=== PATIENT | female | born 1945 | race Caucasian/White ===

== ENCOUNTER 2022-07-31 09:18 | Outpatient (CLI) | payer MEDICARE, OTHER, SELFPAY ==
--- NOTE | 2022-08-07 17:22 | WPDSLEEPSTUD ---
Sleep Study Date of Study: 07/31/22 Ordering Provider: Nolberto Roe MD Interpreting Physician: Kirsten Rasheed MD Sleep Study Type: CPAP Titration Height: 1.68 m Weight: 64.864 kg Body Mass Index: 23.1 Neck Circumference (inches): 12.5 [place]: 2 Reason for Sleep Study Obstructive sleep apnea * 05/27/2022 home sleep test with [employer] through Dr Roe's office showed AHI 21.4, supine AHI 3-.3, lowest desaturation 82%, presents for CPAP titration Sleep History Mary Valera is a 76 year-old female with history of obstructive sleep apnea on a home test, now presents for CPAP titration.? She is not sure if she awakens from sleep short of breath. She rarely awakens at night with heartburn, belching or cough.??She rarely snores. She occasionally snores loudly enough that others complain. She rarely has trouble sleeping when she has a cold. She never suddenly wakes up gasping for breath during the night. She never has breathing problems at night observed by others. She never sweats excessively at night. She occasionally notices her heart pounding or beating irregularly during the night. She rarely falls asleep during the day. She never falls asleep while driving. She does not have loss of muscle tone with strong emotion. She never feels paralyzed on waking or falling asleep. She rarely experiences vivid dreams upon waking or falling asleep. She never feels afraid of going to sleep. She never has nightmares. She occasionally recalls her dreams. She occasionally has thoughts racing through her mind. She rarely feels sad or depressed. She does not have anxiety or worry about things. She rarely notices parts of her body jerk. She occasionally kicks during the night. She occasionally feels crawling or aching feelings in her legs. She rarely feels leg pain at night. She never grinds her teeth or has morning jaw pain. She occasionally feels bothered by pain during the day and awakened by pain during the night. She frequently wakes up feeling stiff, occasionally sore and achy, rarely with pain in her neck, spine, or joints. ? ? Normal bedtime is around 10:30 p.m., some nights longer than others to fall asleep. She typically gets about 2-4 hours of sleep per night. Her wake up time is 7:00 a.m.. She typically wakes up around many times at night. she does not take naps. She feels better in the afternoon compared to other times of day Habits:??Tobacco: never Caffeine: none Alcohol: none Recreational substances: never PMF Past Medical History Medical History (Updated 08/07/22 @ 17:50 by Kirsten Rasheed MD) Atrial fibrillation Hypertension Obstructive sleep apnea Surgical History Surgical History (Updated 08/07/22 @ 17:50 by Kirsten Rasheed MD) History of intestinal surgery Social History Social History (Updated 08/07/22 @ 17:46 by Kirsten Rasheed MD) Smoking status: Never smoker Alcohol intake: never Substance use: never Medications Medications: Metoprolol tartrate 50 mg b.i.d. Dofetilide 500 mg BID hydralazine 50 mg b.i.d. Xarelto 20 mg daily valsartan 40 mg daily B12 a 1000 mg daily vitamin B1 100 mg daily sertraline 25 mg daily Sleep Procedure This test was performed using the [employer] multiple channel system including EOG, EEG, submental EMG, EKG, nasal and oral airflow using thermistors and nasal pressure sensors, chest and abdominal belts for body position data, and pulse oximetry. Video monitoring was also performed. The study was scored using CMS guidelines. The patient was started on CPAP using a small ResMed AirFit P 30 I mask with humidity. Pressures attempted included CPAP 4 cm, 5 cm, 6 cm and 7 cm. At 7 cm, the patient spent 180.5 minutes in bed, 7 minutes awake, 143.5 minutes in non-REM and 29.5 minutes in REM. Sleep efficiency was 95.8%. The AHI is 0. The lowest saturation is 92%. REM occurred in the right lateral position. There was no supine
[2022-08-07 19:47] VITALS: BMI 23.1
== END 2022-08-01 07:08 | disposition home or self-care (01) ==
LOC: ANHCSM 09:19
PROVIDERS: PCP Internal Medicine; Visit Provider Internal Medicine Cardiovascular Disease
DX: G47.33 Obstructive sleep apnea (adult) (pediatric) (principal)
CPT/HCPCS: 95811

== ENCOUNTER 2023-10-10 09:19 | Outpatient (CLI) | payer MEDICARE, OTHER, SELFPAY ==
--- NOTE | ~2023-10-10 | US_ITS ---
US renal BI DATE: 10/10/2023 09:58 INDICATION: Abnormal laboratory values TECHNIQUE: Real-time and color flow imaging of the kidneys and urinary bladder COMPARISON: 06/12/2017 CT abdomen pelvis FINDINGS: Right kidney measures 10.4 x 6.0 x 5.8 cm. Left kidney measures 10.7 x 5.1 x 4.7 cm. Multiple sonolucent areas are noted in both the central renal hilar areas. There were multiple bilate ral parapelvic renal cysts on 06/12/2017 CT examination, which may account for these sonolucencies. Hyd ronephrosis is difficult to definitively exclude however. If there is concern for hydronephrosis, con swimmer CT examination with IV contrast material. The urinary bladder is unremarkable. Bilateral ureteral jets were demonstrated. IMPRESSION: Bilateral parapelvic renal cysts; it would be difficult to exclude hydronephrosis as a re sult. Consider CT examination with IV contrast material if clinically appropriate and if patient's la b values are not significantly elevated for intravenous contrast administration. Reviewed, dictated and finalized at Location [facility]. Reviewed, dictated and finalized at location J. IMPRESSION: Bilateral parapelvic renal cysts; it would be difficult to exclude hydronephrosis as a result. Consider CT examination with IV contrast material i f clinically appropriate and if patient's lab values are not significantly elev ated for intravenous contrast administration.
== END 2023-10-10 09:20 | disposition home or self-care (01) ==
LOC: ANHIMG 09:25
PROVIDERS: PCP Internal Medicine; Visit Provider Internal Medicine
DX: R89.9 Unspecified abnormal finding in specimens from other organs, systems and tissues (principal); N28.1 Cyst of kidney, acquired
CPT/HCPCS: 76775

== ENCOUNTER 2023-11-23 11:25 | Outpatient (CLI) | payer MEDICARE, OTHER, SELFPAY ==
[2023-11-23 12:06] LABS: Hematocrit 49.2 % (37.0-47.0); Hemoglobin 15.2 g/dL (12.0-15.0); Mean Corpuscular HGB Conc 30.9 g/dl (32-36); Mean Corpuscular Hemoglobin 27.8 pg (26-34); Mean Corpuscular Volume 90.1 fl (80-100); Mean Platelet Volume 9.4 fl (7.4-10.4); Platelet Count Result 185 k/mm3 (150-375); Red Blood Count 5.46 M/mm3 (4.2-5.4); Red Cell Distribution Width 14.7 % (11.5-14.5); White Blood Count 4.7 K/mm3 (4.5-10.0)
[2023-11-23 12:18] LABS: Albumin Level 4.2 g/dL (3.5-5.1); Anion Gap 10 mmol/L (4-12); Blood Urea Nitrogen 33 mg/dL (7-17); Calcium 9.3 mg/dL (8.4-10.2); Carbon Dioxide 33 mmol/L (22-30); Chloride 97 mmol/L (98-107); Creatine Kinase 42 U/L (30-135); Estimated Glomerular Filt Rate 40; Glucose 99 mg/dL (65-110); Phosphorus 4.3 mg/dL (2.5-4.5); Potassium 4.3 mmol/L (3.4-5.0); Sodium 140 mmol/L (137-145)
[2023-11-23 12:23] LABS: Complement C3 118 mg/dL (88-165)
[2023-11-23 12:34] LABS: Parathyroid Intact 26.6 pg/mL (14.5-75.2)
[2023-11-23 12:43] LABS: Add Urine Microscopic? YES; Appearance Urine Clear (Clear); Color Urine Yellow (Yellow); Glucose Urine UA Negative (Negative); Nitrate Urine Negative (Negative); Urobilinogen Urine 0.2 mg/dL (<2.0)
[2023-11-23 12:45] LABS: Bilirubin Urine 1+ (Negative); Blood Urine Negative (Negative); Ketones Urine Trace mg/dL (Negative); Leukocyte Esterase Ur Negative LEU/UL (Negative); Protein Urine 1+ mg/dL (Negative); RBC Urine 0-2 /hpf (0-2); Squamous Epithelial Cell Urine Few /hpf (Few); WBC Urine 0-5 /hpf (0-3); pH Urine 5.5 (5.0-9.0)
[2023-11-23 12:48] LABS: Erythrocyte Sedimentation Rate 2 mm/hr (0-20)
[2023-11-23 13:22] LABS: Creatinine Urine 277.2 mg/dL; Total Protein Urine Random 7 mg/dL; Ur Ttl Prot Creatinine Ratio 0.03 mg/mg (0-0.20)
[2023-11-25 13:39] LABS: Kappa\\Lambda Light Chains 1.41 (0.26-1.65); Lambda Light Chain 23.8 mg/L (5.7-26.3)
[2023-11-25 14:28] LABS: Complement Total CH50 >60 U/mL (31-60)
[2023-11-29 04:24] LABS: Renin 0.09 ng/mL/h (0.25-5.82)
== END 2023-11-23 11:26 | disposition home or self-care (01) ==
PROVIDERS: PCP Internal Medicine; Visit Provider Internal Medicine Nephrology
DX: R94.4 Abnormal results of kidney function studies (principal)
CPT/HCPCS: 36415; 80069; 81001; 82088; 82550; 82570; 83883; 83970; 84156; 84244; 85027; 85652; 86038; 86039; 86160; 86162

== ENCOUNTER 2023-11-27 09:46 | Outpatient (CLI) | payer MEDICARE, OTHER, SELFPAY ==
[2023-11-27 11:17] LABS: Total Volume 24 Hour Urine 850 ml
[2023-11-27 11:42] LABS: Sodium 24 Hour Urine 115 mmol/day (40-220); Sodium Urine Random 136 meq/L
[2023-11-30 18:49] LABS: Creat 24 Hr 1.01 g/24 h (0.50-2.15); Pro/Creat Ratio 134 mg/g creat (<150); Pro/Creat Ratio mg/mg 0.134 (<0.150); Protein,total, 24 Hr Ur 136 mg/24 h (<150)
[2023-12-03 15:24] LABS: Albumin 34 %
== END 2023-11-27 09:47 | disposition home or self-care (01) ==
PROVIDERS: PCP Internal Medicine; Visit Provider Internal Medicine Nephrology
DX: R94.4 Abnormal results of kidney function studies (principal)
CPT/HCPCS: 81050; 82530; 84300; 86335

== ENCOUNTER 2024-05-18 14:18 | Outpatient (CLI) | payer MEDICARE, OTHER, SELFPAY ==
[2024-05-18 14:38] LABS: Hematocrit 45.3 % (37.0-47.0); Hemoglobin 14.4 g/dL (12.0-15.0); Mean Corpuscular HGB Conc 31.8 g/dl (32-36); Mean Corpuscular Hemoglobin 28.9 pg (26-34); Mean Corpuscular Volume 90.8 fl (80-100); Mean Platelet Volume 8.6 fl (7.4-10.4); Platelet Count Result 177 k/mm3 (150-375); Red Blood Count 4.99 M/mm3 (4.2-5.4); Red Cell Distribution Width 15.8 % (11.5-14.5)
[2024-05-18 14:50] LABS: Albumin Level 4.4 g/dL (3.5-5.1); Anion Gap 10 mmol/L (4-12); Blood Urea Nitrogen 28 mg/dL (7-17); Calcium 9.4 mg/dL (8.4-10.2); Carbon Dioxide 28 mmol/L (22-30); Chloride 101 mmol/L (98-107); Estimated Glomerular Filt Rate 44; Glucose 91 mg/dL (65-110); Phosphorus 3.8 mg/dL (2.5-4.5); Potassium 4.2 mmol/L (3.4-5.0); Sodium 139 mmol/L (137-145)
[2024-05-18 15:02] LABS: Parathyroid Intact 38.6 pg/mL (14.5-75.2)
--- OUTSIDE RECORDS SUMMARY | 2024-05-18 16:15 | XMS_ITS | Encounter Summary ---
Author Organization [facility] Address [address] [address] Care Team Providers Care Paint Roller Assembler Name Role Phone Omi Prieto MD Primary Care Provider [phone] Encounter Details Date Type Department Care Team (Late st Contact Info) Description 04/23/2023 Lab Requisition [facility] - DermPath Lab [address] [place] [id number] Ellie Guzman DO [address] [facility] [address] [place] [address] Social History Tobacco Use Types Packs/Day Years Used Date Smoking Tobacco: Never Assessed Sex and Gender Information Value Date Recorded Sex Assigned at Not on file Gender Identity Not on file Sexual Orientation Not on file documented as of this encounter Plan of Treatment Not on file documented as of this encounter Procedures Procedure Name Priority Date/Time Associated Diagnosis Comments DERMATOPATHOLOGY Routine 04/23/2023 9:18 AM CERTIFIED TOWER CLIMBER documented in this encounter Results * DERMATOPATHOLOGY (04/23/2023 9:18 AM CERTIFIED TOWER CLIMBER) Case Report Dermatopathology Report Case: [id number] Authorizing Provider: Ellie Guzman DO Collected: 04/23/2023 09:18 AM Ordering Location: [facility] DermPath Lab Received: 04/24/2023 06:41 AM Pathologist: Nicol Pereira MD Specimens: A) - Skin, left chest B) - Skin, left ant LE 4:28 PM CERTIFIED TOWER CLIMBER DERMATOPATHOLOGY LABORATORY Final Diagnosis Specimen A. SKIN, left chest: LICHEN PLANUS-LIKE KERATOSIS (BENIGN LICHENOID KERATOSIS) (L82.1) (see microscopic description) Specimen B. SKIN, left ant LE: SPONGIOTIC DERMATITIS WITH EOSINOPHILS (L30.8) (see microscopic description and comment) 4 4:[address] [facility] DERMATOPATHOLOGY LABORATORY Clinical History A-B: r/o [facility] 4 4:[address] [facility] DERMATOPATHOLOGY LABORATORY Gross Description Specimen A: Received is one formalin filled container labeled with the patient's name and designated left chest. The specimen consists of a shave biopsy measuring 6x5x1 mm. Jar 0. Specimen B: Received is one formalin filled container labeled with the patient's name and designated left ant LE. The specimen consists of a shave biopsy measuring 6x4x1 mm. Jar 0. 4 4:[address] [facility] DERMATOPATHOLOGY LABORATORY Microscopic Description Specimen A. SKIN, left chest: The epidermis is mildly acanthotic. There is a lichenoid infiltrate with vacuolar changes of basilar keratinocytes and scattered necrotic keratinocytes. Mib-1 stain highlights proliferating keratinocytes confined to the basilar epidermis. Additional deeper sections were obtained and reviewed. Specimen B. SKIN, left ant LE: There is focal parakeratosis and spongiosis. In the dermis there is a mainly superficial perivascular lymphohistiocytic inflammatory infiltrate with eosinophils. COMMENT: The histological differential diagnosis includes a contact dermatitis, an eczematous drug eruption, and less likely the urticarial phase of bullous pemphigoid. 4 4:[address] [facility] DERMATOPATHOLOGY LABORATORY Disclaimer An external and internal positive and negative controls are appropriate for the histochemical, immunohistochemical and immunofluorescence stain(s) in this case (if any), except where stated explicitly. The performance characteristics of the stain(s) cited in this report were developed and its performance characteristic determined by the Dermatopathology Laboratory at [facility], directed by Dr. Cole Rascon. These tests need not be, and therefore are not, approved by the [place] Food and Drug Administration. The tests are used for clinical purposes. Billing Codes Specimen Charges Stain Charges 72181 61782 1 1 75362 1 4 4:[address] [facility] DERMATOPATHOLOGY LABORATORY Embedded Images 4 4:[address] [facility] DERMATOPATHOLOGY LABORATORY Pathology/Cytology TISSUE SPECIMEN FROM SKIN / Unknown 04/23/2023 9:18 AM CERTIFIED TOWER CLIMBER 04/24/2023 6:41 AM CERTIFIED TOWER CLIMBER Miscellaneous samples (specimen) TISSUE SPECIMEN FROM SKIN / Unknown 04/23/2023 9:18 AM CERTIFIED TOWER CLIMBER 04/24/2023 6:41 AM CERTIFIED TOWER CLIMBER Ellie Guzman DO LAB - PATHOLOGY/C YTOLOGY ORDERABLES DERMATOPATHOLOGY LABORATORY [facility] - Department of Dermatology [facility] Medicine [address] [place] [address], [address] [phone] documented in this encounter Visit Diagnoses Not on filedocumented in this encounter Care Teams Paint Roller Assembler Relationship Specialty Start Date End Date Omi Prieto MD PCP - General 12/16/18 documented as of this encounter
--- OUTSIDE RECORDS SUMMARY | 2024-05-18 16:15 | XMS_ITS | Patient Health Summary ---
Author Organization [facility] Address [address] [place] [address] Care Team Providers Care Weigh And Charge Worker Name Role Phone Omi Prieto MD Primary Care Provider [phone] Note from [facility],non-owned Affiliates and Associated Physician Practices is amultiple site organization consisting of ambulatory clinics and hospital sitesin [place], [place], [place] and [place]. This disclosure is being madepursuant to the Care Everywhere program and may not contain all information available regarding this patient. Last updated 17.[facility] Social History Tobacco Use Types Packs/Day Years Used Date Smoking Tobacco: Never Assessed Sex and Gender Information Value Date Recorded Sex Assigned at Not on file Gender Identity Not on file Sexual Orientation Not on file Procedures * DERMATOPATHOLOGY(Performed 04/23/2023) * DERMATOPATHOLOGY(Performed 09/24/2022) * DERMATOPATHOLOGY(Performed 01/09/2022) * DERMATOPATHOLOGY(Performed 05/09/2021) * DERMATOPATHOLOGY(Performed 03/25/2021) * DERMATOPATHOLOGY(Performed 09/19/2020) * DERMATOPATHOLOGY(Performed 08/23/2019) * DERMATOPATHOLOGY(Performed 02/08/2019) * DERMATOPATHOLOGY(Performed 12/16/2018) Results * DERMATOPATHOLOGY (04/23/2023 9:18 AM DOPE SPRAYER) Only the most recent of9 resultswithin the time period is included. Case Report Dermatopathology Report Case: [id number] Authorizing Provider: Ellie Guzman DO Collected: 04/23/2023 09:18 AM Ordering Location: [facility] DermPath Lab Received: 04/24/2023 06:41 AM Pathologist: Nicol Pereira MD Specimens: A) - Skin, left chest B) - Skin, left ant LE 4 4:28 PM [facility] DERMATOPATHOLOGY LABORATORY Final Diagnosis Specimen A. SKIN, left chest: LICHEN PLANUS-LIKE KERATOSIS (BENIGN LICHENOID KERATOSIS) (L82.1) (see microscopic description) Specimen B. SKIN, left ant LE: SPONGIOTIC DERMATITIS WITH EOSINOPHILS (L30.8) (see microscopic description and comment) 4 4:28 PM [facility] DERMATOPATHOLOGY LABORATORY Clinical History A-B: r/o [facility] 4 4:28 PM [facility] DERMATOPATHOLOGY LABORATORY Gross Description Specimen A: Received [...] 6x4x1 mm. Jar 0. 4 4:28 PM [facility] DERMATOPATHOLOGY LABORATORY Microscopic Description Specimen A. SKIN, [...] phase of bullous pemphigoid. 4 4:28 PM [facility] DERMATOPATHOLOGY LABORATORY Disclaimer An external and internal positive and negative controls are appropriate for the histochemical, immunohistochemical and immunofluorescence stain(s) in this case (if any), except where stated explicitly. The performance characteristics of the stain(s) cited in this report were developed and its performance characteristic determined by the Dermatopathology Laboratory at [facility], directed by Dr. Cole Rascon. These tests need not be, and therefore are not, approved by the [place] Food and Drug Administration. The tests are used for clinical purposes. Billing Codes Specimen Charges Stain Charges 95779 06926 1 1 40824 1 4 4:28 PM [facility] DERMATOPATHOLOGY LABORATORY Embedded Images 4 4:28 PM [facility] DERMATOPATHOLOGY LABORATORY Pathology/Cytology TISSUE SPECIMEN FROM SKIN / Unknown 04/23/2023 9:18 AM DOPE SPRAYER 04/24/2023 6:41 AM DOPE SPRAYER Miscellaneous samples (specimen) TISSUE SPECIMEN FROM SKIN / Unknown 04/23/2023 9:18 AM DOPE SPRAYER 04/24/2023 6:41 AM DOPE SPRAYER Ellie Guzman DO LAB - PATHOLOGY/C YTOLOGY ORDERABLES DERMATOPATHOLOGY LABORATORY [facility] - Department of Dermatology [facility] Specialized Medicine [address] [place] [address], [address] [phone] Care Teams Weigh And Charge Worker Relationship Specialty Start Date End Date Omi Prieto MD PCP - General 12/16/18
--- OUTSIDE RECORDS SUMMARY | 2024-05-18 16:15 | XMS_ITS | Continuity of Care Document ---
Author Organization [facility] Address [address] [place] [address] Phone Care Team Providers Care Roller Machine Operator Name Role Phone Mantilla OD, Duane Unavailable Unavailable Advance Directives Directive Yes / No Effective Date File Name No Information Encounters Encounter Description Practice Location Reason(s) For Visit Diagnoses Date Provider Providers Copied on Encounter [facility], [address], [place], [place], [id number], [place] tel:[phone] [facility] [place] No Information 0-200 1 Mantilla OD Duane. [address] , [address], [place], [address], [place]. tel:[phone] Family History Family Member Type Diagnosis Age At Onset No Information Payers Payer name Insurance type Covered republican ID Authoriza tion(s) No Information Social History Type Description Quantity Date Captured Comments Sex Female Smoking Status No Information Chief Complaint And Reason For Visit No Information Reason For Referral Reason For Referral No Information History Of Present Illness Encounter Date Complaint History Of Prese nt Illness No Information Functional Status Date Functional Assessmen t No Information Instructions Date Instruction Additional Infor mation No Information Assessments Type Assessment Date No Information Patient Care Teams Name Effective Dates (start - stop) Status Members No Information
--- OUTSIDE RECORDS SUMMARY | 2024-05-18 16:15 | XMS_ITS | Clinical Summary ---
Author Organization [facility] Address [address] [place] [address] Care Team Providers Care Log Getter Name Role Phone Omi Prieto MD Primary Care Provider [phone] Source Comments [facility],non-owned Affiliates and Associated Physician Practices is amultiple site organization consisting of ambulatory clinics and hospital sitesin [place] and [place]. This disclosure is being madepursuant to the Care Everywhere program and may not contain all information available regarding this patient. Last updated 17.[facility] [place] Social History Tobacco Use Types Packs/Day Years Used Date Smoking Tobacco: Never Assessed Sex and Gender Information Value Date Recorded Sex Assigned at Not on file Gender Identity Not on file Sexual Orientation Not on file Plan of Treatment Health Maintenance Due Date Last Done Comments BONE DENSITY TESTING 1945 MEDICARE AWV 12 MONTHS 1945 HEPATITIS C SCREENING 09/13/1963 DTAP/TDAP/TD VACCINES (1 - Tdap) 1964 PNEUMOCOCCAL VACCINE 50+ (1 of 1 - PCV) 09/18/1995 ZOSTER VACCINE (1 of 2) 09/18/1995 Respiratory Syncytial Virus (RSV) Vaccine Pt: or over 60 yrs (1 - 1-dose 75+ series) 2020 COVID-19 VACCINE ( - 2023-2 5 season) 2023 INFLUENZA VACCINE (#1) 2023 DEPRESSION SCREENING 03/09/2024 HEPATITIS B VACCINE Aged Out No longe r eligible based on patient's age to complete this topic HIB VACCINE Aged Out No longer eligi ble based on patient's age to complete this topic HPV VACCINE Aged Out No longer eligi ble based on patient's age to complete this topic MENINGOCOCCAL (Group B) VACC INE SHARED DECISION-MAKING Aged Out No longer eligibl e based on patient's age to complete this topic MENINGOCOCCAL GROUPS A/C/Y/W VACCINE Aged Out No longer eligible b ased on patient's age to complete this topic Care Teams Log Getter Relationship Specialty Start Date End Date Omi Prieto MD PCP - General 12/16/18
--- OUTSIDE RECORDS SUMMARY | 2024-05-18 16:15 | XMS_ITS | Referral Summary ---
Author Organization [facility] Address [address] [place] [address] Care Team Providers Care Type Mapper Name Role Phone Omi Prieto MD Primary Care Provider [phone] Source Comments [facility],non-owned Affiliates and Associated Physician Practices is amultiple site organization consisting of ambulatory clinics and hospital sitesin [place], [place], [place] and [place]. This disclosure is being madepursuant to the Care Everywhere program and may not contain all information available regarding this patient. Last updated 17.[facility] Social History Tobacco Use Types Packs/Day Years Used Date Smoking Tobacco: Never Assessed Sex and Gender Information Value Date Recorded Sex Assigned at Not on file Gender Identity Not on file Sexual Orientation Not on file Plan of Treatment Not on file Care Teams Type Mapper Relationship Specialty Start Date End Date Omi Prieto MD PCP - General 12/16/18
--- OUTSIDE RECORDS SUMMARY | 2024-05-18 16:16 | XMS_ITS | Encounter Summary ---
Author Organization [facility] Address [address] [place] [address] Care Team Providers Care Bead Maker Name Role Phone Omi Prieto MD Primary Care Provider [phone] Encounter Details Date Type Department Care Team (Late st Contact Info) Description 12/17/2018 Lab Requisition [facility] DermPath Lab [address] [place] [address] Ellie Guzman DO [address] [facility] [address] [place] [address] Social History Tobacco Use Types Packs/Day Years Used Date Smoking Tobacco: Never Assessed Sex and Gender Information Value Date Recorded Sex Assigned at Not on file Gender Identity Not on file Sexual Orientation Not on file documented as of this encounter Plan of Treatment Not on file documented as of this encounter Procedures Procedure Name Priority Date/Time Associated Diagnosis Comments DERMATOPATHOLOGY Routine 12/16/2018 12:0 0 AM CDT documented in this encounter Results * DERMATOPATHOLOGY (12/16/2018 12:00 AM CDT) Case Report Dermatopathology Report Case: [id number] Authorizing Provider: Ellie Guzman DO Collected: 12/16/2018 12:00 AM Ordering Location: [facility] DermPath Lab Received: 12/17/2018 12:40 PM Pathologist: Nicol Pereira MD Specimens: A) - Skin, right forearm B) - Skin, left back C) - Skin, right lateral thigh 9 9:35 AM CDT DERMATOPATHOLOGY LABORATORY Final Diagnosis Specimen A. 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 SKIN, left back: JUNCTIONAL MELANOCYTIC PROLIFERATION; PRESENT AT MARGIN (D48.5) (see microscopic description and comment) Specimen C. 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 C: ISK R/O NMSC. 9 9:35 AM [facility] DERMATOPATHOLOGY LABORATORY Gross Description Specimen A: Received is one formalin filled container labeled with the patient's name and designated right forearm. The specimen consists of a shave biopsy measuring [id number]. Jar 0. Specimen B: Received is one formalin filled container labeled with the patient's name and designated left back. The specimen consists of a shave biopsy measuring [id number]. Jar 0. Specimen C: Received is one formalin filled container labeled with the patient's name and designated right lateral thigh. The specimen consists of a shave biopsy measuring [id number]. Jar 0. 9:35 AM [facility] DERMATOPATHOLOGY LABORATORY Microscopic Description Specimen A. SKIN, right forearm: This is a junctional nevus. There is melanin pigment in the stratum corneum. There is architectural disorder characterized by a lentiginous proliferation of melanocytes between irregular nests of cells along the dermal-epidermal junction, highlighted by MART-1/Melan-A immunohistochemical staining. There is underlying fibroplasia of the papillary dermis. (Junctional Murali's Nevus or Junctional Dysplastic Nevus) Specimen B. SKIN, left back: Sections show a junctional melanocytic proliferation. There is a lentiginous proliferation of melanocytes between irregular nests. Scattered melanocytes show evidence of upward migration within the epidermis. The melanocytes are highlighted by MART-1/Melan-A. This lesion is present at the margin of the specimen. COMMENT: Because this lesion is present at the margin of the specimen, symmetry and circumscription can not be evaluated. Therefore, a complete but conservative re-excision is recommended to evaluate this lesion in its entirety. Specimen C. SKIN, right lateral thigh: The epidermis shows parakeratosis, full thickness disorderly maturation of keratinocytes, mitoses at different levels, and dyskeratotic cells. 9:35 AM CDT DERMATOPATHOLOGY LABORATORY Disclaimer An external and internal positive and negative controls are appropriate for the histochemical, immunohistochemical and immunofluorescence stain(s) in this case (if any), except where stated explicitly. The performance characteristics of the stain(s) cited in this report were developed and its performance characteristic determined by the Dermatopathology Laboratory at [facility], directed by Dr. Cole Rascon. These tests need not be, and therefore are not, approved by the [place] Food and Drug Administration. The tests are used for clinical purposes. Billing Codes Specimen Charges Stain Charges 43566 69178 93350 1 1 1 15739 18666 1 1 9:35 AM CDT DERMATOPATHOLOGY LABORATORY Embedded Images 9:35 AM CDT DERMATOPATHOLOGY LABORATORY Pathology/Cytology TISSUE SPECIMEN FROM SKIN / Unknown 12/16/2018 12/17/2018 12:40 PM CDT Miscellaneous samples (specimen) TISSUE SPECIMEN FROM SKIN / Unknown 12/16/2018 12/17/2018 12:40 PM CDT Miscellaneous samples (specimen) TISSUE SPECIMEN FROM SKIN / Unknown 12/16/2018 12/17/2018 12:40 PM CDT Ellie Guzman DO LAB - PATHOLOGY/C YTOLOGY ORDERABLES DERMATOPATHOLOGY LABORATORY [facility] - Department of Dermatology [facility] 5th Floor Lab B [address] [phone] documented in this encounter Visit Diagnoses Not on filedocumented in this encounter Care Teams Bead Maker Relationship Specialty Start Date End Date Omi Prieto MD PCP - General 12/16/18 documented as of this encounter
--- OUTSIDE RECORDS SUMMARY | 2024-05-18 16:16 | XMS_ITS | Clinical Summary ---
Author Organization [facility] Address [address] [place] [address] Care Team Providers Care Corrugator Operator Helper Name Role Phone Fred Gavin MD Primary Care Provider [phone] Allergies Active Allergy Reactions Criticality Noted Date Comments Penicillins Rash Medium 05/04/2019 Sulfa (Sulfonamide Antibiotics) Nausea & Vomiting Low 05/04/2019 Medications rivaroxaban (XARELTO) 20 mg tabletIndication s:VTE Prophylaxis Take 1 tablet (20 mg total) by mouth daily after lunch Active hydrALAZINE (APRESOLINE) 50 mg tabletIndication s:hypertension Take 1 tablet (50 mg total) by mouth 2 (two) times a day Active magnesium oxide (MAG-OX) 400 mg (241.3 mg elemental magnesium) tabletIndication s:hypomagnesemia Take 1 tablet (400 mg total) by mouth daily Active valsartan (DIOVAN) 40 mg tablet Take 1 tablet (40 mg total) by mouth daily Active cyanocobalamin (Vitamin B-12) 1,000 mcg tabletIndication s:Prevention of Vitamin B12 Deficiency Take 1 tablet (1,000 mcg total) by mouth daily Active thiamine (VITAMIN B1) 100 mg tablet Take 1 tablet (100 mg total) by mouth daily Active cholecalciferol (Vitamin D3) 2000 unit capsule Take 1 capsule (2,000 Units total) by mouth daily Active cloNIDine (CATAPRES) 0.1 mg tablet Take 1 tablet (0.1 mg total) by mouth as directed One tablet by mouth for b/p greater than 170 Active amiodarone (PACERONE) 400 mg tablet Take 1 tablet (400 mg total) by mouth 2 (two) times a day [address] (PROTONIX) 40 mg EC tabletIndication s:Stress Ulcer Prophylaxis Take 1 tablet (40 mg total) by mouth 2 (two) times a day for 60 doses 60 tablet Active Active Problems Problem Noted Date Diagnosed Date Atrial fibrillation and flutter 05/12/2023 A-fib 03/27/2023 Surgical History Surgery Date Site/Laterality Comments LUMBAR PUNCTURE WO INJECTION , DIAGNOSTIC 05/05/2019 N/A HYSTERECTOMY SECTION COLON SURGERY X's 3 for blockages Medical History Medical History Date Comments Sleep apnea Atrial fibrillation (HCC) Family History Medical History Relation Name Comments Colon cancer Father Liver cancer Father COPD Mother Relation Name Status Comments Father Mother Social History Tobacco Use Types Packs/Day Years Used Date Smoking Tobacco: Never Passive Smoke Exposure: Past Smokeless Tobacco: Never Tobacco Cessation:Counseling Given: Not Answered AUDIT-C Answer Date Recorded Q1: How often do you have a drink containing alcohol? Never 05/12/2023 Q2: How many drinks containi ng alcohol do you have on a typical day when you are drinking? Patient does not drink Q3: How often do you have si x or more drinks on one occasion? Never 05/12/2023 Personal Safety Answer Date Recorded Have you ever been in or are you currently in a harmful physical or emotional relationship or is someone making you feel afraid or unsafe? Denies 05/12/2023 Comments Unknown Sex and Gender Information Value Date Recorded Sex Assigned at Not on file Legal Sex Female 7:15 PM RESISTOR WINDER Gender Identity Not on file Sexual Orientation Not on file Obstetrics History Last Filed Vital Signs Vital Sign Reading Time Taken Comments Blood Pressure 138/71 05/13/2023 7:56 AM RESISTOR WINDER Pulse 72 05/13/2023 7:56 AM RESISTOR WINDER Temperature 36.9 C (98.4 F) 05/13/2023 7:56 AM RESISTOR WINDER Respiratory Rate 16 05/13/2023 7:56 AM RESISTOR WINDER Oxygen Saturation 97% 05/13/2023 7:56 AM RESISTOR WINDER Inhaled Oxygen Concentration - - Weight 64.6 kg (142 lb 8 oz) 05/12/2023 10:32 AM RESISTOR WINDER Height 165.1 cm (5' 5 ) 05/12/2023 10:32 AM RESISTOR WINDER Body Mass Index 23.71 05/12/2023 10:32 AM RESISTOR WINDER Plan of Treatment Health Maintenance Due Date Last Done Comments Depression Screening 1945 Fall Risk Assessment 1945 Hepatitis C Screening 1945 DTaP/Tdap/Td Vaccine (1 - Tdap) 1956 Hepatitis B Screening 09/18/1963 Well Visit 65+ 2010 Zoster Vaccine (2 of 3) 07/11/2014 05/16/2014, 05/12 Influenza Vaccine (#1) 2023 , 12/09/2018, 12/07/2017, Additional history exists Osteoporosis Screening-Bone Density Scan 08/21/2024 08/21/2022 Pneumococcal vaccine 65+ Completed 06/20/2020, 12/08 Breast Cancer Screening-Mammogram Discontinued 021 Insurance [facility] [place] [place] [address] MEDICARE [employer] [place] [place]ICARE [employer] [place] [place] Advance Directives For more information, please contact: [phone] * Full Code (Latest Code Status on File) Date Activated Date Inactivated Comments 05/05/2019 1:17 PM 05/05/2019 6:23 PM Care Teams Corrugator Operator Helper Relationship Specialty Start Date End Date Fred Gavin MD PCP - General Internal Medicine 03/25/22
--- OUTSIDE RECORDS SUMMARY | 2024-05-18 16:16 | XMS_ITS | Encounter Summary ---
Author Organization [facility] Address [address] [facility] [place] [address] Care Team Providers Care Asp Web Developer Name Role Phone Omi Prieto MD Primary Care Provider [phone] Encounter Details Date Type Department Care Team (Late st Contact Info) Description 08/24/2019 Lab Requisition [facility] DermPath Lab [address] [facility] [place] [address] Ellie Guzman DO [address] [facility] 3 [place] [address] Social History Tobacco Use Types Packs/Day Years Used Date Smoking Tobacco: Never Assessed Sex and Gender Information Value Date Recorded Sex Assigned at Not on file Gender Identity Not on file Sexual Orientation Not on file documented as of this encounter Plan of Treatment Not on file documented as of this encounter Procedures Procedure Name Priority Date/Time Associated Diagnosis Comments DERMATOPATHOLOGY Routine 08/23/2019 12:0 0 AM CDT documented in this encounter Results * DERMATOPATHOLOGY (08/23/2019 12:00 AM CDT) Case Report Dermatopathology Report Case: [id number] Authorizing Provider: Ellie Guzman DO Collected: 08/23/2019 12:00 AM Ordering Location: [facility] DermPath Lab Received: 08/24/2019 07:35 AM Pathologist: Vane Rascon MD Specimen: Skin, right post neck 0 11:51 AM CDT DERMATOPATHOLOGY LABORATORY Final Diagnosis Specimen A. SKIN, right post neck: SEBORRHEIC KERATOSIS, IRRITATED AND INFLAMED (L82.0) 0 11:51 AM CDT DERMATOPATHOLOGY LABORATORY Clinical History Irrit SK R/O atypia 0 11:51 AM CDT DERMATOPATHOLOGY LABORATORY Gross Description Specimen A: Received is one formalin filled container labeled with the patient's name and designated right post neck. The specimen consists of a shave biopsy measuring 7x7x3 mm. Jar 0. 0 11:51 AM CDT DERMATOPATHOLOGY LABORATORY Microscopic Description Specimen A. SKIN, right post neck: Sections show acanthosis, papillomatosis, hyperkeratosis, and squamous eddies. There is a lymphohistiocytic infiltrate within the papillary dermis. 0 11:51 AM CDT DERMATOPATHOLOGY LABORATORY Disclaimer An external and internal positive and negative controls are appropriate for the histochemical, immunohistochemical and immunofluorescence stain(s) in this case (if any), except where stated explicitly. The performance characteristics of the stain(s) cited in this report were developed and its performance characteristic determined by the Dermatopathology Laboratory at [facility], directed by Dr. Cole Rascon. These tests need not be, and therefore are not, approved by the [place] Food and Drug Administration. The tests are used for clinical purposes. Billing Codes Specimen Charges Stain Charges 39978 1 0 11:51 AM CDT DERMATOPATHOLOGY LABORATORY Embedded Images 0 11:51 AM CDT DERMATOPATHOLOGY LABORATORY Pathology/Cytolog y TISSUE SPECIMEN FROM SKIN / Unknown 08/23/2019 08/24/2019 7:35 AM CDT Ellie Guzman DO LAB - PATHOLOGY/C YTOLOGY ORDERABLES DERMATOPATHOLOGY LABORATORY [facility] - Department of Dermatology [facility]/[address] [phone] documented in this encounter Visit Diagnoses Not on filedocumented in this encounter Care Teams Asp Web Developer Relationship Specialty Start Date End Date Omi Prieto MD PCP - General 12/16/18 documented as of this encounter
--- OUTSIDE RECORDS SUMMARY | 2024-05-18 16:16 | XMS_ITS | Referral Summary ---
Author Organization [facility] Address [address] [place] [address] Care Team Providers Care Purchasing Internship Name Role Phone Fred Gavin MD Primary Care Provider [phone] Allergies Active Allergy Reactions Criticality Noted Date [...] Atrial fibrillation and flutter 05/12/2023 A-fib 03/27/2023 Social History Tobacco Use Types Packs/Day Years [...] on file Legal Sex Female 7:15 PM SHIFT SUPERINTENDENT Gender Identity Not on file Sexual Orientation Not on file Last Filed Vital Signs Vital Sign Reading Time Taken Comments Blood Pressure 138/71 05/13/2023 7:56 AM SHIFT SUPERINTENDENT Pulse 72 05/13/2023 7:56 AM SHIFT SUPERINTENDENT Temperature 36.9 C (98.4 F) 05/13/2023 7:56 AM SHIFT SUPERINTENDENT Respiratory Rate 16 05/13/2023 7:56 AM SHIFT SUPERINTENDENT Oxygen Saturation 97% 05/13/2023 7:56 AM SHIFT SUPERINTENDENT Inhaled Oxygen Concentration - - Weight 64.6 kg (142 lb 8 oz) 05/12/2023 10:32 AM SHIFT SUPERINTENDENT Height 165.1 cm (5' 5 ) 05/12/2023 10:32 AM SHIFT SUPERINTENDENT Body Mass Index 23.71 05/12/2023 10:32 AM SHIFT SUPERINTENDENT Plan of Treatment Not on file Insurance MEDICARE [employer] [place] MEDICARE [employer] [place] MEDICARE [employer] [facility] Advance Directives For more information, please contact: [phone] * Full Code (Latest Code Status on File) Date Activated Date Inactivated Comments 05/05/2019 1:17 PM 05/05/2019 6:23 PM Care Teams Purchasing Internship Relationship Specialty Start Date End Date Fred Gavin MD PCP - General Internal Medicine 03/25/22
--- OUTSIDE RECORDS SUMMARY | 2024-05-18 16:16 | XMS_ITS | Encounter Summary ---
Author Organization [facility] Address [address] [facility] [place] [address] Care Team Providers Care Cap And Stud Machine Operator Name Role Phone Omi Prieto MD Primary Care Provider [phone] Encounter Details Date Type Department Care Team (Late st Contact Info) Description 02/09/2019 Lab Requisition [facility] DermPath Lab [address] [facility], [place] [address] Ellie Guzman DO [address] [facility] 3 [place] [address] Social History Tobacco Use Types Packs/Day Years Used Date Smoking Tobacco: Never Assessed Sex and Gender Information Value Date Recorded Sex Assigned at Not on file Gender Identity Not on file Sexual Orientation Not on file documented as of this encounter Plan of Treatment Not on file documented as of this encounter Procedures Procedure Name Priority Date/Time Associated Diagnosis Comments DERMATOPATHOLOGY Routine 02/08/2019 12:0 0 AM HOUSE ADMIN documented in this encounter Results * DERMATOPATHOLOGY (02/08/2019 12:00 AM HOUSE ADMIN) Case Report Dermatopathology Report Case: [id number] Authorizing Provider: Ellie Guzman DO Collected: 02/08/2019 12:00 AM Ordering Location: [facility] DermPath Lab Received: 02/09/2019 08:22 AM Pathologist: Vane Rascon MD Specimen: Skin, left back 9 3:03 PM HOUSE ADMIN DERMATOPATHOLOGY LABORATORY Final Diagnosis Specimen A. SKIN, left back: DERMAL SCAR RESIDUAL MELANOCYTIC PROLIFERATION NOT IDENTIFIED (L90.5) 9 3:03 PM HOUSE ADMIN DERMATOPATHOLOGY LABORATORY Clinical History R/O junctional melanocytic proliferation, bx proven. Previous Bx: [id number]. 3:03 PM [facility] DERMATOPATHOLOGY LABORATORY Gross Description Specimen A: Received is one formalin filled container labeled with the patient's name and designated left back. The specimen consists of an ellipse measuring [id number] and is oriented with the notch at the 12 o'clock position, not labeled on the requisition. The epidermal surface consists of a centrally located 6x5mm previous biopsy site. The 12 to 6 o'clock margin is inked green. The 6 o'clock to 12 o'clock margin is inked black. The 12 o'clock tip is submitted in cassette 1. The 6 o'clock tip is submitted in cassette 2. The remainder of the ellipse is serially sectioned and submitted in cassettes 3-4. Jar 0. 3:03 PM [facility] DERMATOPATHOLOGY LABORATORY Microscopic Description Specimen A. SKIN, left back: There are fibroblasts and collagen bundles oriented parallel to the skin surface. There are elongated blood vessels, some of which are oriented perpendicular to the skin surface. No residual melanocytic proliferation is identified. 3:03 PM [facility] DERMATOPATHOLOGY LABORATORY Disclaimer An external and internal positive and negative controls are appropriate for the histochemical, immunohistochemical and immunofluorescence stain(s) in this case (if any), except where stated explicitly. The performance characteristics of the stain(s) cited in this report were developed and its performance characteristic determined by the Dermatopathology Laboratory at [facility], directed by Dr. Cole Rascon. These tests need not be, and therefore are not, approved by the [place] Food and Drug Administration. The tests are used for clinical purposes. Billing Codes Specimen Charges Stain Charges 12766 1 9 3:03 PM [facility] DERMATOPATHOLOGY LABORATORY Embedded Images 3:03 PM [facility] DERMATOPATHOLOGY LABORATORY Pathology/Cytolog y TISSUE SPECIMEN FROM SKIN / Unknown 02/08/2019 02/09/2019 8:22 AM [facility] Ellie Guzman DO LAB - PATHOLOGY/C YTOLOGY ORDERABLES DERMATOPATHOLOGY LABORATORY [facility] - Department of Dermatology [facility], 5th Floor Lab B [address] [phone] documented in this encounter Visit Diagnoses Not on filedocumented in this encounter Care Teams Cap And Stud Machine Operator Relationship Specialty Start Date End Date Omi Prieto MD PCP - General 12/16/18 documented as of this encounter
--- OUTSIDE RECORDS SUMMARY | 2024-05-18 16:16 | XMS_ITS | CONTINUITY OF CARE DOCUMENT ---
Author Name srinivas espino Address Unknown Organization [facility] Address [address] [place] [address] Phone [phone] Care Team Providers Care Delivery Rep Name Role Phone Bhupinder YAÑEZ, Nolberto Unavailable CHEN MAHONEY MD Unavailable [phone] CHEN MAHONEY MD Unavailable PROBLEMS Condition Status Date Provider Notes SIMON active Nolberto Roe MD Hypertension active ? Nolberto Roe MD Afib - s/p CV in SR active Nolberto Zuniga Shortness of breath active Nolberto Zuniga Fatigue active Nolberto Roe MD Chest pain - nml cath 07/2018 active Lara Roe MD Hyperkalemia active Nolberto Roe MD Swelling of bilateral legs active Jacob Kyt e Headaches active Jacobroxi Santos Bowel obstruction s/p multiple surgeries active 11/15 Nolberto Roe MD Neck pain active Jacob Santos Spinal stenosis active Nolberto Roe MD Leg pain, bilateral active Nolberto Zuniga Venous insufficiency active Nolberto Roe MD Claudication active Nolberto Roe MD Neuropathy active Nolberto Roe MD Daytime hypersomnia active Nolberto Zuniga Preoperative cardiovascular examination active Nolberto Roe MD Insomnia active Nolberto Roe MD Diaphoresis active Joaquin Wally ENCOUNTERS Date Type Provider Location Encounter Diag nosis - In-person encounter Office Visit Nolberto Roe MD [place] [facility] - In-person encounter Office Visit Nolberto Roe MD [place] [facility] - In-person encounter Office Visit Nolberto Roe MD [facility] - In-person encounter Office Visit Brandon Jackson MD [place] [facility] - In-person encounter Office Visit Brandon Jackson MD [facility] - In-person encounter Office Visit Nolberto Roe MD [place] [facility] - In-person encounter Office Visit Nolberto Roe MD [place] [facility] - In-person encounter Office Visit Nolberto Roe MD [facility] Diaphoresis - In-person encounter Office Visit Bryan Carmona MD [place] [facility] - In-person encounter Office Visit Bryan Carmona MD [place] [facility] - In-person encounter Office Visit Bryan Carmona MD [place] [facility] - In-person encounter Office Visit Nolberto Roe MD [place] [facility] - In-person encounter Office Visit Nolberto Roe MD [place] [facility] - In-person encounter Office Visit Nolberto Roe MD [place] [facility] - In-person encounter Office Visit Nolberto Roe MD [place] [facility] Insomnia - In-person encounter Office Visit Nolberto Reo MD [place] [facility] Daytime hypersomniaPreoperative cardiovascular examination - In-person encounter Office Visit Nolberto Roe MD [place] [facility] Venous insufficiencyClaudicationNeuropathy - In-person encounter Office Visit Nolberto Roe MD [facility] Leg pain, bilateral - In-person encounter Office Visit Nolberto Roe MD [place] [facility] - In-person encounter Office Visit Nolberto Roe MD [place] [facility] Spinal stenosis - In-person encounter Office Visit Nolberto Roe MD [place] [facility] - In-person encounter Office Visit Nolberto Roe MD [place] [facility] - In-person encounter Office Visit Nolberto Roe MD [place] [facility] - In-person encounter Office Visit Nolberto Roe MD [place] [facility] Neck pain - In-person encounter Office Visit Nolberto Roe MD [place] [facility] Bowel obstruction s/p multiple surgeries - In-person encounter Office Visit Nolberto Roe MD [place] [facility] - In-person encounter Office Visit Nolberto Roe MD [place] [facility] Headaches - In-person encounter Office Visit Nolberto Roe MD [place] [facility] Swelling of bilateral legs - In-person encounter Office Visit Nolberto Roe MD [place] [facility] Afib - s/p CV in SR - In-person encounter Office Visit Nolberto Roe MD [place] [facility] Hyperkalemia - In-person encounter Office Visit Nolberto Roe MD [place] [facility] Chest pain - nml cath 07/2018 - In-person encounter Office Visit Nolberto Roe MD [place] [facility] - In-person encounter Office Visit Nolberto Roe MD [place] [facility] - In-person encounter Office Visit Nolberto Roe MD [place] [facility] Shortness of breathFatigueChest pain - nml cath 07/2018 - In-person encounter Office Visit Nolberto Roe MD [place] [facility] HypertensionAfib - s/p CV in SR VITAL SIGNS Date Observation Value Provider blood pressure, diastolic 100 mm[Hg] Emile Roe MD blood pressure, systolic 202 mm[Hg] Santos Roe MD Body Mass Index (Ratio) 23.08 kg/m2 Tami Roe MD blood pressure, diastolic 80 mm[Hg] Abby jamesese Jewell blood pressure, systolic 134 mm[Hg] Snow levy Jewell oxygen saturation, oximetry 97 % Opal Griswold pulse rate 66 /min Opal Jewell respiratory rate E&M 12 /[facility] [[facility]_av[facility] height E&M 66 [in_i] [facility] pressure, cuff size regular An radha Jewell oxygen saturation, oximetry 96 % Jermaine Kathleen RN pulse rate 67 /min Jermaine Kathleen RN blood pressure, diastolic 82 mm[Hg] Tom Kathleen RN blood pressure, systolic 140 mm[Hg] Jermaine Kathleen RN height E&M 66 [in_i] Jermaine Kathleen RN height in centimeters E&M 167.64 cm Tom Kathleen RN oxygen saturation, oximetry 97 % Jermaine Kathleen RN respiratory rate E&M 18 /min Jermaine Akilah katheryns RN pulse rate 62 /min Jermaine Kathleen RN blood pressure, diastolic 86 mm[Hg] Tom Kathleen RN blood pressure, systolic 148 mm[Hg] Jermaine Kathleen RN height E&M 66 [in_i] Jermaine Kathleen RN height in centimeters E&M 167.64 cm Tom fay Kathleen RN Body Mass Index (Ratio) 22.59 kg/m2 Tami Roe MD blood pressure, cuff size regular Ke rri Gruenenfelder blood pressure, diastolic 100 mm[Hg] Ke rri Gruenenfelder blood pressure, systolic 182 mm[Hg] Wendy ri Juliaer oxygen saturation, oximetry 97 % Judy Juliaer pulse rate 69 /min Judy Demie lder weight E&M 140 [lb_av] Judy Sanjaynenfe lder height E&M 66 [in_i] Judy Asanfe lder blood pressure, diastolic 88 mm[Hg] Tom fay Kathleen RN blood pressure, systolic 172 mm[Hg] Jermaine Kathleen RN pulse rate 68 /min Jermaine Kathleen RN respiratory rate E&M 20 /min Jermaine Akilah katheryns RN height E&M 66 [in_i] Jermaine Kathleen RN height in centimeters E&M 167.64 cm Tom fay Kathleen RN Body Mass Index (Ratio) 23.08 kg/m2 Crystal Jackson MD blood pressure, cuff size regular Ke rri Gruenenfelder blood pressure, diastolic 102 mm[Hg] Ke marshai Demijoint [facility] blood pressure, systolic 204 mm[Hg] Wendy ri Maikel oxygen saturation, oximetry 97 % Judy Dumont pulse rate 54 /min Judy Voss [facility] weight E&M 143 [lb_av] Judy Voss [facility] height E&M 66 [in_i] Judy Voss [facility] Body Mass Index (Ratio) 22.76 kg/m2 Crystal Jackson MD blood pressure, cuff size regular Ta bay Orozco blood pressure, diastolic 92 mm[Hg] [facility], systolic 148 mm[Hg] Tab shawn Orozco oxygen saturation, oximetry 97 % [facility] pulse rate 60 /min Samantha Orozco weight E&M 141 [lb_av] Samantha Orozco height E&M 66 [in_i] Samantha Orozco respiratory rate E&M 12 /min Samantha Orozco blood pressure, diastolic 78 mm[Hg] [facility], systolic 108 mm[Hg] Tab sidneya Orozco pulse rate 62 /min Samantha Orozco height E&M 66 [in_i] Samantha Orozco height in centimeters E&M 167.64 [facility] Body Mass Index (Ratio) 23.24 kg/m2 Tami Roe MD blood pressure, diastolic 90 mm[Hg] Ja rret blood pressure, systolic 189 mm[Hg] Jar ret pulse rate 58 /min Rene y blood pressure, cuff size regular Ja rret respiratory rate E&M 14 /min oxygen saturation, oximetry 98 % Rene weight E&M 144 [lb_av] Rene y height E&M 66 [in_i] Rene y Body Mass Index (Ratio) 23.11 kg/m2 Gamaliel as Wally blood pressure, diastolic 100 mm[Hg] Li nkLogic blood pressure, systolic 193 mm[Hg] Demi kLogic blood pressure, diastolic 100 mm[Hg] Ky geremias Jeovanny blood pressure, systolic 193 mm[Hg] Kyl ia Jeovanny oxygen saturation, oximetry 94 % Kylia Jeovanny pulse rate 48 /min Kylia Jeovanny blood pressure, cuff size regular Ky geremias Jeovanny weight E&M 143.2 [lb_av] Kylia Jeovanny respiratory rate E&M 12 /min Lloydlia Ladonna marisol height E&M 66 [in_i] Kylia Jeovanny Body Mass Index (Ratio) 23.56 kg/m2 Dez Carmona MD blood pressure, cuff size regular Ke rri Donovanuenenflornaer blood pressure, diastolic 80 mm[Hg] Ke rri Gruenenfelder blood pressure, systolic 180 mm[Hg] Wendy ri Maikel oxygen saturation, oximetry 97 % Judy Ko respiratory rate E&M 12 /min Judy lazo pulse rate 84 /min Judy Shanika er weight E&M 146 [lb_av] Judy Shanika lder height E&M 66 [in_i] Judy Donovanuenenfe lder blood pressure, diastolic 90 mm[Hg] Li nkLogic blood pressure, systolic 165 mm[Hg] Demi kLogic Body Mass Index (Ratio) 23.08 kg/m2 Soto Adrianzai pulse rate 72 /min Rene y blood pressure, cuff size regular Ja rret blood pressure, diastolic 90 mm[Hg] Ja rret blood pressure, systolic 165 mm[Hg] Jar ret respiratory rate E&M 14 /min Rene oxygen saturation, oximetry 97 % weight E&M 143 [lb_av] Rene y height E&M 66 [in_i] Rene y Body Mass Index (Ratio) 23.24 kg/m2 Soto Ahmedzai blood pressure, diastolic 58 mm[Hg] Li nkLogic blood pressure, systolic 106 mm[Hg] Demi ogic blood pressure, cuff size regular Ja rret blood pressure, diastolic 58 mm[Hg] Ja rret blood pressure, systolic 106 mm[Hg] Jar ret oxygen saturation, oximetry 94 % pulse rate 58 /min Rene respiratory rate E&M 12 /min Rene weight E&M 144 [lb_av] Rene y height E&M 66 [in_i] Rene y Body Mass Index (Ratio) 23.08 kg/m2 Grah am Amparo blood pressure, diastolic 86 mm[Hg] Li nkLogic blood pressure, systolic 140 mm[Hg] Demi kLogic blood pressure, cuff size regular Ja rret blood pressure, diastolic 86 mm[Hg] Ja rret blood pressure, systolic 140 mm[Hg] Jar ret pulse rate 118 /min Rene y oxygen saturation, oximetry 96 % Rene respiratory rate E&M 12 /min weight E&M 143 [lb_av] Rene y height E&M 66 [in_i] Rene y Body Mass Index (Ratio) 23.24 kg/m2 Tami Roe MD blood pressure, diastolic 76 mm[Hg] Liz blood pressure, systolic 155 mm[Hg] Demi blood pressure, cuff size small Ja rret blood pressure, diastolic 76 mm[Hg] Ja rret blood pressure, systolic 155 mm[Hg] Jar ret pulse rate 58 /min Rene oxygen saturation, oximetry 96 % Rene respiratory rate E&M 12 /min Rene weight E&M 144 [lb_av] Rene y height E&M 66 [in_i] Rene y Body Mass Index (Ratio) 22.76 kg/m2 Tami Roe MD blood pressure, diastolic 81 mm[Hg] Liz nkLogmarci blood pressure, systolic 175 mm[Hg] Demi blood pressure, diastolic 81 mm[Hg] Mi sandy [place] blood pressure, systolic 175 mm[Hg] Jose salome [place] oxygen saturation, oximetry 97 % Maritzaileana Suarez pulse rate 50 /min Maritza Patience zuniga weight E&M 141 [lb_av] Maritza Patience zuniga respiratory rate E&M 16 /min Heike abigail Suarez blood pressure, cuff size large Leslie delgado Erick height E&M 66 [in_i] Maritza Patience uzniga Body Mass Index (Ratio) 238.53 kg/m2 Soto Adrianharrison blood pressure, diastolic 88 mm[Hg] nan Wan blood pressure, systolic 179 mm[Hg] She ale Wan blood pressure, cuff size regular nan Wan respiratory rate E&M 20 /min Lisa Wan oxygen saturation, oximetry 97 % Lisa Wan pulse rate 54 /min Lisa Wan weight E&M 1478 [lb_av] Lisa Wan height E&M 66 [in_i] Lisa Wan Body Mass Index (Ratio) 23.89 kg/m2 Tami Roe MD blood pressure, diastolic 93 mm[Hg] Liz nkLogic blood pressure, systolic 176 mm[Hg] Demi kLogic oxygen saturation, oximetry 96 % Bobbi Toney blood pressure, diastolic 93 mm[Hg] St ephanie Toney blood pressure, systolic 176 mm[Hg] Apolinar phanie [place] pulse rate 63 /min Bobbi Lohma n weight E&M 148 [lb_av] Bobbi Lohma n respiratory rate E&M 16 /min Piter ie Toney blood pressure, cuff size small St ephanie Toney height E&M 66 [in_i] Bobbi Lohma n Body Mass Index (Ratio) 24.21 kg/m2 Maggie Titus Body Mass Index (Ratio) 23.89 kg/m2 Tami Roe MD blood pressure, diastolic 85 mm[Hg] St fany James blood pressure, systolic 156 mm[Hg] Kimani arroyo James oxygen saturation, oximetry 95 % Nuha James pulse rate 105 /min Nuha James weight E&M 150 [lb_av] Nuha James height E&M 66 [in_i] Nuha James respiratory rate E&M 16 /min Nuha duncan blood pressure, diastolic 88 mm[Hg] Leslie delgado Suarez blood pressure, systolic 167 mm[Hg] Jose mcmahon Suarez oxygen saturation, oximetry 96 % Maritza Suarez pulse rate 77 /min Maritza zuniga weight E&M 148 [lb_av] Maritza zuniga respiratory rate E&M 16 /min Heike Suarez height E&M 66 [in_i] Maritza zuniga Body Mass Index (Ratio) 23.08 kg/m2 Tami Roe MD blood pressure, cuff size regular Ke rri Maikel blood pressure, diastolic 68 mm[Hg] Fuentes rri Maikel blood pressure, systolic 126 mm[Hg] Wendy ri Maikel oxygen saturation, oximetry 96 % Judy Maikel respiratory rate E&M 14 /min Judy Ladonna lazo pulse rate 74 /min Judy Shanika balderrama weight E&M 143 [lb_av] Judy Shanika balderrama height E&M 66 [in_i] Judy Donovanuenenfabigail balderrama Body Mass Index (Ratio) 22.43 kg/m2 Tami Roe MD blood pressure, cuff size regular Ke rri Gruenenfelder blood pressure, diastolic 72 mm[Hg] Ke rri Gruenenfelder blood pressure, systolic 158 mm[Hg] Wendy ri Gruenenfelder oxygen saturation, oximetry 98 % Judy Gruenenfelder respiratory rate E&M 14 /min Judy G ruenenfelder pulse rate 87 /min Judy Gruenenfe lder weight E&M 139 [lb_av] Judy Gruenenfe lder height E&M 66 [in_i] Judy Gruenenfe lder Body Mass Index (Ratio) 24.05 kg/m2 Maggie Hidalgomerao blood pressure, diastolic 91 mm[Hg] Li nkLogic blood pressure, systolic 159 mm[Hg] Demi kLogic blood pressure, diastolic 91 mm[Hg] Ca therine Buda blood pressure, systolic 159 mm[Hg] Cat herine Buda oxygen saturation, oximetry 93 % Jaimie Andrew respiratory rate E&M 16 /min Catheri ne Buda pulse rate 75 /min Jaimie Andrew weight E&M 149 [lb_av] Jaimie Buda blood pressure, cuff size regular Ca therine Andrew height E&M 66 [in_i] Jaimie Andrew Body Mass Index (Ratio) 23.89 kg/m2 Tami Roe MD blood pressure, diastolic 70 mm[Hg] Emile Roe MD blood pressure, systolic 142 mm[Hg] Santos Roe MD respiratory rate E&M 16 /min Lara Roe MD pulse rate 78 /min Nolberto Roe MD oxygen saturation, oximetry 96 % Nolberto Roe MD weight E&M 148 [lb_av] Nolberto Roe MD height E&M 66 [in_i] Nolberto Roe MD Body Mass Index (Ratio) 23.89 kg/m2 Tami Roe MD blood pressure, cuff size regular Ke rri Gruenenfeldeli blood pressure, diastolic 70 mm[Hg] Ke rri Gruenenfelder blood pressure, systolic 142 mm[Hg] Ker ri Gruenenfelder oxygen saturation, oximetry 96 % Judy Grclementinaer respiratory rate E&M 16 /min Judy lazo pulse rate 78 /min Judy Gruenenfe lder weight E&M 148 [lb_av] Judy Gruenenfe lder height E&M 66 [in_i] Judy Gruenenfe lder Body Mass Index (Ratio) 24.24 kg/m2 Alok fay Santos blood pressure, diastolic 70 mm[Hg] Kashmir Foleyenson blood pressure, systolic 154 mm[Hg] Callie Baez oxygen saturation, oximetry 97 % Shira Baez respiratory rate E&M 16 /min Vicki tolbert Baez pulse rate 98 /min Shira Valentín josé luison weight E&M 150.2 [lb_av] Shira Og on height E&M 66 [in_i] Shira Laura nson Body Mass Index (Ratio) 23.24 kg/m2 Alok n Lloydte blood pressure, diastolic 80 mm[Hg] Reg Hayes blood pressure, systolic 129 mm[Hg] Hina Hayes blood pressure, cuff size regular Reg Hayes oxygen saturation, oximetry 94 % Magalis Hayes pulse rate 79 /min Magalis colorado respiratory rate E&M 16 /min Magalis Hayes weight E&M 144 [lb_av] Magalis color[place] height E&M 66 [in_i] Magalis color[place] Body Mass Index (Ratio) 26.89 kg/m2 Eleno Bush blood pressure, diastolic 78 mm[Hg] Kashmir Baez blood pressure, systolic 136 mm[Hg] Callie Baez oxygen saturation, oximetry 95 % Shira Baez respiratory rate E&M 18 /min Vicki Baez pulse rate 77 /min Sihra Laura anna weight E&M 166.6 [lb_av] Shira Foley enson height E&M 66 [in_i] Shira Laura [facility] Body Mass Index (Ratio) 23.89 kg/m2 Alok fay Iasemaj respiratory rate E&M 16 /min [facility] blood pressure, diastolic 89 mm[Hg] [facility], [facility] 141 mm[Hg] Ton [facility] oxygen saturation, oximetry 96 % [facility] pulse rate 76 /min Tons Barton weight E&M 148 [lb_av] Tons [place] height E&M 66 [in_i] Tonsha Barton Body Mass Index (Ratio) 23.56 kg/m2 Alok fay Iate oxygen saturation, oximetry 96 % Chastity Matt blood pressure, diastolic 90 mm[Hg] Ch astity Matt blood pressure, systolic 152 mm[Hg] Maryann stity Matt pulse rate 69 /min Chastity Matt respiratory rate E&M 16 /min Chastit y Matt weight E&M 146 [lb_av] Chastity Matt height E&M 66 [in_i] Chastity Matt Body Mass Index (Ratio) 23.66 kg/m2 Tami Roe MD blood pressure, diastolic 77 mm[Hg] Kashmir Baez blood pressure, systolic 133 mm[Hg] Callie Baez oxygen saturation, oximetry 96 % Shira Baez respiratory rate E&M 18 /min Vicki Baez pulse rate 70 /min Shira farrar weight E&M 146.6 [lb_av] Shira kwokon height E&M 66 [in_i] Shira Laura josé luisanna Body Mass Index (Ratio) 23.40 kg/m2 Tami Roe MD blood pressure, cuff size regular Cr brennan Reyes blood pressure, diastolic 70 mm[Hg] Cr brennan Reyes blood pressure, systolic 110 mm[Hg] Cry stamiroslava Reyes oxygen saturation, oximetry 96 % Eileen Reyes respiratory rate E&M 17 /min Eileen Reyes pulse rate 73 /min Eileen smith weight E&M 145 [lb_av] Eileen Donald s height E&M 66 [in_i] Eileen Donald s Body Mass Index (Ratio) 23.40 kg/m2 Tami Roe MD blood pressure, diastolic 80 mm[Hg] Ki llariel Rocha blood pressure, systolic 122 mm[Hg] Linda cardenasn Rocha oxygen saturation, oximetry 98 % Bagley Rocha respiratory rate E&M 16 /min Luh Rocha pulse rate 75 /min Luh Rocha weight E&M 145 [lb_av] Bagley height E&M 66 [in_i] Body Mass Index (Ratio) 23.56 kg/m2 Tami Roe MD blood pressure, diastolic 70 mm[Hg] Ki llariel blood pressure, systolic 100 mm[Hg] Kil keagan Rocha oxygen saturation, oximetry 97 % respiratory rate E&M 16 /min Luh pulse rate 72 /min Luh weight E&M 146 [lb_av] blood pressure, resting Yes Kill n height E&M 66 [in_i] [facility] Body [facility] Index (Ratio) 23.72 kg/m2 Tami Roe MD blood pressure, cuff size regular Ke rri Grdorothynenfjoint [facility] blood pressure, diastolic 98 mm[Hg] Ke rri Donovanuenenfbarre city hospitaler blood pressure, systolic 138 mm[Hg] Wendy Ko oxygen saturation, oximetry 97 % Judy Ko respiratory rate E&M 18 /min Judy lazo pulse rate 86 /min Judy Voss er weight E&M 147 [lb_av] Judy Sanjaynemanae er height E&M 66 [in_i] Judy Sanjaynemanae er Body Mass Index (Ratio) 23.56 kg/m2 Tami Roe MD blood pressure, diastolic 98 mm[Hg] Da dinaa Bill blood pressure, systolic 154 mm[Hg] Dac ia Bill oxygen saturation, oximetry 96 % Tonie Bill respiratory rate E&M 16 /min Tonie V oss pulse rate 86 /min Tonie Bill weight E&M 146 [lb_av] Tonie Bill height E&M 66 [in_i] Tonie Bill Body Mass Index (Ratio) 22.76 kg/m2 Tami Roe MD blood pressure, diastolic 80 mm[Hg] Da diana Bill blood pressure, systolic 138 mm[Hg] Dac ia Bill oxygen saturation, oximetry 96 % Tonie Brownton respiratory rate E&M 16 /min Tonie V oss pulse rate 82 /min Tonie Bill weight E&M 141 [lb_av] Tonie Brownton height E&M 66 [in_i] Tonie Brownton ALLERGIES Allergy Name Onset Date Reaction Criticality Status CARDIZEM leg swelling Low Criticality active PENICILLIN Low Criticality active SULFA Low Criticality active RESULTS Date Observation Value Provider Reference Range Interpretation Location triglyceride, target level 150 mg/dL Brandon Jackson MD HDL cholesterol, serum, target level 40 mg/dL Brandon Jackson MD LDL target level 100 mg/dL Brandon Jackson MD cholesterol, target level 200 mg/dL Brandon Jackson MD LDL cholesterol, serum 98 mg/dL Juan Bush LDL cholesterol, serum 95 mg/dL Juan Bush calcium, serum 9.3 mg/dL LinkLogic 8.7-10.3 carbon dioxide, venous blood 25 mmol/L LinkLogic 20-29 chloride, serum 105 mmol/L LinkLogic 96-106 potassium, serum 4.5 mmol/L LinkLogic 3.5-5.2 sodium, serum 143 mmol/L LinkLogic [phone]/01/ 16 urea nitrogen/creatinine ratio, serum 20 LinkLogic 12-28 eGFR if 60 mL/min/{1 .73_m2} LinkLogic >59 eGFR if not 52 mL/min/{1 .73_m2} LinkLogic >59 Low creatinine, serum 1.07 mg/dL LinkLogic 0.57-1.00 High urea nitrogen, blood 21 mg/dL LinkLogic 8-27 blood glucose, random 98 mg/dL LinkLogic 65-99 thyroid stimulating hormone, serum 0.421 u[IU]/mL LinkLogic 0.450-4.500 Low magnesium, serum 2.0 mg/dL LinkLogic 1.6-2.3 alanine aminotransferase (SGPT), serum 12 1/L LinkLogic 0-32 aspartate aminotransferase (SGOT), serum 17 1/L LinkLogic 0-40 alkaline phosphatase, serum 83 1/L LinkLogic 39-117 bilirubin, serum, total 0.3 mg/dL LinkLogic 0.0-1.2 albumin/globulin ratio, serum 1.3 LinkLogic 1.2-2.2 globulin, serum 3.3 LinkLogic 1.5-4.5 albumin, serum 4.4 g/dL LinkLogic 3.5-4.8 protein, total, serum 7.7 g/dL LinkLogic 6.0-8.5 calcium, serum 9.8 mg/dL LinkLogic 8.7-10.3 carbon dioxide, venous blood 25 mmol/L LinkLogic 20-29 chloride, serum 100 mmol/L LinkLogic 96-106 potassium, serum 5.0 mmol/L LinkLogic 3.5-5.2 sodium, serum 143 mmol/L LinkLogic [phone]/09/ 05 urea nitrogen/creatinine ratio, serum 25 LinkLogic 12-28 eGFR if 55 mL/min/{1 .73_m2} LinkLogic >59 Low eGFR if not 47 mL/min/{1 .73_m2} LinkLogic >59 Low creatinine, serum 1.15 mg/dL LinkLogic 0.57-1.00 High urea nitrogen, blood 29 mg/dL LinkLogic 8-27 High blood glucose, random 95 mg/dL LinkLogic 65-99 erythrocyte sedimentation rate 8 mm/h LinkLogic 0-40 triiodothyronine (T3), serum 94 ng/dL LinkLogic 71-180 thyroxine, serum, free 1.32 ng/dL LinkLogic 0.82-1.77 prothrombin time (patient) 13.9 s LinkLogic 9.1-12.0 High international normalized ratio (INR) 1.3 LinkLogic 0.8-1.2 High lipoprotein, beta, serum, point, quantitative, calculated 95 mg/dL LinkLogic 0-99 very low density lipoproteins 19 mg/dL LinkLogic 5-40 HDL cholesterol, serum 38 mg/dL LinkLogic >39 Low triglyceride, serum, random 95 mg/dL LinkLogic 0-149 cholesterol, serum 152 mg/dL LinkLogic [phone]/05/ 24 calcium, serum 9.5 mg/dL LinkLogic 8.7-10.3 carbon dioxide, venous blood 26 mmol/L LinkLogic 20-29 chloride, serum 100 mmol/L LinkLogic 96-106 potassium, serum 5.4 mmol/L LinkLogic 3.5-5.2 High sodium, serum 143 mmol/L LinkLogic [phone]/05/ 24 urea nitrogen/creatinine ratio, serum 21 LinkLogic 12-28 eGFR if 54 mL/min/{1 .73_m2} LinkLogic >59 Low eGFR if not 47 mL/min/{1 .73_m2} LinkLogic >59 Low creatinine, serum 1.17 mg/dL LinkLogic 0.57-1.00 High urea nitrogen, blood 25 mg/dL LinkLogic 8-27 blood glucose, random 95 mg/dL LinkLogic 65-99 basophil count, absolute 0.0 x10E3/uL LinkLogic 0.0-0.2 Eosinophil Absolute Count 0.1 X10E3/UL LinkLogic 0.0-0.4 monocyte count, blood, automated 0.3 X10E3/UL LinkLogic 0.1-0.9 lymphocyte count, blood, automated 1.1 X10E3/UL LinkLogic 0.7-3.1 Absolute Neutrophils 3.2 X10E3/UL LinkLogic 1.4-7.0 basophils as percent of blood leukocytes 0 % LinkLogic Not Estab. eosinophils as percent of blood leukocytes 2 % LinkLogic Not Estab. monocytes as percent of blood leukocytes 6 % LinkLogic Not Estab. lymphocytes as percent of blood leukocytes 24 % LinkLogic Not Estab. neutrophils as percent of blood leukocytes 68 % LinkLogic Not Estab. platelet count 181 X10E3/UL LinkLogic [phone]/05/ 24 red blood cell distribution width 16.3 % LinkLogic 12.3-15.4 High mean corpuscular hemoglobin concentration, RBC 33.1 G/DL LinkLogic 31.5-35.7 mean corpuscular hemoglobin, RBC 28.4 pg LinkLogic 26.6-33.0 mean corpuscular volume, RBC 86 fL LinkLogic 79-97 hematocrit, blood 48.0 % LinkLogic 34.0-46.6 High hemoglobin, blood 15.9 g/dL LinkLogic 11.1-15.9 erythrocyte (RBC) count 5.60 X10E6/UL LinkLogic 3.77-5.28 High leukocyte count, blood 4.8 X10E3/UL LinkLogic 3.4-10.8 HISTORY OF MEDICATION USE Medication Status Instructions Dates Provider Indications Com ments clonidine HCl 0.1 mg tablet active TAKE 1 TABLET BY MOUTH TWICE DAILY 05/09 Opal Jewell hydralazine 25 mg tablet active TAKE 1 TABLET BY MOUTH TWICE DAILY Nolberto Roe MD chlorthalidone 25 mg tablet active Take 1 tablet by mouth once a day Suzanne RIVAS losartan 50 mg tablet active TAKE 1 TAB LET BY MOUTH TWICE DAILY 10/22 Opal Jewell metoprolol succinate 25 mg tablet extended release 24 hr completed TAKE 1 TABLET BY MOUTH DAILY 10/22 - 11/19 Samantha Orozco hydralazine 50 mg tablet completed TAKE 1 TABLET BY MOUTH TWICE DAILY - 09/22 Rene Talley losartan 50 mg tablet completed Take 1 tab let by mouth twice a day - 10/22 Suzan Up clonidine HCl 0.1 mg tablet completed Take 1 tablet by mouth twice a day - 05/09 Opal Jewell metoprolol tartrate 25 mg tablet completed TAKE 1 TABLET BY MOUTH TWICE A DAY - Suzanne RIVAS Vitamin D3 125 mcg (5,000 unit) tablet active take twice a week Xin Doherty NP amiodarone 100 mg tablet active Take 1 tablet by mouth once a day 09/07 dose decreased to 100mg daily. pt has been taking 400mg and she will cut the 400mg them into 4th (per her request) 07/23 Xin Doherty NP diltiazem HCl 90 mg tablet completed Take 1 tablet by mouth twice a day 06/25 - 09/07 Xin Doherty NP amiodarone 200 mg tablet completed TAKE 1 TABLET BY MOUTH DAILY. 06/25: decreased amio to 200mg (from 400mg), continue until current bottle is gone then stop. 05/20 - 07/23 Judy Ko pantoprazole 40 mg tablet,delayed release (DR/EC) completed TAKE 1 TABLET BY MOUTH DAILY 05/19 - 09/07 Xin Doherty NP amiodarone 400 mg tablet completed Take 1 tablet by mouth once a day - 05/20 Jermaine Kathleen RN pantoprazole 40 mg tablet,delayed release (/EC) completed Take 1 tablet by mouth once a day - 05/19 Alecia Harrell valsartan 40 mg tablet completed TAKE 1 TABLET BY MOUTH EVERY DAY 04/14 - 09/15 [facility] clonidine HCl 0.1 mg tablet completed as needed for headaches SBP >170 - 06/25 Xin Doherty NP dofetilide 500 mcg capsule completed TAKE 1 CAPSULE BY MOUTH TWICE DAILY 03/12 - 05/21 Xin Doherty NP thiamine HCl (vitamin B1) 100 mg tablet active TAKE 1 TABLET BY MOUTH ONCE DAILY 10/01 Maritza Suarez sertraline 50 mg tablet completed - [facility] Ambien 5 mg tablet completed Take 1 tablet by mouth once a day at night before sleeping 06/25 - 05/21 Xin Doherty NP metoprolol tartrate 50 mg tablet completed TAKE 1 TABLET BY MOUTH TWICE DAILY 06/10 - 05/21 Xin Doherty NP valsartan 40 mg tablet completed Take 1 1/2 tablet by mouth once a day 06/04 - 04/14 [facility] Vitamin B-1 (mononitrate) 100 mg tablet completed TAKE 1 TABLET BY MOUTH ONCE DAILY 06/03 - 09/07 Xin Doherty NP metoprolol tartrate 50 mg tablet completed Take 1 tablet by mouth twice a day - 06/10 Nicol Obrien diltiazem HCl 240 mg capsule,extended release 24hr completed TAKE 1 CAPSULE BY MOUTH EVERY DAY - 05/15 Nolberto Roe MD gabapentin 100 mg capsule completed Take 2 capsule by mouth every night 04/15 - [facility] cyanocobalamin (vitamin B-12) 2,500 mcg tablet active Take 1 tablet by mouth once a day 04/09 Nolberto Roe MD thiamine HCl (vitamin B1) 100 mg tablet completed Take 1 tablet by mouth once a day 04/09 - 10/01 Edwinajane NewtonBecerra furosemide 20 mg tablet completed Take 1 tablet by mouth once a day for 3 days 04/09 - 05/21 Xin Doherty NP dofetilide 500 mcg capsule completed TAKE 1 CAPSULE BY MOUTH TWICE DAILY. START TAKING THIS ON SUNDAY 11/19. COME IN FOR AN EKG DAILY ON THURSDAY, THURSDAY, THURSDAY. STOP PROPAFENONE 03/26 - 03/12 Randa Chambers RN dofetilide 500 mcg capsule completed Take 1 capsule by mouth twice a day 03/25 - 03/26 Randa Chambers RN dofetilide 500 mcg capsule completed TAKE 1 CAPSULE BY MOUTH TWICE DAILY. START TAKING THIS ON SUNDAY 11/19. COME IN FOR AN EKG DAILY ON THURSDAY, THURSDAY, THURSDAY. STOP PROPAFENONE - 03/25 Andrew Lawson Cardiaayushm CD 120 mg capsule,extended release 24hr completed Take 1 capsule by mouth once a day - 04/24 Nolberto Roe MD diltiazem HCl 120 mg tablet completed Take 1 tablet by mouth once a day 10/08 - 10/09 Manuel Hendrix RN diltiazem HCl 120 mg tablet completed Take 1 tablet by mouth every eight hours - 10/08 Judy Ko hydralazine 50 mg tablet completed Take 1 tablet by mouth twice a day 08/23 - 06/25 Xin Doherty NP Tikosyn 500 mcg capsule completed Take 1 capsule by mouth twice a day START taking this on SUNDAY 11/19. Come in for an EKG daily on Thursday, Thursday, Thursday. stop propafenone 11/21 - 11/21 Nolberto Roe MD hydralazine 25 mg tablet completed Take 1 tablet by mouth twice a day Take 1 tablet by mouth twice daily 11/10 - 08/07 Kelsy Preeti AMITRIPTYLINE HCL 25 MG ORAL TABLET completed take 1 tab at bedtime 11/15 - 09/24 Shira Baez hydralazine 25 mg tablet completed Take TAKE 3 TABLETS BY MOUTH 3 TIMES A DAY 04/06 - 10/06 Bettie Bryson sotalol 80 mg tablet completed Take 0.5 tablet by mouth twice a day 10/13 - 11/14 Nolberto Roe MD Nitro-Dur 0.4 mg/hr patch 24 hour completed apply one patch daily in the morning and remove before bed. 08/11 - 11/14 Nolberto Roe MD RANEXA 500 MG ORAL TABLET EXTENDED RELEASE 12 HOUR completed Take one tablet twice daily. 08/05 - 08/11 Nolberto Roe MD ALDACTONE 25 MG ORAL TABLET completed one half tab daily 05/06 - Nolberto Roe MD magnesium oxide 400 mg (241.3 mg magnesium) tablet active 1 tablet by mouth once a day 05/06 Nolberto Roe MD HYDROCHLOROTHIAZIDE 12.5 MG ORAL CAPSULE completed one capsule daily 03/31 - 05/06 Nolberto Roe MD Nitrostat 0.4 mg tablet, sublingual completed Apply 1 tablet under tongue as needed 03/24 - 11/14 Nolberto Roe MD trospium 60 mg capsule,extended release 24hr completed Take 1 capsule by mouth once a day 03/24 - 11/14 Tonie Khan diltiazem HCl 120 mg capsule,extended release 24hr completed Take 1 capsule by mouth once a day 04/19 - 09/21 Bettie Massey Xarelto 20 mg tablet active TAKE 1 TABL ET BY MOUTH EVERY NIGHT 04/19 Nolberto Roe MD LASIX 20 MG ORAL TABLET completed one tab daily 04/27 - 03/24 Nolberto Roe MD ATENOLOL 100 MG ORAL TABLET completed 1/2 a day 04/27 - 09/14 Manuel Hendrix RN AMLODIPINE BESYLATE 10 MG ORAL TABLET completed take once daily 04/27 - 04/27 Nolberto Roe MD BENAZEPRIL 40MG TABLETS completed TAKE 1 TABLET BY MOUTH EVERY DAY 08/03 - 09/24 Shira Baez TOVIAZ 8 MG ORAL TABLET EXTENDED RELEASE 24 HOUR completed take once daily 04/27 - 09/24 Tonie Khan SOCIAL HISTORY Date Observation Value Provider personal history of marijuana use no Nolberto Roe MD drug use no Nolberto Roe MD alcohol use no Nolberto Roe MD smoking status Never smoker Nolberto gonsalez MD personal history of marijuana use no Soto Benitezmedharrison drug use no Soto Ahmedzai alcohol use no [place]oto Ahmedzai smoking status Never smoker Sotonitin Adrianzaernesto personal history of marijuana use no Nolberto Roe MD drug use no Nolberto Roe MD alcohol use no Nolberto Roe MD smoking status Never smoker Nolberto gonsalez MD personal history of marijuana use no Suzanne Ventimiglia WIRE STRAIGHTENER drug use no Suzanne Ventimig geremias WIRE STRAIGHTENER alcohol use no Suzanne Ventimig geremias WIRE STRAIGHTENER smoking status Never smoker Suzanne Ventim iglia WIRE STRAIGHTENER alcohol use no Brandon Jackson MD smoking status Never smoker Brandon Jackson MD alcohol use no Nolberto Roe MD smoking status Never smoker Nolberto gonsalez MD number of grandchildren Nolberto Mccluredler PURCHASING ASSOCIATE alcohol use no Xin Fendle r PURCHASING ASSOCIATE smoking status Never smoker Xin Mcclured ler PURCHASING ASSOCIATE Exercise counseling Yes iXn Mccluredler PURCHASING ASSOCIATE number of grandchildren Bryan Carmona MD alcohol use no Xin Fendle r PURCHASING ASSOCIATE smoking status Never smoker Xin Fend ler PURCHASING ASSOCIATE Exercise counseling Yes Xin Fendler PURCHASING ASSOCIATE alcohol use no Xin Fendle r PURCHASING ASSOCIATE smoking status Never smoker Xin Fend ler PURCHASING ASSOCIATE Exercise counseling Yes Xin Fendler PURCHASING ASSOCIATE alcohol use no Soto Benitezmedzai smoking status Never smoker Soto Ahmedzai alcohol use no Jeovanny Amparo smoking status Never smoker Jeovanny Baker ri social history reviewed E&M revi ewed - no changes required Nolberto Roe MD social history E&M Smoking Histo ry: Yifan salas has never smoked. Nolberto Roe MD social history E&M S moking History: Yifan salas has never smoked. Nolberto Roe MD social history reviewed E&M revi ewed - no changes required Nolberto Roe MD smoking status Never smoker Maritza Pereyra and social history E&M S moking History: Yifan salas has never smoked. Nolberto Roe MD social history reviewed E&M revi ewed - no changes required Nolberto Roe MD smoking status Never smoker Lisa Soco social history E&M S moking History: Yifan salas has never smoked. Nolberto Roe MD social history reviewed E&M revi ewed - no changes required Nolberto Roe MD smoking status Never smoker Bobbi swenson social history E&M S moking History: P maritza has never smoked. Nolberto Roe MD social history reviewed E&M revi ewed - no changes required Nolberto Roe MD smoking status Never smoker Nuha Ramirez social history E&M S moking History: P maritza has never smoked. Nolberto Roe MD social history reviewed E&M revi ewed - no changes required Nolberto Roe MD smoking status Never smoker Maritza Hafsa and social history E&M S moking History: P maritza has never smoked. Nolberto Roe MD social history reviewed E&M revi ewed - no changes required Nolberto Roe MD smoking status Never smoker Judy Karime velasco social history E&M S moking History: P maritza has never smoked. Nolberto Roe MD social history reviewed E&M revi ewed - no changes required Nolberto Roe MD smoking status Never smoker Judy velasco social history E&M S moking History: Yifan salas has never smoked. Nolberto Roe MD social history reviewed E&M revi ewed - no changes required Nolberto Roe MD smoking status Never smoker Jaimie smith smoking status Never smoker Nolberto gonsalez MD social history reviewed E&M revi ewed - no changes required Nolberto Roe MD smoking status Never smoker Judy Brayfay rod social history E&M S moking History: Yifan salas has never smoked. Nolberto Roe MD social history reviewed E&M revi ewed - no changes required Nolberto Roe MD smoking status Never smoker Shira Singleton social history E&M S moking History: P maritza has never smoked. Nolberto Roe MD social history reviewed E&M revi ewed - no changes required Nolberto Roe MD smoking status Never smoker Magalis Ace valerio smoking status Never smoker Shira Singleton social history E&M S moking History: P maritza has never smoked. Nolberto Roe MD social history reviewed E&M revi ewed - no changes required Nolberto Roe MD smoking status Never smoker Tonsha Barton social history E&M S moking History: P maritza has never smoked. Nolberto Roe MD social history reviewed E&M revi ewed - no changes required Nolberto Roe MD smoking status Never smoker May Powell e social history E&M S moking History: P maritza has never smoked. Nolberto Roe MD social history reviewed E&M revi ewed - no changes required Nolberto Roe MD smoking status Never smoker Shira Singleton social history E&M S moking History: P maritza has never smoked. Nolberto Roe MD social history reviewed E&M revi ewed - no changes required Nolberto Roe MD smoking status Never smoker Eileen Rodriguez ams social history E&M S moking History: P maritza has never smoked. Nolberto Roe MD social history reviewed E&M revi ewed - no changes required Nolberto Roe MD alcohol use no Bagley Rocha smoking status Never smoker Luhariel Landers m social history E&M S moking History: P maritza has never smoked. Nolberto Roe MD social history reviewed E&M revi ewed - no changes required Nolberto Roe MD alcohol use no Luh Rocha smoking status Never smoker Luh Landers m social history E&M S moking History: Yifan salas has never smoked. Nolberto Roe MD social history reviewed E&M revi ewed - no changes required Nolberto Reo MD alcohol use no Judy Voss lder smoking status Never smoker Judy Schaffer rdo social history E&M S moking History: Yifan salas has never smoked. Nolberto Roe MD social history reviewed E&M revi ewed - no changes required Nolberto Roe MD alcohol use no Tonie Bill smoking status Never smoker Tonie Bill number of grandchildren Nolberto Roe MD social history E&M S moking History: Yifan salas has never smoked. Nolberto Roe MD social history reviewed E&M revi ewed - no changes required Nolberto Roe MD alcohol use no Tonie Bill smoking status Never smoker Tonie Bill FAMILY HISTORY Family Member Condition Father Family History of Co christianne Cancer: INSURANCE PROVIDERS Payer name Policy type / Coverage type [place] party ID [place] [employer] Medicare [id number] [facility] Soft Tissue Regeneration [id number] ADVANCE DIRECTIVES Name Date DISCUSSED - NO DECISION MADE TREATMENT PLAN Date Name Performer [id number],C,N o recurrence Nolberto Roe MD [id number],C,T his last Thursday she was getting ready in the morning and experienced palpitations and diaphoresis, she went back to sleep for 2 hours and symptoms resolved. EKG in SR today. QTCH 455 msec Her updated medication list for this problem includes: Metoprolol Tartrate 50 Mg Tablet (Metoprolol tartrate) ..... Take 1 tablet by mouth twice daily Dofetilide 500 Mcg Capsule (Dofetilide) ..... Take 1 capsule by mouth twice daily. start taking this on sunday 11/19. come in for an ekg daily on thursday, thursday, thursday. stop propafenone Nolberto Roe MD [id number],C,N o SoB today. Continues on diuretics Nolberto Roe MD [id number],C,H er RPM showed BP average over last 30 days 149/87 with high variability and pt showed concern for weight loss. We will increase Valsartan to 1 1/2 tablets once daily and obtain bloodwork BP today: 155/76 P rior BP: 175/81 (08/20/2022) Nolberto Roe MD [id number],C,C celestinotlmichael in physical therapy which is helping her. Nolberto Roe MD [id number],C, H er updated medication list for this problem includes: Hydralazine 50 Mg Tablet (Hydralazine) ..... Take 1 tablet by mouth twice a day Metoprolol Tartrate 50 Mg Tablet (Metoprolol tartrate) ..... Take 1 tablet by mouth twice daily Valsartan 40 Mg Tablet (Valsartan) ..... Take 1 tablet by mouth once a day Furosemide 20 Mg Tablet (Furosemide) ..... Take 1 tablet by mouth once a day for 3 days Nolberto Roe MD [id number],C, Sleep titration study came back positive for sleep apnea. Requests have been sent to the local company to provide her with the CPAP. The information on this has been given to the patient. Nolberto Roe MD [id number],C,S tosha the left knee surgey, she has continued to have swelling, pain, and limited mobility and following orthopedics. Had a nerve conduction study done in April for leg and foot pains, which came back normal. Nolberto Roe MD [id number],C,No CP. Shane Roe MD [id number],C,T here has been an occassional episode of fluttering in the chest. QTc 338. In sinus rhythm. Nolberto Roe MD [id number],C,W ill send Ambien for the time being, she will need CPAP Nolberto Roe MD [id number],C, B P today: 179/88 P rior BP: 176/93 (05/15/2022) Labs Reviewed: C reat: 1.07 (03/24/2019) C hol: 152 (07/30/2018) HDL: 38 (07/30/2018) LDL: 98 (08/20/2018) Nolberto Roe MD [id number],C, R ecent admission at [facility] for afib. Continues on metoprolol tartrate and dofetilide. Xarelto for OAC. In sinus bradycardia on EKG today. Nolberto Roe MD [id number],C,S he had normal nerve conduction study at [facility] Nolberto Roe MD [id number],C, U pcoming left knee arthroscopy. She may hold xarelto 3-5 days before surgery. Nolberto Roe MD [id number],C,S he has moderate SIMON and requires in lab study in order to recieve CPAP, will send orders. Nolberto Roe MD [id number],C, U pcoming left knee arthroscopy. BP elevated today. Will give her an RPM and decide if she needs adjustments to her BP medication before her upcoming procedure. She may hold xarelto 4-5 days before surgery. Nolberto Roe MD [id number],C, S he would certainly benefit from a sleep study. 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 Advised support stockings as needed for leg swelling. Leg swelling resolved off cardizem. Nolberto Roe MD [id number],C, B P elevated today at 176/93. Continues on hydralazine and metoprolol tartrate. Will give her an RPM and decide if she needs adjustments to her BP medication before her upcoming procedure. Advised reduced sodium intake and routine monitoring of the blood pressure. We aim for less than 130/80. Nolberto Roe MD [id number],C, C hest pain free. 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 Advised support stockings as needed for leg swelling. Leg swelling improved off cardizem. Nolberto Roe MD [id number],W, R ecent admission at [facility] for afib with RVR and hypertensive emergency. Continues on metoprolol tartrate and dofetilide. Xarelto for OAC. In sinus bradycardia on EKG today, QTc 451ms. She would benefit from a sleep srudy to evaluate for SIMON which could be contributing to her afib and BP. Nolberto Roe MD [id number],B, N o swelling today. Advised support stockings as needed for swelling Ynes Titus [id number],C, C omplaining of burning and claudication in her legs. Will start her on gabapention 200 mg nightly Ynes Titus [id number],C, V enous insufficiency of the right GSV. Advised support stockings as needed for leg swelling. Ynes Titus [id number],C,B P elevated today at 156/85. Advised reduced sodium intake and routine monitoring of the blood pressure. We aim for less than 130/80. Nolberto Roe MD [id number],C, I n Afib today. Cotinues on caridzem and dofetilide. Xarelto for OAC. W il have her repeat EKG on Thursday to see if she remains in Afib. Nloberto Roe MD [id number],W, C omplains of intermittent burning sensation in her BLEs. Recommend taking B12 and thiamine supplements. Differential diagnosis include venous insufficiency vs. PVD vs. neuropathy. Nolberto Roe MD [id number],C, B lood pressure is elevated today. Continue present medications. Nolberto Roe MD [id number],W, C omplains of intermittent burning sensation in her BLEs. Recommend taking B12 and thiamine supplements. Nolberto Roe MD [id number],C, C omplains of bilateral LE swelling which has been worse of late. Support hose in place. Has known venous insufficiency of the R GSV on previous ultrasound from March 2019. We will repeat her venous dopplers. I also recommend she take lasix 20mg for 2-3 days. Nolberto Roe MD [id number],S, I n SR today. Cotinues on caridzem and dofetilide. Xarelto for OAC. Nolberto Roe MD [id number],S, M uch improved on Amitriptyline. Follows neurology. Nolberto Roe MD [id number],S, S he had second lumbar surgery and is receiving injections. Currently in physical therapy which is helping her. Nolberto Roe MD [id number],S, C hest pain free. Nolberto Roe MD [id number],S, B lood pressure control is satisfactory. Nolberto Roe MD [id number],S, I n SR today. Cotinues on caridzem and dofetilide, QTc 439ms. Xarelto for OAC. Nolberto Roe MD [id number],C,Improved. Santos Roe MD [id number],C,S he had second lumbar surgery and is receiving injections. Currently in physical therapy which is helping her. Nolberto Roe MD [id number],C,B P is elevated today, she also has elevated pressures at home around 150-160 systolic. Will increase her Hydralazine 25 mg to one and half tablets BID. BP today: 158/72 Prior BP: 159/91 (05/15/2021) Labs Reviewed: C reat: 1.07 (03/24/2019) C hol: 152 (07/30/2018) HDL: 38 (07/30/2018) LDL: 98 (08/20/2018) Nolberto Roe MD [id number],C, continues with her anticoagulation with Xarelto, sinus rhythm on EKG today. Nolberto Roe MD [id number],C,I mproved, no swelling. She has reflux in her right GSV from doppler in 2019. Nolberto Roe MD [id number],C, continues with her anticoagulation with Xarelto and Cardizem. QTc on EKG today was 442 msec. in sinus rhythm Ynes Titus [id number],S, N o SoB today. Continues on diuretics Nolberto Roe MD [id number],S, M uch improved on Amitriptyline. Follows neurology. Nolberto Roe MD [id number],C, N o recurrence Nolberto Roe MD [id number],C, B P high today, states slightly stressed while parking. Nolberto Roe MD [id number],C, continues with her anticoagulation with Xarelto and Cardizem. Nolberto Roe MD [id number],C, O ne episode of heart pounding, resolved after 5 minutes. No other episodes before or since. Continues on nitro patch Nolberto Roe MD [id number],C,S he occasionally has episodes of fatigue, low energy which resolve after one day and occur once or twice a month. Nolberto Roe MD [id number],C,BP control is satisfactory. Nolberto Roe MD [id number],C,R ecurrence of atrial fibrillation confirmed on EKG today. HR 81. QTC 386. Discussed options which included rate vs. rhythm control. She opted for rhythm control. We will discontinue the Sotalol and admit her next week for tikosyn loading. She will continue with her anticoagulation with Xarelto and Cardizem as before. She recently had blood tests and we will request her results. Nolberto Roe MD Cardiology:controlle do n RPM Her updated medication list for this problem includes: Losartan 50 Mg Tablet (Losartan) ..... Take 1 tablet by mouth twice daily Clonidine Hcl 0.1 Mg Tablet (Clonidine hcl) ..... Take 1 tablet by mouth twice a day Hydralazine 25 Mg Tablet (Hydralazine) ..... Take 1 tablet by mouth twice daily Chlorthalidone 25 Mg Tablet (Chlorthalidone) ..... Take 1 tablet by mouth once a day BP today: 202/100 P rior BP: 134/80 (01/20/2024) Prior 10 Yr Risk Heart Disease: 13 % (11/20/2023) Labs Reviewed: C reat: 1.07 (03/24/2019) C hol: 152 (07/30/2018) HDL: 38 (07/30/2018) LDL: 98 (08/20/2018) T (07/30/2018) Nolberto Roe MD Cardiology:Denies at present Echio in September 2023:normal left ventricular size and systolic function.Mild concentric left ventricular hypertrophy. Normal left ventricular d iastolic function. E/E': 13.3. Left ventricular ejection fraction is measured at 59 %. Nolberto Roe MD Cardiology Nolberto Zuniga Cardiology:discontin ued CPAP after 7 months; states is sleeping better lately Nolberto Roe MD Cardiology:Denies ch est pain at present ECHO: 2020 impaired LV relaxation, EF 60%, trace MR, mild AR, severe TR. C AROTIDS: 2020 mild plaque, <50% cath: 2018 normal coronaries, normal renals, EF 60% Nolberto Roe MD Cardiology:remains i n NSR on exam today c ontinue low dose amiodarone H er updated medication list for this problem includes: Amiodarone 100 Mg Tablet (Amiodarone) ..... Take 1 tablet by mouth once a day 09/07 dose decreased to 100mg daily. pt has been taking 400mg and she will cut the 400mg them into 4th (per her request) Stratford Bentley [facility] Cardiology:BP 134/80 today and better controlled C ontinues to have fluctuations will have her take hydralazine prm for SBP>140 or DBP >90 S he will continue home RPM and return in 2 mos or sooner if needed. H er updated medication list for this problem includes: Clonidine Hcl 0.1 Mg Tablet (Clonidine hcl) ..... Take 1 tablet by mouth twice a day Hydralazine 25 Mg Tablet (Hydralazine) ..... Take 1 tablet by mouth twice daily Chlorthalidone 25 Mg Tablet (Chlorthalidone) ..... Take 1 tablet by mouth once a day Losartan 50 Mg Tablet (Losartan) ..... Take 1 tablet by mouth twice daily Suzannekimberly Hagan [facility] Cardiology: non-compliant with CPAP Nolberto Roe MD Cardiology:denies of claudicatio n Nolberto Roe MD Cardiology:continue AC with xare lto Nolberto Roe MD Cardiology:Bp has be en markedly elevated R esume hydralyzine 25mg tid r eturn to the office on 01/05 for BP check Her updated medication list for this problem includes: Hydralazine 25 Mg Tablet (Hydralazine) ..... Take 1 tablet by mouth twice daily Chlorthalidone 25 Mg Tablet (Chlorthalidone) ..... Take 1 tablet by mouth once a day Clonidine Hcl 0.1 Mg Tablet (Clonidine hcl) ..... 1 tablet by mouth twice a day Losartan 50 Mg Tablet (Losartan) ..... Take 1 tablet by mouth twice daily BP today: 182/100 P rior BP: 172/88 (12/30/2023) Prior 10 Yr Risk Heart Disease: 13 % (11/20/2023) Labs Reviewed: C reat: 1.07 (03/24/2019) C hol: 152 (07/30/2018) HDL: 38 (07/30/2018) LDL: 98 (08/20/2018) T (07/30/2018) Nolberto Roe MD Cardiology:non-compliant with CP AP Suzannekimberly Hagan [facility] Cardiology:currently sinus margi HR in 50s W ill stop BB as HR low and on clonidine and amiodarone T he following medications were removed from the medication list: Metoprolol Tartrate 25 Mg Tablet (Metoprolol tartrate) ..... Take 1 tablet by mouth twice a day Her updated medication list for this problem includes: Amiodarone 100 Mg Tablet (Amiodarone) ..... Take 1 tablet by mouth once a day 09/07 dose decreased to 100mg daily. pt has been taking 400mg and she will cut the 400mg them into 4th (per her request) Suzannekimberly Hagan [facility] Cardiology:Uncontrol led. Will add chlorthalidone 25 mg daily W ill get BMP in one week W ill return for recheck on BP in one week w ill get renal duplex to r/o stenosis T he following medications were removed from the medication list: Metoprolol Tartrate 25 Mg Tablet (Metoprolol tartrate) ..... Take 1 tablet by mouth twice a day Her updated medication list for this problem includes: Chlorthalidone 25 Mg Tablet (Chlorthalidone) ..... Take 1 tablet by mouth once a day Clonidine Hcl 0.1 Mg Tablet (Clonidine hcl) ..... 1 tablet by mouth twice a day Losartan 50 Mg Tablet (Losartan) ..... Take 1 tablet by mouth twice daily Suzanne RIVAS Cardiology Brandon Jackson MD Cardiology: B P today: 148/92 P rior BP: 108/78 (09/30/2023) 10 Yr Risk Heart Disease: 13 % Labs Reviewed: C reat: 1.07 (03/24/2019) C hol: 152 (07/30/2018) HDL: 38 (07/30/2018) LDL: 98 (08/20/2018) T (07/30/2018) The following medications were removed from the medication list: Metoprolol Succinate 25 Mg Tablet Extended Release 24 Hr (Metoprolol succinate) ..... Take 1 tablet by mouth daily Her updated medication list for this problem includes: Losartan 50 Mg Tablet (Losartan) ..... Take 1 tablet by mouth twice daily Metoprolol Tartrate 25 Mg Tablet (Metoprolol tartrate) ..... Take 1 tablet by mouth twice a day Clonidine Hcl 0.1 Mg Tablet (Clonidine hcl) ..... 1/2 tab twice a day Brandon Jackson MD Cardiology:denies of aimee Jackson MD Cardiology:IN SR tod ay Anusha C with xarelto, has been seen in the [facility] ER for bruising. i nstructed to continue her current dose of xarelto Brandon Jackson MD Cardiology:Recent ad mission to hospital with chest tightness and hypertensive, troponin were negative. d iaphoresis with intermittent chest pain, SOB/JAIME. ECHO: 2020 impaired LV relaxation, EF 60%, trace MR, mild AR, severe TR. C AROTIDS: 2020 mild plaque, <50% cath: 2018 normal coronaries, normal renals, EF 60% Nolberto Roe MD Cardiology: Natalia ryan in NSR. COntinues on her amiodarone 100 mg daily Nolberto Roe MD Cardiology:BP remain s labile. She has been advised to monitor BP at daily basis and added hydralazine 25 mg BID to present routine. B P today: 189/90 P rior BP: 193/100 (09/08/2023) The following medications were removed from the medication list: Valsartan 40 Mg Tablet (Valsartan) ..... Take 1 tablet by mouth every day Her updated medication list for this problem includes: Metoprolol Tartrate 25 Mg Tablet (Metoprolol tartrate) ..... Take 1 tablet by mouth once a day Losartan 50 Mg Tablet (Losartan) ..... Take 1 tablet by mouth twice a day Clonidine Hcl 0.1 Mg Tablet (Clonidine hcl) ..... 1/2 tab twice a day Nolberto Roe MD Cardiology: d iaphoresis with intermittent chest pain, SOB/JAIME. ECHO: 2020 impaired LV relaxation, EF 60%, trace MR, mild AR, severe TR. C AROTIDS: 2020 mild plaque, <50% cath: 2018 normal coronaries, normal renals, EF 60% Nolberto Roe MD Cardiology: N o recurrence Nolberto Roe MD Cardiology: S B 46 on EKG today. 07/30/23 telesentry Sinus rhythm. Sinus bradycardia. Frequent PACs and o ccasional PVCs. Maximum HR 88bpm. Minimum HR 38bpm. Nolberto Roe MD Cardiology: B P today: 189/90 P rior BP: 193/100 (09/08/2023) The following medications were removed from the medication list: Valsartan 40 Mg Tablet (Valsartan) ..... Take 1 tablet by mouth every day Her updated medication list for this problem includes: Metoprolol Tartrate 25 Mg Tablet (Metoprolol tartrate) ..... Take 1 tablet by mouth once a day Losartan 50 Mg Tablet (Losartan) ..... Take 1 tablet by mouth twice a day Clonidine Hcl 0.1 Mg Tablet (Clonidine hcl) ..... 1/2 tab twice a day Nolberto Roe MD Cardiology:See above . DECREASE AMIODARONE TO 100MG DAILY. currently has 400mg tablets. pt would like to cut into 4ths vs new rx. DECREASE METOPROLOL TO 25MG TWICE A DAY DECREASE VITAMIN D3 TO TWICE A WEEK. CHECK LABS, CHECK ECHO Xin Doherty NP Cardiology: B P today: 193/100 P rior BP: 180/80 (06/26/2023) Labs Reviewed: C reat: 1.07 (03/24/2019) C hol: 152 (07/30/2018) HDL: 38 (07/30/2018) LDL: 98 (08/20/2018) T (07/30/2018) The following medications were removed from the medication list: Diltiazem Hcl 90 Mg Tablet (Diltiazem hcl) ..... Take 1 tablet by mouth twice a day Her updated medication list for this problem includes: Metoprolol Tartrate 25 Mg Tablet (Metoprolol tartrate) ..... Take 1 tablet by mouth twice a day Clonidine Hcl 0.1 Mg Tablet (Clonidine hcl) ..... 1/2 tab twice a day Valsartan 40 Mg Tablet (Valsartan) ..... Take 1 tablet by mouth every day Xin Doherty NP Cardiology:SB 46 on EKG today. 07/30/23 telesentry Sinus rhythm. Sinus bradycardia. Frequent PACs and o ccasional PVCs. Maximum HR 88bpm. Minimum HR 38bpm. D ECREASE AMIODARONE TO 100MG DAILY. currently has 400mg tablets. pt would like to cut into 4ths vs new rx. DECREASE METOPROLOL TO 25MG TWICE A DAY DECREASE VITAMIN D3 TO TWICE A WEEK. CHECK LABS, CHECK ECHO Xin Doherty NP Cardiology:increased SOB/JAIME today. ECHO: 2020 impaired LV relaxation, EF 60%, trace MR, mild AR, severe TR. WILL CHECK TSH, T3, T4, vitamin D. will decrease amio to 100mg daily. will decrease metoprolol to 25mg bid, wll decrease Vitamin D3 to twice a week. WILL CHECK ECHO Xin Doherty NP Cardiology:diaphores is with intermittent chest pain, SOB/JAIME. ECHO: 2020 impaired LV relaxation, EF 60%, trace MR, mild AR, severe TR. C AROTIDS: 2020 mild plaque, <50% cath: 2018 normal coronaries, normal renals, EF 60% WILL CHECK TSH, T3, T4, vitamin D. will decrease amio to 100mg daily. will decrease metoprolol to 25mg bid, wll decrease Vitamin D3 to twice a week. WILL CHECK SATNAM Doherty NP Cardiology: Pt state s that since the middle of July she has been having severe 'hot flashes and sweats'. she was seen by PCP, Dr. Mahoney and had labs drawn, and was told that she was dehydrated with eGFR 35. she states that she has been drinking a lot of fluid, but continues to have these 'severe sweats' causing her be unable to wear cpap at night because of her sweats, so she is not getting any sleep. She is waking up 5-6 times per night to urinate because of her increased fluid intake (and supsect d/t her sleep apnea and unable to wear cpap). she does report intermittent lightheadedness. She reports that today she has was so short of breath while walking up the stairs, she didn't think she was going to make it. She reports intermitttent chest tightness, but denies any palpitations, orthopnea, PND or syncope. WILL CHECK TSH, T3, T4, vitamin D. will decrease amio to 100mg daily. will decrease metoprolol to 25mg bid, wll decrease Vitamin D3 to twice a week. WILL CHECK SATNAM Doherty NP Electrophysiology Bryan morales MD Electrophysiology Bryan morales MD Electrophysiology Bryan morales MD Electrophysiology: H er updated medication list for this problem includes: Diltiazem Hcl 90 Mg Tablet (Diltiazem hcl) ..... Take 1 tablet by mouth twice a day Valsartan 40 Mg Tablet (Valsartan) ..... Take 1 tablet by mouth every day Bryan Carmona MD Electrophysiology Bryan morales MD Electrophysiology:no recurrence Xin Doherty NP Electrophysiology: e xtensive discussion about the compliance with the medications was done by Dr. Carmona in person R PM: average BP 154/84. diltiazem 90mg BID for afib and bp. recommended not taking clonidine PRN for SBP >170 as it could cause rebound hypertension. BP today: 180/80 P rior BP: 165/90 (05/22/2023) Labs Reviewed: C reat: 1.07 (03/24/2019) C hol: 152 (07/30/2018) HDL: 38 (07/30/2018) LDL: 98 (08/20/2018) T (07/30/2018) The following medications were removed from the medication list: Hydralazine 50 Mg Tablet (Hydralazine) ..... Take 1 tablet by mouth twice a day Her updated medication list for this problem includes: Diltiazem Hcl 90 Mg Tablet (Diltiazem hcl) ..... Take 1 tablet by mouth twice a day Clonidine Hcl 0.1 Mg Tablet (Clonidine hcl) ..... As needed for headaches sbp >170 Valsartan 40 Mg Tablet (Valsartan) ..... Take 1 tablet by mouth every day Xin Doherty NP Electrophysiology:Bria hayes does report 1 episode of AFIB, documented by smart watch, but states that it lasted about 20 min or so, with associated palpitations, but resolved, with no recurrence. DECREASE AMIO TO 200MG DAILY UNTIL CURRENT BOTTLE GONE THEN STOP S TART DILTIAZEM 90MG BID will check 1 week telesentry--> Dr. Roe to read Xin Doherty NP Electrophysiology:s/ p AFIB ablation 05/11 continue for amio for now. follow up in 4 weeks. will consider going back on dofetilide. Xin Doherty NP Electrophysiology:no recurrence Xin Doherty NP Electrophysiology:no recurrence Xin Doherty NP Telehealth - NO meds on the day of the aablation. pt aware. ELLYN Carmona MD Telehealth - NO meds on the day of the aablation. pt aware. ELLYN Carmona MD Telehealth - NO meds on the day of the aablation. pt aware. SK: I reviewed pertinent info including recent cardiac CT repost and images A Rrhythmia blation is planned for 05/12/2023 Her updated medication list for this problem includes: Dofetilide 500 Mcg Capsule (Dofetilide) ..... Take 1 capsule by mouth twice daily Metoprolol Tartrate 50 Mg Tablet (Metoprolol tartrate) ..... Take 1 tablet by mouth twice daily Bryan Carmona MD Telehealth - NO meds on the day of the aablation. pt aware. SK: O rders: P mary 5-10 ([id number]) Bryan Carmona MD Electrophysiology:Sh abigail has hx of of AFIB with CV in the past, she has been on Tikosyn. She had episode of AFIB while waiting for office visit 03/26, she is symptomatic with chest pain, sob, palpitations, she did recieve IV diltiazem at [facility] later that day as her rate was 119 bpm and converted to SR. She is SR today. I recommend pt undergo EP study with possible ablation to find and treat arrythmias. Discussed risks and benefits, she is agreeable. Soto Fortune Electrophysiology:Occurs with AF IB episodes Soto Fortune Electrophysiology: Sleep titration study came back positive for sleep apnea. Requests have been sent to the local company to provide her with the CPAP. The information on this has been given to the patient. Soto Fortune Electrophysiology Soto Fortune Cardiology:Follows n eurology H er updated medication list for this problem includes: Metoprolol Tartrate 50 Mg Tablet (Metoprolol tartrate) ..... Take 1 tablet by mouth twice daily Nolberto Roe MD Cardiology:Noted an episode earlier today while watching television. E KG shows Afib with RVR Nolberto Roe MD Cardiology:She has f requent headaches and notices during these headaches her BP becomes elevated. BP today: 140/86 P rior BP: 155/76 (12/31/2022) Labs Reviewed: C reat: 1.07 (03/24/2019) C hol: 152 (07/30/2018) HDL: 38 (07/30/2018) LDL: 98 (08/20/2018) T (07/30/2018) Nolberto Roe MD Cardiology:EKG shows Afib with RVR. QT 338 S he will be admitted to ER for cardizem infusion. Hopefully she should convert to SR. She has had recurrent episodes of Afib with RVR and sx. She is likely to benefit from EP evaluation. W ill follow up with Dr. Carmona and discuss possible ablation. Nolberto Roe MD Cardiology:No recurr ence Nolberto Roe MD Cardiology:This last Thursday she was getting ready in the morning and experienced palpitations and diaphoresis, she went back to sleep for 2 hours and symptoms resolved. EKG in SR today. QTCH 455 msec H er updated medication list for this problem includes: Metoprolol Tartrate 50 Mg Tablet (Metoprolol tartrate) ..... Take 1 tablet by mouth twice daily Dofetilide 500 Mcg Capsule (Dofetilide) ..... Take 1 capsule by mouth twice daily. start taking this on sunday 11/19. come in for an ekg daily on thursday, thursday, thursday. stop propafenone Nolberto Roe MD Cardiology:No SoB to day. Continues on diuretics Nolberto Roe MD Cardiology:Her RPM s howed BP average over last 30 days 149/87 with high variability and pt showed concern for weight loss. We will increase Valsartan to 1 1/2 tablets once daily and obtain bloodwork B P today: 155/76 P rior BP: 175/81 (08/20/2022) Nolberto Roe MD Cardiology:Currently in physical therapy which is helping her. Nolberto Roe MD Cardiology: H er updated medication list for this problem includes: Hydralazine 50 Mg Tablet (Hydralazine) ..... Take 1 tablet by mouth twice a day Metoprolol Tartrate 50 Mg Tablet (Metoprolol tartrate) ..... Take 1 tablet by mouth twice daily Valsartan 40 Mg Tablet (Valsartan) ..... Take 1 tablet by mouth once a day Furosemide 20 Mg Tablet (Furosemide) ..... Take 1 tablet by mouth once a day for 3 days Nolberto Roe MD Cardiology: Sleep ti tration study came back positive for sleep apnea. Requests have been sent to the local company to provide her with the CPAP. The information on this has been given to the patient. Nolberto Roe MD Cardiology:Since the left knee surgey, she has continued to have swelling, pain, and limited mobility and following orthopedics. Had a nerve conduction study done in April for leg and foot pains, which came back normal. Nolberto Roe MD Cardiology:No CP. Nolberto Roe MD Cardiology:There has been an occassional episode of fluttering in the chest. QTc 338. In sinus rhythm. Nolberto Roe MD Cardiology:Will send Ambien for the time being, she will need CPAP Nolberto Roe MD Cardiology: B P today: 179/88 P rior BP: 176/93 (05/15/2022) Labs Reviewed: C reat: 1.07 (03/24/2019) C hol: 152 (07/30/2018) HDL: 38 (07/30/2018) LDL: 98 (08/20/2018) Nolberto Roe MD Cardiology: R ecent admission at [facility] for afib. Continues on metoprolol tartrate and dofetilide. Xarelto for OAC. In sinus bradycardia on EKG today. Nolberto Roe MD Cardiology:She had n ormal nerve conduction study at [facility] Nolberto Roe MD Cardiology: U pcoming left knee arthroscopy. She may hold xarelto 3-5 days before surgery. Nolberto Roe MD Cardiology:She has m oderate SIMON and requires in lab study in order to recieve CPAP, will send orders. Nolberto Roe MD Cardiology: U pcoming left knee arthroscopy. BP elevated today. Will give her an RPM and decide if she needs adjustments to her BP medication before her upcoming procedure. She may hold xarelto 4-5 days before surgery. Nolberto Roe MD Cardiology: S he would certainly benefit from a sleep study. Nolberto Roe MD Cardiology: V enous insufficiency of the right GSV. Advised support stockings as needed for leg swelling. Leg swelling resolved off cardizem. Nolberto Roe MD Cardiology: B P elevated today at 176/93. Continues on hydralazine and metoprolol tartrate. Will give her an RPM and decide if she needs adjustments to her BP medication before her upcoming procedure. Advised reduced sodium intake and routine monitoring of the blood pressure. We aim for less than 130/80. Nolberto Roe MD Cardiology: C hest pain free. Nolberto Roe MD Cardiology: V enous insufficiency of the right GSV. Advised support stockings as needed for leg swelling. Leg swelling improved off cardizem. Nolberto Roe MD Cardiology: R ecent admission at [facility] for afib with RVR and hypertensive emergency. Continues on metoprolol tartrate and dofetilide. Xarelto for OAC. In sinus bradycardia on EKG today, QTc 451ms. She would benefit from a sleep srudy to evaluate for SIMON which could be contributing to her afib and BP. Nolberto Roe MD Cardiology: N o swelling today. Advised support stockings as needed for swelling Ynes Titus Cardiology: C omplaining of burning and claudication in her legs. Will start her on gabapention 200 mg nightly Ynes Titus Cardiology: V enous insufficiency of the right GSV. Advised support stockings as needed for leg swelling. Ynes Titus Cardiology:BP elevat ed today at 156/85. Advised reduced sodium intake and routine monitoring of the blood pressure. We aim for less than 130/80. Nolberto Roe MD Cardiology: I n Afib today. Cotinues on caridzem and dofetilide. Xarelto for OAC. W il have her repeat EKG on Thursday to see if she remains in Afib. Nolberto Roe MD Cardiology: C omplains of intermittent burning sensation in her BLEs. Recommend taking B12 and thiamine supplements. Differential diagnosis include venous insufficiency vs. PVD vs. neuropathy. Nolberto Roe MD Cardiology: B lood pressure is elevated today. Continue present medications. Nolberto Roe MD Cardiology: C omplains of intermittent burning sensation in her BLEs. Recommend taking B12 and thiamine supplements. Nolberto Roe MD Cardiology: C omplains of bilateral LE swelling which has been worse of late. Support hose in place. Has known venous insufficiency of the R GSV on previous ultrasound from March 2019. We will repeat her venous dopplers. I also recommend she take lasix 20mg for 2-3 days. Nolberto Roe MD Cardiology: I n SR today. Cotinues on caridzem and dofetilide. Xarelto for OAC. Nolberto Roe MD Cardiology: M uch improved on Amitriptyline. Follows neurology. Nolberto Roe MD Cardiology: S he had second lumbar surgery and is receiving injections. Currently in physical therapy which is helping her. Nolberto Roe MD Cardiology: C hest pain free. Nolberto Roe MD Cardiology: B lood pressure control is satisfactory. Nolberto Roe MD Cardiology: I n SR today. Cotinues on caridzem and dofetilide, QTc 439ms. Xarelto for OAC. Nolberto Roe MD Cardiology:Improved. Nolberto veronica MD Cardiology:She had s econd lumbar surgery and is receiving injections. Currently in physical therapy which is helping her. Nolberto Roe MD Cardiology:BP is jennie vated today, she also has elevated pressures at home around 150-160 systolic. Will increase her Hydralazine 25 mg to one and half tablets BID. BP today: 158/72 P rior BP: 159/91 (05/15/2021) Labs Reviewed: C reat: 1.07 (03/24/2019) C hol: 152 (07/30/2018) HDL: 38 (07/30/2018) LDL: 98 (08/20/2018) Nolberto Roe MD Cardiology: continues with her anticoagulation with Xarelto, sinus rhythm on EKG today. Nolberto Roe MD Cardiology:Improved, no swelling. She has reflux in her right GSV from doppler in 2019. Nolberto Roe MD Cardiology: continues with her anticoagulation with Xarelto and Cardizem. QTc on EKG today was 442 msec. in sinus rhythm Ynes Titus Cardiology: N o SoB today. Continues on diuretics Nolberto Roe MD Cardiology: M uch improved on Amitriptyline. Follows neurology. Nolberto Roe MD Cardiology: N o recurrence Nolberto Roe MD Cardiology: B P high today, states slightly stressed while parking. Nolberto Roe MD Cardiology: continues with her anticoagulation with Xarelto and Cardizem. Nolberto Roe MD Cardiology: O ne episode of heart pounding, resolved after 5 minutes. No other episodes before or since. Continues on nitro patch Nolberto Roe MD Cardiology:She occas ionally has episodes of fatigue, low energy which resolve after one day and occur once or twice a month. Nolberto Roe MD Cardiology:BP control is satisfa ctory. Nolberto Roe MD Cardiology:Recurrenc e of atrial fibrillation confirmed on EKG today. HR 81. QTC 386. Discussed options which included rate vs. rhythm control. She opted for rhythm control. We will discontinue the Sotalol and admit her next week for tikosyn loading. She will continue with her anticoagulation with Xarelto and Cardizem as before. She recently had blood tests and we will request her results. Nolberto Roe MD Cardiology:Resolved. semaj Cardiology:Unclear e tiology. Will check carotid doppler. Cardiology:BP elevat ed at 154/70. Advised reduced sodium intake and routine monitoring of the blood pressure. We aim for blood pressure less than 130/80. She continues on Hydralazine and Diltiazem. Cardiology:Episode o f chest pain for which she went to the ER. No recurrence. She continues on Nitro patch. Advised to take sublingual nitro as needed. Cardiology:Remains i n sinus rhythm, QTC 436 on Sotalol and Xarelto which she continues. Cardiology follow up :Persists. Unclear etiology. Her 2019 angiogram showed normal epicardial coronary arteries. She may benefit from repeat thryoid functions. Cardiology follow up :Resolved o ff Aldactone. Cardiology follow up :Blood pressure control is satisfactory. Cardiology follow up :Much improved on Amitriptyline. Follows neurology. Cardiology follow up :Remains in sinus rhythm, QTC 421 on Sotalol and Xarelto which she continues. Nolberto Roe MD Cardiology:Recommend ed pt wear compression stockings. Nolberto Roe MD Cardiology:Blood pressure contro l is satisfactory. Nolberto Roe MD Cardiology:In sinus rhythm. Resumed anticoagulation. Nolberto Roe MD Cardiology:Symptoms improved after the spinal tap. She's awaiting results from [facility] and neurology. Nolberto Roe MD Cardiology:Recent ve nous doppler with no evidence of DVT but insufficiency of the right lower extremity. Cardiology:Resolved off Aldacton e. Cardiology:Persisten t headaches. Will arrange head CT with contrast. Jacob semaj Cardiology:Persisten tly elevated blood pressure. Will reduce Cardizem CD back down to 120mg daily as it was ineffective at controlling her blood pressure at the higher dose. She continues on Benazapril as before. Will add Hydralazine 25mg BID. Her renal arteries were normal on angiogram last year. Advised to continue monitoring blood pressure. Jacob [facility] Cardiology:Remains i n sinus rhythm on EKG today. Continues on Cardizem and Sotalol, QTC 426. She continues on halfway anticoagulation with Xarelto. Jacob Cardiology:Off Aldactone. BMP to day with normal K+. [facility] Cardiology:Swelling of bilateral legs improved with compression stockings. Will arrange venous doppler with reflux. [facility] Cardiology:Controlle d on nitro patch which she continues. [facility] Cardiology:Persisten tly elevated blood pressure. Will increase Diltiazem to 240mg daily. She continues on Benazepril 40mg daily. [facility] Cardiology:Remains i n sinus rhythm on EKG today. Continues on Sotalol, QTC 426. She continues on halfway anticoagulation with Xarelto. Jacob Cardiology:Controlle d on nitro patch which she continues. Nolberto Roe MD Cardiology:Improved. Nolberto veronica MD Cardiology:Resolved off Aldacton e. Nolberto Roe MD Cardiology:Blood pressure contro l is satisfactory. Nolberto Roe MD Cardiology:Remains i n sinus rhythm on EKG today. Continues on Sotalol, QTC 418. She continues on halfway anticoagulation with Xarelto. Nolberto Roe MD Cardiology :Well con trolled on nitro patch which she continues. Nolberto Roe MD Cardiology :Blood pr essure control is satisfactory. Nolberto Roe MD Cardiology :Possibly related to Aldactone. Will repeat CMP and Magnesium with thyroid panel and sed rate today. Will discontinue Aldactone. Nolberto Roe MD Cardiology :s/p Card ioversion with successful conversion to sinus rhythm. EKG today shows sinus rhythm, QTC 406. She continues on Sotalol. On Xarelto for halfway anticoagulation. Nolberto Roe MD Cardiology:Mildly el evated right heart pressures on cath. She continues on diuretics. Nolberto Roe MD Cardiology:Remains f atigued possibly related to afib. She will consider ZOILA/CV. Nolberto Roe MD Cardiology:Blood pressure contro l is satisfactory. Nolberto Roe MD Cardiology:Chest michael n persists likely coronary vasospasm vs small vessel disease. Her very recent cath showed normal epicardial coronary arteries and she has been reassured. Ranexa has been ineffective and she complains of nausea and constipation. Will discontinue Ranexa. Will start nitro patch 0.4mg/hr daily to see if this improves her symptoms. She continues on sublingual nitro as needed. Nolberto Roe MD Cardiology:Persisten t. Rate controlled. Continues Atenolol and Cardizem. On Xarelto for halfway anticoagulation. ZOILA with cardioversion was discussed with the patient and her . They will consider the option. Nolebrto Roe MD Cardiology:Persisten t chest pain with relief from nitro in a patient with risk factors for CAD but negative stress test. A cardiac cath was discussed with this patient and she is agreeable. T he risks and benefits of the procedure, including but not limited the risk of heart attack, , stroke, bleeding, kidney failure, and loss of limb as well as the alternative of continued medical therapy, stress testing or bypass surgery were discussed with the patient and any present family members and the patient wishes to proceed with cardiac cath and stenting. The patient and family had opportunity to discuss this with us. Written material including informed consent was given out. Nolberto Roe MD Cardiology:Aflutter on EKG today. Rate controlled. Continues on Atenolol and Cardizem. On Xarelto for halfway anticoagulation. Nolberto Roe MD Cardiology:Persists. PFTs showed minimal interstitial restriction and mild diffusion defects. Will arrange R heart cath. Nolberto Roe MD Cardiology:Blood pre ssure 100/70 and patient complains of fatigue. Will reduce Aldactone to 12.5mg daily. Nolberto Roe MD Cardiology Nolberto Zuniga Cardiology Follow up :Improved. PFTs showed mild restriction defect. Nolberto Roe MD Cardiology Follow up :Blood pressure consistently elevated and patient symptomatic with headaches. Will stop HCTZ and start Aldactone 25mg daily. Nolberto Roe MD Cardiology Follow up :Resolved. Recent stress test showed no evidence of ischemia. Her calcium score was 0. The patient was reassured. Nolberto Roe MD Cardiology Follow up :Chronic. Rate controlled. Continues on Cardizem. On Xarelto for halfway anticoagulation Nolberto Roe MD Cardiology follow up :The etiology is unclear. She may likely have underlying CAD or iatrogenic. The dose of Atenolol has been reduced to 50mg daily. Nolberto Roe MD Cardiology follow up :Blood pressure today was 154/98. She continues on Benazepril and Cardizem. She will continue to monitor her blood pressure. Nolberto Roe MD Cardiology follow up :Persistent. Rate controlled. Continues on Cardizem. On Eliquis for halfway anticoagulation. She was advised to discontinue ASA. Nolberto Roe MD Cardiology follow up :Will check PFTs and 6 minute walk. Nolberto Roe MD Cardiology follow up :New onset of effort related chest pain with associated shortness of breath. Likely stable angina. A stress test will be arranged. Nitro has been sent to the pharmacy. Nolberto Roe MD Cardiology New Patie nt:Blood pressure control is satisfactory. Amlodipine discontinued. Cardizem CD 120mg daily started. Nolberto Roe MD Cardiology New Patie nt:Atrial fibrillation on EKG today. Will start Cardizem CD 120mg, stop Amlodipine, and start Xarelto for anticoagulation. The risks and benefits of anticoagulation were discussed with the patient and her . Rhythm vs rate control was also discussed and when seen again, will be discussed again. Nolberto Roe MD Date Name Renal Artery Duplex BASIC METABOLIC PANE L W/EGFR Complete Echo Vitamin D, 25-Hydrox y TSH, free T4, total T3 COMPREHENSIVE METABO LIC PANEL, W/EGFR Monitor - Telemetry (Mobile Cardiac) Holter Monitor 48 hr PARTIAL THROMBOPLAST IN TIME, ACTIVATED PROTHROMBIN TIME WIT H INR CBC (INCLUDES DIFF/P LT) BASIC METABOLIC PANE L W/EGFR CT Cardiac with cont rast (Pre-Ablation) ABLATION w/ Anesthes ia EP Study LIPID PANEL COMPREHENSIVE METABO LIC PANEL, W/EGFR MAGNESIUM TSH, free T4, total T3 CALCIUM Sleep Study Titratio n Sleep Study Titratio n Sleep Study Home Venous Doppler Bilat eral LE - Reflux Carotid Duplex Bilat eral Complete Echo CT Head with contras t BASIC METABOLIC PANE L W/EGFR Venous Doppler Bilat eral LE - Reflux SED RATE BY MODIFIED WESTERGREN T3, TOTAL T-4, FREE TSH, 3RD GENERATION W/REFLEX TO FT4 MAGNESIUM COMPREHENSIVE METABO LIC PANEL, W/EGFR PROTHROMBIN TIME WIT H INR LIPID PANEL CBC (INCLUDES DIFF/P LT) BASIC METABOLIC PANE L W/EGFR Cardiac Cath - L/R - GC CT, Coronary Calcium Score Stress Regadenoson 6 minute walk test DLCO - 14449 FRC - 51443 FVC - 22164 Complete Echo Mobile Cardiac Tele PROBNP, N TERMINAL HISTORY OF PROCEDURES Procedure Date Procedure Name Provider Procedure Notes S tatus Complex e/m visit ad d on Nolberto Roe MD completed Complex e/m visit ad d on Nolberto Roe MD completed Complex e/m visit ad d on Brandon Jackson MD completed Complex e/m visit ad d on Nolberto Roe MD completed EKG Nolberto Roe MD complet ed Schedule Followup Bryan Carmona MD [address] CARMONA completed EKG Bryan Carmona MD comp leted Schedule Followup Bryan Carmona MD [address] CARMONA completed EKG Bryan Carmona MD comp leted EKG Bryan Carmona MD comp leted EKG Nolberto Roe MD complet ed EKG Nolberto Roe MD complet ed EKG Nolberto Roe MD complet ed EKG Nolberto Roe MD complet ed EKG Nolberto Roe MD complet ed EKG Nolberto Roe MD complet ed EKG Nolberto Roe MD complet ed EKG Nolberto Roe MD complet ed EKG Nolberto Roe MD complet ed EKG Nolberto Roe MD complet ed EKG Johnny Drummond MD completed EKG Nolberto Roe MD complet ed EKG Nolberto Roe MD complet ed EKG Nolberto Roe MD complet ed EKG Nolberto Roe MD complet ed EKG Nolberto Roe MD complet ed EKG Nolberto Roe MD complet ed EKG Nolberto Roe MD complet ed EKG Nolberto Roe MD complet ed EKG Nolberto Roe MD complet ed EKG Nolberto Roe MD complet ed EKG Nolberto Roe MD complet ed EKG Nolberto Roe MD complet ed CT- Coronary CA score Nolberto Roe MD completed Regadenoson, 4 units Nolberto Roe MD completed Cardiolite, 2 units Nolberto Roe MD completed SPECT Images Arnulfo Cooper MD completed Stress EKG José Callaway MD complete d FVC / MVV - 44910 Nolberto Roe MD completed BLOOD COUNT HEMOGLOBIN Nolberto Roe MD completed FRC - 65402 Nolberto Roe MD comple jovany SpO2 w/o 6min walk/titration Nolberto Roe MD completed DLCO - 86344 Nolberto Roe MD compl eted EKG Nolberto Roe MD complet ed EKG Nolberto Roe MD complet ed Mobile Cardiac Telemetry - Tech Nolberto Roe MD completed Mobile Cardiac Telemetry - Prof Nolberto Roe MD completed
--- OUTSIDE RECORDS SUMMARY | 2024-05-18 16:16 | XMS_ITS | Encounter Summary ---
Author Organization [facility] Address [address] [place] [address] Care Team Providers Care Dairy Frozen Manager Name Role Phone Omi Prieto MD Primary Care Provider [phone] Encounter Details Date Type Department Care Team (Late st Contact Info) Description 09/24/2022 Lab Requisition [facility] - DermPath Lab [address] [place] [id number] Ellie Guzman DO [address] [facility] [address] [place] [address] Social History Tobacco Use Types Packs/Day Years Used Date Smoking Tobacco: Never Assessed Sex and Gender Information Value Date Recorded Sex Assigned at Not on file Gender Identity Not on file Sexual Orientation Not on file documented as of this encounter Plan of Treatment Not on file documented as of this encounter Procedures Procedure Name Priority Date/Time Associated Diagnosis Comments DERMATOPATHOLOGY Routine 09/24/2022 1:19 PM CDT documented in this encounter Results * DERMATOPATHOLOGY (09/24/2022 1:19 PM CDT) Case Report Dermatopathology Report Case: [id number] Authorizing Provider: Ellie Guzman DO Collected: 09/24/2022 01:19 PM Ordering Location: [facility] DermPath Lab Received: 09/26/2022 07:30 AM Pathologist: Nicol Pereira MD Specimens: A) - Skin, left base of neck B) - Skin, mid back 4:21 PM CDT DERMATOPATHOLOGY LABORATORY Final Diagnosis Specimen A. SKIN, left base of neck: LICHEN PLANUS-LIKE KERATOSIS (BENIGN LICHENOID KERATOSIS) (L82.1) POST-INFLAMMATORY PIGMENT ALTERATION (L81.9) Specimen B. 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 The specimen consists of a shave biopsy measuring 8x5x1 mm. Jar 0. Specimen B: Received is one formalin filled container labeled with the patient's name and designated mid back. The specimen consists of a shave biopsy measuring 6x5x1 mm. Jar 0. 3 4:21 PM [facility] DERMATOPATHOLOGY LABORATORY Microscopic Description Specimen A. SKIN, left base of neck: The epidermis is mildly acanthotic. There is a lichenoid infiltrate with vacuolar changes of basilar keratinocytes and scattered necrotic keratinocytes. Sections show abundant melanin within melanophages around the superficial vascular plexus. Specimen B. SKIN, mid back: This is a compound nevus. There is a lentiginous proliferation of melanocytes along the dermal-epidermal junction, highlighted by MART-1/Melan-A immunohistochemical staining. There is underlying fibroplasia of the papillary dermis. The intradermal component is bland in appearance and matures with depth. Original and deeper sections were reviewed. (Compound Murali's Nevus) 3 4:21 PM T DERMATOPATHOLOGY LABORATORY Disclaimer An external and internal positive and negative controls are appropriate for the histochemical, immunohistochemical and immunofluorescence stain(s) in this case (if any), except where stated explicitly. The performance characteristics of the stain(s) cited in this report were developed and its performance characteristic determined by the Dermatopathology Laboratory at [facility], directed by Dr. Cole Rascon. These tests need not be, and therefore are not, approved by the [place] Food and Drug Administration. The tests are used for clinical purposes. Billing Codes Specimen Charges Stain Charges 52370 28118 1 1 74765 1 3 4:21 PM CDT DERMATOPATHOLOGY LABORATORY Embedded Images 3 4:21 PM T DERMATOPATHOLOGY LABORATORY Pathology/Cytology TISSUE SPECIMEN FROM SKIN / Unknown 09/24/2022 1:19 PM CDT 09/26/2022 7:30 AM CDT Miscellaneous samples (specimen) TISSUE SPECIMEN FROM SKIN / Unknown 09/24/2022 1:19 PM CDT 09/26/2022 7:30 AM CDT Ellie Guzman DO LAB - PATHOLOGY/C YTOLOGY ORDERABLES DERMATOPATHOLOGY LABORATORY [facility] - Department of Dermatology [facility] Special[facility] Medicine [address] [place] [address], [address] [phone] documented in this encounter Visit Diagnoses Not on filedocumented in this encounter Care Teams Dairy Frozen Manager Relationship Specialty Start Date End Date Omi Prieto MD PCP - General 12/16/18 documented as of this encounter
== END 2024-05-18 14:19 | disposition home or self-care (01) ==
LOC: ANHLAB 14:22
PROVIDERS: PCP Internal Medicine; Visit Provider Internal Medicine Nephrology
DX: R94.4 Abnormal results of kidney function studies (principal); I10 Essential (primary) hypertension
CPT/HCPCS: 36415; 80069; 83835; 83970; 85027; 86334

== ENCOUNTER 2024-06-15 10:50 | Outpatient (CLI) | payer MEDICARE, OTHER, SELFPAY ==
[2024-06-15 11:27] LABS: Hemoglobin 13.7 g/dL (12.0-15.0); Mean Corpuscular HGB Conc 31.1 g/dl (32-36); Mean Corpuscular Hemoglobin 28.4 pg (26-34); Mean Corpuscular Volume 91.3 fl (80-100); Mean Platelet Volume 9.3 fl (7.4-10.4); Platelet Count Result 190 k/mm3 (150-375); Red Blood Count 4.82 M/mm3 (4.2-5.4); Red Cell Distribution Width 15.2 % (11.5-14.5); White Blood Count 3.7 K/mm3 (4.5-10.0)
[2024-06-15 11:39] LABS: Albumin Level 4.3 g/dL (3.5-5.1); Anion Gap 8 mmol/L (4-12); Blood Urea Nitrogen 33 mg/dL (7-17); Calcium 8.9 mg/dL (8.4-10.2); Carbon Dioxide 29 mmol/L (22-30); Chloride 102 mmol/L (98-107); Estimated Glomerular Filt Rate 36; Glucose 104 mg/dL (65-110); Phosphorus 2.9 mg/dL (2.5-4.5); Potassium 3.9 mmol/L (3.4-5.0); Sodium 139 mmol/L (137-145)
--- OUTSIDE RECORDS SUMMARY | 2024-06-15 12:26 | XMS_ITS | Data Portability ---
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 Role Phone CHEN GAVIN Primary Care Provider [phone] Assessment Encounter Date Assessment Date Assessment LastModified by Organization Details LastModified Time 08/20/2023 08/20/2023 CBC CMP lipid T3-T4 TSH QuantiFERON gold follow-up 1 month and I need records from her previous clinic [email or web address] Not available 08/22/2023 16:26:50 2023 2023 her complaints o f night sweats are completely gone and there is no other new interval developments or complaints we will just continue to monitor diagnosis in the assessment and plan have been discussed recent blood work reviewed she will follow up with me in 4 months any problems in the interim she will call. [email or web address] Not available 09/27/2023 20:27:55 01/21/2024 01/21/2024 continue current therapy recent blood work has been ordered healthy lifestyle care instructions flu shot follow up 3 months [email or web address] Not available 03/04/2024 14:31:52 04/22/2024 04/22/2024 her blood pressu re is controlled symptomatically or atrial fibrillation is doing fine appears to be in a sinus mechanism today we will continue current therapy gout doing fine dyslipidemia continue with medications and low-fat diet follow up in 4 months [email or web address] Not available 04/23/2024 13:53:00 Plan of Treatment Reminders Order Date Submit Date Provider Last Modified By Organization Details Last Modified Time Details Appointments ANY 15 2024 09:15A M Chen Gavin MD Not available Not available Not available Lab lipid panel, serum 2023 024 [facility], [address], [address], [place], [address], 08/21/2023 10:37:21 CBC w/ auto diff 2023 024 J[facility]Y [facility], [address], [address], [place], [address], 08/21/2023 10:37:22 CMP, serum or plasma 2023 024 [facility], [address], [address], [place], [address], 08/21/2023 10:37:21 TSH + free T4, serum 2023 024 JERRY [facility], [address] [place], [place] [address], [address], [place], [address], 08/21/2023 10:37:20 T3, free, serum or plasma 2023 024 [facility], [facility] [facility] [address], [address], [place], [address], 08/21/2023 10:37:23 Mycobacte rium tuberculo sis stimulate d gamma interfero n, qual, blood 2023 024 [facility], [address] [place], [place] [address], [address], [place], [address], 08/22/2023 20:35:53 Referral None recorded. Procedures None recorded. Surgeries None recorded. Imaging None recorded. Medication Orders None recorded. Patient TargetsNo targets recorded. Patient Instructions Encounter Date Encounter Id Patient Instructions Last Modified By Organization Details Last Modified Time 01/21/2024 [id number] A healthy lifestyle: care instructions [email or web address] Not available 03/04/2024 14:32:09 Reason for Referral None Reported. Results Created Date Observation Date Name Description Value Unit Range Abnormal Flag Note LastModifiedBy Organization Detail LastModifiedTime 08/20/19 24 08/21/2023 TSH+F REE T4 TSH 0.692 uIU/m L 0.450- 4.500 Not Available [facility] ([facility]) [address], [address], 08/21/2023 10:37:20 08/20/19 24 08/21/2023 TSH+F REE T4 T4,free(dire ct) 1.70 NG/dL 0.82-1 .77 Not Available [facility] ([facility]) [address] [place], [address], 08/21/2023 10:37:20 08/20/19 24 08/21/2023 LIPID PANEL cholesterol, total 164 mg/dL 100-19 9 Not Available [facility] ([facility]) [address] [place], [address], 08/21/2023 10:37:21 08/20/19 24 08/21/2023 LIPID PANEL triglyceride s 113 mg/dL 0-149 Not Available [facility] ([facility]) [address] [place], [address], 08/21/2023 10:37:21 08/20/19 24 08/21/2023 LIPID PANEL HDL cholesterol 42 mg/dL >39 Not Available [facility] ([facility]) [address] [place], [address], 08/21/2023 10:37:21 08/20/19 24 08/21/2023 LIPID PANEL VLDL cholesterol phil 21 mg/dL 5-40 Not Available [facility] ([facility]) [address] [place], [address], 08/21/2023 10:37:21 08/20/19 24 08/21/2023 LIPID PANEL LDL chol calc ([facility]) 101 mg/dL 0-99 above high normal Not Available [facility] ([facility]) [address] [place], [address], 08/21/2023 10:37:21 08/20/19 24 08/21/2023 COMP. METAB OLIC PANEL (14) glucose 87 mg/dL 70-99 Not Available [facility] ([facility]) [address] [place], [address], 08/21/2023 10:37:21 08/20/19 24 08/21/2023 COMP. METAB OLIC PANEL (14) BUN 24 mg/dL 8-27 Not Available [facility] ([facility]) [address], [place], [address], 08/21/2023 10:37:21 08/20/19 24 08/21/2023 COMP. METAB OLIC PANEL (14) creatinine 1.52 mg/dL 0.57-1 .00 above high normal Not Available [facility] ([facility]) [address] [place], [address], 08/21/2023 10:37:21 08/20/19 24 08/21/2023 COMP. METAB OLIC PANEL (14) eGFR 35 mL/mi n/1.7 3 >59 below low normal Not Available [facility] ([facility]) [address] [place], [address], 08/21/2023 10:37:21 08/20/19 24 08/21/2023 COMP. METAB OLIC PANEL (14) BUN/creatini ne ratio 16 12-28 Not Available [facility] ([facility]) [address] [place], [address], 08/21/2023 10:37:21 08/20/19 24 08/21/2023 COMP. METAB OLIC PANEL (14) sodium 143 mmol/ L 134-14 4 Not Available [facility] ([facility]) [address] [place], [address], 08/21/2023 10:37:21 08/20/19 24 08/21/2023 COMP. METAB OLIC PANEL (14) potassium 4.9 mmol/ L 3.5-5. 2 Not Available [facility] ([facility]) [address] [place], [address], 08/21/2023 10:37:21 08/20/19 24 08/21/2023 COMP. METAB OLIC PANEL (14) chloride 104 mmol/ L 96-106 Not Available [facility] ([facility]) [address] [place], [address], 08/21/2023 10:37:21 08/20/19 24 08/21/2023 COMP. METAB OLIC PANEL (14) carbon dioxide, total 25 mmol/ L 20-29 Not Available [facility] ([facility]) [address] [place], [address], 08/21/2023 10:37:21 08/20/19 24 08/21/2023 COMP. METAB OLIC PANEL (14) calcium 9.1 mg/dL 8.7-10 .3 Not Available [facility] ([facility]) [address] [place], [address], 08/21/2023 10:37:21 08/20/19 24 08/21/2023 COMP. METAB OLIC PANEL (14) protein, total 6.8 g/dL 6.0-8. 5 Not Available [facility] ([facility]) [address] [place], [address], 08/21/2023 10:37:21 08/20/19 24 08/21/2023 COMP. METAB OLIC PANEL (14) albumin 4.0 g/dL 3.8-4. 8 Not Available [facility] ([facility]) [address] [place], [address], 08/21/2023 10:37:21 08/20/19 24 08/21/2023 COMP. METAB OLIC PANEL (14) globulin, total 2.8 g/dL 1.5-4. 5 Not Available [facility] ([facility]) [address], [place], [address], 08/21/2023 10:37:21 08/20/19 24 08/21/2023 COMP. METAB OLIC PANEL (14) A/G ratio 1.4 Not Available [facility] ([facility]) [address], [place], [address], 08/21/2023 10:37:21 08/20/19 24 08/21/2023 COMP. METAB OLIC PANEL (14) bilirubin, total 0.5 mg/dL 0.0-1. 2 Not Available [facility] ([facility]) [address] [place], [address], 08/21/2023 10:37:21 08/20/19 24 08/21/2023 COMP. METAB OLIC PANEL (14) alkaline phosphatase 97 IU/L 44-121 Not Available [facility] ([facility]) [address], [place], [address], 08/21/2023 10:37:21 08/20/19 24 08/21/2023 COMP. METAB OLIC PANEL (14) AST (SGOT) 22 IU/L 0-40 Not Available [facility] ([facility]) [address] [place], [address], 08/21/2023 10:37:21 08/20/19 24 08/21/2023 COMP. METAB OLIC PANEL (14) ALT (SGPT) 26 IU/L 0-32 Not Available [facility] ([facility]) [address] [place], [address], 08/21/2023 10:37:21 08/20/19 24 08/21/2023 CBC WITH DIFFE RENTI AL/PL ATELE T WBC 4.3 x10e3 /uL 3.4-10 .8 Not Available [facility] ([facility]) [address], [place], [address], 08/21/2023 10:37:22 08/20/19 24 08/21/2023 CBC WITH DIFFE RENTI AL/PL ATELE T RBC 5.19 x10e6 /uL 3.77-5 .28 Not Available [facility] ([facility]) [address], [place], [address], 08/21/2023 10:37:22 08/20/19 24 08/21/2023 CBC WITH DIFFE RENTI AL/PL ATELE T hemoglobin 14.7 g/dL 11.1-1 5.9 Not Available [facility] ([facility]) [address], [place], [address], 08/21/2023 10:37:22 08/20/19 24 08/21/2023 CBC WITH DIFFE RENTI AL/PL ATELE T hematocrit 45.4 % 34.0-4 6.6 Not Available [facility] ([facility]) [address], [place], [address], 08/21/2023 10:37:22 08/20/19 24 08/21/2023 CBC WITH DIFFE RENTI AL/PL ATELE T MCV 88 fL 79-97 Not Available [facility] ([facility]) [address] [place], [address], 08/21/2023 10:37:22 08/20/19 24 08/21/2023 CBC WITH DIFFE RENTI AL/PL ATELE T MCH 28.3 pg 26.6-3 3.0 Not Available [facility] ([facility]) [address] [place], [address], 08/21/2023 10:37:22 08/20/19 24 08/21/2023 CBC WITH DIFFE RENTI AL/PL ATELE T MCHC 32.4 g/dL 31.5-3 5.7 Not Available [facility] ([facility]) [address], [place], [address], 08/21/2023 10:37:22 08/20/19 24 08/21/2023 CBC WITH DIFFE RENTI AL/PL ATELE T RDW 14.6 % 11.7-1 5.4 Not Available [facility] ([facility]) [address], [place], [address], 08/21/2023 10:37:22 08/20/19 24 08/21/2023 CBC WITH DIFFE RENTI AL/PL ATELE T platelets 189 x10e3 /uL 150-45 0 Not Available [facility] ([facility]) [address], [place], [address], 08/21/2023 10:37:22 08/20/19 24 08/21/2023 CBC WITH DIFFE RENTI AL/PL ATELE T neutrophils 66 % notest ab. Not Available [facility] ([facility]) [address], [place], [address], 08/21/2023 10:37:22 08/20/19 24 08/21/2023 CBC WITH DIFFE RENTI AL/PL ATELE T lymphs 20 % notest ab. Not Available [facility] ([facility]) [address], [place], [address], 08/21/2023 10:37:22 08/20/19 24 08/21/2023 CBC WITH DIFFE RENTI AL/PL ATELE T monocytes 9 % notest ab. Not Available [facility] ([facility]) [address], [place], [address], 08/21/2023 10:37:22 08/20/19 24 08/21/2023 CBC WITH DIFFE RENTI AL/PL ATELE T eos 3 % notest ab. Not Available [facility] ([facility]) [address], [place], [address], 08/21/2023 10:37:22 08/20/19 24 08/21/2023 CBC WITH DIFFE RENTI AL/PL ATELE T basos 1 % notest ab. Not Available [facility] ([facility]) [address], [place], [address], 08/21/2023 10:37:22 08/20/19 24 08/21/2023 CBC WITH DIFFE RENTI AL/PL ATELE T neutrophils (absolute) 2.9 x10e3 /uL 1.4-7. 0 Not Available [facility] ([facility]) [address], [place], [address], 08/21/2023 10:37:22 08/20/19 24 08/21/2023 CBC WITH DIFFE RENTI AL/PL ATELE T lymphs (absolute) 0.8 x10e3 /uL 0.7-3. 1 Not Available [facility] ([facility]) [address] [place], [address], 08/21/2023 10:37:22 08/20/19 24 08/21/2023 CBC WITH DIFFE RENTI AL/PL ATELE T monocytes(ab solute) 0.4 x10e3 /uL 0.1-0. 9 Not Available [facility] ([facility]) [address] [place], [address], 08/21/2023 10:37:22 08/20/19 24 08/21/2023 CBC WITH DIFFE RENTI AL/PL ATELE T eos (absolute) 0.1 x10e3 /uL 0.0-0. 4 Not Available [facility] ([facility]) [address] [place], [address], 08/21/2023 10:37:22 08/20/19 24 08/21/2023 CBC WITH DIFFE RENTI AL/PL ATELE T baso (absolute) 0.0 x10e3 /uL 0.0-0. 2 Not Available [facility] ([facility]) [address], [place], [address], 08/21/2023 10:37:22 08/20/19 24 08/21/2023 CBC WITH DIFFE RENTI AL/PL ATELE T immature granulocytes 1 % notest ab. Not Available [facility] ([facility]) [address], [place], [address], 08/21/2023 10:37:22 08/20/19 24 08/21/2023 CBC WITH DIFFE RENTI AL/PL ATELE T immature grans (abs) 0.0 x10e3 /uL 0.0-0. 1 Not Available [facility] ([facility]) [address], [place], [address], 08/21/2023 10:37:22 08/20/19 24 08/21/2023 TRIIO DOTHY KEO E (T3), FREE triiodothyro nine (T3), free 2.2 pg/mL 2.0-4. 4 Not Available [facility] ([facility]) [address], [place], [address], 08/21/2023 10:37:23 08/20/19 24 08/21/2023 QUANT IFERO N-TB GOLD PLUS quantiferon incubation INCUBA TION PERFOR MED. Not Available [facility] ([facility]) [address] [place], [address], 08/22/2023 20:35:53 08/20/19 24 08/21/2023 QUANT IFERO N-TB GOLD PLUS quantiferon criteria COMMEN T Quant iFERO N-TB Gold Plus is a quali tativ e indir ect test for M tuber culos is infec tion (incl uding disea se) and is inten ded for use in conju nctio n with risk asses sment , radio graph y, and other medic al and diagn ostic evalu ation s. The Quant iFERO N-TB Gold Plus resul t is deter mined by subtr actin g the Nil value from eithe r TB antig en (Ag) value . The Mitog en tube serve s as a contr ol for the test. Not Available [facility] ([facility]) [address], [place], [address], 08/22/2023 20:35:53 08/20/19 24 08/22/2023 QUANT IFERO N-TB GOLD PLUS quantiferon- TB gold plus NEGATI VE negati ve No respo nse to M tuber rosalieos is antig ens detec jovany. Infec tion with M tuber rosalieos is is unlik martell, but high risk indiv idual s shoul d be consi dered for addit ional testi ng (ATS/ IDSA/ CDC Clini phil Pract ice Guide lines , 2017) . The refer ence range is an Antig en minus Nil resul t of <0.35 IU/mL . Chemi lumin escen ce immun oassa y metho dolog y Not Available [facility] ([facility]) [address], [place], [address], 08/22/2023 20:35:53 08/20/19 24 08/22/2023 QUANT IFERO N-TB GOLD PLUS quantiferon TB1 Ag value 0.05 IU/mL Not Available [facility] ([facility]) [address] [place], [address], 08/22/2023 20:35:53 08/20/19 24 08/22/2023 QUANT IFERO N-TB GOLD PLUS quantiferon TB2 Ag value 0.06 IU/mL Not Available [facility] ([facility]) [address] [place], [address], 08/22/2023 20:35:53 08/20/19 24 08/22/2023 QUANT IFERO N-TB GOLD PLUS quantiferon nil value 0.05 IU/mL Not Available [facility] ([facility]) [address] [place], [address], 08/22/2023 20:35:53 08/20/19 24 08/22/2023 QUANT IFERO N-TB GOLD PLUS quantiferon mitogen value 1.46 IU/mL Not Available [facility] ([facility]) [address] [place], [address], 08/22/2023 20:35:53 08/28/19 24 08/29/2023 UA WITH CULTU RE REFLE X specific gravity 1.026 1.005- 1.030 Not Available [facility] ([facility]) [address], [place], [address], 08/29/2023 12:36:45 08/28/19 24 08/29/2023 UA WITH CULTU RE REFLE X pH 5.5 5.0-7. 5 Not Available [facility] ([facility]) [address], [place], [address], 08/29/2023 12:36:45 08/28/19 24 08/29/2023 UA WITH CULTU RE REFLE X urine-color YELLOW yellow Not Available [facility] ([facility]) [address] [place], [address], 08/29/2023 12:36:45 08/28/19 24 08/29/2023 UA WITH CULTU RE REFLE X appearance CLEAR clear Not Available [facility] ([facility]) [address] [place], [address], 08/29/2023 12:36:45 08/28/19 24 08/29/2023 UA WITH CULTU RE REFLE X WBC esterase NEGATI VE negati ve Not Available [facility] ([facility]) [address] [place], [address], 08/29/2023 12:36:45 08/28/19 24 08/29/2023 UA WITH CULTU RE REFLE X protein TRACE negati ve/tra ce Not Available [facility] ([facility]) [address] [place], [address], 08/29/2023 12:36:45 08/28/19 24 08/29/2023 UA WITH CULTU RE REFLE X glucose NEGATI VE negati ve Not Available [facility] ([facility]) [address] [place], [address], 08/29/2023 12:36:45 08/28/19 24 08/29/2023 UA WITH CULTU RE REFLE X ketones TRACE negati ve abnormal Not Available [facility] ([facility]) [address] [place], [address], 08/29/2023 12:36:45 08/28/19 24 08/29/2023 UA WITH CULTU RE REFLE X occult blood NEGATI VE negati ve Not Available [facility] ([facility]) [address] [place], [address], 08/29/2023 12:36:45 08/28/19 24 08/29/2023 UA WITH CULTU RE REFLE X bilirubin NEGATI VE negati ve Not Available [facility] ([facility]) [address] [place], [address], 08/29/2023 12:36:45 08/28/19 24 08/29/2023 UA WITH CULTU RE REFLE X urobilinogen ,semi-qn 0.2 mg/dL 0.2-1. 0 Not Available [facility] ([facility]) [address] [place], [address], 08/29/2023 12:36:45 08/28/19 24 08/29/2023 UA WITH CULTU RE REFLE X nitrite, urine NEGATI VE negati ve Not Available [facility] ([facility]) [address] [place], [address], 08/29/2023 12:36:45 08/28/19 24 08/29/2023 UA WITH CULTU RE REFLE X microscopic examination COMMEN T Micro scopi c not indic ated and not perfo rmed. Not Available [facility] ([facility]) [address] [place], [address], 08/29/2023 12:36:45 08/28/19 24 08/29/2023 UA WITH CULTU RE REFLE X urinalysis reflex COMMEN T This speci men will not refle x to a Urine Cultu re. Not Available [facility] ([facility]) [address] [place], [address], 08/29/2023 12:36:45 04/13/19 25 04/14/2024 RENAL PANEL (10) glucose 55 mg/dL 70-99 below low normal Not Available [facility] ([facility]) [address] [place], [address], 04/14/2024 13:07:11 04/13/19 25 04/14/2024 RENAL PANEL (10) BUN 30 mg/dL 8-27 above high normal Not Available [facility] ([facility]) [address] [place], [address], 04/14/2024 13:07:11 04/13/19 25 04/14/2024 RENAL PANEL (10) creatinine 1.18 mg/dL 0.57-1 .00 above high normal Not Available [facility] ([facility]) [address] [place], [address], 04/14/2024 13:07:11 04/13/19 25 04/14/2024 RENAL PANEL (10) eGFR 47 mL/mi n/1.7 3 >59 below low normal Not Available [facility] ([facility]) [address] [place], [address], 04/14/2024 13:07:11 04/13/19 25 04/14/2024 RENAL PANEL (10) BUN/creatini ne ratio 25 12-28 Not Available [facility] ([facility]) [address] [place] [place], [address], 04/14/2024 13:07:11 04/13/19 25 04/14/2024 RENAL PANEL (10) sodium 138 mmol/ L 134-14 4 Not Available [facility] ([facility]) [address] [place], [address], 04/14/2024 13:07:11 04/13/19 25 04/14/2024 RENAL PANEL (10) potassium 4.9 mmol/ L 3.5-5. 2 Not Available [facility] ([facility]) [address] [place], [address], 04/14/2024 13:07:11 04/13/19 25 04/14/2024 RENAL PANEL (10) chloride 99 mmol/ L 96-106 Not Available [facility] ([facility]) [address] [place], [address], 04/14/2024 13:07:11 04/13/19 25 04/14/2024 RENAL PANEL (10) carbon dioxide, total 30 mmol/ L 20-29 above high normal Not Available [facility] ([facility]) [address] [place], [address], 04/14/2024 13:07:11 04/13/19 25 04/14/2024 RENAL PANEL (10) calcium 9.6 mg/dL 8.7-10 .3 Not Available [facility] ([facility]) [address] [place], [address], 04/14/2024 13:07:11 04/13/19 25 04/14/2024 RENAL PANEL (10) phosphorus 3.7 mg/dL 3.0-4. 3 Not Available [facility] ([facility]) [address] [place], [address], 04/14/2024 13:07:11 04/13/19 25 04/14/2024 RENAL PANEL (10) albumin 4.1 g/dL 3.8-4. 8 Not Available [facility] ([facility]) [address], [place], [address], 04/14/2024 13:07:11 04/13/19 25 04/14/2024 PROT+ CREAT U (RAND OM) creatinine, urine 91.8 mg/dL notest ab. Not Available [facility] ([facility]) [address], [place], [address], 04/14/2024 13:07:12 04/13/19 25 04/14/2024 PROT+ CREAT U (RAND OM) protein,tota l,urine 12.8 mg/dL notest ab. Not Available [facility] ([facility]) [address], [place], [address], 04/14/2024 13:07:12 04/13/19 25 04/14/2024 PROT+ CREAT U (RAND OM) protein/crea t ratio 139 mg/g_ creat 0-200 Not Available [facility] ([facility]) [address], [place], [address], 04/14/2024 13:07:12 04/13/19 25 04/13/2024 CBC WITH DIFFE RENTI AL/PL ATELE T WBC 4.9 x10e3 /uL 3.4-10 .8 Not Available [facility] ([facility]) [address], [place], [address], 04/14/2024 13:07:12 04/13/19 25 04/13/2024 CBC WITH DIFFE RENTI AL/PL ATELE T RBC 5.14 x10e6 /uL 3.77-5 .28 Not Available [facility] ([facility]) [address], [place], [address], 04/14/2024 13:07:12 04/13/19 25 04/13/2024 CBC WITH DIFFE RENTI AL/PL ATELE T hemoglobin 14.3 g/dL 11.1-1 5.9 Not Available [facility] ([facility]) [address] [place], [address], 04/14/2024 13:07:12 04/13/19 25 04/13/2024 CBC WITH DIFFE RENTI AL/PL ATELE T hematocrit 46.2 % 34.0-4 6.6 Not Available [facility] ([facility]) [address], [place], [address], 04/14/2024 13:07:12 04/13/19 25 04/13/2024 CBC WITH DIFFE RENTI AL/PL ATELE T MCV 90 fL 79-97 Not Available [facility] ([facility]) [address], [place], [address], 04/14/2024 13:07:12 04/13/19 25 04/13/2024 CBC WITH DIFFE RENTI AL/PL ATELE T MCH 27.8 pg 26.6-3 3.0 Not Available [facility] ([facility]) [address] [place], [address], 04/14/2024 13:07:12 04/13/19 25 04/13/2024 CBC WITH DIFFE RENTI AL/PL ATELE T MCHC 31.0 g/dL 31.5-3 5.7 below low normal Not Available [facility] ([facility]) [address] [place], [address], 04/14/2024 13:07:12 04/13/19 25 04/13/2024 CBC WITH DIFFE RENTI AL/PL ATELE T RDW 14.1 % 11.7-1 5.4 Not Available [facility] ([facility]) [address] [place], [address], 04/14/2024 13:07:12 04/13/19 25 04/13/2024 CBC WITH DIFFE RENTI AL/PL ATELE T platelets 230 x10e3 /uL 150-45 0 Not Available [facility] ([facility]) [address], [place], [address], 04/14/2024 13:07:12 04/13/19 25 04/13/2024 CBC WITH DIFFE RENTI AL/PL ATELE T neutrophils 74 % notest ab. Not Available [facility] ([facility]) [address], [place], [address], 04/14/2024 13:07:12 04/13/19 25 04/13/2024 CBC WITH DIFFE RENTI AL/PL ATELE T lymphs 15 % notest ab. Not Available [facility] ([facility]) [address], [place], [address], 04/14/2024 13:07:12 04/13/19 25 04/13/2024 CBC WITH DIFFE RENTI AL/PL ATELE T monocytes 9 % notest ab. Not Available [facility] ([facility]) [address], [place], [address], 04/14/2024 13:07:12 04/13/19 25 04/13/2024 CBC WITH DIFFE RENTI AL/PL ATELE T eos 1 % notest ab. Not Available [facility] ([facility]) [address], [place], [address], 04/14/2024 13:07:12 04/13/19 25 04/13/2024 CBC WITH DIFFE RENTI AL/PL ATELE T basos 1 % notest ab. Not Available [facility] ([facility]) [address], [place], [address], 04/14/2024 13:07:12 04/13/19 25 04/13/2024 CBC WITH DIFFE RENTI AL/PL ATELE T neutrophils (absolute) 3.6 x10e3 /uL 1.4-7. 0 Not Available [facility] ([facility]) [address], [place], [address], 04/14/2024 13:07:12 04/13/19 25 04/13/2024 CBC WITH DIFFE RENTI AL/PL ATELE T lymphs (absolute) 0.7 x10e3 /uL 0.7-3. 1 Not Available [facility] ([facility]) [address], [place], [address], 04/14/2024 13:07:12 04/13/19 25 04/13/2024 CBC WITH DIFFE RENTI AL/PL ATELE T monocytes(ab solute) 0.4 x10e3 /uL 0.1-0. 9 Not Available [facility] ([facility]) [address], [place], [address], 04/14/2024 13:07:12 04/13/19 25 04/13/2024 CBC WITH DIFFE RENTI AL/PL ATELE T eos (absolute) 0.1 x10e3 /uL 0.0-0. 4 Not Available [facility] ([facility]) [address], [place], [address], 04/14/2024 13:07:12 04/13/19 25 04/13/2024 CBC WITH DIFFE RENTI AL/PL ATELE T baso (absolute) 0.0 x10e3 /uL 0.0-0. 2 Not Available [facility] ([facility]) [address], [place], [address], 04/14/2024 13:07:12 04/13/19 25 04/13/2024 CBC WITH DIFFE RENTI AL/PL ATELE T immature granulocytes 0 % notest ab. Not Available [facility] ([facility]) [address], [place], [address], 04/14/2024 13:07:12 04/13/19 25 04/13/2024 CBC WITH DIFFE RENTI AL/PL ATELE T immature grans (abs) 0.0 x10e3 /uL 0.0-0. 1 Not Available [facility] ([facility]) [address], [place], [address], 04/14/2024 13:07:12 04/13/19 25 04/14/2024 PTH, INTAC T PTH, intact 24 pg/mL 15-65 Not Available [facility] ([facility]) [address], [place], [address], 04/14/2024 13:07:13 06/05/19 25 06/04/2024 Drugs ident ified in Urine by Scree n fantao junior Nomin al amphetamines [presence] in urine Negati ve normal Not Available Not Available 00:18:13 06/05/19 25 06/04/2024 Drugs ident ified in Urine by Scree fay jewello junior Nomin al barbiturates [presence] in urine Negati ve normal Not Available Not Available 00:18:13 06/05/19 25 06/04/2024 Drugs ident ified in Urine by Scree fay metho junior Nomin al benzodiazepi ariana [presence] in urine Negati ve normal Not Available Not Available 00:18:13 06/05/19 25 06/04/2024 Drugs ident ified in Urine by Scree n metho junior Nomin al cocaine [presence] in urine Negati ve normal Not Available Not Available 00:18:13 06/05/19 25 06/04/2024 Drugs ident ified in Urine by Scree n metho junior Nomin al fentanyl Negati ve normal Not Available Not Available 00:18:13 06/05/19 25 06/04/2024 Drugs ident ified in Urine by Scree n metho junior Nomin al methadone [presence] in urine Negati ve normal Not Available Not Available 00:18:13 06/05/19 25 06/04/2024 Drugs ident ified in Urine by Scree n metho junior Nomin al opiates [presence] in urine Negati ve normal Not Available Not Available 00:18:13 06/05/19 25 06/04/2024 Drugs ident ified in Urine by Adarsh armas oxycodone [presence] in urine Negati ve normal Not Available Not Available 00:18:13 06/05/19 25 06/04/2024 Drugs ident ified in Urine by Adarsh armas phencyclidin e [presence] in urine Negati ve normal Not Available Not Available 00:18:13 06/05/19 25 06/04/2024 Drugs ident ified in Urine by Adarsh armas cannabinoids [presence] in urine Negati ve normal Not Available Not Available 00:18:13 06/05/19 25 06/04/2024 Urina lysis compl ete W Refle x Cultu re panel - Urine color of urine by auto Straw- colore d urine normal Not Available Not Available 00:18:13 06/05/19 25 06/04/2024 Urina lysis compl ete W Refle x Cultu re panel - Urine appearance of urine Urine specim en normal Not Available Not Available 00:18:13 06/05/19 25 06/04/2024 Urina lysis compl ete W Refle x Cultu re panel - Urine specific gravity of urine by test strip 1.009 1 low: 1.001h igh: 1.03 normal Not Available Not Available 06/05/2024 00:18:13 06/05/19 25 06/04/2024 Urina lysis compl ete W Refle x Cultu re panel - Urine pH of urine by test strip 8 pH_un its low: 5pH unitsh igh: 9pH units normal Not Available Not Available 06/05/2024 00:18:13 06/05/19 25 06/04/2024 Urina lysis compl ete W Refle x Cultu re panel - Urine leukocytes [#/volume] in urine by test strip Leukoc yte estera se measur ement text: negati ve normal Not Available Not Available 06/05/2024 00:18:13 06/05/19 25 06/04/2024 Urina lysis compl ete W Refle x Cultu re panel - Urine nitrite [presence] in urine by test strip Labora tory test findin g text: negati ve normal Not Available Not Available 06/05/2024 00:18:13 06/05/19 25 06/04/2024 Urina lysis compl ete W Refle x Cultu re panel - Urine protein [mass/volume ] in urine by test strip Urine findin g text: negati ve normal Not Available Not Available 06/05/2024 00:18:13 06/05/19 25 06/04/2024 Urina lysis compl ete W Refle x Cultu re panel - Urine glucose [moles/volum e] in urine by test strip Labora tory test findin g text: normal normal Not Available Not Available 06/05/2024 00:18:13 06/05/19 25 06/04/2024 Urina lysis compl ete W Refle x Cultu re panel - Urine ketones [moles/volum e] in urine by test strip Labora tory test findin g text: negati ve normal Not Available Not Available 06/05/2024 00:18:13 06/05/19 25 06/04/2024 Urina lysis compl ete W Refle x Cultu re panel - Urine urobilinogen [mass/volume ] in urine by test strip Urobil inogen measur ement, urine text: normal normal Not Available Not Available 06/05/2024 00:18:13 06/05/19 25 06/04/2024 Urina lysis compl ete W Refle x Cultu re panel - Urine bilirubin.to rosalva [mass/volume ] in urine by test strip Urine dipsti ck for biliru bin text: negati ve normal Not Available Not Available 06/05/2024 00:18:13 06/05/19 25 06/04/2024 Urina lysis compl ete W Refle x Cultu re panel - Urine erythrocytes [#/volume] in urine by test strip Urine dipsti ck for blood text: negati ve normal Not Available Not Available 06/05/2024 00:18:13 06/05/19 25 06/04/2024 Urina lysis compl ete W Refle x Cultu re panel - Urine leukocytes [#/area] in urine sediment by automated count Leukoc ytes in urine low: 0/[hpf ]high: 8/[hpf ] normal Not Available Not Available 06/05/2024 00:18:13 06/05/19 25 06/04/2024 Urina lysis compl ete W Refle x Cultu re panel - Urine erythrocytes [#/area] in urine sediment by automated count Blood in urine low: 0/[hpf ]high: 4/[hpf ] normal Not Available Not Available 06/05/2024 00:18:13 06/05/19 25 06/04/2024 Urina lysis compl ete W Refle x Cultu re panel - Urine bacteria [presence] in urine by automated Urine findin g normal Not Available Not Available 00:18:13 06/05/19 25 06/04/2024 Urina lysis compl ete W Refle x Cultu re panel - Urine epithelial cells.squamo us [#/area] in urine sediment by automated count Urine findin g normal Not Available Not Available 00:18:13 06/05/19 25 06/04/2024 Lacta te [Mole s/vol ume] in Serum or Plasm a lactate [moles/volum e] in serum or plasma 1.6 mmol/ L low: 0.7mmo l/Lhig h: 1.9mmo l/L normal Not Available Not Available 06/05/2024 00:18:13 06/05/19 25 06/04/2024 Magne sium [Mass /volu me] in Serum or Plasm a magnesium [mass/volume ] in serum or plasma 2.2 mg/dL low: 1.6mg/ dLhigh : 2.3mg/ dL normal Not Available Not Available 06/05/2024 00:18:13 06/05/19 25 06/04/2024 Tobias ol [Mass /volu me] in Serum or Plasm a ethanol [mass/volume ] in serum or plasma <10 low: 0mg/dL high: 10mg/d L normal Not Available Not Available 06/05/2024 00:18:13 06/05/19 25 06/04/2024 Compr ehens deana metab olic 2000 panel - Serum or Plasm a sodium [moles/volum e] in blood 140 mmol/ L low: 137mmo l/Lhig h: 145mmo l/L normal Not Available Not Available 06/05/2024 00:18:13 06/05/19 25 06/04/2024 Compr [employer] deana metab olic 1999 panel - Serum or Plasm a potassium [moles/volum e] in serum or plasma 4.3 mmol/ L low: 3.5mmo l/Lhig h: 5.1mmo l/L normal Not Available Not Available 06/05/2024 00:18:13 06/05/19 25 06/04/2024 Compr ehens deana metab olic 1999 panel - Serum or Plasm a chloride [moles/volum e] in serum or plasma 107 mmol/ L low: 98mmol /Lhigh : 107mmo l/L normal Not Available Not Available 06/05/2024 00:18:13 06/05/19 25 06/04/2024 Compr ens deana metab olic 1999 panel - Serum or Plasm a carbon dioxide, total [moles/volum e] in serum or plasma 24 mmol/ L low: 22mmol /Lhigh : 30mmol /L normal Not Available Not Available 06/05/2024 00:18:13 06/05/19 25 06/04/2024 Compr [employer] olic 1999 panel - Serum or Plasm a anion gap in serum or plasma by calculation 13.3 mmol/ L low: 14mmol /Lhigh : 22mmol /L low Not Available Not Available 06/05/2024 00:18:13 06/05/19 25 06/04/2024 Compr ens deana [employer] ic 1999 panel - Serum or Plasm a glucose [mass/volume ] in serum or plasma 104 mg/dL low: 70mg/d Lhigh: 99mg/d L high Not Available Not Available 06/05/2024 00:18:13 06/05/19 25 06/04/2024 Compr [employer] ic 1999 panel - Serum or Plasm a urea nitrogen [mass or moles/volume ] in serum or plasma 33 mg/dL low: 8mg/dL high: 19mg/d L high Not Available Not Available 06/05/2024 00:18:13 06/05/19 25 06/04/2024 Compr [employer] deana [employer] [facility] 1999 panel - Serum or Plasm a creatinine [mass/volume ] in serum or plasma 1.28 mg/dL low: 0.66mg /dLhig h: 1.25mg /dL high Not Available Not Available 06/05/2024 00:18:13 06/05/19 25 06/04/2024 [facility] [employer] [facility] 1999 panel - Serum or Plasm a glomerular filtration rate [volume rate/area] in serum, plasma or blood by based on 1.73 sq M 40 1 normal Not Available Not Available 00:18:13 06/05/19 25 06/04/2024 [facility] [email or web address] 1999 panel - Serum or Plasm a alkaline phosphatase [enzymatic activity/vol ume] in serum or plasma 96 U/L low: 38U/Lh igh: 126U/L normal Not Available Not Available 06/05/2024 00:18:13 06/05/19 25 06/04/2024 [facility] [employer] deana [employer] [facility] 1999 panel - Serum or Plasm a alanine aminotransfe rase [enzymatic activity/vol ume] in serum or plasma 42 U/L low: 0U/Lhi gh: 35U/L high Not Available Not Available 06/05/2024 00:18:13 06/05/19 25 06/04/2024 [facility] [email or web address] 2000 panel - Serum or Plasm a aspartate aminotransfe rase [enzymatic activity/vol ume] in serum or plasma 48 U/L low: 15U/Lh igh: 37U/L high Not Available Not Available 06/05/2024 00:18:13 06/05/19 25 06/04/2024 [facility] [email or web address] 1999 panel - Serum or Plasm a bilirubin.to rosalva [mass/volume ] in serum or plasma 0.7 mg/dL low: 0.2mg/ dLhigh : 1.3mg/ dL normal Not Available Not Available 06/05/2024 00:18:13 06/05/19 25 06/04/2024 [facility] [employer] de[employer] [facility] [email or web address] panel - Serum or Plasm a calcium [mass/volume ] in serum or plasma 9.9 mg/dL low: 8.4mg/ dLhigh : 10.2mg /dL normal Not Available Not Available 06/05/2024 00:18:13 06/05/19 25 06/04/2024 Compr [employer] olic 1999 panel - Serum or Plasm a protein [mass/volume ] in serum or plasma 7.7 g/dL low: 6.3g/d Lhigh: 8.2g/d L normal Not Available Not Available 06/05/2024 00:18:13 06/05/19 25 06/04/2024 Compr [employer] olic 1999 panel - Serum or Plasm a albumin [mass/volume ] in serum or plasma 4.7 g/dL low: 3g/dLh igh: 4.4g/d L high Not Available Not Available 06/05/2024 00:18:13 06/05/19 25 06/04/2024 Compr [employer] olic 1999 panel - Serum or Plasm a globulin [mass/volume ] in serum 3 g/dL low: 2.6g/d Lhigh: 4.2g/d L normal Not Available Not Available 06/05/2024 00:18:13 06/05/19 25 06/04/2024 [facility] [employer] olic 1999 panel - Serum or Plasm a albumin/glob ulin [mass ratio] in serum or plasma 1.6 ratio low: 1ratio high: 2ratio normal Not Available Not Available 06/05/2024 00:18:13 06/05/19 25 06/04/2024 CBC W Auto Diffe renti al panel - Blood leukocytes [#/volume] in blood by automated count 5.4 x10'3 /uL low: 4.2x10 '3/uLh igh: 10.8x1 0'3/uL normal Not Available Not Available 06/05/2024 00:18:12 06/05/19 25 06/04/2024 CBC W Auto Diffe renti al panel - Blood erythrocytes [#/volume] in blood by automated count 4.93 x10'6 /uL low: 3.8x10 '6/uLh igh: 5.2x10 '6/uL normal Not Available Not Available 06/05/2024 00:18:12 06/05/19 25 06/04/2024 CBC W Auto Diffe renti al panel - Blood hemoglobin [mass/volume ] in blood 14.3 g/dL low: 12g/dL high: 15.6g/ dL normal Not Available Not Available 06/05/2024 00:18:12 06/05/1906/04/2024 CBC W Auto Diffe renti al panel - Blood hematocrit [volume fraction] of blood by automated count 44.2 % low: 35.7%h igh: 45.7% normal Not Available Not Available 06/05/2024 00:18:12 06/05/19 25 06/04/2024 CBC W Auto Diffe renti al panel - Blood MCV [entitic mean volume] in red blood cells by automated count 89.7 fL low: 82fLhi gh: 99fL normal Not Available Not Available 06/05/2024 00:18:12 06/05/1906/04/2024 CBC W Auto Diffe renti al panel - Blood MCH [entitic mass] by automated count 29 pg low: 27pghi gh: 33pg normal Not Available Not Available 06/05/2024 00:18:12 06/05/1906/04/2024 CBC W Auto Diffe renti al panel - Blood MCHC [entitic mass/volume] in red blood cells by automated count 32.4 g/dL low: 31g/dL high: 36g/dL normal Not Available Not Available 06/05/2024 00:18:12 06/05/1906/04/2024 CBC W Auto Diffe renti al panel - Blood erythrocyte [distwidth] in red blood cells 15.6 % low: 11.8%h igh: 15.5% high Not Available Not Available 06/05/2024 00:18:12 06/05/19 25 06/04/2024 CBC W Auto Diffe renti al panel - Blood platelets [#/volume] in blood by automated count 224 x10'3 /uL low: 150x10 '3/uLh igh: 400x10 '3/uL normal Not Available Not Available 06/05/2024 00:18:12 06/05/19 25 06/04/2024 CBC W Auto Diffe renti al panel - Blood platelet [entitic mean volume] in blood by automated count 9.2 fL low: 9fLhig h: 12.4fL normal Not Available Not Available 06/05/2024 00:18:12 06/05/19 25 06/04/2024 CBC W Auto Diffe renti al panel - Blood neutrophils/ leukocytes in blood 55.4 % low: 39%hig h: 72% normal Not Available Not Available 06/05/2024 00:18:12 06/05/19 25 06/04/2024 CBC W Auto Diffe renti al panel - Blood lymphocytes/ leukocytes in blood 29.8 % low: 16%hig h: 47% normal Not Available Not Available 06/05/2024 00:18:12 06/05/19 25 06/04/2024 CBC W Auto Diffe renti al panel - Blood monocytes/le ukocytes in blood 11.2 % low: 5%high : 12% normal Not Available Not Available 06/05/2024 00:18:12 06/05/1906/04/2024 CBC W Auto Diffe renti al panel - Blood eosinophils [#/volume] in blood 2.8 % low: 1%high : 7% normal Not Available Not Available 06/05/2024 00:18:12 06/05/19 25 06/04/2024 CBC W Auto Diffe renti al panel - Blood basophils/le ukocytes in blood 0.6 % low: 0%high : 2% normal Not Available Not Available 06/05/2024 00:18:12 06/05/1906/04/2024 CBC W Auto Diffe renti al panel - Blood immature granulocytes /leukocytes in blood 0.2 % low: 0%high : 0.5% normal Not Available Not Available 06/05/2024 00:18:12 06/05/19 25 06/04/2024 CBC W Auto Diffe renti al panel - Blood neutrophils [#/volume] in blood 3.01 x10'3 /uL low: 1.5x10 '3/uLh igh: 8x10'3 /uL normal Not Available Not Available 06/05/2024 00:18:12 06/05/19 25 06/04/2024 CBC W Auto Diffe renti al panel - Blood lymphocytes [#/volume] in blood 1.62 x10'3 /uL low: 1.07x1 0'3/uL high: 3.43x1 0'3/uL normal Not Available Not Available 06/05/2024 00:18:12 06/05/19 25 06/04/2024 CBC W Auto Diffe renti al panel - Blood monocytes [#/volume] in blood 0.61 x10'3 /uL low: 0.29x1 0'3/uL high: 0.99x1 0'3/uL normal Not Available Not Available 06/05/2024 00:18:12 06/05/19 25 06/04/2024 CBC W Auto Diffe renti al panel - Blood eosinophils [#/volume] in blood 0.15 x10'3 /uL low: 0.02x1 0'3/uL high: 0.53x1 0'3/uL normal Not Available Not Available 06/05/2024 00:18:12 06/05/19 25 06/04/2024 CBC W Auto Diffe renti al panel - Blood basophils [#/volume] in blood 0.03 x10'3 /uL low: 0.01x1 0'3/uL high: 0.08x1 0'3/uL normal Not Available Not Available 06/05/2024 00:18:12 06/05/1906/04/2024 CBC W Auto Diffe renti al panel - Blood immature granulocytes [#/volume] in blood 0.01 x10'3 /uL low: 0x10'3 /uLhig h: 0.05x1 0'3/uL normal Not Available Not Available 06/05/2024 00:18:12 06/05/19 25 06/04/2024 CBC W Auto Diffe renti al panel - Blood nucleated erythrocytes /leukocytes [ratio] in blood 0 % high: 0% normal Not Available Not Available 06/05/2024 00:18:12 06/05/1906/04/2024 CBC W Auto Diffe renti al panel - Blood nucleated erythrocytes [#/volume] in blood by automated count 0 x10'3 /uL normal Not Available Not Available 06/06/19 00:18:12 09/14/19 24 09/09/2023 US, echo ardio gram No observ ation record ed. [facility] [address], [place], [address], 09/23/2023 12:42:33 08/03/20 24 10/10/2023 US, kidne y No observ ation record ed. [facility] [address], [place], [address], 10/12/2023 12:48:46 12/22/19 24 12/22/2023 XR, forea rm No observ ation record ed. [address] [place], [address], 12/23/2023 11:35:48 12/22/19 24 12/22/2023 XR, humer us No observ ation record ed. [address] [place], [address], 12/23/2023 11:36:02 01/21/20 24 01/19/2024 US, kidne y No observ ation record ed. [facility] [address], [place], [address], 01/25/2024 11:01:38 06/05/19 25 06/04/2024 XR, chest No observ ation record ed. [facility] [address] [place], [address], 06/06/2024 10:55:44 06/05/19 25 06/04/2024 CT, head, w/o contr ast No observ ation record ed. [facility] [address] [place], [address], 06/06/2024 10:55:22 Result Notes None recorded. Problems Name Problem SNOMED Code Status Onset Date Resolution Date Notes Provider Name and Address Organization Details Recorded Time Night sweats 14208852 Active 2023 CHATO Betts [facility] 4 11:55:44 Weight loss 26682888 Active 2023 CHATO Betts, [place] [facility] 4 11:55:45 Spinal stenosis of lumbar region 61242357 Active 2023 Chen Gavin MD Attn: Tatyana eller,[address], [place], [address], [place] [facility] 4 16:27:33 Atrial fibrillation 36974671 Active 2023 Chen Gavin MD Attn: Tatyana eller,[address], [place], [address], [place] [facility] 4 16:27:36 Gout 60246996 Active 2023 Chen Gavin MD Attn: Tatyana eller,[address], [place], [address], [place] [facility] 4 16:27:37 Essential hypertension 56487074 Active 2023 Chen Gavin MD Attn: Tatyana eller,[address], [place], [address], [place] [facility] 4 16:27:39 Hyperlipidemia 91629289 Active 2023 Chen Gavin MD Attn: Tatyana eller,[address], [place], [address], [place] [facility] 4 16:27:41 Problem Notes None recorded. Procedures Surgical History None recorded. Imaging Results Imaging Date Name Status LastModified by Organization Details LastModified Time 09/09/2023 US, echocardiogram completed [facility] [address], [place], [address], 09/23/2023 12:42:33 10/10/2023 US, kidney completed [facility] [address], [place], [address], 10/12/2023 12:48:46 12/22/2023 XR, forearm completed [email or web address] [place], [address], 12/23/2023 11:35:48 12/22/2023 XR, humerus completed [email or web address] [place], [address], 12/23/2023 11:36:02 01/19/2024 US, kidney completed [facility] [address], [place], [address], 01/25/2024 11:01:38 06/04/2024 XR, chest completed [facility] [address] [place], [address], 06/06/2024 10:55:44 06/04/2024 CT, head, w/o contrast completed [facility] [address] [place], [address], 06/06/2024 10:55:22 Procedure Notes None recorded. Medical Equipment None Reported. Allergies Allergen ID Allergen Name Allergen Category Reaction Reaction Severity Criticality Documentation Date Start Date Code Code System Note Provider Name and Address Organization Details Recorded Time 089239 Product containin g penicilli n (product) medicatio n rash moderate high 07/22/2023 35043 8001 SNOMED Not Available Not Available Not Available 519213 Substance with sulfonami de structure and antibacte rial mechanism of action (substanc e) medicatio n nausea moderate high 07/22/2023 20328 8003 SNOMED Not Available Not Available Not Available Medications Name Sig Start Date Stop Date Status Note LastModified by Organization Details LastModified Time losartan 50 mg tablet TAKE 1 TABLET BY MOUTH TWICE DAILY active Not Available Not Available No t Available atorvastati n 40 mg tablet Take 1 tablet every day by oral route. 09/16 completed Not Available Not Available Not Available clonidine HCl 0.1 mg tablet TAKE 1 TABLET BY MOUTH TWICE DAILY active Not Available Not Available No t Available doxycycline hyclate 100 mg capsule TAKE 1 CAPSULE BY MOUTH TWICE DAILY FOR 7 DAYS 08/19 completed Not Available Not Available Not Available hydrocodone 5 mg-acetamin ophen 325 mg tablet TAKE 1 TABLET BY MOUTH EVERY 6 HOURS 08/19 completed Not Available Not Available Not Available thiamine HCl (vitamin B1) 100 mg tablet TAKE 1 TABLET BY MOUTH ONCE DAILY active Not Available Not Available No t Available hydralazine 25 mg tablet TAKE 1 TABLET BY MOUTH TWICE DAILY active Not Available Not Available No t Available chlorthalid one 25 mg tablet TAKE 1 TABLET BY MOUTH DAILY active Not Available Not Available No t Available ciprofloxac in 500 mg tablet TAKE 1 TABLET BY MOUTH EVERY 12 HOURS FOR 7 DAYS 08/19 completed Not Available Not Available Not Available amiodarone 400 mg tablet TAKE 1 TABLET BY MOUTH DAILY active Not Available Not Available No t Available pantoprazol e 40 mg tablet,mikie yed release TAKE 1 TABLET BY MOUTH DAILY 08/19 completed Not Available Not Available Not Available lisinopril 10 mg tablet Take 1 tablet every day by oral route. 08/22 completed Not Available Not Available Not Available metoprolol tartrate 50 mg tablet TAKE 1 TABLET BY MOUTH TWICE DAILY 09/16 completed Not Available Not Available Not Available montelukast 10 mg tablet TAKE 1 TABLET BY MOUTH EVERY DAY 08/19 completed Not Available Not Available Not Available hydralazine 50 mg tablet TAKE 1 TABLET BY MOUTH TWICE DAILY 08/19 completed Not Available Not Available Not Available mupirocin 2 % topical ointment APPLY TO WOUND TWICE DAILY 08/19 completed Not Available Not Available Not Available zolpidem 5 mg tablet TAKE 1 TABLET BY MOUTH EVERY DAY AT BEDTIME 08/19 completed Not Available Not Available Not Available metoprolol succinate ER 25 mg tablet,exte nded release 24 hr TAKE 1 TABLET BY MOUTH DAILY 04/22 completed Not Available Not Available Not Available methylpredn isolone 4 mg tablets in a dose pack FOLLOW PACKAGE DIRECTION S 08/19 completed Not Available Not Available Not Available sertraline 50 mg tablet TAKE 1 TABLET BY MOUTH EVERY DAY 08/19 completed Not Available Not Available Not Available dofetilide 500 mcg capsule TAKE 1 CAPSULE BY MOUTH TWICE DAILY 08/19 completed Not Available Not Available Not Available diltiazem 90 mg tablet TAKE 1 TABLET BY MOUTH TWICE DAILY 09/16 completed Not Available Not Available Not Available valsartan 40 mg tablet TAKE 1 TABLET BY MOUTH EVERY DAY 09/16 completed Not Available Not Available Not Available metoprolol tartrate 25 mg tablet TAKE 1 TABLET BY MOUTH TWICE DAILY 09/16 completed Not Available Not Available Not Available Vitamin B-1 (mononitrat e) 100 mg tablet TAKE 1 TABLET BY MOUTH ONCE DAILY 04/22 completed Not Available Not Available Not Available Xarelto 20 mg tablet TAKE 1 TABLET BY MOUTH EVERY NIGHT active Not Available Not Available No t Available Vitals Date Recorded Body height Body mass index (BMI) Body weight Heart rate Oxygen saturation Oxygen saturation in Arterial blood by Pulse oximetry Systolic blood pressure Diastolic blood pressure Provider Name and Address Organization Details Last Updated DateTime 4 167.64 cm 23.1 kg/m2 52420.7 1 g 49 /min 97 % 97 % 146 mm[Hg] 82 mm[Hg] Selina Carson MA [facility] 4 10:59:20 Date Recorded Body height Body mass index (BMI) Body weight Heart rate Oxygen saturation Oxygen saturation in Arterial blood by Pulse oximetry Systolic blood pressure Diastolic blood pressure Provider Name and Address Organization Details Last Updated DateTime 4 167.64 cm 23.2 kg/m2 86658.3 g 51 /min 96 % 96 % 128 mm[Hg] 58 mm[Hg] Matheus Mckeon MA [facility] 4 12:15:09 Date Recorded Body height Body mass index (BMI) Body weight Heart rate Oxygen saturation Oxygen saturation in Arterial blood by Pulse oximetry Systolic blood pressure Diastolic blood pressure Provider Name and Address Organization Details Last Updated DateTime 4 167.64 cm 22.9 kg/m2 64585.4 8 g 72 /min 94 % 94 % 110 mm[Hg] 60 mm[Hg] Holly Lyn MA [facility] 4 11:58:43 Date Recorded Body height Body mass index (BMI) Body weight Heart rate Oxygen saturation Oxygen saturation in Arterial blood by Pulse oximetry Systolic blood pressure Diastolic blood pressure Provider Name and Address Organization Details Last Updated DateTime 5 167.64 cm 23.1 kg/m2 48426.4 3 g 74 /min 96 % 96 % 128 mm[Hg] 78 mm[Hg] Farrah Medrano MA [facility] 5 14:42:56 Social History Question Answer Notes LastModified by Organizat ion Details LastModified Time Tobacco Smoking Status Never Smoker Selina Carson MA null, [facility] 08/20/2023 10:57:21 Do You Have An Advance Directive? No Patient States Her Eyad Information not available 2023 What Is Your Level Of Alcohol Consumption? None Information not available 08/20/2023 Are You Blind Or Do You Have Difficulty Seeing? No Information not available 08/20/2023 What Is Your Level Of Caffeine Consumption? None Information not available 2023 In The 14 Days Before Symptom Onset, Have You Had Close Contact With A Laboratory-confir med COVID-19 While That Case Was Ill? No Information not available 04/22/2024 In The 14 Days Before Symptom Onset, Have You Had Close Contact With A Person Who Is Under Investigation For COVID-19 While That Person Was Ill? No Information not available 04/22/2024 Have You Been To An Area Known To Be High Risk For COVID-19? No Information not available 04/22/2024 Are You Deaf Or Do You Have Serious Difficulty Hearing? No Information not available 08/20/2023 What Type Of Diet Are You Following? REGULAR Information not available 2023 What Was The Date Of Your Most Recent Tobacco Screening? 04/22/2024 Information not available 04/22/2024 What Is Your Relationship Status? Information not available 08/20/2023 Do You Use Your Seat Belt Or Car Seat Routinely? Yes Information not available 2023 Do You Have Smoke And Carbon Monoxide Detectors In Your Home? Yes Information not available 2023 Do You Feel Stressed (tense, Restless, Nervous, Or Anxious, Or Unable To Sleep At Night)? [id number] Information not available 2023 Do You Use Any Illicit Or Recreational Drugs? No Information not available 2023 Has Tobacco Cessation Counseling Been Provided? No Information not available 2023 Do You Or Have You Ever Used Any Other Forms Of Tobacco Or Nicotine? No Information not available 2023 Sex: Female Functional Status Question Answer Note LastModified by Organization D etails LastModified Time Are you able to care for yourself? Yes Information n ot available 08/20/2023 Mental Status None recorded. Family History Nothing Reported. Medical History No medical history recorded. Gynecological HistoryNo gynecological history recorded. Obstetrics History GPAL:G 0 P 0 0 0 0 Immunizations Vaccine Type Date Status Note Provider Nam e and Address Organization Details Recorded Time Influenza, high-dose, quadrivalent, PF 2 completed [place] [facility] 09/16/2023 17:12:35 Influenza, high-dose, quadrivalent, PF 1 [place] [facility] 09/16/2023 17:12:35 Influenza, high-dose, quadrivalent, PF 0 [place] [facility] 09/16/2023 17:12:35 Influenza, high-dose, quadrivalent, PF 1 [place] [facility] 09/16/2023 17:12:35 Influenza, adjuvanted, quadrivalent, PF 3 [place] [facility] 09/16/2023 17:12:35 COVID-19, mRNA, LNP-S, PF, 30 mcg/0.3 mL dose 1 [place] [facility] 09/16/2023 17:12:35 COVID-19 vaccine, vector-nr, rS-Ad26, PF, 0.5 mL 1 [place] [facility] 09/16/2023 17:12:35 COVID-19, mRNA, LNP-S, PF, 50 mcg/0.5 mL 3 [place] [facility] 09/16/2023 17:12:35 pneumococcal polysaccharide PPV23 1 [place] [facility] 09/16/2023 17:12:35 tetanus toxoid, unspecified formulation 3 [place] [facility] 09/16/2023 17:12:35 influenza, unspecified formulation 2 completed CHATO [place] - [facility] 09/16/2023 17:12:35 zoster live 5 completed [place] [facility] 09/16/2023 17:12:35 zoster live 5 completed [place] [facility] 09/16/2023 17:12:35 Influenza, high-dose, trivalent, PF 3 completed [place] [facility] 09/16/2023 17:12:35 Influenza, high-dose, trivalent, PF 7 completed [place] [facility] 09/16/2023 17:12:35 Influenza, split virus, trivalent, preservative 4 completed [place] [facility] 09/16/2023 17:12:35 Influenza, split virus, quadrivalent, PF 5 completed [place] [facility] 09/16/2023 17:12:35 Influenza, high-dose, trivalent, PF 4 completed Chen Gavin MD Attn: Accounting,[address] [place], [address], [facility] - [facility] 03/04/2024 14:29:33 Pneumococcal conjugate PCV20, polysaccharide [id number] conjugate, adjuvant, PF 5 completed CHATO Juarez, [place] - [facility] 04/01/2024 11:03:49 Past Encounters Encounter ID Performer Location Encounter Start Date Encounter Closed Date Diagnosis/Indication Diagnosis SNOMED-CT Code Diagnosis ICD10 Code Diagnosis Note [id number] Chen Gavin MD [facility] [address] [place] [address] 08/20/2023 10:48:43 08/20/2023 11:50:10 Night sweats 10111448 R61 Weight loss 85994368 R63 .4 Screening for cardiovascular system disease 328890119 Z13.6 Hyperlipidemia 52098701 E78.5 Essential hypertension 75342214 I10 Atrial fibrillation 4943 6004 I48.91 Gout 40290234 M10.9 Spinal linda nosis of lumbar region 86565147 M48.061 Anxiety 33857310 F41.9 [id number] Chen Gavin MD [facility] [place] [address] [place] [address] 2023 11:49:54 2023 12:59:01 Essential hypertension 09851920 I10 Gout 02457413 M10.9 Hyperlipidemia 06751392 E78.5 Night sweats 79795522 R6 1 [id number] Chen Gavin MD [facility] [place] [address] [place] [address] 01/21/2024 11:44:06 01/21/2024 12:46:14 Body mass index 20-24 - normal 633052126 Z68.22 Administra tion of influenza vaccine 28296959 Z23 Essential hypertension 84984389 I10 Hyperlipidemia 88022392 E78.5 Atrial fibrillation 4943 6004 I48.91 [id number] CHATO Juarez (Adult Med) [address] [place] [address] 04/01/2024 10:40:06 04/01/2024 11:13:10 Administration of pneumococcal vaccine 71369304 Z23 [id number] MD Jd Patten (Adult Med) [address] [place] [address] 04/22/2024 14:00:37 04/22/2024 15:04:28 Body mass index 20-24 - normal 364513219 Z68.22 Essential hypertension 44435865 I10 Atrial fibrillation 4943 6004 I48.91 Gout 72719049 M10.9 Hyperlipidemia 72746497 E78.5 Health Concerns Section Related Observation LastModified by Organization Detai ls LastModified Time None Recorded Concern Status LastModified by Organization Details LastModified Time None Recorded Advance Directives Directive N: Patient states her cailin Castano Payers Encounter Date Sequence Insurance Name Policy Number Policy Velazquez Covered Member ID Velazquez Member ID Guarantor Name 08/20/2023 1 [place] Mary Valera [id number] Mary Valera 08/20/2023 2 [employer] [place] (MEDICARE SUPPLEMENT) Mary Valera [id number] Mary Valera 2023 2 [employer] [place] (MEDICARE SUPPLEMENT) Mary Valera [id number] Mary Valera 2023 [place] - RHC - FQHC Mary Valera [id number] Mary Valera 01/21/2024 1 [place] Mary Valera [id number] Mary Valera 01/21/2024 2 [employer] [place] (MEDICARE SUPPLEMENT) Mary Valera [id number] Mary Valera 04/01/2024 1 [place] Mary Valera [id number] Mary Valera 04/01/2024 2 [employer] [place] (MEDICARE SUPPLEMENT) Mary Valera [id number] Mary Valera 04/22/2024 1 [place] Mary Valera [id number] Mary Valera 04/22/2024 2 [employer] [place] (MEDICARE SUPPLEMENT) Mary Valera [id number] Mary Valera Notes Date Note Type Note Provider Name and Address Organization Details Recorded Time 08/20/2023 text/html Follow-up of med ical problems hypertension no headache or dizziness rhinitis has been stable A-fib ablated doing better anxiety a little bit up gout no flareups lumbar spinal stenosis stable she has had some night sweats and she is lost about 10 pounds but she does not feel bad otherwise at all but she will have sweats during the course of the day sometimes 2. Chen Gavin MD Attn: Accounting[address] [place], [address], [facility] 08/22/2023 16:27:55 2023 text/html follow up of med ical problems night sweats have completely gone away gout no flare-ups hyperlipidemia trying to follow a low-fat diet hypertension no headache no dizziness lumbar spinal stenosis no back pain at this time atrial fibrillation no palpitations or stroke-like symptoms no shortness of breath dizziness or fatigue Chen Gavin MD Attn: Accounting, [address] [facility], [place], [address], [facility] 09/27/2023 20:28:18 01/21/2024 text/html hypertension no headache or dizziness blood pressure controlled. Atrial fibrillation no palpitations syncope or stroke-like symptoms. Dyslipidemia does try to follow a low-fat diet. Her night sweats have gone away Chen Gavin MD Attn: Accounting, [address] [facility], [place], [address], [facility] - [facility] 03/04/2024 14:32:12 04/22/2024 text/html gout no flare-up s AFib no palpitations dyslipidemia taking her medication and there has not been any problems there hypertension has been controlled she has had a little bit of scratchy throat for the last 24 hours but he is getting a little bit better Chen Gavin MD Attn: Accounting, [address] [facility], [place], [address], [facility] - [facility] 04/23/2024 13:53:31 OBGyn Episode No OBEpisode recorded.
--- OUTSIDE RECORDS SUMMARY | 2024-06-15 12:27 | XMS_ITS | Encounter Summary ---
Author Organization [facility] Address [address] [facility] [place] [address] Care Team Providers Care Rangelands Conservation Laborer Name Role Phone Omi Prieto MD Primary Care Provider [phone] Encounter Details Date Type Department Care Team (Late st Contact Info) Description 09/24/2022 Lab Requisition [facility] - DermPath Lab [address] [facility], [place] [address] Ellie Guzman DO [address] [facility] 3 DE[place] [address] Social History Tobacco Use Types Packs/Day Years [...] PM CDT) Case Report Dermatopathology Report Case: [id number] Authorizing Provider: Ellie Guzman DO Collected: 09/24/2022 01:19 PM Ordering Location: [facility] DermPath Lab Received: 09/26/2022 07:30 AM Pathologist: Nicol Pereira MD Specimens: A) - Skin, left base of neck B) - Skin, mid back 4:21 PM CDT DERMATOPATHOLOGY LABORATORY Final Diagnosis Specimen A. SKIN, left base of neck: LICHEN PLANUS-LIKE KERATOSIS (BENIGN LICHENOID KERATOSIS) (L82.1) POST-INFLAMMATORY PIGMENT ALTERATION (L81.9) Specimen B. SKIN, mid back: LENTIGINOUS MELANOCYTIC NEVUS, COMPOUND TYPE (D22.5) 3 4:21 PM [facility] DERMATOPATHOLOGY LABORATORY Clinical History A) : R/O [...] 6x5x1 mm. Jar 0. 3 4:21 PM [facility] DERMATOPATHOLOGY LABORATORY Microscopic Description Specimen A. SKIN, [...] determined by the Dermatopathology Laboratory at [facility], directed by Dr. Cole Rascon. These tests need not be, and therefore are not, approved by the [place] Food and Drug Administration. The tests are used for clinical purposes. Billing Codes Specimen Charges Stain Charges 92850 46708 1 1 28993 1 3 4:21 PM CDT DERMATOPATHOLOGY LABORATORY Embedded Images 3 4:21 PM T DERMATOPATHOLOGY LABORATORY Pathology/Cytology TISSUE SPECIMEN FROM SKIN / Unknown 09/24/2022 1:19 PM CDT 09/26/2022 7:30 AM CDT Miscellaneous samples (specimen) TISSUE SPECIMEN FROM SKIN / Unknown 09/24/2022 1:19 PM CDT 09/26/2022 7:30 AM CDT Ellie Guzman DO LAB - PATHOLOGY/C YTOLOGY ORDERABLES DERMATOPATHOLOGY LABORATORY [facility] - Department of Dermatology [facility] Specialized Medicine [address] [place] [address], [address] [phone] documented in this encounter Visit Diagnoses Not on filedocumented in this encounter Care Teams Rangelands Conservation Laborer Relationship Specialty Start Date End Date Omi Prieto MD PCP - General 12/16/18 documented as of this encounter
--- OUTSIDE RECORDS SUMMARY | 2024-06-15 12:27 | XMS_ITS | Continuity of Care Document ---
Author Organization [facility] Address [address] [facility] [address] [place] [address] Phone Care Team Providers Care Tool Adjuster Name Role Phone Mantilla OD, Duane Unavailable Unavailable Advance Directives Directive Yes / No Effective Date File Name No Information Encounters Encounter Description Practice Location Reason(s) For Visit Diagnoses Date Provider Providers Copied on Encounter [facility], [address], [place], [place], [id number], [place] tel:[phone] SEC [facility] No Information 0-200 1 Mantilla OD Du[place]. [address] [facility] , [address], [place], [address], [place]. tel:[phone] Family History Family Member Type Diagnosis Age At Onset No Information Payers Payer name Insurance type Covered libertarian ID Authoriza tion(s) No Information Social History [...]
--- OUTSIDE RECORDS SUMMARY | 2024-06-15 12:27 | XMS_ITS | Encounter Summary ---
Author Organization [facility] Address [address] [facility] [place] [address] Care Team Providers Care Amplifier Mechanic Name Role Phone Omi Prieto MD Primary Care Provider [phone] Encounter Details Date Type Department Care Team (Late st Contact Info) Description 02/09/2019 Lab Requisition [facility] DermPath Lab [address] [facility], [place] [address] Ellie Guzman DO [address] [facility] 3 [place] [address] Social History Tobacco Use Types Packs/Day Years [...] Comments DERMATOPATHOLOGY Routine 02/08/2019 12:0 0 AM ELECTRON BEAM WELDER documented in this encounter Results * DERMATOPATHOLOGY (02/08/2019 12:00 AM ELECTRON BEAM WELDER) Case Report Dermatopathology Report Case: [id number] Authorizing Provider: Ellie Guzman DO Collected: 02/08/2019 12:00 AM Ordering Location: [facility] DermPath Lab Received: 02/09/2019 08:22 AM Pathologist: Vane Rascon MD Specimen: Skin, left back 9 3:03 PM [facility] DERMATOPATHOLOGY LABORATORY Final Diagnosis Specimen A. SKIN, left back: DERMAL SCAR RESIDUAL MELANOCYTIC PROLIFERATION NOT IDENTIFIED (L90.5) 9 3:03 PM [facility] DERMATOPATHOLOGY LABORATORY Clinical History R/O junctional melanocytic proliferation, bx proven. Previous Bx: [id number]. 3:03 PM [facility] DERMATOPATHOLOGY LABORATORY Gross Description Specimen A: Received is one formalin filled container labeled with the patient's name and designated left back. The specimen consists of an ellipse measuring 03g16a5ag and is oriented with the notch at [...] in cassettes 3-4. Jar 0. 3:03 PM [facility] DERMATOPATHOLOGY LABORATORY Microscopic Description Specimen A. SKIN, left back: There are fibroblasts and collagen bundles oriented parallel to the skin surface. There are elongated blood vessels, some of which are oriented perpendicular to the skin surface. No residual melanocytic proliferation is identified. 3:03 PM [facility] DERMATOPATHOLOGY LABORATORY Disclaimer An external [...] purposes. Billing Codes Specimen Charges Stain Charges 46610 1 9 3:03 PM [facility] DERMATOPATHOLOGY LABORATORY Embedded Images 3:03 PM [facility] DERMATOPATHOLOGY LABORATORY Pathology/Cytolog y TISSUE SPECIMEN FROM SKIN / Unknown 02/08/2019 02/09/2019 8:22 AM [facility] Ellie Guzman DO LAB - PATHOLOGY/C YTOLOGY ORDERABLES DERMATOPATHOLOGY LABORATORY [facility] - Department of Dermatology [facility] [facility], 5th Floor Lab B [address] [phone] documented in this encounter Visit Diagnoses Not on filedocumented in this encounter Care Teams Amplifier Mechanic Relationship Specialty Start Date End Date Omi Prieto MD PCP - General 12/16/18 documented as of this encounter
--- OUTSIDE RECORDS SUMMARY | 2024-06-15 12:27 | XMS_ITS | Encounter Summary ---
Author Organization [facility] Address [address] [facility] [place] [address] Care Team Providers Care Church Supervisor Name Role Phone Omi Prieto MD Primary Care Provider [phone] Encounter Details Date Type Department Care Team (Late st Contact Info) Description 12/17/2018 Lab Requisition [facility] DermPath Lab [address] [facility], [place] [address] Ellie Guzman DO [address] [facility] [address] [place] [address] Social History Tobacco Use Types Packs/Day Years [...] AM CDT) Case Report Dermatopathology Report Case: [id number] Authorizing Provider: Ellie Guzman DO Collected: 12/16/2018 12:00 AM Ordering Location: [facility] DermPath Lab Received: 12/17/2018 12:40 PM Pathologist: [...] 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 C: ISK R/O NMSC. 9 9:35 AM [facility] DERMATOPATHOLOGY LABORATORY Gross Description Specimen A: Received is one formalin filled container labeled with the patient's name and designated right forearm. The specimen consists of a shave biopsy measuring 1a9p6ey. Jar 0. Specimen B: Received is one formalin filled container labeled with the patient's name and designated left back. The specimen consists of a shave biopsy measuring 9g3a6nz. Jar 0. Specimen C: Received is one formalin filled container labeled with the patient's name and designated right lateral thigh. The specimen consists of a shave biopsy measuring 37s48n7xh. Jar 0. 9:35 AM [facility] DERMATOPATHOLOGY LABORATORY Microscopic Description Specimen [...] characteristic determined by the Dermatopathology Laboratory at [facility], directed by Dr. Cole Rascon. These tests need not be, and therefore are not, approved by the [place] Food and Drug Administration. The tests are used for clinical purposes. Billing Codes Specimen Charges Stain Charges 78241 39981 97580 1 1 1 57266 11746 1 1 9:35 AM CDT DERMATOPATHOLOGY LABORATORY [...] LAB - PATHOLOGY/C YTOLOGY ORDERABLES DERMATOPATHOLOGY LABORATORY [facility] - Department of Dermatology [facility] [facility] 5th Floor Lab B [address] [phone] documented in this encounter Visit Diagnoses Not on filedocumented in this encounter Care Teams Church Supervisor Relationship Specialty Start Date End Date Omi Prieto MD PCP - General 12/16/18 documented as of this encounter
--- OUTSIDE RECORDS SUMMARY | 2024-06-15 12:27 | XMS_ITS | Referral Summary ---
Author Organization [facility] Address [address] [place] [address] Care Team Providers Care Chestnut Tanner Name Role Phone Fred Gavin MD Primary Care Provider [phone] Allergies Active Allergy Reactions Criticality Noted Date [...] on file Legal Sex Female 7:15 PM VAULT INSTALLER Gender Identity Not on file Sexual Orientation Not on file Last Filed Vital Signs Vital Sign Reading Time Taken Comments Blood Pressure 138/71 05/13/2023 7:56 AM VAULT INSTALLER Pulse 72 05/13/2023 7:56 AM VAULT INSTALLER Temperature 36.9 C (98.4 F) 05/13/2023 7:56 AM VAULT INSTALLER Respiratory Rate 16 05/13/2023 7:56 AM VAULT INSTALLER Oxygen Saturation 97% 05/13/2023 7:56 AM VAULT INSTALLER Inhaled Oxygen Concentration - - Weight 64.6 kg (142 lb 8 oz) 05/12/2023 10:32 AM VAULT INSTALLER Height 165.1 cm (5' 5 ) 05/12/2023 10:32 AM VAULT INSTALLER Body Mass Index 23.71 05/12/2023 10:32 AM VAULT INSTALLER Plan of Treatment Not on file Insurance MEDICARE [employer] [place] MEDICARE [employer] [place] [id number] [employer] [facility] Advance Directives For more information, please contact: [phone] * Full Code (Latest Code Status on File) Date Activated Date Inactivated Comments 05/05/2019 1:17 PM 05/05/2019 6:23 PM Care Teams Chestnut Tanner Relationship Specialty Start Date End Date Fred Gavin MD PCP - General Internal Medicine 03/25/22
--- OUTSIDE RECORDS SUMMARY | 2024-06-15 12:27 | XMS_ITS | Data Portability ---
Author Organization [place] [facility], Main Office Address [address] [place] [address] Care Team Providers Care Failure Analysis Engineer Name Role Phone CHEN GAVIN Primary Care Provider CHEN GAVIN Referring Provider Assessment Encounter Date Assessment Date Assessment LastModified by Organization Details LastModified Time 07/25/2022 07/25/2022 Potassium being 15 mg q.h.s. bone density mammogram follow-up in 6 weeks [email or web address] Not available 10/25/2022 21:23:24 08/18/2022 08/18/2022 Patient returns status post knee arthroscopy left. She has had a longer recovery. With final East seemingly turning the corner his swelling is going away pain is resolving incision looks clean I think she can be dismissed to normal activity. She has any changes or problems she will call see her back on an as-needed basis. [email or web address] Not available 08/18/2022 11:07:37 09/08/2022 09/08/2022 Continue current therapy and follow up in 3-4 months [email or web address] Not available 09/20/2022 18:19:04 09/22/2022 09/22/2022 Patient returns status post knee arthroscopy. She has had a long run with seems to be getting better. Still has little bit of swelling not too much in terms of pain she is getting around and is reasonably functional. I think she can be released at this time. We gets worse or changes she will return. I will see her back on an as-needed basis. [email or web address] Not available 09/22/2022 10:32:43 03/16/2023 03/16/2023 Singulair for rhinitis clonidine 0.1 mg daily for systolic blood pressure greater than 170 MRI MRA blood pressure check 1 week [email or web address] Not available 03/16/2023 23:26:01 Plan of Treatment Reminders Order Date Submit Date Provider Last Modified By Organization Details Last Modified Time Details Appointments None recorded. Lab None recorded. Referral None recorded. Procedures None recorded. Surgeries None recorded. Imaging MRI, brain, w/o contrast - no auth required 2023 024 [facility] ([facility]), [address] [place], [address], 4 16:19:57 MR, angiogram, brain, w/o contrast - no auth required [address] ([facility] Scheduling), [address] [place], [address], 4 08:04:42 MAMMO, screening, digital, bilateral [address] [facility] ([facility] Scheduling), [address] [place], [address], 3 10:25:31 bone density [address] [facility] ([facility] Scheduling), [address] [place], [address], 3 10:25:32 Medication Orders Singulair 10 mg tablet 2023 024 [email or web address] [id number], [address] [place], [place], [id number], 4 11:15:49 clonidine HCl 0.1 mg tablet 2023 024 [email or web address] [facility] #[id number], [address] [place], [place], [id number], 4 11:15:49 Patient TargetsNo targets recorded. Patient Instructions Encounter Date Encounter Id Patient Instructions Last Modified By Organization Details Last Modified Time 07/25/2022 [id number] dementia rating scale-2* [email or web address] Not available 07/26/2022 14:30:55 alcohol misuse* [email or web address] Not available 07/26/2022 14:30:55 depression screening* [email or web address] Not available 07/26/2022 14:30:55 multi-dimensiona l health assessment questionnaire* [email or web address] Not available 07/26/2022 14:30:55 Personalized a lt Plan and Screening Recommendations Advance Directives - Do you have one? Yes Advance Directives - Do we have your advance directive on file in your health record? No, please bring in a copy at your earliest convenience Primary Prevention/Interven tion (prevents or decreases the chance of common diseases from occurring) Smoking Risk: Non Smoker Alcohol Misuse Screening: Negative Weight: Appropriate Physical activity: Appropriate physical activity Nutrition: Good Average Refer to attached handout Heart-Healthy Diet: After Your Visit Fall Risk (screened today): Low Refer to attached handout Preventing Falls: After your Visit Vaccines Pneumococcal: Ordered Recommended today Recommended today, but you have declined No further needed Influenza: Your next one in the fall of this year Chronic Disease Risks Stroke: Low Risk I have no recommendations Heart Attack: Low risk I have no recommendations Clogging of the Arteries: Low risk I have no recommendations Diabetes: Low Risk I have no recommendations Secondary Prevention/Interven tion (detects treatable diseases before they may cause symptoms, disability, or ) Breast Cancer Screening with mammogram: Your next mammogram: Ordered Recommended today Cervical/Uterine/Ov hernando Cancer Screening: No screening necessary Osteoporosis Screening: Your next DEXA in: Ordered Recomme nded today Date Screening Last Performed: Unknown date Colon Cancer Screening: Colonoscopy In: Ordered Recomme nded Recommended today, but you have declined Date Screening Last Performed: 10/06/07 Eye Disease Screening: Dementia Risk: Low I have no recommendations Depression Screening: Negative Positive Recommend additional evaluation and/or treatment as noted above Not available 07/25/2022 12:15:54 Reason for Referral None Reported. Results Created Date Observation Date Name Description Value Unit Range Abnormal Flag Note LastModifiedBy Organization Detail LastModifiedTime 08/08/19 23 07/31/2022 sleep study , diagn ostic (PROC ) No observ ation record ed. [facility] [address], [place], [address], 09/10/2022 14:31:26 08/12/19 23 07/31/2022 sleep study , diagn ostic (PROC ) No observ ation record ed. [facility] [address], [place], [address], 09/10/2022 14:31:07 08/22/19 23 08/21/2022 DEXA, axial skele ton [facility] [address], [place] [address] Tennille t Name: MARY PALMA Access ion #: [id number] Sex: F : 1945 3 Locati on: RAD Attend ing Physic herson: PAVAN GAVIN Orderi Physic herson: PAVAN GAVIN Exam Date: 023 10:39 AM Exam Name: XR DEXA-H IPS PELVIS SPINE Admitt ing Diagno sis(es ): RADIOL OGY REPORT - FINAL EXAM: XR DEXA-H IPS PELVIS SPINE HISTOR Y: MENOPA USAL COMPAR BRADEN: None. TECHNI QUE: TECHNI QUE: Dual energy x-ray of absorp tion examin ation of the bilate ral hips and lumbar spine in AP projec tion was perfor med. FINDIN GS: Lumbar Spine (L1-L4 ): The mean bone minera l densit y is 1.276 g/cm2 hydrox yapati te, correl ating with a T-scor e of 0.7. Bilate ral hips: The mean bone minera l densit y is 0.914 g/cm2 calciu m hydrox yapati te, correl ating with a T-scor e of -0.7. Page 1 of 2 [facility] Patididi t Name: MARY PALMA Access ion #: [id number] Sex: F : 1945 3 Exam Date: 6/15/2 023 10:39 AM Exam Name: XR DEXA-H IPS PELVIS SPINE Admitt ing Diagno sis(es ): IMPRES PIO: 1. The patien t's lumbar spine T-scor e is consis tent with a normal bone densit y. 2. The patien t's bilate ral hip T-scor e is consis tent with a normal bone densit y. Accord ing to the World Health [employer]i zation , T-scor e values greate r than -1.0 are normal , values betwee n -1.0 and -2.5 are catego rized as osteop enia, T-scor e of -2.5 or more are catego rized as osteop orosis . Create d and electr onical ly signed by: Tahir sweet MD Signed Date: 4:52 PM (CT) Dictat ed by: Tahir sweet MD DD: 4:52 PM (CT) DT: 4:52 PM (CT) Page 2 of 2 [email or web address] [facility] (Imaging) [address] [place], [address], 09/08/2022 11:33:27 08/23/19 23 08/21/2022 scree george breas t yumiko, bilat [facility] [address] [place] [address] [phone] Patididi t Name: MARY PALMA Access ion #: [id number] Sex: F : 1945 3 Locati on: RAD Attend ing Physic herson: PAVAN GAVIN Orderi ng Physic herson: PAVAN GAVIN Exam Date: 10:48 AM Exam Name: MG SCRN BREAST YUMIKO BILAT Admitt ing Diagno sis(es ): MAMMOG BRE REPORT - FINAL EXAM: MG SCRN BREAST YUMIKO BILAT HISTOR Y: SCREEN ING MAMMOG MARILEE COMPAR BRADEN: 2020, 2016 TECHNI QUE: Bilate ral CC and MLO views of the breast s were perfor med. Digita l Mammog bre images were obtain ed. CAD (compu ter assist ed detect ion) was utiliz ed. 3D Digita l breast tomosy nthesi s was perfor med and used in the interp retati on of images . FINDIN GS: The breast s are hetero geneou sly dense, which may obscur e small masses . No masses , asymme tries, suspic ious calcif icatio ns, or rosi ectura l Page 1 of 2 [facility] Tennille carr Name: MARY PALMA Access ion #: [id number] Sex: F : 1945 3 Exam Date: 10:48 AM Exam Name: SCRN BREAST YUMIKO BILAT Admitt ing Diagno sis(es ): distor tion are seen. IMPRES PIO: BIRADS 1: Assess ment comple te. Negati ve. Recomm end annual screen ing mammog bre. Accord ing to the [employer], yearly mammog sivan are recomm ended starti ng at age 40 and contin uing as long as the woman is in good health . Clinic al Breast Exam should be part of the period ic health exam-a bout every 3 years for women in their 20s and 30s and every year for women 40 and over. Breast self-e xam is an option for women in their 20s. Any breast change noted on the breast self-e xam she would be report ed prompt ly to the [facility] care prov[facility] er. A negati ve mammog bre report should not discou rage follow -up or biopsy of a clinic ally signif icant findin g and/or abnorm ality. Dense breast tissue may obscur e small neopla sms. This tennille carr has been entere d into a mammog bre remind er system with a target date for her next mammog marilee. Create d and electr onical ly signed by: Tahir sweet MD Signed Date: 10:54 AM (CT) Dictat ed by: Tahir sweet MD DD: 6/16/2 023 10:54 AM (CT) DT: 023 10:54 AM (CT) Page 2 of 2 [email or web address] [facility] (Imaging) [address], [place], [address], 09/08/2022 11:33:28 03/19/19 24 03/19/2023 MRI, brain , w/o contr ast [facility] [address] [facility] [address], [place] [address] Patien t Name: MARY PALMA Access ion #: [id number] Sex: F : 1945 5 Dictat ed By: Quentin Titus Attend ing Physic herson: PAVAN GAVIN Orderi ng Physic herson: PAVAN GAVIN Exam Date: 2023 14:03 PM Exam Name: MRI BRAIN WO Admitt ing Diagno sis(es ): Clinic al Indica tion: Headac he Compar braden: None TECHNI QUE: Multip lanar pre- contra st-enh anced MRI of the brain is perfor med Contra st: None. FINDIN GS: BRAIN PARENC HYMA: The brain parenc hyma has small vessel chroni c ischem ic change s noted. . There is no mass effect or midlin e shift. There is no extra- axial fluid collec tion or intrap arench ymal hemorr mercedes. The corpus callos um appear s normal . There is no diffus ion weight ed imagin g or ADC map abnorm ality to sugges t acute/ subacu te ischem ia. There is no magnet ic suscep tibili ty to sugges t recent or remote intrac ranial hemorr mercedes. CEREBE LLOPON RUTHY REGION S AND SKULL BASE: The cerebe llopon ruthy angles appear unrema rkable . The skull base, cranio cervic al juncti on, and brains tem are normal . The optic chiasm is normal . The sellar and pineal region s are unrema rkable . VENTRI CLES: The ventri cles are normal in size and config uratio n. The basila r cister ns are normal . VESSEL S: The venous sinuse s are grossl y unrema rkable . The expect ed intrac ranial flow voids are presen t. ORBITS , VISUAL IZED PARANA CHAPIS SINUSE S AND MASTOI DS: The visual ized orbits and parana chapis sinuse s are unrema rkable . The mastoi d air cells are clear. IMPRES PIO: No acute findin gs. Small vessel chroni c ischem ic change s Page 1 [facility] [address] [place] [id number] Patien t Name: LILA PALMANE Access ion #: [id number] Sex: F : 1945 5 Dictat ed By: Quentin Titus Attend ing Physic herson: MARU REEDER Physic herson: PAVAN GAVIN Exam Date: 2023 14:03 PM Exam Name: MRI BRAIN WO Admitt ing Diagno sis(es ): Electr onical ly Signed by: Quentin Titus at 2023 15:18: 41 PM Page 2 [facility] (Imaging) [address] [place], [address], 03/19/2023 16:38:22 03/19/19 24 03/19/2023 MR, angio gram, head, w/o contr ast [facility] [address] [place] [address] [phone] Patien t Name: LILA PALMANE Access ion #: [id number] Sex: F : 1945 5 Dictat ed By: Shai Mckeon Attend ing Physic herson: PAVAN GAVIN Physic herson: PAVAN GAVIN Exam Date: 2023 14:03 PM Exam Name: MRA HEAD WO Admitt ing Diagno sis(es ): PROCED URE: MRA HEAD WO INDICA TION: Headac he Exam Date: 024 2:03 PM DIGITAL CIRCUIT DESIGNER COMPAR BRADEN: MRI brain dated 024 TECHNI QUE: MRA head withou t intrav enous contra st. 3D image postpr ocessi ng was perfor med on [facility] and images were used for interp retati on and report ingLuan DREW GS: MRA head: There is preser krystal enhanc ement within the bilate ral distal marketing operations intern al caroti d arteri es. There is preser krystal enhanc ement within the anteri or and middle cerebr al arteri es. There is preser krystal enhanc ement within the verteb ral arteri es, basila r artery , cerebe llar arteri es and railroad construction director ior cerebr al arteri es. There is no eviden ce of hemody namica lly signif icant intrac ranial stenos is, proxim al occlus ion or aneury sm. No abnorm al venous signal is seen. IMPRES PIO: No eviden ce of hemody namica lly signif icant intrac ranial stenos is, proxim al occlus ion or aneury sm. Electr onical ly Signed by: Shai Mckeon at 2023 15:44: 15 PM Page 1 [facility] (Imaging) [address] [place], [address], 03/23/2023 09:37:17 04/30/19 24 04/29/2023 CT, angio gram, heart , w/ contr ast No observ ation record ed. [email or web address] [facility] [address], [place], [address], 05/06/2023 16:40:17 05/04/19 24 04/29/2023 CT, angio gram, heart , w/ contr ast No observ ation record ed. [email or web address] [facility] [address], [place], [address], 05/06/2023 16:41:23 Result Notes None recorded. Problems Name Problem SNOMED Code Status Onset Date Resolution Date Notes Provider Name and Address Organization Details Recorded Time Pain of left knee joint 0574121385780 07 Active 2022 Not Available [facility] 4 13:55:34 Tear of medial meniscus of knee 382475974 Active 2022 Not Available [facility] 4 13:55:34 Tear of medial meniscus of knee 868867866 Active 2022 Not Available [facility] 4 13:55:34 Anxiety 27087590 Active 2022 Not Available [facility] 4 13:55:34 Obstructiv e sleep apnea syndrome 92472262 Active 2022 Not Available [facility] 4 13:55:34 Acute sinusitis 93860400 Active 2022 Not Available [facility] 4 13:55:34 Rhinitis 55074814 Active 2023 Not Available [facility] 4 13:55:34 Headache 28284362 Active 2023 Not Available [facility] 4 13:55:34 Bilateral osteoarthr itis of knees 2615981877642 07 Active 2022 Not Available [facility] 4 13:55:33 Derangemen t of left knee 3737240538209 9108 Active 2022 Not Available [facility] 4 13:55:34 Pain in right sacroiliac joint 9198754553626 9107 Active 2021 Not Available [facility] 4 13:55:34 Spinal stenosis of lumbar region 29637704 Active 2021 Not Available [facility] 4 13:55:34 Low back pain 677959145 Active 2021 Not Available [facility] 4 13:55:34 Small bowel obstructio n 792299229 Active Not Available [facility] 4 13:55:34 Effusion of joint of left knee 5335430852461 05 Active 2022 Not Available [facility] 4 13:55:34 Acquired trigger finger of right middle finger 0383645793218 05 Active 2021 Not Available [facility] 4 13:55:34 Ingrowing toenail 138465042 Active 2019 Not Available [facility] 4 13:55:34 Unexplaine d weight loss 795776817 Active Not Available [facility] 4 13:55:34 Chronic atrial fibrillati on 616874602 Active 2018 Not Available [facility] 4 13:55:34 Paresthesi a of lower extremity 779957272 Active 2022 Not Available [facility] 4 13:55:34 Atrial fibrillati on 57854599 Active Not Available [facility] 4 13:55:34 Upper respirator y infection 11006871 Active Not Available [facility] 4 13:55:34 Essential hypertensi on 00642188 Active Not Available [facility] 4 13:55:34 Diarrhea 32566020 Active Not Available [facility] 4 13:55:34 Hemorrhoid s 83950524 Active 2022 Not Available [facility] 4 13:55:34 Spinal stenosis in cervical region 81915284 Active 2021 Not Available [facility] 4 13:55:34 Leukopenia 94378297 Active 2021 Not Available [facility] 4 13:55:34 Skin lesion 49564514 Active Not Available [facility] 4 13:55:34 Problem Notes None recorded. Procedures Surgical History Date Name Laterality Status Provider Name and Address Organization Details Recorded Time 023 Medicare Wellness CPT Code, subsequent completed Zina Foster RN [facility] 07/25/2022 12:09:58 023 Knee arthroscopy/surgery completed IVANNA Langston [facility] 07/25/2022 11:50:28 021 EGD completed Not Available [facility] 05/07/2022 03:20:17 019 Cardiac Cath completed Not Available [facility] 05/07/2022 03:20:17 017 Gastrointestinal Surgery completed Not Available [facility] 05/07/2022 03:20:17 014 Most Recent Bone Density completed Not Available [facility] 05/07/2022 03:20:14 010 Date of Last Colonoscopy completed Not Available [facility] 05/07/2022 03:20:14 completed Not Available [facility] 05/07/2022 03:20:17 Hysterectomy completed Not Available [facility] 05/07/2022 03:20:17 Excisions - Specify completed Not Available [facility] 05/07/2022 03:20:17 Imaging Results Imaging Date Name Status LastModified by Organiz ation Details LastModified Time 07/31/2022 sleep study, diagnostic (PROC) completed [facility] [address], [place], [address], 09/10/2022 14:31:26 07/31/2022 sleep study, diagnostic (PROC) completed [facility] [address], [place], [address], 09/10/2022 14:31:07 08/21/2022 DEXA, axial skeleton completed [email or web address] (Imaging) [address] [place], [address], 09/08/2022 11:33:27 08/21/2022 screening breast yumiko, bilat completed [email or web address] [place] [address] (Imaging) [address] [place], [address], 09/08/2022 11:33:28 03/19/2023 MRI, brain, w/o contrast completed [facility] (Imaging) [address] [place], [address], 03/19/2023 16:38:22 03/19/2023 MR, angiogram, head, w/o contrast completed [facility] (Imaging) [address] [place], [address], 03/23/2023 09:37:17 04/29/2023 CT, angiogram, heart, w/ contrast completed [address] [facility] [address], [place], [address], 05/06/2023 16:40:17 04/29/2023 CT, angiogram, heart, w/ contrast completed [email or web address] [facility] [address], [place], [address], 05/06/2023 16:41:23 Procedure Notes None recorded. Medical Equipment None Reported. Allergies Allergen ID Allergen Name Allergen Category Reaction Reaction Severity Criticality Documentation Date Start Date Code Code System Note Provider Name and Address Organization Details Recorded Time 6407 Substance with sulfonami de structure and antibacte rial mechanism of action (substanc e) medicatio n Not available Not available Not available 05/07/2022 55338 8003 SNOMED Not Available [facility] 3 03:39:16 6408 Product containin g penicilli n (product) medicatio n Not available Not available Not available 05/07/2022 45222 8001 SNOMED Not Available [facility] 3 03:39:17 6409 penicilli n G Not available Not available Not available Not available 05/07/2022 7980 RxNorm Not Available [facility] 3 03:39:17 Medications Name Sig Start Date Stop Date Status Note LastModified by Organization Details LastModified Time clonidine HCl 0.1 mg tablet TAKE 1 TABLET BY MOUTH EVERY DAY active Not Available Not Available No t Available prednison e 10 mg tablet 07/25 completed Not Available Not Available Not Available Protonix 40 mg tablet,de layed release Take 1 tablet every day by oral route. 07/24 completed Not Available Not Available Not Available clindamyc in HCl 300 mg capsule 10/20 completed Not Available Not Available Not Available Pneumovax -23 25 mcg/0.5 mL injection solution active Not Available Not Available Not Available ibuprofen 800 mg tablet TAKE 1 TABLET BY MOUTH EVERY 8 HOURS WITH FOOD NEEDED 09/08 completed Not Available Not Available Not Available ofloxacin 0.3 % eye drops INSTILL 1 DROP IN AFFECTED EYE THREE TIMES DAILY DIRECTED . BEGIN 2 DAYS BEFORE SURGERY 10/28 completed Not Available Not Available Not Available atenolol 100 mg tablet TAKE ONE TABLET BY MOUTH ONCE DAILY active Not Available Not Available No t Available hydrocodo ne 5 mg-acetam inophen 325 mg tablet TAKE 1 TABLET BY MOUTH EVERY 6 HOURS 07/25 completed Not Available Not Available Not Available sotalol 80 mg tablet TAKE 1/2 TABLET BY MOUTH TWICE DAILY 12/05 completed stopped in hosp Not Available Not Available Not Available diltiazem CD 240 mg capsule,e xtended release 24 hr TAKE 1 CAPSULE BY MOUTH EVERY DAY 05/01 completed pt reports cardiolo gist stopped due to leg swelling Not Available Not Available Not Available sucralfat e 1 gram tablet Take 1 tablet 4 times a day by oral route. active Not Available Not Available No t Available prednison e 20 mg tablet 02/18 completed Not Available Not Available Not Available Anucort-H C 25 mg supposito ry UNWRAP AND INSERT 1 SUPPOSIT ORY RECTALLY TWICE DAILY FOR 14 DAYS 07/25 completed Not Available Not Available Not Available Zithromax Z-Dipak 250 mg tablet TAKE 2 TABLETS (500 MG) BY ORAL ROUTE ONCE DAILY FOR 1 DAY THEN 1 TABLET (250 MG) BY ORAL ROUTE ONCE DAILY FOR 4 DAYS 05/23 completed Not Available Not Available Not Available thiamine HCl (vitamin B1) 100 mg tablet TAKE 1 TABLET BY MOUTH ONCE DAILY active Not Available Not Available No t Available hydralazi ne 25 mg tablet TAKE 1 TABLET BY MOUTH TWICE DAILY 03/16 completed Not Available Not Available Not Available ciproflox acin 250 mg tablet Take 1 tablet every 12 hours by oral route for 7 days. 04/14 completed Not Available Not Available Not Available valacyclo vir 500 mg tablet Take 1 tablet twice a day by oral route for 30 days. active Not Available Not Available No t Available ciproflox acin 500 mg tablet TAKE 1 TABLET BY MOUTH EVERY 12 HOURS FOR 7 DAYS 07/25 completed Not Available Not Available Not Available spironola ctone 25 mg tablet 1/2 tab daily 02/18 completed Not Available Not Available Not Available ketorolac 0.5 % eye drops INSTILL 1 DROP IN OPERATIV E EYE THREE TIMES DAILY BEGINNIN G 2 DAYS BEFORE SURGERY 10/28 completed Not Available Not Available Not Available prednison e 10 mg tablets in a dose pack Take 1 tab by mouth, 3 times a day for 3 daysTake 1 tab by mouth 2 times a day for 2 daysTake 1 tab by mouth once a day for 1 day 07/25 completed Not Available Not Available Not Available alprazola m 0.25 mg tablet 12/25 completed Not Available Not Available Not Available amitripty line 25 mg tablet TK 1 T PO QHS active Not Available Not Available No t Available magnesium oxide 400 mg (241.3 mg magnesium ) tablet TAKE 1 TABLET BY MOUTH DAILY active Not Available Not Available No t Available nitroglyc germaine 0.4 mg/hr transderm al 24 hour patch APPLY 1 PATCH TO SKIN ONCE DAILY IN THE MORNING. REMOVE BEFORE BEDTIME 05/23 completed Not Available Not Available Not Available Kenalog 10 mg/mL suspensio n for injection In office injectio n administ ered by the provider 03/16 completed [facility]: [id number] 06-26 Not Available Not Available Not Available amlodipin e 10 mg tablet TAKE ONE TABLET BY MOUTH ONCE DAILY active Not Available Not Available No t Available metoprolo l tartrate 50 mg tablet TAKE 1 TABLET BY MOUTH TWICE DAILY active Not Available Not Available No t Available hydrochlo rothiazid e 12.5 mg capsule 08/20 completed Not Available Not Available Not Available nitroglyc germaine 0.4 mg sublingua l tablet 12/13 completed Not Available Not Available Not Available diclofena c sodium 75 mg tablet,de layed release Take 1 tablet twice a day by oral route. active Not Available Not Available No t Available diltiazem CD 120 mg capsule,e xtended release 24 hr TAKE 1 CAPSULE BY MOUTH EVERY DAY 03/25 completed Not Available Not Available Not Available benazepri l 20 mg tablet TAKE ONE TABLET BY MOUTH ONCE DAILY 08/20 completed stopped by cardio Not Available Not Available Not Available monteluka st 10 mg tablet TAKE 1 TABLET BY MOUTH EVERY DAY active Not Available Not Available No t Available hydralazi ne 50 mg tablet TAKE 1 TABLET BY MOUTH TWICE DAILY active Not Available Not Available No t Available mupirocin 2 % topical ointment 02/18 completed Not Available Not Available Not Available diclofena c sodium 50 mg tablet,de layed release Take 1 tablet twice a day by oral route for 30 days. active prn Not Available Not Available No t Available zolpidem 5 mg tablet TAKE 1 TABLET BY MOUTH EVERY DAY AT BEDTIME 03/16 completed pt not taking Not Available Not Available Not Available furosemid e 20 mg tablet TAKE 1 TABLET BY MOUTH EVERY DAY FOR 3 DAYS 03/25 completed Not Available Not Available Not Available gabapenti n 100 mg capsule TAKE 2 CAPSULES BY MOUTH EVERY NIGHT 09/08 completed Not Available Not Available Not Available lorazepam 1 mg tablet active Not Available Not Available Not Available oxycodone -acetamin ophen 7.5 mg-325 mg tablet active Not Available Not Available Not Available benazepri l 40 mg tablet TAKE 1 TABLET BY MOUTH EVERY DAY 12/05 completed stopped in hosp Not Available Not Available Not Available methylpre dnisolone 4 mg tablets in a dose pack TAKE DIRECTED 03/16 completed Not Available Not Available Not Available fluticaso ne propionat e 50 mcg/actua tion nasal spray,tressa pension Inhale 2 sprays every day by intranas al route. 03/11 completed Not Available Not Available Not Available sertralin e 50 mg tablet TAKE 1 TABLET BY MOUTH EVERY DAY 03/16 completed pt not taking Not Available Not Available Not Available dofetilid e 500 mcg capsule TAKE 1 CAPSULE BY MOUTH TWICE DAILY active Not Available Not Available No t Available doxycycli ne hyclate 100 mg tablet Take 1 tablet twice a day by oral route for 7 days. active Not Available Not Available No t Available gentamici n 0.1 % topical ointment 08/16 completed Not Available Not Available Not Available tobramyci n 0.3 %-dexamet hasone 0.1 % eye drops,tressa pension active Not Available Not Available Not Available hydroxyzi ne pamoate 25 mg capsule TAKE 1 CAPSULE BY MOUTH EVERY DAY AT BEDTIME 12/05 completed Not Available Not Available Not Available valsartan 40 mg tablet TAKE 1 TABLET BY MOUTH EVERY DAY active Not Available Not Available No t Available cyclobenz aprine 5 mg tablet active Not Available Not Available No t Available cholestyr amine (with sugar) 4 gram powder for susp in a packet MIX AND TAKE ONE PACKET BY MOUTH ONCE DAILY FOR 30 DAYS active Not Available Not Available No t Available nitrofura ntoin monohydra te/macroc rystals 100 mg capsule TAKE 1 CAPSULE BY MOUTH TWICE DAILY 04/29 completed Not Available Not Available Not Available trospium 20 mg tablet TK 3 TS PO QD active Not Available Not Available No t Available ranolazin e ER 500 mg tablet,ex tended release,1 2 hr 08/20 completed stopped by cardio Not Available Not Available Not Available lidocaine (PF) 10 mg/mL (1 %) injection solution In office injectio n administ ered by the provider 04/29 completed [facility]: 0409-427 08-23 Not Available Not Available Not Available Zostavax (PF) 19,400 unit/0.65 mL subcutane ous suspensio n active Not Available Not Available Not Available ProAir HFA 90 mcg/actua tion aerosol inhaler Inhale 2 puffs every 4 hours by inhalati on route as needed. active Not Available Not Available No t Available trospium ER 60 mg capsule,e xtended release 24 hr TAKE 1 CAPSULE BY MOUTH DAILY 03/25 completed Not Available Not Available Not Available Toviaz 4 mg tablet,ex tended release active Not Available Not Available Not Available Toviaz 8 mg tablet,ex tended release 08/20 completed Not Available Not Available Not Available Toviaz 2012 active Not Available Not Available Not Avai lable B12 2022 active Not Available Not Available Not Avai lable Vitamin B-1 (mononitr ate) 100 mg tablet TAKE 1 TABLET BY MOUTH ONCE DAILY active Not Available Not Available No t Available ropivacai ne (PF) 5 mg/mL (0.5 %) injection solution Take 20 mg by injectio n route. 03/16 completed [facility] 30432-85 4- Not Available Not Available Not Available Xarelto 20 mg tablet TAKE 1 TABLET BY MOUTH EVERY NIGHT active Not Available Not Available No t Available Myrbetriq 50 mg tablet,ex tended release Take 1 tablet every day by oral route. 12/05 completed stopped in hosp Not Available Not Available Not Available Osphena 60 mg tablet 12/25 completed Not Available Not Available Not Available Fluzone High-Dose 4574-4167 (PF) 180 mcg/0.5 mL intramusc ular syringe active Not Available Not Available Not Available Fluvirin 45 mcg (15 mcg x 3)/0.5 mL intramusc ular suspensio n active Not Available Not Available Not Available Fluzone High-Dose 9162-2411 (PF) 180 mcg/0.5 mL intramusc ular syringe 08/24 completed Not Available Not Available Not Available Fluzone High-Dose (PF) 180 mcg/0.5 mL intramusc ular syringe TO BE ADMINIST ERED BY PHARMACI FOR IMMUNIZA TION 02/18 completed Not Available Not Available Not Available Fluzone High-Dose Quad (PF) 240 mcg/0.7 mL IM syringe ADM 0.7ML IM UTD 02/06 completed Not Available Not Available Not Available Vitals Date Recorded Body height Body mass index (BMI) Body weight Body temperature Heart rate Systolic blood pressure Diastolic blood pressure Provider Name and Address Organization Details Last Updated DateTime 3 167.64 cm 23.2 kg/m2 09948.3 g 98.2 [degF] 63 /min 118 mm[Hg] 70 mm[Hg] IVANNA Langston PA [employer] [facility] [employer] [facility] 3 11:51:47 Date Recorded Pain severity - 0-10 verbal numeric rating [Score] - Reported Provider Name and Address Organization Details Last Updated DateTime 07/25/2022 0 Zina Foster RN [facility] [employer] 07/25/2022 12:10:09 Date Recorded Body height Body mass index (BMI) Body weight Provider Name and Address Organization Details Last Updated DateTime 08/18/2022 167.64 cm 22.8 kg/m2 66424.52 g IVANNA Burnham PA [employer] [facility] [employer] [facility] 08/18/2022 10:27:03 Date Recorded Body height Body mass index (BMI) Body weight Body temperature Heart rate Oxygen saturation Oxygen saturation in Arterial blood by Pulse oximetry Systolic blood pressure Diastolic blood pressure Provider Name and Address Organization Details Last Updated DateTime 3 167.64 cm 22.8 kg/m2 08933.5 2 g 97.8 [degF] 55 /min 95 % 95 % 132 mm[Hg] 82 mm[Hg] Kat Mcgrath RN [facility] [employer] 3 10:25:08 Date Recorded Body height Body mass index (BMI) Body weight Provider Name and Address Organization Details Last Updated DateTime 09/22/2022 167.64 cm 22.6 kg/m2 75558.93 g Mel Trejo [facility] [employer] [facility] [employer] 09/22/2022 09:51:30 Date Recorded Body height Body mass index (BMI) Body weight Body temperature Heart rate Systolic blood pressure Diastolic blood pressure Provider Name and Address Organization Details Last Updated DateTime 167.64 cm 23.4 kg/m2 89376.8 9 g 98.5 [degF] 64 /min 122 mm[Hg] 60 mm[Hg] Asia Whiting [facility] [employer] [facility] [employer] 10:30:52 Social History Question Answer Notes LastModified by Organization Details LastModified Time Tobacco Smoking Status Never Smoker Not Available [employer] 05/07/2022 02:59:12 Do You Have An Advance Directive? Yes Pt States She Will Try To Bring Copy Next Time She Comes In MIGRATION.0301 [id number] Information not available 05/07/2022 What Is Your Level Of Alcohol Consumption? None MIGRATION.0301 974036 Information not available 05/07/2022 Do You Wear A Helmet When Biking? No Does Not Bike MIGRATION.0301 467673 Information not available 05/07/2022 Are You Blind Or Do You Have Difficulty Seeing? No MIGRATION.0301 776472 Information not available 05/07/2022 What Is Your Level Of Caffeine Consumption? Moderate MIGRATION.0301 044711 Information not available 05/07/2022 How Much Tobacco Do You Chew? None MIGRATION.0301 859718 Information not available 05/07/2022 In The 14 Days Before Symptom Onset, Have You Had Close Contact With A Laboratory-confi rmed COVID-19 While That Case Was Ill? No MIGRATION.0301 795542 Information not available 05/07/2022 In The 14 Days Before Symptom Onset, Have You Had Close Contact With A Person Who Is Under Investigation For COVID-19 While That Person Was Ill? No MIGRATION.0301 745740 Information not available 05/07/2022 Are You Deaf Or Do You Have Serious Difficulty Hearing? No MIGRATION.0301 472497 Information not available 05/07/2022 What Type Of Diet Are You Following? REGULAR MIGRATION.0301 633698 Information not available 05/07/2022 Which Illicit Or Recreational Drugs Have You Used? None MIGRATION.0301 411810 Information not available 05/07/2022 Do You Or Have You Ever Used E-cigarettes Or Vape? Never Used Electronic Cigarettes MIGRATION.030 127856 Information not available 05/07/2022 What Is The Highest Grade Or Level Of School You Have Completed Or The Highest Degree You Have Received? 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 No MIGRATION.030 080599 Information not available 05/07/2022 What Is The Fluoride Status Of Your Home? Unknown MIGRATION.030 822191 Information not available 05/07/2022 Are There Any Guns Present In Your Home? No MIGRATION.0301 846950 Information not available 05/07/2022 Do You Use Insect Repellent Routinely? No MIGRATION.030 468787 Information not available 05/07/2022 Where Do You Live? [facility] Information not available 07/25/2022 Presence Of Domestic Violence No Information not available 07/25/2022 Guns Present In The Home? No Information not available 07/25/2022 Are You Able To Care For Yourself? Yes Information not available 07/25/2022 Are You Blind Or Do Yo Have Difficulty Seeing? No Information not available 07/25/2022 Are You Deaf Or Do You Have Serious Difficulty Hearing? No Information not available 07/25/2022 General Stress Level? Moderate Information not available 07/25/2022 Live Alone Of With Others? 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 Yes MIGRATION.0301 [id number] Information not available 05/07/2022 What Was The Date Of Your Most Recent Tobacco Screening? 03/16/2023 [email or web address] Information not available 03/16/2023 Do You Have Any Pets? No MIGRATION.0301 169207 Information not available 05/07/2022 Do You Use Your Seat Belt Or Car Seat Routinely? Yes MIGRATION.0301 732704 Information not available 05/07/2022 Do You Have Smoke And Carbon Monoxide Detectors In Your Home? Yes MIGRATION.0301 727046 Information not available 05/07/2022 Are You Passively Exposed To Smoke? No MIGRATION.0301 769252 Information not available 05/07/2022 Do You Or Have You Ever Used Smokeless Tobacco? Never Used Smokeless Tobacco MIGRATION.0301 330923 Information not available 05/07/2022 Are There Any Smokers In Your House? No MIGRATION.0301 502901 Information not available 05/07/2022 How Much Tobacco Do You Smoke? No MIGRATION.0301 081823 Information not available 05/07/2022 What Types Of Sporting Activities Do You Participate In? None MIGRATION.0301 050033 Information not available 05/07/2022 Do You Feel Stressed (tense, Restless, Nervous, Or Anxious, Or Unable To Sleep At Night)? [id number] Information not available 07/25/2022 Do You Use Any Illicit Or Recreational Drugs? No MIGRATION.0301 222280 Information not available 05/07/2022 Do You Use Sunscreen Routinely? No MIGRATION.0301 647465 Information not available 05/07/2022 Has Tobacco Cessation Counseling Been Provided? No Not Needed-ne kermit Smoked MIGRATION.0301 201552 Information not available 05/07/2022 How Many Years Have You Smoked Tobacco? 0 MIGRATION.0301 758042 Information not available 05/07/2022 Have You Recently Traveled Abroad? No MIGRATION.0301 877065 Information not available 05/07/2022 Do You Have Any Dietary Restrictions? No MIGRATION.0301 269215 Information not available 05/07/2022 Do You Or Have You Ever Used Any Other Forms Of Tobacco Or Nicotine? No MIGRATION.0301 281427 Information not available 05/07/2022 Sex: Female Functional Status Question Answer Note LastModified by Organizat ion Details LastModified Time Do you have difficulty walking or climbing stairs? No MIGRATION.0482764 026 Information not available 05/07/2022 Do you have transportation difficulties? No Information not available 07/25/2022 Are you able to walk? YESWOREST MIGRATION.2139576 026 Information not available 05/07/2022 Do you have difficulty doing errands alone? No MIGRATION.1623491 026 Information not available 05/07/2022 Are you able to care for yourself? Yes MIGRATION.5305171 026 Information not available 05/07/2022 Do you have difficulty dressing or bathing? No MIGRATION.3415246 026 Information not available 05/07/2022 What is your exercise level? Occasional Information not available 07/25/2022 Mental Status Question Answer Note LastModified by Organizat ion Details LastModified Time Do you have difficulty concentrating, remembering or making decisions? No MIGRATION.[id number] 6 Information not available 05/07/2022 Family History Relationship Description Onset Age of this Age Resolved Age Notes LastModified by Organization Details LastModified Time Mother Chronic obstructive pulmonary disease MIGRATION.958 [id number] Not available 05/07/2022 03:20:18 Father Malignant neoplasm of liver MIGRATION.674 [id number] Not available 05/07/2022 03:20:18 Father Malignant tumor of colon MIGRATION.669 [id number] Not available 05/07/2022 03:20:18 Unspecified Relation Family history of Hypertension MIGRATION.085 [id number] Not available 05/07/2022 03:20:18 Unspecified Relation Family history of Cardiovascul ar disease MIGRATION.535 [id number] Not available 05/07/2022 03:20:18 Medical History Condition Response BLINDNESS N NERVE DISEASE N RHEUMATIC FEVER N BLADDER PROBLEMS N KIDNEY STONES N OTHER # 1 N POLIO N LUNG DISEASE/DISORDER N RADIATION / CHEMOTHERAPY N COPD N Other # 2 N BLOOD DISEASES N SURGERY N EAR OR HEARING PROBLEMS N MUMPS N DEPRESSION (INCLUDING POST ) N BOWEL PROBLEMS N STROKE/TIA N ULCERS N BENIGN PROSTATIC HYPERPLASIA N MEASLES N MYOCARDIAL INFARCTION N OBESITY N GERD/NAUSEA N ANEURYSM N URINARY/BLADDER/KIDNEY PROBLEMS Y INPATIENT PSYCH CARE N CORONARY ARTERY DISEASE (CAD) Y ADDICTION CONCERNS N ENDOMETRIOSIS N Impotence N USE OF BLOOD THINNERS Y SKIN PROBLEMS N GASTROINTESTINAL DISORDER N PERIPHERAL VASCULAR DISEASE N MUSCLE,JOINT OR BONE PROBLEMS N GASTROINTESTINAL BLEEDING N BLOOD CLOTS N ASTHMA N CATARACTS N ERECTILE DYSFUNCTION N VARICOSITIES N GI PROBLEMS N Low Testosterone N INFERTILITY N AIDS/HIV N LIVER DISEASE N MALE HYPOGONADISM N HYPERTENSION Y Deficiency N ANXIETY DISORDER N BLOOD TRANSFUSION N ANEMIA/BLOOD DISORDER N CHRONIC EAR INFECTIONS N BRONCHITIS N TUBERCULOSIS N GLAUCOMA N FOOT PROBLEM N DIVERTICULITIS N SLEEP APNEA N CHICKENPOX N INFECTIOUS DISEASE N HEART ARRHYTHMIA N PROSTATE N INSOMNIA N HIGH CHOLESTEROL / HYPERLIPIDEMIA N HYPERTHYROIDISM N EYE PROBLEMS N NEUROLOGICAL PROBLEMS N EDEMA N CHRONIC PAIN SYNDROME N HYPOTHYROIDISM N CAROTID BLOCKAGE N CONSTIPATION N BACK / NECK PROBLEMS N HAVE YOU BEEN HOSPITALIZED OR SEEN IN [facility] IN THE PAST YEAR ? N ATHEROSCLEROSIS N BREAST PROBLEMS N DIALYSIS N ECZEMA N OSTEOPOROSIS Y ARTHRITIS N APPENDICITIS N DIABETES, TYPE N BAD TEETH N ENT N HEARTBURN / REFLUX N AUTISM SPECTRUM DISORDER (ASD) N HEPATITIS / LIVER DISEASE N PULMONARY DISEASE N GOUT N SLEEP DISORDER N ALZHEIMER'S DISEASE N Brain Problems N HERPES N DEMENTIA N HEADACHES/MIGRAINES N SEIZURES/EPILEPSY N VASCULAR DISEASE N PACEMAKER N Blood Disorder N DIZZINESS N HEART DISEASE/HEART PROBLEMS N KIDNEY DISEASE N MULTIPLE SCLEROSIS N CARDIAC ARRHYTHMIA N CANCER: SPECIFY N ANESTHESIA COMPLICATIONS N ATRIAL FIBRILLATION Y Gall Stones N PULMONARY EMBOLISM N AUTOIMMUNE DISEASE N Gynecological History Statement/Question Response Date of Last Mammogram 02/27/2017 Date of Last Colonoscopy 03/09/2009 Most Recent Bone Density 05/06/2013 Obstetrics History GPAL:G 0 P 0 0 0 0 Immunizations Vaccine Type Date Status Note Provider Nam e and Address Organization Details Recorded Time influenza, unspecified formulation 2 completed Not Available [facility] 04/20/2023 13:55:34 COVID-19, mRNA, LNP-S, PF, 30 mcg/0.3 mL dose 1 completed Not Available [facility] 04/20/2023 13:55:34 Influenza, high-dose, quadrivalent, PF 1 completed Not Available [facility] 04/20/2023 13:55:34 Influenza, high-dose, quadrivalent, PF 0 completed Not Available [facility] 04/20/2023 13:55:34 Influenza, high-dose, trivalent, PF 9 completed Not Available [facility] 04/20/2023 13:55:35 Influenza, high-dose, trivalent, PF 8 completed Not Available [facility] 04/20/2023 13:55:35 Influenza, high-dose, trivalent, PF 7 completed Not Available [facility] 04/20/2023 13:55:35 Influenza, high-dose, trivalent, PF 6 completed Not Available [facility] 04/20/2023 13:55:35 Pneumococcal conjugate PCV 13 6 completed Not Available [facility] 04/20/2023 13:55:35 Influenza, high-dose, trivalent, PF 3 completed Not Available [facility] 04/20/2023 13:55:35 COVID-19 vaccine, vector-nr, rS-Ad26, PF, 0.5 mL 1 completed Not Available [facility] 04/20/2023 13:55:34 zoster live 5 completed Not Available [facility] 04/20/2023 13:55:35 Influenza, split virus, trivalent, preservative 4 completed Not Available [facility] 04/20/2023 13:55:35 tetanus toxoid, unspecified formulation 3 completed Not Available [facility] 04/20/2023 13:55:34 pneumococcal polysaccharide PPV23 1 completed Not Available [facility] 04/20/2023 13:55:34 Influenza, split virus, quadrivalent, PF 5 completed Not Available [facility] 04/20/2023 13:55:35 Past Encounters Encounter ID Performer Location Encounter Start Date Encounter Closed Date Diagnosis/Indication Diagnosis SNOMED-CT Code Diagnosis ICD10 Code Diagnosis Note [id number] [facility] [address] [address] 05/23/2020 00:00:00 06/02/2020 14:46:22 [id number] [facility] [address] [place] [address] , [address] [address] 06/20/2020 00:00:00 06/20/2020 21:54:07 [id number] [facility] Chris frances [address] [facility] , [facility] [place] [address] 07/24/2020 00:00:00 07/24/2020 23:02:48 [id number] [facility] Vanessa Sharif [address] [facility] [address] [place] [address] 10/11/2020 00:00:00 10/16/2020 09:52:53 [id number] [facility] [address] [facility] [address] [place] [address] 10/29/2020 00:00:00 10/29/2020 22:08:43 [id number] [facility] [address] [facility] 15 [place] [address] 12/05/2020 00:00:00 12/23/2020 22:40:10 [id number] [facility] [place] [address] [place] [address] 12/18/2020 00:00:00 12/18/2020 15:46:48 [id number] [facility] [address] [facility] 15 [place] [address] 04/29/2021 00:00:00 05/05/2021 15:47:20 [id number] [facility] [address] [address] 10/15/2021 00:00:00 10/15/2021 10:26:04 [id number] [facility] [address] [place], [place] [address]., [address] [address] 10/28/2021 00:00:00 10/28/2021 11:43:49 [id number] [facility] [address] [address] 11/12/2021 00:00:00 11/12/2021 09:58:33 [id number] [facility] [address] [address] 12/10/2021 00:00:00 12/10/2021 10:59:37 [id number] [facility] Chris frances [address] [place] [address] 03/25/2022 00:00:00 03/25/2022 22:28:51 [id number] [facility] [place] [address] [place] [address] 04/24/2022 00:00:00 04/24/2022 12:17:08 [id number] [facility] [place] [address] [place] [place], [place] [address] 05/01/2022 00:00:00 05/01/2022 13:02:19 [id number] Eduard Mckeon MD [facility] [place] [address] [place] [address] 07/03/2022 11:46:50 07/03/2022 13:13:43 Tear of medial meniscus of knee 513318219 S83.242D [id number] Eduard Mckeon MD [facility] [place] [address] [place] [place], [place] [address] 07/07/2022 10:32:18 07/07/2022 11:05:17 Tear of medial meniscus of knee [id number] S83.242D [id number] Eduard Mckeon MD [facility] [place] [address] [place] [address] 07/14/2022 09:51:25 07/14/2022 10:48:07 Tear of medial meniscus of knee 270790992 S83.242D Postoperative visit 1836 04806 Z09 [id number] Eduard Mckeon MD [facility] [place] [address] [place] [address] 07/21/2022 09:48:16 07/21/2022 10:42:20 Tear of medial meniscus of knee 342891885 S83.242D Postoperative visit 1836 33203 Z09 [id number] Chen Gavin MD [facility] [address] [facility] [place] [address] [place] [address] 07/25/2022 11:44:15 07/25/2022 12:53:57 Chronic atrial fibrillation 271470741 I48.20 Essential hypertension 99976301 I10 Anxiety 74770948 F41.9 Adult heal th examination 657919897 Z00.00 Screening for disorder 366520920 Z13.9 Screening mammography 24 121567 Z12.31 Postmenopausal state 764 43351 Z78.0 [id number] Eduard Mckeon MD [facility] [place] [address] [place] [address] 08/18/2022 10:19:42 08/18/2022 11:15:39 Tear of medial meniscus of knee 839081598 S83.242D Postoperative visit 1836 06752 Z09 [id number] Chen Gavin MD [facility] [place] [address] [facility] [address] [place] [address] 09/08/2022 10:15:49 09/08/2022 11:45:55 Chronic atrial fibrillation 786214301 I48.20 Anxiety 18290111 F41.9 Essential hypertension 75010054 I10 [id number] Eduard Mckeon MD [facility] [place] [address] [place] [address] 09/22/2022 09:47:33 09/22/2022 10:49:28 Tear of medial meniscus of knee [id number] S83.242D [id number] Chen Gavin MD [facility] [place] [address] [facility] [place] [address] [place] [address] 03/16/2023 10:14:15 03/16/2023 11:07:04 Rhinitis 23536947 J00 Essential hypertension 66329042 I10 Headache 82774624 R51.9 Health Concerns Section Related Observation LastModified by Organization Detai ls LastModified Time None Recorded Concern Status LastModified by Organization Details LastModified Time None Recorded Advance Directives Directive Y: pt states she will try to bring copy next time she comes in Payers Encounter Date Sequence Insurance Name Policy Number Policy Velazquez Covered Member ID Velazquez Member ID Guarantor Name 07/25/2022 1 [place] Mary Valera [id number] Mary Valera 07/25/2022 2 [employer] (MEDICARE SUPPLEMENT) PLAN F Mary Valera [id number] Mary Valera 08/18/2022 1 [place] Valera [id number] Mary Valera 08/18/2022 2 [employer] [place] (MEDICARE SUPPLEMENT) PLAN F Mary Valera [id number] Mary Valera 09/08/2022 1 [place] Valera [id number] Mary Valera 09/08/2022 2 [employer] [place] (MEDICARE SUPPLEMENT) PLAN F Mary Valera [id number] Mary Valera 09/22/2022 1 [place] Mary Valera [id number] Mary Valera 09/22/2022 2 [employer] [place] (MEDICARE SUPPLEMENT) PLAN F Mary Valera [id number] Mary Valera 03/16/2023 1 [place] Mary Valera [id number] Mary Valera 03/16/2023 2 [employer] [place] (MEDICARE SUPPLEMENT) PLAN F Mary Valera [id number] Mary Valera Notes Date Note Type Note Provider Name and Address Organization Details Recorded Time 3 text/html Some anxiety at nightAFib no palpitations or dizzinessHypertension no headache no chest painMedicare wellness completed Chen Gavin MD [address], [employer], [place], [address], [employer] 10/25/2022 21:23:54 3 text/html Patient returns knee pain thank you left. The pain is better swelling is going down she has finally had in the right direction. Eduard Mckeon MD [address], [address], [place], [address], [employer] 08/18/2022 11:08:19 3 text/html she is feeling a little bit better awaiting her CPAP machine bone mineral density was normal mammogram was negative she is not taking the sertraline anymore and is doing fine Chen Gavin MD [address], [address], [place], [address], [employer] [facility] 09/20/2022 18:19:25 3 text/html Patient returns status post knee arthroscopy left. The knee continues to improve she still has some swelling he gets around fairly well and is reasonably comfortable. Eduard Mckeon MD [address], [facility] [address], [place], [address], [employer] [facility] 09/22/2022 10:33:00 4 text/html Rhinitis has been bothering her she had a spike in blood pressure went to the emergency room requiring Norvasc clonidine and IV hydralazine no chest pain but her face was flushed mom she did though have a little bit of headache that has persisted in the occiput area that radiates behind her eyes without any blurred vision no unilateral numbness tingling or weakness Chen Gavin MD [address], [address], [place], [address], [employer] [facility] [employer] [facility] 03/16/2023 23:26:24 OBGyn Episode No OBEpisode recorded.
--- OUTSIDE RECORDS SUMMARY | 2024-06-15 12:27 | XMS_ITS | Encounter Summary ---
Author Organization [facility] Address [address] [place] [address] Care Team Providers Care Measuring Clerk Name Role Phone Omi Prieto MD Primary Care Provider [phone] Encounter Details Date Type Department Care Team (Late st Contact Info) Description 08/24/2019 Lab Requisition [facility] [address] [facility], [place] [address] Ellie Guzman DO [address] [facility] [address] [place] [address] Social History Tobacco Use Types Packs/Day Years [...] AM CDT) Case Report Dermatopathology Report Case: [id number] Authorizing Provider: Ellie Guzman DO Collected: 08/23/2019 12:00 AM Ordering Location: [facility] Received: 08/24/2019 07:35 AM Pathologist: [...] characteristic determined by the Dermatopathology Laboratory at [facility], directed by Dr. Cole Rascon. These tests need not be, and therefore are not, approved by the [place] Food and Drug Administration. The tests are used for clinical purposes. Billing Codes Specimen Charges Stain Charges 35510 1 0 11:51 AM CDT DERMATOPATHOLOGY LABORATORY Embedded Images 0 11:51 AM CDT DERMATOPATHOLOGY LABORATORY Pathology/Cytolog y TISSUE SPECIMEN FROM SKIN / Unknown 08/23/2019 08/24/2019 7:35 AM CDT Ellie Guzman DO LAB - PATHOLOGY/C YTOLOGY ORDERABLES DERMATOPATHOLOGY LABORATORY [facility] - Department of Dermatology Laborer/Grade Check Center/[address] [phone] documented in this encounter Visit Diagnoses Not on filedocumented in this encounter Care Teams Measuring Clerk Relationship Specialty Start Date End Date Omi Prieto MD PCP - General 12/16/18 documented as of this encounter
--- OUTSIDE RECORDS SUMMARY | 2024-06-15 12:27 | XMS_ITS | Clinical Summary ---
Author Organization [facility] Address [address] [place] [address] Care Team Providers Care Information Systems Manager Name Role Phone Omi Prieto MD Primary Care Provider [phone] Source Comments [facility],non-owned Affiliates and Associated Physician Practices is amultiple site organization consisting of ambulatory clinics and hospital sitesin [place], [place], [place] and [place]. This disclosure is being madepursuant to the Care Everywhere program and may not contain all information available regarding this patient. Last updated 17.[facility] [employer] Social History Tobacco Use Types Packs/Day Years [...] VACCINE ( - 2023-2 5 season) 2023 DEPRESSION SCREENING 03/09/2024 INFLUENZA VACCINE (Season Ended) 2024 HEPATITIS B VACCINE Aged Out No longe [...] age to complete this topic Care Teams Information Systems Manager Relationship Specialty Start Date End Date Omi Prieto MD PCP - General 12/16/18
--- OUTSIDE RECORDS SUMMARY | 2024-06-15 12:27 | XMS_ITS | CONTINUITY OF CARE DOCUMENT ---
Author Name srinivas espino Address Unknown Organization [facility] Address [address] 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 Nolberto Roe MD Afib - s/p CV in SR active Nolberto Zuniga Shortness of breath active Nolberto Zuniga Fatigue active Nolberto Roe MD Chest pain - nml cath 07/2018 active Lara Roe MD Hyperkalemia active Nolberto Roe MD Swelling of bilateral legs active Jacob Kyt e Headaches active Jacob Kyte Bowel obstruction s/p multiple surgeries active 11/15 Nolberto Roe MD Neck pain active Jacob Santos Spinal stenosis active Nolberto Roe MD Leg pain, bilateral active Nolberto Zuniga Venous insufficiency active Nolberto Roe MD Claudication active Nolberto Roe MD Neuropathy active Nolberto Roe MD Daytime hypersomnia active Nolberto Zuniga Preoperative cardiovascular examination active Nolberto Roe MD Insomnia active Nolberto Roe MD Diaphoresis active Joaquin Lo ENCOUNTERS Date Type Provider Location Encounter Diag nosis - In-person encounter Office Visit Nolberto Roe MD [facility] - [facility]-person encounter Office Visit Nolberto Roe [facility] - In-person encounter Office Visit Nolberto Roe MD [facility] In-person encounter Office Visit Nolberto Roe MD [facility] [place] [facility] - In-person encounter Office Visit Brandon Jackson MD [facility] - In-person encounter Office Visit Brandon Jackson MD [facility] [place] [facility] - In-person encounter Office Visit Nolberto Roe MD [facility] - In-person encounter Office Visit Nolberto Roe MD [facility] - In-person encounter Office Visit Nolberto Roe MD [facility] Office Diaphoresis - In-person encounter Office Visit Bryan Carmona MD [facility] - In-person encounter Office Visit Bryan Carmona MD [facility] - In-person encounter Office Visit Bryan Carmona MD [facility] - In-person encounter Office Visit Nolberto Roe MD [facility] - In-person encounter Office Visit Nolberto Roe MD [facility] - In-person encounter Office Visit Nolberto Roe MD [facility] - In-person encounter Office Visit Nolberto Roe MD [facility] Insomnia - In-person encounter Office Visit Nolberto Roe MD [facility] Daytime hypersomniaPreoperative cardiovascular examination - In-person encounter Office Visit Nolberto Roe MD [facility] Venous insufficiencyClaudicationNeuropathy - In-person encounter Office Visit Nolberto Roe MD [facility] Leg pain, bilateral - In-person encounter Office Visit Nolberto Roe MD [facility] - In-person encounter Office Visit Nolberto Roe MD [facility] Spinal stenosis - In-person encounter Office Visit Nolberto Roe MD [facility] - In-person encounter Office Visit Nolberto Roe MD [facility] - In-person encounter Office Visit Nolberto Roe MD [facility] - In-person encounter Office Visit Nolberto Roe MD [facility] Neck pain - In-person encounter Office Visit Nolberto Roe MD [facility] Bowel obstruction s/p multiple surgeries - In-person encounter Office Visit Nolberto Roe MD [facility] - In-person encounter Office Visit Nolberto Roe MD [facility] Headaches - In-person encounter Office Visit Nolberto Roe MD [facility] Swelling of bilateral legs - In-person encounter Office Visit Nolberto Roe MD [facility] Afib - s/p CV in SR - In-person encounter Office Visit Nolberto Roe MD [facility] Hyperkalemia - In-person encounter Office Visit Nolberto Roe MD [facility] Chest pain - nml cath 07/2018 - In-person encounter Office Visit Nolberto Roe MD [facility] - In-person encounter Office Visit Nolberto Roe MD [facility] - In-person encounter Office Visit Nolberto Roe MD [facility] Shortness of breathFatigueChest pain - nml cath 07/2018 - In-person encounter Office Visit Nolberto Roe MD [facility] HypertensionAfib - s/p CV in SR VITAL SIGNS Date Observation Value Provider height E&M 66 [in_i] Michi Carrion blood pressure, diastolic 100 mm[Hg] Emile Roe MD blood pressure, systolic 202 mm[Hg] Santos Roe MD Body Mass Index (Ratio) 23.08 kg/m2 Tami Roe MD blood pressure, diastolic 80 mm[Hg] Abby ernestocam Jewell blood pressure, systolic 134 mm[Hg] Snow Jewell oxygen saturation, oximetry 97 % Opal Jewell pulse rate 66 /min Opalese Jewell respiratory rate E&M 12 /min Opalese Jewell weight E&M 143 [lb_av] Opal Jewell height E&M 66 [in_i] Opal Jewell blood pressure, cuff size regular An jamesese Jewell oxygen saturation, oximetry 96 % Jermaine Kathleen RN pulse rate 67 /min Jermaine Kathleen RN blood pressure, diastolic 82 mm[Hg] Tom Kathleen RN blood pressure, systolic 140 mm[Hg] Jermaine Kathleen RN height E&M 66 [in_i] Jermaine Kathleen RN height in centimeters E&M 167.64 cm Tom Kathleen RN oxygen saturation, oximetry 97 % Jermaine Kathleen RN respiratory rate E&M 18 /min Jermaine campas RN pulse rate 62 /min Jermaine Kathleen RN blood pressure, diastolic 86 mm[Hg] Tom Kathleen RN blood pressure, systolic 148 mm[Hg] Jermaine Kathleen RN height E&M 66 [in_i] Jermaine Kathleen RN height in centimeters E&M 167.64 cm Tom fay Hirschs RN Body Mass Index (Ratio) 22.59 kg/m2 Tami Roe MD blood pressure, cuff size regular Ke marshai Maikel blood pressure, diastolic 100 mm[Hg] Ke marshai Sanjaynemariana blood pressure, systolic 182 mm[Hg] Wendy Ko oxygen saturation, oximetry 97 % Judy Ko pulse rate 69 /min Judy Voss lder weight E&M 140 [lb_av] Judy Shanika lder height E&M 66 [in_i] Judy Demie lder blood pressure, diastolic 88 mm[Hg] Tom fay Kathleen RN blood pressure, systolic 172 mm[Hg] Jermaine Kathleen RN pulse rate 68 /min Jermaine Kathleen RN respiratory rate E&M 20 /min Jermaine campas RN height E&M 66 [in_i] Jermaine Kathleen REYES height in centimeters E&M 167.64 cm Tom fay Kathleen RN Body Mass Index (Ratio) 23.08 kg/m2 Crystal Jackson MD blood pressure, cuff size regular Ke rri Donovanuenenfeld blood pressure, diastolic 102 mm[Hg] Ke rri Gruenenfeld blood pressure, systolic 204 mm[Hg] Wendy ri Maikel oxygen saturation, oximetry 97 % Judy Asamanafahad pulse rate 54 /min Judy Asanfe [facility] weight E&M 143 [lb_av] Judy Sanjaynenfe [facility] height E&M 66 [in_i] Judy Asanfe [facility] Body Mass Index (Ratio) 22.76 kg/m2 Crystal Jackson MD blood pressure, cuff size regular Roberto hermosillo Orozco blood pressure, diastolic 92 mm[Hg] Ta bitha Orozco blood pressure, systolic 148 mm[Hg] Tab itha Orozco oxygen saturation, oximetry 97 % Samantha Orozco pulse rate 60 /min Samantha Orozco weight E&M 141 [lb_av] Samantha Orozco height E&M 66 [in_i] Samantha Orozco respiratory rate E&M 12 /min Samantha Orozco blood pressure, diastolic 78 mm[Hg] Ta bitha Orozco blood pressure, systolic 108 mm[Hg] Tab itha Orozco pulse rate 62 /min Samantha Orozco height E&M 66 [in_i] Samantha Orozco height in centimeters E&M 167.64 cm [facility] Body Mass Index (Ratio) 23.24 kg/m2 Tami Roe MD blood pressure, diastolic 90 mm[Hg] Tom parks [facility], systolic 189 mm[Hg] Anh ret pulse rate 58 /min Rene blood pressure, cuff size regular Ja rret respiratory rate E&M 14 /min Rene oxygen saturation, oximetry 98 % Rene weight E&M 144 [lb_av] Rene height E&M 66 [in_i] Rene Body Mass Index (Ratio) 23.11 kg/m2 Gamaliel as [place] blood pressure, diastolic 100 mm[Hg] Li nkLogic blood pressure, systolic 193 mm[Hg] Demi kLogic blood pressure, diastolic 100 mm[Hg] Ky geremias Jeovanny blood pressure, systolic 193 mm[Hg] Kyl ia Jeovanny oxygen saturation, oximetry 94 % Kylia Jeovanny pulse rate 48 /min Kylia Jeovanny blood pressure, cuff size regular Ky geremias Jeovanny weight E&M 143.2 [lb_av] Kylia Jeovanny respiratory rate E&M 12 /min Suzan Dougherty ham height E&M 66 [in_i] Kylia Jeovanny Body Mass Index (Ratio) 23.56 kg/m2 Dez Carmona MD blood pressure, cuff size regular Ke rri Gruenenfelder blood pressure, diastolic 80 mm[Hg] Ke rri Gruenenfelder blood pressure, systolic 180 mm[Hg] Ker ri Donovanuenenffahad oxygen saturation, oximetry 97 % Judy Maikel respiratory rate E&M 12 /min Judy G geoffenemariana pulse rate 84 /min Judy Grdarryle weight E&M 146 [lb_av] Judy Voss height E&M 66 [in_i] Judy Gracenenfe blood pressure, diastolic 90 mm[Hg] Liz nkLogic blood pressure, systolic 165 mm[Hg] Demi [...] Body Mass Index (Ratio) 23.24 kg/m2 Soto Adrianza blood pressure, diastolic 58 mm[Hg] Liz nkLogic blood pressure, systolic 106 mm[Hg] Demi ic blood pressure, cuff size regular Ja rret blood pressure, diastolic 58 mm[Hg] Ja rret blood pressure, systolic 106 mm[Hg] Jar ret oxygen saturation, oximetry 94 % Rene pulse rate 58 /min Rene respiratory rate E&M 12 /min Rene weight E&M 144 [lb_av] Rene y height E&M 66 [in_i] Rene y Body Mass Index (Ratio) 23.08 kg/m2 Grah am Amparo blood pressure, diastolic 86 mm[Hg] Li Logic blood pressure, systolic 140 mm[Hg] Demi blood pressure, cuff size regular Ja rret blood pressure, diastolic 86 mm[Hg] Ja rret blood pressure, systolic 140 mm[Hg] Jar ret pulse rate 118 /min Rene oxygen saturation, oximetry 96 % Rene respiratory rate E&M 12 /min Rene weight E&M 143 [lb_av] Rene height E&M 66 [in_i] [facility] Body Mass Index (Ratio) 23.24 kg/m2 Tami Roe MD blood pressure, diastolic 76 mm[Hg] Li blood pressure, systolic 155 mm[Hg] Demi blood pressure, cuff size small [facility] blood pressure, diastolic 76 mm[Hg] [facility] blood pressure, systolic 155 mm[Hg] [facility] pulse rate 58 /min [facility] oxygen saturation, oximetry 96 % [facility] respiratory rate E&M 12 /min Rene weight E&M 144 [lb_av] Rene height E&M 66 [in_i] [facility] Body Mass Index (Ratio) 22.76 kg/m2 Tami Roe MD blood pressure, diastolic 81 mm[Hg] Li nkLogic blood pressure, systolic 175 mm[Hg] Demi ic blood pressure, diastolic 81 mm[Hg] Leslie delgado [place] blood pressure, systolic 175 mm[Hg] Jose mcmahon [place] oxygen saturation, oximetry 97 % Maritza [place] pulse rate 50 /min Maritza zuniga weight E&M 141 [lb_av] Maritza Morin respiratory rate E&M 16 /min Heike braga [place] blood pressure, cuff size large Leslie delgado [place] height E&M 66 [in_i] Maritza zuniga Body Mass Index (Ratio) 238.53 kg/m2 Soto Tong blood pressure, diastolic 88 mm[Hg] Brai Wan blood pressure, systolic 179 mm[Hg] She ale Wan blood pressure, cuff size regular nan Wan respiratory rate E&M 20 /min Lisa Wan oxygen saturation, oximetry 97 % Lisa Wan pulse rate 54 /min Lisa Wan weight E&M 1478 [lb_av] Lisa Wan height E&M 66 [in_i] Lisa Wan Body Mass Index (Ratio) 23.89 kg/m2 Tami Roe MD blood pressure, diastolic 93 mm[Hg] Liz nkLogmarci blood pressure, systolic 176 mm[Hg] Demi kLogic oxygen saturation, oximetry 96 % Bobbi Ziegler blood pressure, diastolic 93 mm[Hg] St ephanie Toney blood pressure, systolic 176 mm[Hg] Apolinar phanie Waelder pulse rate 63 /min Bobbi Lohma n weight E&M 148 [lb_av] Bobbi Lohma n respiratory rate E&M 16 /min Piter sid Mooreman blood pressure, cuff size small St ephanie Toney height E&M 66 [in_i] Bobbi Saenz fay Body Mass Index (Ratio) 24.21 kg/m2 Maggie Borao Body Mass Index (Ratio) 23.89 kg/m2 Tami Roe MD blood pressure, diastolic 85 mm[Hg] St fany James blood pressure, systolic 156 mm[Hg] Sta dina James oxygen saturation, oximetry 95 % Nuhadina Ramirez pulse rate 105 /min Nuhadina Ramirez weight E&M 150 [lb_av] Nuha Ramirez height E&M 66 [in_i] Nuha Ramirez respiratory rate E&M 16 /min Nuha duncan blood pressure, diastolic 88 mm[Hg] Leslie edwardslamonte Suarez blood pressure, systolic 167 mm[Hg] Jose mariolamonte Suarez oxygen saturation, oximetry 96 % Maritza Suarez pulse rate 77 /min Maritza zuniga weight E&M 148 [lb_av] Maritza zuniga respiratory rate E&M 16 /min Heike Suarez height E&M 66 [in_i] Maritza zuniga Body Mass Index (Ratio) 23.08 kg/m2 Tami Roe MD blood pressure, cuff size regular Ke rri Donovanuenemariana blood pressure, diastolic 68 mm[Hg] Ke rri Donovanuenemariana blood pressure, systolic 126 mm[Hg] Ker ri Sanjaynemariana oxygen saturation, oximetry 96 % Judy Maikel respiratory rate E&M 14 /min Judy Ladonna lzao pulse rate 74 /min Judy Sanjaynematilda balderrama weight E&M 143 [lb_av] Judy Sanjaynenfe lder height E&M 66 [in_i] Judy Grdorothynenfe lder Body Mass Index (Ratio) 22.43 kg/m2 Tami Roe MD blood pressure, cuff size regular Ke rri Gruenenfelder blood pressure, diastolic 72 mm[Hg] Ke rri Gruenenfelder blood pressure, systolic 158 mm[Hg] Wendy ri Asanfelder oxygen saturation, oximetry 98 % Judy Grveronikanfelder respiratory rate E&M 14 /min Judy Dougherty ruenenfelder pulse rate 87 /min Judy Grdorothynenfe lder weight E&M 139 [lb_av] Judy Grdorothynenfe lder height E&M 66 [in_i] Judy Grdorothynenfe lder Body Mass Index (Ratio) 24.05 kg/m2 Maggie Hidalgomerao blood pressure, diastolic 91 mm[Hg] Li nkLogic blood pressure, systolic 159 mm[Hg] Demi kLogic blood pressure, diastolic 91 mm[Hg] Ca therine Andrew blood pressure, systolic 159 mm[Hg] Cat herine Andrew oxygen saturation, oximetry 93 % Jaimie Rupert respiratory rate E&M 16 /min Catheri ne Andrew pulse rate 75 /min Jaimie Rupert weight E&M 149 [lb_av] Jaimie Rupert blood pressure, cuff size regular Ca therine Andrew height E&M 66 [in_i] Jaimie Rupert Body Mass Index (Ratio) 23.89 kg/m2 Tami Roe MD blood pressure, diastolic 70 mm[Hg] Emile Roe MD blood pressure, systolic 142 mm[Hg] Santos Roe MD respiratory rate E&M 16 /min Lara Roe MD pulse rate 78 /min Nolberot Roe MD oxygen saturation, oximetry 96 % Nolberto Roe MD weight E&M 148 [lb_av] Nolberto Roe MD height E&M 66 [in_i] Nolberto Roe MD Body Mass Index (Ratio) 23.89 kg/m2 Tami Roe MD blood pressure, cuff size regular Ke rri Donovanuenemariana blood pressure, diastolic 70 mm[Hg] Ke rri Gruenenfeldeli blood pressure, systolic 142 mm[Hg] Wendy ri Maikel oxygen saturation, oximetry 96 % Judy Maikel respiratory rate E&M 16 /min Judy Ladonna lazo pulse rate 78 /min Judy Grdarryle lder weight E&M 148 [lb_av] Judy Gruenenfe lder height E&M 66 [in_i] Judy Gruenenfe lder Body Mass Index (Ratio) 24.24 kg/m2 Alok Santos blood pressure, diastolic 70 mm[Hg] Kashmir Baez blood pressure, systolic 154 mm[Hg] Callie Baez oxygen saturation, oximetry 97 % Shira Baez respiratory rate E&M 16 /min Vicki Baez pulse rate 98 /min Shira ordonezon weight E&M 150.2 [lb_av] Shira kwokon height E&M 66 [in_i] Shira farrar Body Mass Index (Ratio) 23.24 kg/m2 Alok fay Lloydsemaj blood pressure, diastolic 80 mm[Hg] Cy chaim Hayes blood pressure, systolic 129 mm[Hg] Hina carlitos Hayes blood pressure, cuff size regular Cy cahim Hayes oxygen saturation, oximetry 94 % Magalis Hayes pulse rate 79 /min Magaliscarlitos Castellanos l respiratory rate E&M 16 /min Magalis Hayes weight E&M 144 [lb_av] Magalis Carlosbel l height E&M 66 [in_i] Magalis Gonzalezbel l Body Mass Index (Ratio) 26.89 kg/m2 Eleno Bush blood pressure, diastolic 78 mm[Hg] Kashmir Baez blood pressure, systolic 136 mm[Hg] Callie Baez oxygen saturation, oximetry 95 % Shira Baez respiratory rate E&M 18 /min Vicki Baez pulse rate 77 /min Shira Laura nsanna weight E&M 166.6 [lb_av] Shira kwokon height E&M 66 [in_i] Shira Laura nson Body Mass Index (Ratio) 23.89 kg/m2 Alok fay Kyte respiratory rate E&M 16 /min Tonsha Barton blood pressure, diastolic 89 mm[Hg] To nsha Barton blood pressure, systolic 141 mm[Hg] Ton sha Barton oxygen saturation, oximetry 96 % Tonsha Barton pulse rate 76 /min Tonsha Barton weight E&M 148 [lb_av] Tonsha Barton height E&M 66 [in_i] Tonsha Barton Body Mass Index (Ratio) 23.56 kg/m2 Alok fay Kyte oxygen saturation, oximetry 96 % Chastity Matt [...] MD blood pressure, diastolic 77 mm[Hg] Kashmir Lifay Baez blood pressure, systolic 133 mm[Hg] Callie Baez oxygen saturation, oximetry 96 % ShiraIvette Foleyenson respiratory rate E&M 18 /min Vicki didi Baez pulse rate 70 /min Shira Laura josé luisanna weight E&M 146.6 [lb_av] Shira shaw height E&M 66 [in_i] Shira Laura josé luisanna Body Mass Index (Ratio) 23.40 kg/m2 Tami Roe MD blood pressure, cuff size regular Cr brennan Reyes blood pressure, diastolic 70 mm[Hg] Cr brennan Reyes blood pressure, systolic 110 mm[Hg] Agnes Reyes oxygen saturation, oximetry 96 % Eileen Reyes respiratory rate E&M 17 /min Eileen Reyes pulse rate 73 /min Eileen smith weight E&M 145 [lb_av] Eileen smith height E&M 66 [in_i] Eileen smith Body Mass Index (Ratio) 23.40 kg/m2 Tami Roe MD blood pressure, diastolic 80 mm[Hg] Dell Rocha blood pressure, systolic 122 mm[Hg] Linda boogie Rocha oxygen saturation, oximetry 98 % [facility] E&M 16 /min [facility] pulse rate 75 /min [facility] E&M 145 [lb_av] [facility] height E&M 66 [in_i] [facility] Body [facility] Index (Ratio) 23.56 kg/m2 Tami Roe MD blood pressure, diastolic 70 mm[Hg] [facility] blood pressure, systolic 100 mm[Hg] Linda boogie [place] oxygen saturation, oximetry 97 % [facility] respiratory rate E&M 16 /min [facility] pulse rate 72 /min [facility] weight E&M 146 [lb_av] [facility] blood pressure, resting Yes [facility] height E&M 66 [in_i] [facility] Body Mass Index (Ratio) 23.72 kg/m2 Tami Roe MD blood pressure, cuff size regular Ke rri [facility] blood pressure, diastolic 98 mm[Hg] Ke rri [facility]fnort[facility] hospital[facility] blood pressure, systolic 138 mm[Hg] Wendy Ko oxygen saturation, oximetry 97 % Judy Ko respiratory rate E&M 18 /min Judy lazo pulse rate 86 /min Judy Donovanuenemanae er weight E&M 147 [lb_av] Judy Gruenenfe er height E&M 66 [in_i] Judy Gruenenfe er Body Mass Index (Ratio) 23.56 kg/m2 Tami Roe MD blood pressure, diastolic 98 mm[Hg] Jacinto Khan blood pressure, systolic 154 mm[Hg] Dac ia [...] Tonie Bill weight E&M 141 [lb_av] Tonie Bill height E&M 66 [in_i] Tonie Bill ALLERGIES Allergy Name Onset Date Reaction Criticality [...] MD LDL cholesterol, serum 98 mg/dL Juan Rachelle LDL cholesterol, serum 95 mg/dL Juan Rachelle calcium, serum 9.3 mg/dL LinkLogic 8.7-10.3 carbon dioxide, venous blood 25 mmol/L Link[facility]ic 20-29 chloride, serum 105 mmol/L Link[facility] 96-106 potassium, serum 4.5 mmol/L Link[facility]ic 3.5-5.2 sodium, serum 143 mmol/L [facility] [phone]/01/ 16 urea nitrogen/creatinine ratio, serum 20 LinkLogic [...] LinkLogic 3.5-5.2 sodium, serum 143 mmol/L Link[facility] [phone]/09/ 05 urea nitrogen/creatinine ratio, serum 25 LinkLogic [...] LinkLogic 0-149 cholesterol, serum 152 mg/dL Link[facility] [phone]/05/ 24 calcium, serum 9.5 mg/dL LinkLogic 8.7-10.3 carbon dioxide, venous blood 26 mmol/L LinkLogic 20-29 chloride, serum 100 mmol/L LinkLogic 96-106 potassium, serum 5.4 mmol/L LinkLogic 3.5-5.2 High sodium, serum 143 mmol/L LinkLogic [phone]/05/ 24 urea nitrogen/creatinine ratio, serum 21 LinkLogic [...] Not Estab. platelet count 181 X10E3/UL LinkLogic [phone]/05/ 24 red blood cell distribution width 16.3 [...] Status Instructions Dates Provider Indications Com ments irbesartan 150 mg tablet active Nolberto Roe MD clonidine HCl 0.1 mg tablet active TAKE 1 TABLET BY MOUTH TWICE DAILY 05/09 Nolberto Roe MD hydralazine 25 mg tablet active TAKE 1 TABLET BY MOUTH TWICE DAILY Nolberto Roe MD chlorthalidone 25 mg tablet active Take 1 tablet by mouth once a day Suzanne RIVAS losartan 50 mg tablet completed TAKE 1 TAB LET BY MOUTH TWICE DAILY 10/22 - 06/01 Nolberto Roe MD metoprolol succinate 25 mg tablet extended release 24 hr completed TAKE 1 TABLET BY MOUTH DAILY 10/22 - 11/19 Samantha Orozco hydralazine 50 mg tablet completed TAKE 1 TABLET BY MOUTH TWICE DAILY - 09/22 [facility]ene [facility] 50 mg tablet completed Take 1 [...] Kathleen RN pantoprazole 40 mg tablet,delayed release (DR/EC) completed Take 1 tablet by mouth once a day - 05/19 Alecia Harrell valsartan 40 mg tablet completed TAKE 1 TABLET BY MOUTH EVERY DAY 04/14 - 09/15 [facility] clonidine HCl 0.1 mg tablet completed as needed for headaches SBP >170 - 06/25 Xin Doherty NP dofetilide 500 mcg capsule completed TAKE 1 CAPSULE BY MOUTH TWICE DAILY 03/12 - 05/21 Xin Doherty NP thiamine HCl (vitamin B1) 100 mg tablet active TAKE 1 TABLET BY MOUTH ONCE DAILY 10/01 Maritza Suarez sertraline 50 mg tablet completed - [facility] Ambien 5 mg tablet completed Take 1 tablet by mouth once a day at night before sleeping 06/25 - 05/21 Xin Doherty NP metoprolol tartrate 50 mg tablet completed TAKE 1 TABLET BY MOUTH TWICE DAILY 06/10 - 05/21 Xin Doherty NP valsartan 40 mg tablet completed Take 1 1/2 tablet by mouth once a day 06/04 - 04/14 [facility] Vitamin B-1 (mononitrate) 100 mg tablet completed [...] capsule by mouth every night 04/15 - Rene cyanocobalamin (vitamin B-12) 2,500 mcg tablet active Take 1 tablet by mouth once a day 04/09 Nolberto Roe MD thiamine HCl (vitamin B1) 100 mg tablet completed Take 1 tablet by mouth once a day 04/09 - 10/01 Edwina Houd furosemide 20 mg tablet completed Take 1 [...] THURSDAY, THURSDAY. STOP PROPAFENONE - 03/25 Andrew Condon CD 120 mg capsule,extended release 24hr completed [...] tab at bedtime 11/15 - 09/24 Shira Foleyenson hydralazine 25 mg tablet completed Take TAKE 3 TABLETS BY MOUTH 3 TIMES A DAY 04/06 - 10/06 Bettie Ballardender sotalol 80 mg tablet completed Take 0.5 [...] MD personal history of marijuana use no Nolberto Roe MD drug use no Nolberto Roe MD alcohol use no Nolberto Roe MD smoking status Never smoker Nolberto gonsalez MD personal history of marijuana use no [place] drug use no [place] alcohol use no [place] smoking status Never smoker [place] personal history of marijuana use no Nolberto Roe MD drug use no Nolberto Roe MD alcohol use no Nolberto Roe MD smoking status Never smoker Nolberto gonsalez MD personal history of marijuana use no Suzanne Ventimiglia COMPOUNDER drug use no Suzanne Ventimig geremias COMPOUNDER alcohol use no Suzanne Ventimig geremias COMPOUNDER smoking status Never smoker Suzanne Ventim iglia COMPOUNDER alcohol use no Brandon Jackson MD smoking status Never smoker Brandon Jackson MD alcohol use no Nolberto Roe MD smoking status Never smoker Nolberto gonsalez MD number of grandchildren Nolberto Roe MD Xin Fendler INSURANCE ASSOCIATE alcohol use no Xin Fendle r INSURANCE ASSOCIATE smoking status Never smoker Xin Fend ler INSURANCE ASSOCIATE Exercise counseling Yes Xin Fendler INSURANCE ASSOCIATE number of grandchildren Bryan Carmona MD alcohol use no Xin Fendle r INSURANCE ASSOCIATE smoking status Never smoker Xin Fend ler INSURANCE ASSOCIATE Exercise counseling Yes Xin Fendler INSURANCE ASSOCIATE alcohol use no Xin Fendle r INSURANCE ASSOCIATE smoking status Never smoker Xin Fend ler INSURANCE ASSOCIATE Exercise counseling Yes Xin Fendler INSURANCE ASSOCIATE alcohol use no Soto Ahmedzai smoking status Never smoker Soto Ahmedzai alcohol use no Jeovanny Amparo smoking status Never smoker Jeovanny Baker ri social history reviewed E&M revi ewed - no changes required Nolberto Roe MD social history E&M Smoking Histo ry: P mairtza has never smoked. Nolberto Roe MD social history E&M S moking History: P [...] Roe MD smoking status Never smoker Lisa Wan social history E&M S moking History: P [...] Roe MD smoking status Never smoker Jaimie Lashay smith smoking status Never smoker Nolberto gonsalez MD social history reviewed E&M revi ewed - no changes required Nolberto Reo MD smoking status Never smoker Judy [place] social history E&M S moking History: P atient has never smoked. Nolberto Roe MD social history reviewed E&M revi ewed - no changes required Nolberto Roe MD smoking status Never smoker Shira Jiang [facility] social history E&M S moking History: P atient has never smoked. Nolberto Roe MD social history reviewed E&M revi ewed - no changes required Nolberto Roe MD smoking status Never smoker Magalis luo smoking status Never smoker Shira [facility] social history E&M S moking History: P atrobert has never smoked. Nolberto Roe MD social history reviewed E&M revi ewed - no changes required Nolberto Roe MD smoking status Never smoker [facility] social history E&M S moking History: P atrobert has never smoked. Nolberto Roe MD social history reviewed E&M revi ewed - no changes required Nolberto Roe MD smoking status Never smoker Maryannelmer braga social history E&M S moking History: P atrobert has never smoked. Nolberto Roe MD social history reviewed E&M revi ewed - no changes required Nolberto Roe MD smoking status Never smoker Shira Jiang [facility] social history E&M S moking History: P atrobert has never smoked. Nolberto Roe MD social history reviewed E&M revi ewed - no changes required Nolberto Roe MD smoking status Never smoker [facility] social history E&M S moking History: P maritza has never smoked. Nolberto Roe MD social history reviewed E&M revi ewed - no changes required Nolberto Roe MD alcohol use no [place] smoking status Never smoker Luh Ingra m social history E&M S moking History: P maritza has never smoked. Nolberto Roe MD social history reviewed E&M revi ewed - no changes required Nolberto Roe MD alcohol use no [place] smoking status Never smoker Luh Ingra m social history E&M S moking History: P maritza has never smoked. Nolberto Roe MD social history reviewed E&M revi ewed - no changes required Nolberto Roe MD alcohol use no Judy Braymatilda lder smoking status Never smoker Judy Brayfay rod social history E&M S moking History: P maritza has never smoked. Nolberto Roe MD social history reviewed E&M revi ewed - no changes required Nolberto Roe MD alcohol use no Tonie Bill smoking status Never smoker Tonie Bill number of grandchildren Nolberto Roe MD social history E&M S moking History: P maritza has never smoked. Nolberto Roe MD social history reviewed E&M revi ewed - no changes required Nolberto Roe MD alcohol use no Tonie Bill smoking status Never smoker Tonie Bill FAMILY HISTORY Family Member Condition Father Family History of Co christianne Cancer: INSURANCE PROVIDERS Payer name Policy type / Coverage type [place] [employer] democr[employer] ID [place] MED[place] Medicare [id number] [facility] Repairogen [id number] ADVANCE DIRECTIVES Name Date DISCUSSED - NO DECISION MADE TREATMENT PLAN Date Name Performer [id number],C,N o recurrence Nolberto Roe MD [id number],C,T his last Thursday she was getting ready [...] thursday, thursday. stop propafenone Nolberto Roe MD [id number],C,N o SoB today. Continues on diuretics Nolberto Roe MD [id number],C,H er RPM showed BP average over last 30 days 149/87 with high variability and pt showed concern for weight loss. We will increase Valsartan to 1 1/2 tablets once daily and obtain bloodwork BP today: 155/76 P rior BP: 175/81 (08/20/2022) Nolberto Roe MD [id number],C,C urrently in physical therapy which is helping her. Nolberto Roe MD [id number],C, H er updated medication list for this [...] day for 3 days Nolberto Roe MD [id number],C, Sleep titration study came back positive for sleep apnea. Requests have been sent to the local company to provide her with the CPAP. The information on this has been given to the patient. Nolberto Roe MD [id number],C,S tosha the left knee surgey, she has continued to have swelling, pain, and limited mobility and following orthopedics. Had a nerve conduction study done in April for leg and foot pains, which came back normal. Nolberto Roe MD [id number],C,No CP. Shane Roe MD [id number],C,T here has been an occassional episode of fluttering in the chest. QTc 338. In sinus rhythm. Nolberto Roe MD [id number],C,W ill send Ambien for the time being, she will need CPAP Nolberto Roe MD [id number],C, B P today: 179/88 P rior BP: 176/93 (05/15/2022) Labs Reviewed: C reat: 1.07 (03/24/2019) C hol: 152 (07/30/2018) HDL: 38 (07/30/2018) LDL: 98 (08/20/2018) Nolberto Roe MD [id number],C, R ecent admission at [facility] for afib. Continues on metoprolol tartrate and dofetilide. Xarelto for OAC. In sinus bradycardia on EKG today. Nolberto Roe MD [id number],C,S he had normal nerve conduction study at [facility] Nolberto Roe MD [id number],C, U pcoming left knee arthroscopy. She may hold xarelto 3-5 days before surgery. Nolberto Roe MD [id number],C,S he has moderate SIMON and requires in lab study in order to recieve CPAP, will send orders. Nolberto Roe MD [id number],C, U pcoming left knee arthroscopy. BP elevated today. Will give her an RPM and decide if she needs adjustments to her BP medication before her upcoming procedure. She may hold xarelto 4-5 days before surgery. Nolberto Roe MD [id number],C, S he would certainly benefit from a sleep study. 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 Advised support stockings as needed for leg swelling. Leg swelling resolved off cardizem. Nolberto Roe MD [id number],C, B P elevated today at 176/93. Continues on hydralazine and metoprolol tartrate. Will give her an RPM and decide if she needs adjustments to her BP medication before her upcoming procedure. Advised reduced sodium intake and routine monitoring of the blood pressure. We aim for less than 130/80. Nolberto Roe MD [id number],C, C hest pain free. Nolberto Roe MD [id number],C, V enous insufficiency of the right GSV. Advised support stockings as needed for leg swelling. Leg swelling improved off cardizem. Nolberto Roe MD [id number],W, R ecent admission at [facility] for afib with RVR and hypertensive emergency. Continues on metoprolol tartrate and dofetilide. Xarelto for OAC. In sinus bradycardia on EKG today, QTc 451ms. She would benefit from a sleep srudy to evaluate for SIMON which could be contributing to her afib and BP. Nolberto Roe MD [id number],B, N o swelling today. Advised support stockings as needed for swelling Ynes Titus [id number],C, C omplaining of burning and claudication in her legs. Will start her on gabapention 200 mg nightly Ynes Titus [id number],C, V enous insufficiency of the right GSV. Advised support stockings as needed for leg swelling. Ynes Titus [id number],C,B P elevated today at 156/85. Advised reduced sodium intake and routine monitoring of the blood pressure. We aim for less than 130/80. Nolberto Roe MD [id number],C, I n Afib today. Cotinues on caridzem and dofetilide. Xarelto for OAC. W il have her repeat EKG on Thursday to see if she remains in Afib. Nolberto Roe MD [id number],W, C omplains of intermittent burning sensation in her BLEs. Recommend taking B12 and thiamine supplements. Differential diagnosis include venous insufficiency vs. PVD vs. neuropathy. Nolberto Roe MD [id number],C, B lood pressure is elevated today. Continue present medications. Nolberto Roe MD [id number],W, C omplains of intermittent burning sensation in her BLEs. Recommend taking B12 and thiamine supplements. Nolberto Roe MD [id number],C, C omplains of bilateral LE swelling which has been worse of late. Support hose in place. Has known venous insufficiency of the R GSV on previous ultrasound from March 2019. We will repeat her venous dopplers. I also recommend she take lasix 20mg for 2-3 days. Nolberto Roe MD [id number],S, I n SR today. Cotinues on caridzem and dofetilide. Xarelto for OAC. Nolberto Roe MD [id number],S, M uch improved on Amitriptyline. Follows neurology. Nolberto Roe MD [id number],S, S he had second lumbar surgery and is receiving injections. Currently in physical therapy which is helping her. Nolberto Roe MD [id number],S, C hest pain free. Nolberto Roe MD [id number],S, B lood pressure control is satisfactory. Nolberto Roe MD [id number],S, I n SR today. Cotinues on caridzem and dofetilide, QTc 439ms. Xarelto for OAC. Nolberto Roe MD [id number],C,Improved. Santos Roe MD [id number],C,S he had second lumbar surgery and is receiving injections. Currently in physical therapy which is helping her. Nolberto Roe MD [id number],C,B P is elevated today, she also has elevated pressures at home around 150-160 systolic. Will increase her Hydralazine 25 mg to one and half tablets BID. BP today: 158/72 Prior BP: 159/91 (05/15/2021) Labs Reviewed: C reat: 1.07 (03/24/2019) C hol: 152 (07/30/2018) HDL: 38 (07/30/2018) LDL: 98 (08/20/2018) Nolberto Roe MD [id number],C, continues with her anticoagulation with Xarelto, sinus rhythm on EKG today. Nolberto Roe MD [id number],C,I mproved, no swelling. She has reflux in her right GSV from doppler in 2019. Nolberto Roe MD [id number],C, continues with her anticoagulation with Xarelto and Cardizem. QTc on EKG today was 442 msec. in sinus rhythm Ynes Titus [id number],S, N o SoB today. Continues on diuretics Nolberto Roe MD [id number],S, M uch improved on Amitriptyline. Follows neurology. Nolberto Roe MD [id number],C, N o recurrence Nolberto Roe MD [id number],C, B P high today, states slightly stressed while parking. Nolberto Roe MD [id number],C, continues with her anticoagulation with Xarelto and Cardizem. Nolberto Roe MD [id number],C, O ne episode of heart pounding, resolved after 5 minutes. No other episodes before or since. Continues on nitro patch Nolberto Roe MD [id number],C,S he occasionally has episodes of fatigue, low energy which resolve after one day and occur once or twice a month. Nolberto Roe MD [id number],C,BP control is satisfactory. Nolberto Roe MD [id number],C,R ecurrence of atrial fibrillation confirmed on EKG [...] will request her results. Nolberto Roe MD Cardiology Nolberto Zuniga Cardiology: Nadia mccauley at present Echio in September 2023:normal left ventricular size and systolic function.Mild concentric left ventricular hypertrophy. Normal left ventricular d iastolic function. E/E': 13.3. Left ventricular ejection fraction is measured at 59 %. Nolberto Roe MD Cardiology: Nadia mccauley chest pain at present ECHO: 2020 impaired LV relaxation, EF 60%, trace MR, mild AR, severe TR. C AROTIDS: 2020 mild plaque, <50% cath: 2019 normal coronaries, normal renals, EF 60% Nolberto Roe MD Cardiology: r emains in NSR on exam today c ontinue low dose amiodarone H er updated medication list for this problem includes: Amiodarone 100 Mg Tablet (Amiodarone) ..... Take 1 tablet by mouth once a day 09/07 dose decreased to 100mg daily. pt has been taking 400mg and she will cut the 400mg them into 4th (per her request) Nolberto Roe MD Cardiology:SHANTELL enrique ge 168/90; is plannedto undergo renal artery duplex; Renal doctor had her stop losartan and hydralazine prior to test. will take irbesartan for two weeks and will resume losartan and hydralazine after testing. Prior BP: 202/100 (03/23/2024) Prior 10 Yr Risk Heart Disease: 13 % (11/20/2023) Labs Reviewed: C reat: 1.07 (03/24/2019) C hol: 152 (07/30/2018) HDL: 38 (07/30/2018) LDL: 98 (08/20/2018) T (07/30/2018) The following medications were removed from the medication list: Losartan 50 Mg Tablet (Losartan) ..... Take 1 tablet by mouth twice daily Her updated medication list for this problem includes: Clonidine Hcl 0.1 Mg Tablet (Clonidine hcl) ..... Take 1 tablet by mouth twice daily Irbesartan 150 Mg Tablet (Irbesartan) Hydralazine 25 Mg Tablet (Hydralazine) ..... Take 1 tablet by mouth twice daily Chlorthalidone 25 Mg Tablet (Chlorthalidone) ..... Take 1 tablet by mouth once a day This visit has been a part of the consistent, comprehensive, and ongoing management of the chronic medical condition(s) listed above for the patient. Nolberto Roe MD Cardiology:jose Maza Her updated medication list for this problem [...] 400mg them into 4th (per her request) Suzanne Antoniomiglxin COMPOUNDER Cardiology:BP 134/80 today and better controlled C [...] 1 tablet by mouth twice daily Suzanne Hagan [facility] Cardiology: non-compliant with CPAP Nolberto Roe MD [...] Nolberto Roe MD Cardiology:non-compliant with CP AP Suzanne Hagan [facility] Cardiology:currently sinus margi HR in 50s W [...] 1 tablet by mouth once a day 7/2 dose decreased to 100mg daily. pt has been taking 400mg and she will cut the 400mg them into 4th (per her request) Suzanne Hagan [facility] Cardiology:Uncontrol led. Will add chlorthalidone 25 mg [...] of aimee Jackson MD Cardiology:IN SR tod cooper Randle with xarelto, has been seen in the [facility] ER for bruising. i nstructed to continue her current dose of xarelto Brandon Jackson MD Cardiology:Recent ad mission to hospital with chest tightness and hypertensive, troponin were negative. d iaphoresis with intermittent chest pain, SOB/JAIME. ECHO: 2020 impaired LV relaxation, EF 60%, trace MR, mild AR, severe TR. C AROTIDS: 2020 mild plaque, <50% cath: 2019 normal coronaries, normal renals, EF 60% Nolberto Roe MD Cardiology: R shelby in NSR. COntinues on her amiodarone 100 [...] C AROTIDS: 2020 mild plaque, <50% cath: 2019 normal coronaries, normal renals, EF 60% Nolberto [...] twice a week. WILL CHECK ECHO Xin oDherty NP Cardiology:diaphores is with intermittent chest pain, SOB/JAIME. ECHO: 2020 impaired LV relaxation, EF 60%, trace MR, mild AR, severe TR. C AROTIDS: 2020 mild plaque, <50% cath: 2019 normal coronaries, normal renals, EF 60% WILL CHECK TSH, T3, T4, vitamin D. will decrease amio to 100mg daily. will decrease metoprolol to 25mg bid, wll decrease Vitamin D3 to twice a week. WILL CHECK SATNAM Doherty NP Cardiology: Pt state s that since the middle of July she has been having severe 'hot flashes and sweats'. she was seen by PCP, Dr. Gavin and had labs drawn, and was told [...] week. WILL CHECK ECHO Xin Doherty NP Electrophysiology Bryan morales MD Electrophysiology [...] mouth every day Xin Doherty NP Electrophysiology:Bria abigail does report 1 episode of AFIB, documented by smart watch, but states that it lasted about 20 min or so, with associated palpitations, but resolved, with no recurrence. DECREASE AMIO TO 200MG DAILY UNTIL CURRENT BOTTLE GONE THEN STOP S TART DILTIAZEM 90MG BID will check 1 week telesentry--> Dr. Roe to read Xin Gordonwallace INSURANCE ASSOCIATE Electrophysiology:s/ p AFIB ablation 05/11 continue for amio for now. follow up in 4 weeks. will consider going back on dofetilide. Xin Gordonwallace INSURANCE ASSOCIATE Electrophysiology:no recurrence Xin Doherty INSURANCE ASSOCIATE Electrophysiology:no recurrence Xin Gordonwallace LOPEZ Telehealth - NO meds on the day of the aablation. pt aware. SK Bryan Carmona MD Telehealth - NO meds [...] aware. SK: O rders: P mary 5-10 (CPT-[id number]) Bryan Carmona MD Electrophysiology:Bria braga has hx of of AFIB with CV in the past, she has been on Tikosyn. She had episode of AFIB while waiting for office visit 03/26, she is symptomatic with chest pain, sob, palpitations, she did recieve IV diltiazem at E later that day as her rate was [...] Roe MD Cardiology: R ecent admission at [facility] for afib. Continues on metoprolol tartrate and dofetilide. Xarelto for OAC. In sinus bradycardia on EKG today. Nolberto Roe MD Cardiology:She had n ormal nerve conduction study at [facility] Nolberto Roe MD Cardiology: U pcoming [...] Roe MD Cardiology: R ecent admission at [facility] for afib with RVR and hypertensive emergency. Continues on metoprolol tartrate and dofetilide. Xarelto for OAC. In sinus bradycardia on EKG today, QTc 451ms. She would benefit from a sleep srudy to evaluate for SIMON which could be contributing to her afib and BP. Nolberto Roe MD Cardiology: N o swelling today. Advised support stockings as needed for swelling Ynes Tacho Cardiology: C omplaining of burning and claudication [...] or since. Continues on nitro patch Nolberto Reo MD Cardiology:She occas ionally has episodes of [...] request her results. Nolberto Roe MD Cardiology:Resolved. Jacob Santos Cardiology:Unclear e tiology. Will check carotid doppler. Jacob semaj Cardiology:BP elevat ed at 154/70. Advised reduced sodium intake and routine monitoring of the blood pressure. We aim for blood pressure less than 130/80. She continues on Hydralazine and Diltiazem. Jacob semaj Cardiology:Episode o f chest pain for which she went to the ER. No recurrence. She continues on Nitro patch. Advised to take sublingual nitro as needed. Jacob semaj Cardiology:Remains i n sinus rhythm, QTC 436 on Sotalol and Xarelto which she continues. Jacob semaj Cardiology follow up :Persists. Unclear etiology. Her 2019 angiogram showed normal epicardial coronary arteries. She may benefit from repeat thryoid functions. Jacob semaj Cardiology follow up :Resolved o ff Aldactone. Jacob semaj Cardiology follow up :Blood pressure control is satisfactory. Jacob semaj Cardiology follow up :Much improved on Amitriptyline. Follows neurology. Jacob Ky Cardiology follow up :Remains in sinus rhythm, [...] headaches. Will arrange head CT with contrast. Cardiology:Persisten tly elevated blood pressure. Will reduce Cardizem CD back down to 120mg daily as it was ineffective at controlling her blood pressure at the higher dose. She continues on Benazapril as before. Will add Hydralazine 25mg BID. Her renal arteries were normal on angiogram last year. Advised to continue monitoring blood pressure. Cardiology:Remains i n sinus rhythm on EKG today. Continues on Cardizem and Sotalol, QTC 426. She continues on roasterman anticoagulation with Xarelto. Cardiology:Off Aldactone. BMP to day with normal K+. Cardiology:Swelling of bilateral legs improved with compression stockings. Will arrange venous doppler with reflux. Jacob Cardiology:Controlle d on nitro patch which she continues. Jacob Cardiology:Persisten tly elevated blood pressure. Will increase Diltiazem to 240mg daily. She continues on Benazepril 40mg daily. Cardiology:Remains i n sinus rhythm on EKG today. Continues on Sotalol, QTC 426. She continues on penitentiary anticoagulation with Xarelto. Cardiology:Controlle d on nitro patch which she continues. Nolberto Roe MD Cardiology:Improved. Nolberto veronica MD Cardiology:Resolved off Aldacton e. Nolberto Roe MD Cardiology:Blood pressure contro l is satisfactory. Nolberto Roe MD Cardiology:Remains i n sinus rhythm on EKG today. Continues on Sotalol, QTC 418. She continues on penitentiary anticoagulation with Xarelto. Nolberto Roe MD Cardiology [...] She continues on Sotalol. On Xarelto for roasterman anticoagulation. Nolberto Roe MD Cardiology:Mildly el evated [...] Continues Atenolol and Cardizem. On Xarelto for penitentiary anticoagulation. ZOILA with cardioversion was discussed with the patient and her . They will consider the option. Nolberto Roe MD Cardiology:Persisten t chest pain with [...] on Atenolol and Cardizem. On Xarelto for roasterman anticoagulation. Nolberto Roe MD Cardiology:Persists. PFTs showed [...] controlled. Continues on Cardizem. On Xarelto for penitentiary anticoagulation Nolberto Roe MD Cardiology follow up [...] controlled. Continues on Cardizem. On Eliquis for penitentiary anticoagulation. She was advised to discontinue ASA. [...] Regadenoson 6 minute walk test DLCO - 56492 FRC - 04185 FVC - 72118 Complete Echo Mobile Cardiac Tele PROBNP, N [...] ed EKG Johnny Drummond MD completed EKG Nolebrto Roe MD complet ed EKG Nolberto Roe [...] MD complete d FVC / MVV - 12500 Nolberto Roe MD completed BLOOD COUNT HEMOGLOBIN Nolberto Roe MD completed FRC - 98048 Nolberto Roe MD comple jovany SpO2 w/o 6min walk/titration Nolberto Roe MD completed DLCO - 14597 Nolberto Roe MD compl eted EKG Nolberto Roe MD complet ed EKG Nolberto Roe MD complet ed Mobile Cardiac Telemetry - Tech Nolberto Roe MD completed Mobile Cardiac Telemetry - Prof Nolberto Roe MD completed
--- OUTSIDE RECORDS SUMMARY | 2024-06-15 12:27 | XMS_ITS | Encounter Summary ---
Author Organization [facility] Address [address] [place] [address] Care Team Providers Care Measurement Analyst Name Role Phone Omi Prieto MD Primary Care Provider [phone] Encounter Details Date Type Department Care Team (Late st Contact Info) Description 04/23/2023 Lab Requisition [facility] - DermPath Lab [address] [place] [place], [place] [id number] Ellie Guzman DO [address] [facility] [address] [place] [address] Social History Tobacco Use Types Packs/Day Years [...] Diagnosis Comments DERMATOPATHOLOGY Routine 04/23/2023 9:18 AM RETAIL SALES ASSISTANT documented in this encounter Results * DERMATOPATHOLOGY (04/23/2023 9:18 AM RETAIL SALES ASSISTANT) Case Report Dermatopathology Report Case: [id number] Authorizing Provider: Ellie Guzman DO Collected: 04/23/2023 09:18 AM Ordering Location: [facility] DermPath Lab Received: 04/24/2023 06:41 AM Pathologist: Nicol Pereira MD Specimens: A) - Skin, left chest B) - Skin, left ant LE 4:28 PM RETAIL SALES ASSISTANT DERMATOPATHOLOGY LABORATORY Final Diagnosis Specimen A. SKIN, left chest: LICHEN PLANUS-LIKE KERATOSIS (BENIGN LICHENOID KERATOSIS) (L82.1) (see microscopic description) Specimen B. SKIN, left ant LE: SPONGIOTIC DERMATITIS WITH EOSINOPHILS (L30.8) (see microscopic description and comment) 4 4:28 PM [facility] DERMATOPATHOLOGY LABORATORY Clinical History A-B: r/o [facility] 4 4:28 PM [facility] DERMATOPATHOLOGY LABORATORY Gross Description Specimen [...] 6x4x1 mm. Jar 0. 4 4:28 PM [facility] DERMATOPATHOLOGY LABORATORY Microscopic Description Specimen [...] phase of bullous pemphigoid. 4 4:28 PM [facility] DERMATOPATHOLOGY LABORATORY Disclaimer An external and internal positive and negative controls are appropriate for the histochemical, immunohistochemical and immunofluorescence stain(s) in this case (if any), except where stated explicitly. The performance characteristics of the stain(s) cited in this report were developed and its performance characteristic determined by the Dermatopathology Laboratory at [facility], directed by Dr. Cole Rascon. These tests need not be, and therefore are not, approved by the [place] Food and Drug Administration. The tests are used for clinical purposes. Billing Codes Specimen Charges Stain Charges 36326 37894 1 1 03957 1 4 4:28 PM [facility] DERMATOPATHOLOGY LABORATORY Embedded Images 4 4:28 PM [facility] DERMATOPATHOLOGY LABORATORY Pathology/Cytology TISSUE SPECIMEN FROM SKIN / Unknown 04/23/2023 9:18 AM RETAIL SALES ASSISTANT 04/24/2023 6:41 AM RETAIL SALES ASSISTANT Miscellaneous samples (specimen) TISSUE SPECIMEN FROM SKIN / Unknown 04/23/2023 9:18 AM RETAIL SALES ASSISTANT 04/24/2023 6:41 AM RETAIL SALES ASSISTANT Ellie Guzman DO LAB - PATHOLOGY/C YTOLOGY ORDERABLES DERMATOPATHOLOGY LABORATORY [facility] - Department of Dermatology [facility] [address] [place] [address], [address] [phone] documented in this encounter Visit Diagnoses Not on filedocumented in this encounter Care Teams Measurement Analyst Relationship Specialty Start Date End Date Omi Prieto MD PCP - General 12/16/18 documented as of this encounter
--- OUTSIDE RECORDS SUMMARY | 2024-06-15 12:27 | XMS_ITS | Clinical Summary ---
Author Organization [facility] Address [address] [place] [address] Care Team Providers Care Brand Advocate Name Role Phone Fred Gavin MD Primary Care Provider [phone] Allergies Active Allergy Reactions Criticality Noted Date [...] on file Legal Sex Female 7:15 PM SEO ASSOCIATE Gender Identity Not on file Sexual Orientation Not on file Obstetrics History Last Filed Vital Signs Vital Sign Reading Time Taken Comments Blood Pressure 138/71 05/13/2023 7:56 AM SEO ASSOCIATE Pulse 72 05/13/2023 7:56 AM SEO ASSOCIATE Temperature 36.9 C (98.4 F) 05/13/2023 7:56 AM SEO ASSOCIATE Respiratory Rate 16 05/13/2023 7:56 AM SEO ASSOCIATE Oxygen Saturation 97% 05/13/2023 7:56 AM SEO ASSOCIATE Inhaled Oxygen Concentration - - Weight 64.6 kg (142 lb 8 oz) 05/12/2023 10:32 AM SEO ASSOCIATE Height 165.1 cm (5' 5 ) 05/12/2023 10:32 AM SEO ASSOCIATE Body Mass Index 23.71 05/12/2023 10:32 AM SEO ASSOCIATE Plan of Treatment Health Maintenance Due Date Last Done Comments Depression Screening 1945 Hepatitis C Screening 1945 DTaP/Tdap/Td Vaccine (1 - Tdap) 1956 Hepatitis B Screening 09/18/1963 Well Visit 65+ 2010 Zoster Vaccine (2 of 3) 07/11/2014 05/16/2014, 05/12 Fall Risk Assessment 05/12/2024 05/13/2023 Osteoporosis Screening-Bone Density Scan 08/21/2024 08/21/2022 Influenza Vaccine (Season Ended) 2024 12/09/2021, 12/09/2018, 12/07/2017, Additional history exists Pneumococcal vaccine 65+ Completed 06/20/2020, 12/08 Breast Cancer Screening-Mammogram Discontinued 021 Insurance MEDICARE [facility] [place] MEDIC[place] Advance Directives For more information, please contact: [phone] * Full Code (Latest Code Status on File) Date Activated Date Inactivated Comments 05/05/2019 1:17 PM 05/05/2019 6:23 PM Care Teams Brand Advocate Relationship Specialty Start Date End Date Fred Gavin MD PCP - General Internal Medicine 03/25/22
[2024-06-15 13:48] LABS: Parathyroid Intact 44.1 pg/mL (14.5-75.2)
[2024-06-15 14:23] LABS: Creatinine Urine 22.8 mg/dL; Total Protein Urine Random 14 mg/dL; Ur Ttl Prot Creatinine Ratio 0.61 mg/mg (0-0.20)
== END 2024-06-15 10:51 | disposition home or self-care (01) ==
LOC: ANHLAB 10:53
PROVIDERS: PCP Internal Medicine; Visit Provider Internal Medicine Nephrology
DX: R94.4 Abnormal results of kidney function studies (principal); I10 Essential (primary) hypertension
CPT/HCPCS: 36415; 80069; 82570; 83970; 84156; 85027

== ENCOUNTER 2024-06-16 11:46 | Outpatient (CLI) | payer MEDICARE, OTHER, SELFPAY ==
--- OUTSIDE RECORDS SUMMARY | 2024-06-16 12:29 | XMS_ITS | Data Portability ---
Author Organization [facility] Address [address] [place] [place] [address] Care Team Providers Care Gum Puller Name Role Phone CHEN GAVIN Primary Care Provider [phone] Assessment Encounter Date Assessment Date Assessment LastModified by Organization Details LastModified Time 08/20/2023 08/20/2023 CBC CMP lipid T3-T4 TSH QuantiFERON gold follow-up 1 month and I need records from her previous clinic [email or web address] Not available 08/22/2023 16:26:50 2023 2023 her complaints o f night sweats are completely gone and there is no other new interval developments or complaints we will just continue to monitor diagnosis in the assessment and plan have been discussed recent blood work reviewed she will follow up with me in 4 months any problems in the interim she will call. Not available 09/27/2023 20:27:55 01/21/2024 01/21/2024 continue current therapy recent blood work has been ordered healthy lifestyle care instructions flu shot follow up 3 months [email or web address] Not available 03/04/2024 14:31:52 04/22/2024 04/22/2024 her blood pressu re is controlled symptomatically or atrial fibrillation is doing fine appears to be in a sinus mechanism today we will continue current therapy gout doing fine dyslipidemia continue with medications and low-fat diet follow up in 4 months [email or web address] Not available 04/23/2024 13:53:00 Plan of Treatment Reminders Order Date Submit Date Provider Last Modified By Organization Details Last Modified Time Details Appointments ANY 15 2024 09:15A M Chen Gavin MD Not available Not available Not available Lab lipid panel, serum 2023 024 [facility], [address], [address], [place], [address], 08/21/2023 10:37:21 CBC w/ auto diff 2023 024 [facility], [address], [address], [place], [address], 08/21/2023 10:37:22 CMP, serum or plasma 2023 024 [facility], [address], [address], [place], [address], 08/21/2023 10:37:21 TSH + free T4, serum 2023 024 [facility], [address] [place], [place] [address], [address], [place], [address], 08/21/2023 10:37:20 T3, free, serum or plasma 2023 024 [facility], [facility], [address], [place], [address], 08/21/2023 10:37:23 Mycobacte rium tuberculo sis stimulate d gamma interfero n, qual, blood 2023 024 [facility], [address] [place], [place] [address], [address], [place], [address], 08/22/2023 20:35:53 Referral None recorded. Procedures None recorded. Surgeries None recorded. Imaging None recorded. Medication Orders None recorded. Patient TargetsNo targets recorded. Patient Instructions Encounter Date Encounter Id Patient Instructions Last Modified By Organization Details Last Modified Time 01/21/2024 [id number] A healthy lifestyle: care instructions [email or web address] Not available 03/04/2024 14:32:09 Reason for Referral None Reported. Results Created Date Observation Date Name Description Value Unit Range Abnormal Flag Note LastModifiedBy Organization Detail LastModifiedTime 08/20/19 24 08/21/2023 TSH+F REE T4 TSH 0.692 uIU/m L 0.450- 4.500 Not Available [facility] ([facility]) [address] [facility] [place], [address], 08/21/2023 10:37:20 08/20/19 24 08/21/2023 TSH+F REE T4 T4,free(dire ct) 1.70 NG/dL 0.82-1 .77 Not Available [facility] ([facility]) [address] [facility] [place], [address], 08/21/2023 10:37:20 08/20/19 24 08/21/2023 LIPID PANEL cholesterol, total 164 mg/dL 100-19 9 Not Available [facility] ([facility]) [address] [facility] [place], [address], 08/21/2023 10:37:21 08/20/19 24 08/21/2023 LIPID PANEL triglyceride s 113 mg/dL 0-149 Not Available [facility] ([facility]) [address] [facility] [place], [address], 08/21/2023 10:37:21 08/20/19 24 08/21/2023 LIPID PANEL HDL cholesterol 42 mg/dL >39 Not Available [facility] ([facility]) [address] [place], [address], 08/21/2023 10:37:21 08/20/19 24 08/21/2023 LIPID PANEL VLDL cholesterol phil 21 mg/dL 5-40 Not Available [facility] ([facility]) [address] [place], [address], 08/21/2023 10:37:21 08/20/19 24 08/21/2023 LIPID PANEL LDL chol calc ([facility]) 101 mg/dL 0-99 above high normal Not Available [facility] ([facility]) [address] [place], [address], 08/21/2023 10:37:21 08/20/19 24 08/21/2023 COMP. METAB OLIC PANEL (14) glucose 87 mg/dL 70-99 Not Available [facility] ([facility]) [address] [place], [address], 08/21/2023 10:37:21 08/20/19 24 08/21/2023 COMP. METAB OLIC PANEL (14) BUN 24 mg/dL 8-27 Not Available [facility] ([facility]) [address] [facility], [place], [address], 08/21/2023 10:37:21 08/20/19 24 08/21/2023 COMP. METAB OLIC PANEL (14) creatinine 1.52 mg/dL 0.57-1 .00 above high normal Not Available [facility] ([facility]) [address] [place], [address], 08/21/2023 10:37:21 08/20/19 24 08/21/2023 COMP. METAB OLIC PANEL (14) eGFR 35 mL/mi n/1.7 3 >59 below low normal Not Available [facility] ([facility]) [address] [place], [address], 08/21/2023 10:37:21 08/20/19 24 08/21/2023 COMP. METAB OLIC PANEL (14) BUN/creatini ne ratio 16 12-28 Not Available [facility] ([facility]) [address] [place], [address], 08/21/2023 10:37:21 08/20/19 24 08/21/2023 COMP. METAB OLIC PANEL (14) sodium 143 mmol/ L 134-14 4 Not Available [facility] ([facility]) [address] [place], [address], 08/21/2023 10:37:21 08/20/19 24 08/21/2023 COMP. METAB OLIC PANEL (14) potassium 4.9 mmol/ L 3.5-5. 2 Not Available [facility] ([facility]) [address] [facility] [place], [address], 08/21/2023 10:37:21 08/20/19 24 08/21/2023 COMP. METAB OLIC PANEL (14) chloride 104 mmol/ L 96-106 Not Available [facility] ([facility]) [address] [facility] [place], [address], 08/21/2023 10:37:21 08/20/19 24 08/21/2023 COMP. METAB OLIC PANEL (14) carbon dioxide, total 25 mmol/ L 20-29 Not Available [facility] ([facility]) [address] [facility] [place], [address], 08/21/2023 10:37:21 08/20/19 24 08/21/2023 COMP. METAB OLIC PANEL (14) calcium 9.1 mg/dL 8.7-10 .3 Not Available [facility] ([facility]) [address] [facility] [place], [address], 08/21/2023 10:37:21 08/20/19 24 08/21/2023 COMP. METAB OLIC PANEL (14) protein, total 6.8 g/dL 6.0-8. 5 Not Available [facility] ([facility]) [address] [facility] [place], [address], 08/21/2023 10:37:21 08/20/19 24 08/21/2023 COMP. METAB OLIC PANEL (14) albumin 4.0 g/dL 3.8-4. 8 Not Available [facility] ([facility]) [address] [facility] [place], [address], 08/21/2023 10:37:21 08/20/19 24 08/21/2023 COMP. METAB OLIC PANEL (14) globulin, total 2.8 g/dL 1.5-4. 5 Not Available [facility] ([facility]) [address] [facility], [place], [address], 08/21/2023 10:37:21 08/20/19 24 08/21/2023 COMP. METAB OLIC PANEL (14) A/G ratio 1.4 Not Available [facility] ([facility]) [address] [facility], [place], [address], 08/21/2023 10:37:21 08/20/19 24 08/21/2023 COMP. METAB OLIC PANEL (14) bilirubin, total 0.5 mg/dL 0.0-1. 2 Not Available [facility] ([facility]) [address] [facility] [place], [address], 08/21/2023 10:37:21 08/20/19 24 08/21/2023 COMP. METAB OLIC PANEL (14) alkaline phosphatase 97 IU/L 44-121 Not Available [facility] ([facility]) [address] [facility], [place], [address], 08/21/2023 10:37:21 08/20/19 24 08/21/2023 COMP. METAB OLIC PANEL (14) AST (SGOT) 22 IU/L 0-40 Not Available [facility] ([facility]) [address] [place], [address], 08/21/2023 10:37:21 08/20/19 24 08/21/2023 COMP. METAB OLIC PANEL (14) ALT (SGPT) 26 IU/L 0-32 Not Available [facility] ([facility]) [address] [place], [address], 08/21/2023 10:37:21 08/20/19 24 08/21/2023 CBC WITH DIFFE RENTI AL/PL ATELE T WBC 4.3 x10e3 /uL 3.4-10 .8 Not Available [facility] ([facility]) [address] [facility], [place], [address], 08/21/2023 10:37:22 08/20/19 24 08/21/2023 CBC WITH DIFFE RENTI AL/PL ATELE T RBC 5.19 x10e6 /uL 3.77-5 .28 Not Available [facility] ([facility]) [address] [facility], [place], [address], 08/21/2023 10:37:22 08/20/19 24 08/21/2023 CBC WITH DIFFE RENTI AL/PL ATELE T hemoglobin 14.7 g/dL 11.1-1 5.9 Not Available [facility] ([facility]) [address] [facility], [place], [address], 08/21/2023 10:37:22 08/20/19 24 08/21/2023 CBC WITH DIFFE RENTI AL/PL ATELE T hematocrit 45.4 % 34.0-4 6.6 Not Available [facility] ([facility]) [address] [facility], [place], [address], 08/21/2023 10:37:22 08/20/19 24 08/21/2023 CBC WITH DIFFE RENTI AL/PL ATELE T MCV 88 fL 79-97 Not Available [facility] ([facility]) [address] [place], [address], 08/21/2023 10:37:22 08/20/19 24 08/21/2023 CBC WITH DIFFE RENTI AL/PL ATELE T MCH 28.3 pg 26.6-3 3.0 Not Available [facility] ([facility]) [address] [place], [address], 08/21/2023 10:37:22 08/20/19 24 08/21/2023 CBC WITH DIFFE RENTI AL/PL ATELE T MCHC 32.4 g/dL 31.5-3 5.7 Not Available [facility] ([facility]) [address] [facility], [place], [address], 08/21/2023 10:37:22 08/20/19 24 08/21/2023 CBC WITH DIFFE RENTI AL/PL ATELE T RDW 14.6 % 11.7-1 5.4 Not Available [facility] ([facility]) [address] [facility], [place], [address], 08/21/2023 10:37:22 08/20/19 24 08/21/2023 CBC WITH DIFFE RENTI AL/PL ATELE T platelets 189 x10e3 /uL 150-45 0 Not Available [facility] ([facility]) [address] [facility], [place], [address], 08/21/2023 10:37:22 08/20/19 24 08/21/2023 CBC WITH DIFFE RENTI AL/PL ATELE T neutrophils 66 % notest ab. Not Available [facility] ([facility]) [address] [facility], [place], [address], 08/21/2023 10:37:22 08/20/19 24 08/21/2023 CBC WITH DIFFE RENTI AL/PL ATELE T lymphs 20 % notest ab. Not Available [facility] ([facility]) [address] [facility], [place], [address], 08/21/2023 10:37:22 08/20/19 24 08/21/2023 CBC WITH DIFFE RENTI AL/PL ATELE T monocytes 9 % notest ab. Not Available [facility] ([facility]) [address] [facility], [place], [address], 08/21/2023 10:37:22 08/20/19 24 08/21/2023 CBC WITH DIFFE RENTI AL/PL ATELE T eos 3 % notest ab. Not Available [facility] ([facility]) [address] [facility], [place], [address], 08/21/2023 10:37:22 08/20/19 24 08/21/2023 CBC WITH DIFFE RENTI AL/PL ATELE T basos 1 % notest ab. Not Available [facility] ([facility]) [address] [facility], [place], [address], 08/21/2023 10:37:22 08/20/19 24 08/21/2023 CBC WITH DIFFE RENTI AL/PL ATELE T neutrophils (absolute) 2.9 x10e3 /uL 1.4-7. 0 Not Available [facility] ([facility]) [address] [facility], [place], [address], 08/21/2023 10:37:22 08/20/19 24 08/21/2023 CBC WITH DIFFE RENTI AL/PL ATELE T lymphs (absolute) 0.8 x10e3 /uL 0.7-3. 1 Not Available [facility] ([facility]) [address] [place], [address], 08/21/2023 10:37:22 08/20/19 24 08/21/2023 CBC WITH DIFFE RENTI AL/PL ATELE T monocytes(ab solute) 0.4 x10e3 /uL 0.1-0. 9 Not Available [facility] ([facility]) [address] [place], [address], 08/21/2023 10:37:22 08/20/19 24 08/21/2023 CBC WITH DIFFE RENTI AL/PL ATELE T eos (absolute) 0.1 x10e3 /uL 0.0-0. 4 Not Available [facility] ([facility]) [address] [place], [address], 08/21/2023 10:37:22 08/20/19 24 08/21/2023 CBC WITH DIFFE RENTI AL/PL ATELE T baso (absolute) 0.0 x10e3 /uL 0.0-0. 2 Not Available [facility] ([facility]) [address] [facility], [place], [address], 08/21/2023 10:37:22 08/20/19 24 08/21/2023 CBC WITH DIFFE RENTI AL/PL ATELE T immature granulocytes 1 % notest ab. Not Available [facility] ([facility]) [address] [facility], [place], [address], 08/21/2023 10:37:22 08/20/19 24 08/21/2023 CBC WITH DIFFE RENTI AL/PL ATELE T immature grans (abs) 0.0 x10e3 /uL 0.0-0. 1 Not Available [facility] ([facility]) [address] [facility], [place], [address], 08/21/2023 10:37:22 08/20/19 24 08/21/2023 TRIIO DOTHY KEO E (T3), FREE triiodothyro nine (T3), free 2.2 pg/mL 2.0-4. 4 Not Available [facility] ([facility]) [address] [facility], [place], [address], 08/21/2023 10:37:23 08/20/19 24 08/21/2023 QUANT IFERO N-TB GOLD PLUS quantiferon incubation INCUBA TION PERFOR MED. Not Available [facility] ([facility]) [address] [place], [address], 08/22/2023 20:35:53 08/20/19 24 08/21/2023 QUANT IFERO [...] ol for the test. Not Available [facility] ([facility]) [address] [facility], [place], [address], 08/22/2023 20:35:53 08/20/19 24 08/22/2023 QUANT IFERO [...] y metho dolog y Not Available [facility] ([facility]) [address] [facility], [place], [address], 08/22/2023 20:35:53 08/20/19 24 08/22/2023 QUANT IFERO N-TB GOLD PLUS quantiferon TB1 Ag value 0.05 IU/mL Not Available [facility] ([facility]) [address] [place], [address], 08/22/2023 20:35:53 08/20/19 24 08/22/2023 QUANT IFERO N-TB GOLD PLUS quantiferon TB2 Ag value 0.06 IU/mL Not Available [facility] ([facility]) [address] [place], [address], 08/22/2023 20:35:53 08/20/19 24 08/22/2023 QUANT IFERO N-TB GOLD PLUS quantiferon nil value 0.05 IU/mL Not Available [facility] ([facility]) [address] [place], [address], 08/22/2023 20:35:53 08/20/19 24 08/22/2023 QUANT IFERO N-TB GOLD PLUS quantiferon mitogen value 1.46 IU/mL Not Available [facility] ([facility]) [address] [place], [address], 08/22/2023 20:35:53 08/28/19 24 08/29/2023 UA WITH CULTU RE REFLE X specific gravity 1.026 1.005- 1.030 Not Available [facility] ([facility]) [address] [facility], [place], [address], 08/29/2023 12:36:45 08/28/19 24 08/29/2023 UA WITH CULTU RE REFLE X pH 5.5 5.0-7. 5 Not Available [facility] ([facility]) [address] [facility], [place], [address], 08/29/2023 12:36:45 08/28/19 24 08/29/2023 UA WITH CULTU RE REFLE X urine-color YELLOW yellow Not Available [facility] ([facility]) [address] [place], [address], 08/29/2023 12:36:45 08/28/19 24 08/29/2023 UA WITH CULTU RE REFLE X appearance CLEAR clear Not Available [facility] ([facility]) [address] [place], [address], 08/29/2023 12:36:45 08/28/19 24 08/29/2023 UA WITH CULTU RE REFLE X WBC esterase NEGATI VE negati ve Not Available [facility] ([facility]) [address] [place], [address], 08/29/2023 12:36:45 08/28/19 24 08/29/2023 UA WITH CULTU RE REFLE X protein TRACE negati ve/tra ce Not Available [facility] ([facility]) [address] [place], [address], 08/29/2023 12:36:45 08/28/19 24 08/29/2023 UA WITH CULTU RE REFLE X glucose NEGATI VE negati ve Not Available [facility] ([facility]) [address] [place], [address], 08/29/2023 12:36:45 08/28/19 24 08/29/2023 UA WITH CULTU RE REFLE X ketones TRACE negati ve abnormal Not Available [facility] ([facility]) [address] [place], [address], 08/29/2023 12:36:45 08/28/19 24 08/29/2023 UA WITH CULTU RE REFLE X occult blood NEGATI VE negati ve Not Available [facility] ([facility]) [address] [place], [address], 08/29/2023 12:36:45 08/28/19 24 08/29/2023 UA WITH CULTU RE REFLE X bilirubin NEGATI VE negati ve Not Available [facility] ([facility]) [address] [place], [address], 08/29/2023 12:36:45 08/28/19 24 08/29/2023 UA WITH CULTU RE REFLE X urobilinogen ,semi-qn 0.2 mg/dL 0.2-1. 0 Not Available [facility] ([facility]) [address] [place], [address], 08/29/2023 12:36:45 08/28/19 24 08/29/2023 UA WITH CULTU RE REFLE X nitrite, urine NEGATI VE negati ve Not Available [facility] ([facility]) [address] [place], [address], 08/29/2023 12:36:45 08/28/19 24 08/29/2023 UA WITH CULTU RE REFLE X microscopic examination COMMEN T Micro scopi c not indic ated and not perfo rmed. Not Available [facility] ([facility]) [address] [facility] [place], [address], 08/29/2023 12:36:45 08/28/19 24 08/29/2023 UA WITH CULTU RE REFLE X urinalysis reflex COMMEN T This speci men will not refle x to a Urine Cultu re. Not Available [facility] ([facility]) [address] [facility] [place], [address], 08/29/2023 12:36:45 04/13/19 25 04/14/2024 RENAL PANEL (10) glucose 55 mg/dL 70-99 below low normal Not Available [facility] ([facility]) [address] [place], [address], 04/14/2024 13:07:11 04/13/19 25 04/14/2024 RENAL PANEL (10) BUN 30 mg/dL 8-27 above high normal Not Available [facility] ([facility]) [address] [place], [address], 04/14/2024 13:07:11 04/13/19 25 04/14/2024 RENAL PANEL (10) creatinine 1.18 mg/dL 0.57-1 .00 above high normal Not Available [facility] ([facility]) [address] [place], [address], 04/14/2024 13:07:11 04/13/19 25 04/14/2024 RENAL PANEL (10) eGFR 47 mL/mi n/1.7 3 >59 below low normal Not Available [facility] ([facility]) [address] [place], [address], 04/14/2024 13:07:11 04/13/19 25 04/14/2024 RENAL PANEL (10) BUN/creatini ne ratio 25 12-28 Not Available [facility] ([facility]) [address] [place], [address], 04/14/2024 13:07:11 04/13/19 25 04/14/2024 RENAL PANEL (10) sodium 138 mmol/ L 134-14 4 Not Available [facility] ([facility]) [address] [place], [address], 04/14/2024 13:07:11 04/13/19 25 04/14/2024 RENAL PANEL (10) potassium 4.9 mmol/ L 3.5-5. 2 Not Available [facility] ([facility]) [address] [facility] [place], [address], 04/14/2024 13:07:11 04/13/19 25 04/14/2024 RENAL PANEL (10) chloride 99 mmol/ L 96-106 Not Available [facility] ([facility]) [address] [facility] [place], [address], 04/14/2024 13:07:11 04/13/19 25 04/14/2024 RENAL PANEL (10) carbon dioxide, total 30 mmol/ L 20-29 above high normal Not Available [facility] ([facility]) [address] [facility] [place], [address], 04/14/2024 13:07:11 04/13/19 25 04/14/2024 RENAL PANEL (10) calcium 9.6 mg/dL 8.7-10 .3 Not Available [facility] ([facility]) [address] [facility] [place], [address], 04/14/2024 13:07:11 04/13/19 25 04/14/2024 RENAL PANEL (10) phosphorus 3.7 mg/dL 3.0-4. 3 Not Available [facility] ([facility]) [address] [facility] [place], [address], 04/14/2024 13:07:11 04/13/19 25 04/14/2024 RENAL PANEL (10) albumin 4.1 g/dL 3.8-4. 8 Not Available [facility] ([facility]) [address] [facility], [place], [address], 04/14/2024 13:07:11 04/13/19 25 04/14/2024 PROT+ CREAT U (RAND OM) creatinine, urine 91.8 mg/dL notest ab. Not Available [facility] ([facility]) [address] [facility], [place], [address], 04/14/2024 13:07:12 04/13/19 25 04/14/2024 PROT+ CREAT U (RAND OM) protein,tota l,urine 12.8 mg/dL notest ab. Not Available [facility] ([facility]) [address] [facility], [place], [address], 04/14/2024 13:07:12 04/13/19 25 04/14/2024 PROT+ CREAT U (RAND OM) protein/crea t ratio 139 mg/g_ creat 0-200 Not Available [facility] ([facility]) [address] [facility], [place], [address], 04/14/2024 13:07:12 04/13/19 25 04/13/2024 CBC WITH DIFFE RENTI AL/PL ATELE T WBC 4.9 x10e3 /uL 3.4-10 .8 Not Available [facility] ([facility]) [address] [facility], [place], [address], 04/14/2024 13:07:12 04/13/19 25 04/13/2024 CBC WITH DIFFE RENTI AL/PL ATELE T RBC 5.14 x10e6 /uL 3.77-5 .28 Not Available [facility] ([facility]) [address] [facility], [place], [address], 04/14/2024 13:07:12 04/13/19 25 04/13/2024 CBC WITH DIFFE RENTI AL/PL ATELE T hemoglobin 14.3 g/dL 11.1-1 5.9 Not Available [facility] ([facility]) [address] [place], [address], 04/14/2024 13:07:12 04/13/19 25 04/13/2024 CBC WITH DIFFE RENTI AL/PL ATELE T hematocrit 46.2 % 34.0-4 6.6 Not Available [facility] ([facility]) [address] [facility], [place], [address], 04/14/2024 13:07:12 04/13/19 25 04/13/2024 CBC WITH DIFFE RENTI AL/PL ATELE T MCV 90 fL 79-97 Not Available [facility] ([facility]) [address] [facility] [place], [address], 04/14/2024 13:07:12 04/13/19 25 04/13/2024 CBC WITH DIFFE RENTI AL/PL ATELE T MCH 27.8 pg 26.6-3 3.0 Not Available [facility] ([facility]) [address] [place], [address], 04/14/2024 13:07:12 04/13/19 25 04/13/2024 CBC WITH DIFFE RENTI AL/PL ATELE T MCHC 31.0 g/dL 31.5-3 5.7 below low normal Not Available [facility] ([facility]) [address] [place], [address], 04/14/2024 13:07:12 04/13/19 25 04/13/2024 CBC WITH DIFFE RENTI AL/PL ATELE T RDW 14.1 % 11.7-1 5.4 Not Available [facility] ([facility]) [address] [place], [address], 04/14/2024 13:07:12 04/13/19 25 04/13/2024 CBC WITH DIFFE RENTI AL/PL ATELE T platelets 230 x10e3 /uL 150-45 0 Not Available [facility] ([facility]) [address] [facility] [place], [address], 04/14/2024 13:07:12 04/13/19 25 04/13/2024 CBC WITH DIFFE RENTI AL/PL ATELE T neutrophils 74 % notest ab. Not Available [facility] ([facility]) [address] [facility] [place], [address], 04/14/2024 13:07:12 04/13/19 25 04/13/2024 CBC WITH DIFFE RENTI AL/PL ATELE T lymphs 15 % notest ab. Not Available [facility] ([facility]) [address] [facility] [place], [address], 04/14/2024 13:07:12 04/13/19 25 04/13/2024 CBC WITH DIFFE RENTI AL/PL ATELE T monocytes 9 % notest ab. Not Available [facility] ([facility]) [address] [facility] [place], [address], 04/14/2024 13:07:12 04/13/19 25 04/13/2024 CBC WITH DIFFE RENTI AL/PL ATELE T eos 1 % notest ab. Not Available [facility] ([facility]) [address] [facility] [place], [address], 04/14/2024 13:07:12 04/13/19 25 04/13/2024 CBC WITH DIFFE RENTI AL/PL ATELE T basos 1 % notest ab. Not Available [facility] ([facility]) [address] [facility], [place], [address], 04/14/2024 13:07:12 04/13/19 25 04/13/2024 CBC WITH DIFFE RENTI AL/PL ATELE T neutrophils (absolute) 3.6 x10e3 /uL 1.4-7. 0 Not Available [facility] ([facility]) [address] [facility], [place], [address], 04/14/2024 13:07:12 04/13/19 25 04/13/2024 CBC WITH DIFFE RENTI AL/PL ATELE T lymphs (absolute) 0.7 x10e3 /uL 0.7-3. 1 Not Available [facility] [facility]) [address] [facility], [place], [address], 04/14/2024 13:07:12 04/13/19 25 04/13/2024 CBC WITH DIFFE RENTI AL/PL ATELE T monocytes(ab solute) 0.4 x10e3 /uL 0.1-0. 9 Not Available [facility] ([facility]) [address] [facility], [place], [address], 04/14/2024 13:07:12 04/13/19 25 04/13/2024 CBC WITH DIFFE RENTI AL/PL ATELE T eos (absolute) 0.1 x10e3 /uL 0.0-0. 4 Not Available [facility] ([facility]) [address] [facility], [place], [address], 04/14/2024 13:07:12 04/13/19 25 04/13/2024 CBC WITH DIFFE RENTI AL/PL ATELE T baso (absolute) 0.0 x10e3 /uL 0.0-0. 2 Not Available [facility] ([facility]) [address] [facility], [place], [address], 04/14/2024 13:07:12 04/13/19 25 04/13/2024 CBC WITH DIFFE RENTI AL/PL ATELE T immature granulocytes 0 % notest ab. Not Available [facility] ([facility]) [address] [facility], [place], [address], 04/14/2024 13:07:12 04/13/19 25 04/13/2024 CBC WITH DIFFE RENTI AL/PL ATELE T immature grans (abs) 0.0 x10e3 /uL 0.0-0. 1 Not Available [facility] ([facility]) [address] [facility], [place], [address], 04/14/2024 13:07:12 04/13/19 25 04/14/2024 PTH, INTAC T PTH, intact 24 pg/mL 15-65 Not Available [facility] ([facility]) [address] [facility], [place], [address], 04/14/2024 13:07:13 06/05/19 25 06/04/2024 Drugs ident [...] Available 06/05/2024 00:18:13 06/05/19 25 06/04/2024 Compr [employer] deana metab olic 1999 panel - Serum [...] Available 06/05/2024 00:18:13 06/05/19 25 06/04/2024 Compr [employer] deana Clupedia olic 1999 panel - Serum or Plasm a anion gap in serum or plasma by calculation 13.3 mmol/ L low: 14mmol /Lhigh : 22mmol /L low Not Available Not Available 06/05/2024 00:18:13 06/05/19 25 06/04/2024 Compr ens deana Clupedia ic 1999 panel - Serum or Plasm a glucose [mass/volume ] in serum or plasma 104 mg/dL low: 70mg/d Lhigh: 99mg/d L high Not Available Not Available 06/05/2024 00:18:13 06/05/19 25 06/04/2024 Compr [employer] deana Cl[employer] ic 1999 panel - Serum or Plasm a urea nitrogen [mass or moles/volume ] in serum or plasma 33 mg/dL low: 8mg/dL high: 19mg/d L high Not Available Not Available 06/05/2024 00:18:13 06/05/19 25 06/04/2024 Compr [employer] deana Clupedia [facility] 1999 panel - Serum or Plasm a creatinine [mass/volume ] in serum or plasma 1.28 mg/dL low: 0.66mg /dLhig h: 1.25mg /dL high Not Available Not Available 06/05/2024 00:18:13 06/05/19 25 06/04/2024 [facility] [employer] [facility] 1999 panel - Serum or Plasm a glomerular filtration rate [volume rate/area] in serum, plasma or blood by based on 1.73 sq M 40 1 normal Not Available Not Available 00:18:13 06/05/19 25 06/04/2024 [facility] [employer] 1999 panel - Serum or Plasm a alkaline phosphatase [enzymatic activity/vol ume] in serum or plasma 96 U/L low: 38U/Lh igh: 126U/L normal Not Available Not Available 06/05/2024 00:18:13 06/05/19 25 06/04/2024 [facility] [employer] deana [employer] [facility] 1999 panel - Serum or Plasm a alanine aminotransfe rase [enzymatic activity/vol ume] in serum or plasma 42 U/L low: 0U/Lhi gh: 35U/L high Not Available Not Available 06/05/2024 00:18:13 06/05/19 25 06/04/2024 [facility] [employer] deana [employer] 2000 panel - Serum or Plasm a aspartate aminotransfe rase [enzymatic activity/vol ume] in serum or plasma 48 U/L low: 15U/Lh igh: 37U/L high Not Available Not Available 06/05/2024 00:18:13 06/05/19 25 06/04/2024 [facility] [employer] 1999 panel - Serum or Plasm a bilirubin.to rosalva [mass/volume ] in serum or plasma 0.7 mg/dL low: 0.2mg/ dLhigh : 1.3mg/ dL normal Not Available Not Available 06/05/2024 00:18:13 06/05/19 25 06/04/2024 [facility] [employer] deana [employer] [facility] [employer] panel - Serum or Plasm a calcium [mass/volume ] in serum or plasma 9.9 mg/dL low: 8.4mg/ dLhigh : 10.2mg /dL normal Not Available Not Available 06/05/2024 00:18:13 06/05/19 25 06/04/2024 Compr [employer] deana [employer] olic 1999 panel - Serum or Plasm a protein [mass/volume ] in serum or plasma 7.7 g/dL low: 6.3g/d Lhigh: 8.2g/d L normal Not Available Not Available 06/05/2024 00:18:13 06/05/19 25 06/04/2024 Compr [employer] deana [employer] olic 1999 panel - Serum or Plasm a albumin [mass/volume ] in serum or plasma 4.7 g/dL low: 3g/dLh igh: 4.4g/d L high Not Available Not Available 06/05/2024 00:18:13 06/05/19 25 06/04/2024 Compr [employer] deana [employer] olic 1999 panel - Serum or Plasm a globulin [mass/volume ] in serum 3 g/dL low: 2.6g/d Lhigh: 4.2g/d L normal Not Available Not Available 06/05/2024 00:18:13 06/05/19 25 06/04/2024 [facility] [employer] deana [employer] olic 1999 panel - Serum or Plasm [...] ardio gram No observ ation record ed. [facility] [address], [place], [address], 09/23/2023 12:42:33 08/03/20 24 10/10/2023 US, kidne y No observ ation record ed. [facility] [address], [place], [address], 10/12/2023 12:48:46 12/22/19 24 12/22/2023 XR, forea rm No observ ation record ed. [address] [place], [address], 12/23/2023 11:35:48 12/22/19 24 12/22/2023 XR, humer us No observ ation record ed. [address] [place], [address], 12/23/2023 11:36:02 01/21/20 24 01/19/2024 US, kidne y No observ ation record ed. [facility] [address], [place], [address], 01/25/2024 11:01:38 06/05/19 25 06/04/2024 XR, chest No observ ation record ed. [facility] [address] [place], [address], 06/06/2024 10:55:44 06/05/19 25 06/04/2024 CT, head, w/o contr ast No observ ation record ed. [facility] [address] [place], [address], 06/06/2024 10:55:22 Result Notes None recorded. Problems Name Problem SNOMED Code Status Onset Date Resolution Date Notes Provider Name and Address Organization Details Recorded Time Night sweats 56216555 Active 2023 CHATO Betts [facility] 4 11:55:44 Weight loss 65433391 Active 2023 CHATO Betts, [place] [facility] 4 11:55:45 Spinal stenosis of lumbar region 97761386 Active 2023 Chen Gavin MD Attn: Tatyana eller,[address], [place], [address], [place] [facility] 4 16:27:33 Atrial fibrillation 99743275 Active 2023 Chen Gavin MD Attn: Tatyana eller,[address], [place], [address], [place] [facility] 4 16:27:36 Gout 99924076 Active 2023 Chen Gavin MD Attn: Tatyana eller,[address], [place], [address], [place] [facility] 4 16:27:37 Essential hypertension 64420089 Active 2023 Chen Gavin MD Attn: Tatyana eller,[address], [place], [address], [place] [facility] 4 16:27:39 Hyperlipidemia 85476482 Active 2023 Chen Gavin MD Attn: Tatyana eller,[address], [place], [address], [place] [facility] 4 16:27:41 Problem Notes None recorded. Procedures Surgical History None recorded. Imaging Results Imaging Date Name Status LastModified by Organization Details LastModified Time 09/09/2023 US, echocardiogram completed [facility] [address], [place], [address], 09/23/2023 12:42:33 10/10/2023 US, kidney completed [facility] [address], [place], [address], 10/12/2023 12:48:46 12/22/2023 XR, forearm completed [email or web address] [place], [address], 12/23/2023 11:35:48 12/22/2023 XR, humerus completed [id number] [place], [address], 12/23/2023 11:36:02 01/19/2024 US, kidney completed [facility] [address], [place], [address], 01/25/2024 11:01:38 06/04/2024 XR, chest completed [facility] [address] [place], [address], 06/06/2024 10:55:44 06/04/2024 CT, head, w/o contrast completed [facility] [address] [place], [address], 06/06/2024 10:55:22 Procedure Notes None recorded. Medical Equipment None Reported. Allergies Allergen ID Allergen Name Allergen Category Reaction Reaction Severity Criticality Documentation Date Start Date Code Code System Note Provider Name and Address Organization Details Recorded Time 845234 Product containin g penicilli n (product) medicatio n rash moderate high 07/22/2023 44841 8001 SNOMED Not Available Not Available Not Available 072746 Substance with sulfonami de structure and antibacte rial mechanism of action (substanc e) medicatio n nausea moderate high 07/22/2023 06234 8003 SNOMED Not Available Not Available Not [...] Updated DateTime 4 167.64 cm 23.1 kg/m2 40222.7 1 g 49 /min 97 % 97 % 146 mm[Hg] 82 mm[Hg] Selina Carson MA [facility] 4 10:59:20 Date Recorded Body height Body mass index (BMI) Body weight Heart rate Oxygen saturation Oxygen saturation in Arterial blood by Pulse oximetry Systolic blood pressure Diastolic blood pressure Provider Name and Address Organization Details Last Updated DateTime 4 167.64 cm 23.2 kg/m2 39722.3 g 51 /min 96 % 96 % 128 mm[Hg] 58 mm[Hg] Matheus Mckeon MA [facility] 4 12:15:09 Date Recorded Body height Body mass index (BMI) Body weight Heart rate Oxygen saturation Oxygen saturation in Arterial blood by Pulse oximetry Systolic blood pressure Diastolic blood pressure Provider Name and Address Organization Details Last Updated DateTime 4 167.64 cm 22.9 kg/m2 97887.4 8 g 72 /min 94 % 94 % 110 mm[Hg] 60 mm[Hg] Holly Lyn MA [facility] 4 11:58:43 Date Recorded Body height Body mass index (BMI) Body weight Heart rate Oxygen saturation Oxygen saturation in Arterial blood by Pulse oximetry Systolic blood pressure Diastolic blood pressure Provider Name and Address Organization Details Last Updated DateTime 5 167.64 cm 23.1 kg/m2 54912.4 3 g 74 /min 96 % 96 % 128 mm[Hg] 78 mm[Hg] Farrah Medrano MA [facility] 5 14:42:56 Social History Question Answer Notes LastModified by Organizat ion Details LastModified Time Tobacco Smoking Status Never Smoker Selina Carson MA null, [facility] 08/20/2023 10:57:21 Do You Have An Advance [...] Anxious, Or Unable To Sleep At Night)? [id number] Information not available 2023 Do You Use [...] influenza, unspecified formulation 2 completed CHATO [place] [facility] 09/16/2023 17:12:35 zoster live 5 completed [place] [facility] 09/16/2023 17:12:35 zoster live 5 completed [place] [facility] 09/16/2023 17:12:35 Influenza, high-dose, trivalent, PF 3 completed [place] [facility] 09/16/2023 17:12:35 Influenza, high-dose, trivalent, PF 7 completed [place] [facility] 09/16/2023 17:12:35 Influenza, split virus, trivalent, preservative 4 completed [place] [facility] 09/16/2023 17:12:35 Influenza, split virus, quadrivalent, PF 5 completed [place] [facility] 09/16/2023 17:12:35 Influenza, high-dose, trivalent, PF 4 completed Chen Gavin MD Attn: Accounting,[address] [place], [address], [facility] 03/04/2024 14:29:33 Pneumococcal conjugate PCV20, polysaccharide [id number] conjugate, adjuvant, PF 5 completed CHATO [place] [facility] 04/01/2024 11:03:49 Past Encounters Encounter ID Performer Location Encounter Start Date Encounter Closed Date Diagnosis/Indication Diagnosis SNOMED-CT Code Diagnosis ICD10 Code Diagnosis Note [id number] Chen Gavin MD [facility] [address] [place] [address] 08/20/2023 10:48:43 08/20/2023 11:50:10 Night sweats 67556982 R61 Weight loss 55483664 R63 .4 Screening for cardiovascular system disease 852664706 Z13.6 Hyperlipidemia 38040631 E78.5 Essential hypertension 62499039 I10 Atrial fibrillation 4943 6004 I48.91 Gout 25729698 M10.9 Spinal linda nosis of lumbar region 86740158 M48.061 Anxiety 44260393 F41.9 [id number] Chen Gavin MD [facility] [place] [address] [place] [address] 2023 11:49:54 2023 12:59:01 Essential hypertension 86973178 I10 Gout 36219531 M10.9 Hyperlipidemia 37524340 E78.5 Night sweats 70574650 R6 1 [id number] Chen Gavin MD [facility] [place] [address] [place] [address] 01/21/2024 11:44:06 01/21/2024 12:46:14 Body mass index 20-24 - normal 363990468 Z68.22 Administra tion of influenza vaccine 03283408 Z23 Essential hypertension 81519698 I10 Hyperlipidemia 78733774 E78.5 Atrial fibrillation 4943 6004 I48.91 [id number] CHATO Juarez (Adult Med) [address] [place] [address] 04/01/2024 10:40:06 04/01/2024 11:13:10 Administration of pneumococcal vaccine 11337057 Z23 [id number] MD Jd Patten (Adult Med) [address] [place] [address] 04/22/2024 14:00:37 04/22/2024 15:04:28 Body mass index 20-24 - normal 595248905 Z68.22 Essential hypertension 49537529 I10 Atrial fibrillation 4943 6004 I48.91 Gout 47074860 M10.9 Hyperlipidemia 00048906 E78.5 Health Concerns Section Related Observation LastModified by Organization Detai ls LastModified Time None Recorded Concern Status LastModified by Organization Details LastModified Time None Recorded Advance Directives Directive N: Patient states her cailin Castano Payers Encounter Date Sequence Insurance Name Policy Number Policy Velazquez Covered Member ID Velazquez Member ID Guarantor Name 08/20/2023 1 [place] Mary Valera [id number] Mary Valera 08/20/2023 2 [employer] [place] (MEDICARE SUPPLEMENT) aMry Valera [id number] Mary Valera 2023 2 [employer] [place] (MEDICARE [place]PPLEMENT) Mary Valera [id number] Mary Valera 2023 [place] - [place] Mary Valera [id number] Mary Valera 01/21/2024 1 [place] Mary Valera [id number] Mary Valera 01/21/2024 2 [employer] [place] (MEDICARE [place]PPLE[place]) Mary Valera [id number] Mary Valera 04/01/2024 1 [place] Valera [id number] Mary Valera 04/01/2024 2 [employer] [place] (MEDICARE [place]PPLE[place]) Mary Valera [id number] Mary Valera 04/22/2024 1 [place] Mary Valera [id number] Mary Valera 04/22/2024 2 [employer] [place] (MEDICARE SUPPLEMENT) Mary Valera [id number] Mary Valera Notes Date Note Type Note [...] 2. Chen Gavin MD Attn: Accounting[address] [place], [address], [facility] 08/22/2023 16:27:55 2023 text/html follow up of med ical problems night sweats have completely gone away gout no flare-ups hyperlipidemia trying to follow a low-fat diet hypertension no headache no dizziness lumbar spinal stenosis no back pain at this time atrial fibrillation no palpitations or stroke-like symptoms no shortness of breath dizziness or fatigue Chen Gavin MD Attn: Accounting, [address] [facility], [place], [address], [facility] 09/27/2023 20:28:18 01/21/2024 text/html hypertension no headache or dizziness blood pressure controlled. Atrial fibrillation no palpitations syncope or stroke-like symptoms. Dyslipidemia does try to follow a low-fat diet. Her night sweats have gone away Chen Gavin MD Attn: Accounting, [address] [facility], [place], [address], [facility] 03/04/2024 14:32:12 04/22/2024 text/html gout no flare-up s AFib no palpitations dyslipidemia taking her medication and there has not been any problems there hypertension has been controlled she has had a little bit of scratchy throat for the last 24 hours but he is getting a little bit better Chen Gavin MD Attn: Accounting, [address] [facility], [place], [address], [facility] 04/23/2024 13:53:31 OBGyn Episode No OBEpisode recorded.
--- OUTSIDE RECORDS SUMMARY | 2024-06-16 12:30 | XMS_ITS | Continuity of Care Document ---
Author Organization [facility] Address [address] [address] [place] [address] Phone Care Team Providers Care Flying Shear Operator Name Role Phone Mantilla OD, Duane Unavailable Unavailable Advance Directives Directive Yes / No Effective Date File Name No Information Encounters Encounter Description Practice Location Reason(s) For Visit Diagnoses Date Provider Providers Copied on Encounter [facility], [address], [place], [place], [address], [place] tel:[phone] [facility] [place] No Information 0-200 1 Mantilla OD Du[place]. [address] [place] , [address], [place], [address], [place]. tel:[phone] Family History Family Member Type Diagnosis Age At Onset No Information Payers Payer name Insurance type Covered democrat ID Authoriza tion(s) No Information Social History [...]
--- OUTSIDE RECORDS SUMMARY | 2024-06-16 12:30 | XMS_ITS | Referral Summary ---
Author Organization [facility] Address [address] [place] [address] Care Team Providers Care It Security Specialist Name Role Phone Fred Gavin MD Primary Care Provider [phone] Allergies Active Allergy Reactions Criticality Noted Date [...] on file Legal Sex Female 7:15 PM TROLLEY OPERATOR Gender Identity Not on file Sexual Orientation Not on file Last Filed Vital Signs Vital Sign Reading Time Taken Comments Blood Pressure 138/71 05/13/2023 7:56 AM TROLLEY OPERATOR Pulse 72 05/13/2023 7:56 AM TROLLEY OPERATOR Temperature 36.9 C (98.4 F) 05/13/2023 7:56 AM TROLLEY OPERATOR Respiratory Rate 16 05/13/2023 7:56 AM TROLLEY OPERATOR Oxygen Saturation 97% 05/13/2023 7:56 AM TROLLEY OPERATOR Inhaled Oxygen Concentration - - Weight 64.6 kg (142 lb 8 oz) 05/12/2023 10:32 AM TROLLEY OPERATOR Height 165.1 cm (5' 5 ) 05/12/2023 10:32 AM TROLLEY OPERATOR Body Mass Index 23.71 05/12/2023 10:32 AM TROLLEY OPERATOR Plan of Treatment Not on file Insurance MEDICARE [place] MEDICARE [place] MEDICARE [facility] [facility] Advance Directives For more information, please contact: [phone] * Full Code (Latest Code Status on File) Date Activated Date Inactivated Comments 05/05/2019 1:17 PM 05/05/2019 6:23 PM Care Teams It Security Specialist Relationship Specialty Start Date End Date Fred Gavin MD PCP - General Internal Medicine 03/25/22
--- OUTSIDE RECORDS SUMMARY | 2024-06-16 12:30 | XMS_ITS | Encounter Summary ---
Author Organization [facility] Address [address] [place] [address] Care Team Providers Care Steel Sampler Name Role Phone Omi Prieto MD Primary Care Provider [phone] Encounter Details Date Type Department Care Team (Late st Contact Info) Description 09/24/2022 Lab Requisition [facility] [address] [facility] [facility] [address] [place] [place] [address] Ellie Guzman DO [address] [facility] [address] [place] [address] Social History Tobacco Use Types Packs/Day Years [...] PM CDT) Case Report Dermatopathology Report Case: [id number] Authorizing Provider: Ellie Guzman DO Collected: 09/24/2022 01:19 PM Ordering Location: [facility] Received: 09/26/2022 07:30 AM Pathologist: Nicol Pereira MD Specimens: A) - Skin, left base of neck B) - Skin, mid back 4:21 PM CDT DERMATOPATHOLOGY LABORATORY Final Diagnosis Specimen A. SKIN, left base of neck: LICHEN PLANUS-LIKE KERATOSIS (BENIGN LICHENOID KERATOSIS) (L82.1) POST-INFLAMMATORY PIGMENT ALTERATION (L81.9) Specimen B. 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 Jar 0. 3 4:21 PM [facility] DERMATOPATHOLOGY [facility]ORATORY Microscopic Description Specimen A. SKIN, [...] characteristic determined by the Dermatopathology Laboratory at [facility], directed by Dr. Cole Rascon. These tests need not be, and therefore are not, approved by the [place] Food and Drug Administration. The tests are used for clinical purposes. Billing Codes Specimen Charges Stain Charges 67179 95240 1 1 77408 1 3 4:21 PM CDT DERMATOPATHOLOGY LABORATORY Embedded Images 3 4:21 PM T DERMATOPATHOLOGY LABORATORY Pathology/Cytology TISSUE SPECIMEN FROM SKIN / Unknown 09/24/2022 1:19 PM CDT 09/26/2022 7:30 AM CDT Miscellaneous samples (specimen) TISSUE SPECIMEN FROM SKIN / Unknown 09/24/2022 1:19 PM CDT 09/26/2022 7:30 AM CDT Ellie Guzman DO LAB - PATHOLOGY/C YTOLOGY ORDERABLES DERMATOPATHOLOGY LABORATORY [facility] - Department of Dermatology [facility] [address] [place] [address], [address] [phone] documented in this encounter Visit Diagnoses Not on filedocumented in this encounter Care Teams Steel Sampler Relationship Specialty Start Date End Date Omi Prieto MD PCP - General 12/16/18 documented as of this encounter
--- OUTSIDE RECORDS SUMMARY | 2024-06-16 12:30 | XMS_ITS | Clinical Summary ---
Author Organization [facility] Address [address] [place] [address] Care Team Providers Care Art Critic Name Role Phone Fred Gavin MD Primary Care Provider [phone] Allergies Active Allergy Reactions Criticality Noted Date [...] on file Legal Sex Female 7:15 PM OFFICE MACHINES TEACHER Gender Identity Not on file Sexual Orientation Not on file Obstetrics History Last Filed Vital Signs Vital Sign Reading Time Taken Comments Blood Pressure 138/71 05/13/2023 7:56 AM OFFICE MACHINES TEACHER Pulse 72 05/13/2023 7:56 AM OFFICE MACHINES TEACHER Temperature 36.9 C (98.4 F) 05/13/2023 7:56 AM OFFICE MACHINES TEACHER Respiratory Rate 16 05/13/2023 7:56 AM OFFICE MACHINES TEACHER Oxygen Saturation 97% 05/13/2023 7:56 AM OFFICE MACHINES TEACHER Inhaled Oxygen Concentration - - Weight 64.6 kg (142 lb 8 oz) 05/12/2023 10:32 AM OFFICE MACHINES TEACHER Height 165.1 cm (5' 5 ) 05/12/2023 10:32 AM OFFICE MACHINES TEACHER Body Mass Index 23.71 05/12/2023 10:32 AM OFFICE MACHINES TEACHER Plan of Treatment Health Maintenance Due Date [...] Breast Cancer Screening-Mammogram Discontinued [id number] Insurance MEDICARE [facility] [place] [facility] [place] MEDICARE [place] Advance Directives For more information, please contact: [phone] * Full Code (Latest Code Status on File) Date Activated Date Inactivated Comments 05/05/2019 1:17 PM 05/05/2019 6:23 PM Care Teams Art Critic Relationship Specialty Start Date End Date Fred Gavin MD PCP - General Internal Medicine 03/25/22
--- OUTSIDE RECORDS SUMMARY | 2024-06-16 12:30 | XMS_ITS | Data Portability ---
Author Organization [place] [facility], Main Office Address [address] [place] [address] Care Team Providers Care Merchant Mariner Name Role Phone CHEN GAVIN Primary Care Provider CHEN GAVIN Referring Provider Assessment Encounter Date Assessment Date Assessment LastModified by Organization Details LastModified Time 07/25/2022 07/25/2022 Potassium being 15 mg q.h.s. bone density mammogram follow-up in 6 weeks Not available 10/25/2022 21:23:24 08/18/2022 08/18/2022 Patient returns status post knee arthroscopy left. She has had a longer recovery. With final East seemingly turning the corner his swelling is going away pain is resolving incision looks clean I think she can be dismissed to normal activity. She has any changes or problems she will call see her back on an as-needed basis. [email or web address] Not available 08/18/2022 11:07:37 09/08/2022 09/08/2022 Continue current therapy and follow up in 3-4 months [email or web address] Not available 09/20/2022 18:19:04 09/22/2022 09/22/2022 Patient [...] see her back on an as-needed basis. [email or web address] Not available 09/22/2022 10:32:43 03/16/2023 03/16/2023 Singulair for rhinitis clonidine 0.1 mg daily for systolic blood pressure greater than 170 MRI MRA blood pressure check 1 week [email or web address] Not available 03/16/2023 23:26:01 Plan of Treatment Reminders Order Date Submit Date Provider Last Modified By Organization Details Last Modified Time Details Appointments None recorded. Lab None recorded. Referral None recorded. Procedures None recorded. Surgeries None recorded. Imaging MRI, brain, w/o contrast - no auth required 2023 024 [facility] ([facility]), [address] [place], [address], 4 16:19:57 MR, angiogram, brain, w/o contrast - no auth required [address] ([facility]uling), [address] [place], [address], 4 08:04:42 MAMMO, screening, digital, bilateral 2022 023 [facility] ([facility] Sched[facility]), [address] [place], [address], 3 10:25:31 bone density 2022 023 [facility] ([facility]), [address] [place], [address], 3 10:25:32 Medication Orders Singulair 10 mg tablet 2023 024 [email or web address] [id number], [address], [place], [id number], 4 11:15:49 clonidine HCl 0.1 mg tablet 2023 024 [email or web address] [facility] #[id number], [address], [place], [id number], 4 11:15:49 Patient TargetsNo targets recorded. Patient Instructions Encounter Date Encounter Id Patient Instructions Last Modified By Organization Details Last Modified Time 07/25/2022 [id number] dementia rating scale-2* Not available 07/26/2022 14:30:55 alcohol misuse* [email or web address] Not available 07/26/2022 14:30:55 depression screening* [email or web address] Not available 07/26/2022 14:30:55 multi-dimensiona l health assessment questionnaire* [email or web address] Not available 07/26/2022 14:30:55 Personalized a lt [...] (PROC ) No observ ation record ed. [facility] [address], [place], [address], 09/10/2022 14:31:26 08/12/19 23 07/31/2022 sleep study , diagn ostic (PROC ) No observ ation record ed. [facility] [address], [place], [address], 09/10/2022 14:31:07 08/22/19 23 08/21/2022 [facility] [address], [place] [address] [phone] Tennille t Name: MARY PALMA Access ion #: [id number] Sex: F : 1945 3 Locati [...] e of -0.7. Page 1 of 2 [facility] Patididi t Name: MARY PALMA Access ion #: [id number] Sex: F : 1945 3 Exam [...] 4:52 PM (CT) Page 2 of 2 [email or web address] [facility] (Imaging) [address] [place], [address], 09/08/2022 11:33:27 08/23/19 23 08/21/2022 scree george breas t yumiko, bilat [facility] [address] [place] [address] Patididi t Name: MARY PALMA Access ion #: [id number] Sex: F : 1945 3 Locati [...] rosi ectura l Page 1 of 2 [facility] Tennille carr Name: MARY PALMA Access ion #: [id number] Sex: F : 1945 3 Exam [...] 10:54 AM (CT) Page 2 of 2 [email or web address] [facility] (Imaging) [address], [place], [address], 09/08/2022 11:33:28 03/19/19 24 03/19/2023 MRI, brain , w/o contr ast [facility] [address], [place] [address] Patien t Name: MARY PALMA Access ion #: [id number] Sex: F : 1945 5 Dictat [...] c ischem ic change s Page 1 [facility] [address] [id number] Patien t Name: LILA PALMANE Access ion #: [id number] Sex: F : 1945 5 Dictat ed By: Quentin Titus Attend ing Physic herson: MARU REEDER Physic herson: PAVAN GAVIN Exam Date: 2023 14:03 PM Exam Name: MRI BRAIN WO Admitt ing Diagno sis(es ): Electr onical ly Signed by: Quentin Titus at 2023 15:18: 41 PM Page 2 [facility] (Imaging) [address] [place], [address], 03/19/2023 16:38:22 03/19/19 24 03/19/2023 MR, angio gram, head, w/o contr ast [facility] [address] [place] [address] [phone] Patien t Name: LILA PALMANE Access ion #: [id number] Sex: F : 1945 5 Dictat ed By: Shai Mckeon Attend ing Physic herson: PAVAN GAVIN Physic herson: PAVAN GAVIN Exam Date: 2023 14:03 PM Exam Name: MRA HEAD WO Admitt ing Diagno sis(es ): PROCED URE: MRA HEAD WO INDICA TION: Headac he Exam Date: 024 2:03 PM CLINICAL STAFF RN COMPAR BRADEN: MRI brain dated 024 TECHNI QUE: MRA head withou t intrav enous contra st. 3D image postpr ocessi ng was perfor med on a [employer] [facility] and images were used for interp retati on and report ingLuan DREW GS: MRA head: There is preser krystal enhanc ement within the bilate ral distal international first officer al caroti d arteri es. There is preser krystal enhanc ement within the anteri or and middle cerebr al arteri es. There is preser krystal enhanc ement within the verteb ral arteri es, basila r artery , cerebe llar arteri es and blind cleaner ior cerebr al arteri es. There is [...] at 2023 15:44: 15 PM Page 1 [facility] (Imaging) [address] [place], [address], 03/23/2023 09:37:17 04/30/19 24 04/29/2023 CT, angio gram, heart , w/ contr ast No observ ation record ed. [email or web address] [facility] [address], [place], [address], 05/06/2023 16:40:17 05/04/19 24 04/29/2023 CT, angio gram, heart , w/ contr ast No observ ation record ed. [email or web address] [facility] [address], [place], [address], 05/06/2023 16:41:23 Result Notes None recorded. Problems Name Problem SNOMED Code Status Onset Date Resolution Date Notes Provider Name and Address Organization Details Recorded Time Pain of left knee joint 0305577559846 07 Active 2022 Not Available [facility] 4 13:55:34 Tear of medial meniscus of knee 607679065 Active 2022 Not Available [facility] 4 13:55:34 Tear of medial meniscus of knee 199086864 Active 2022 Not Available [facility] 4 13:55:34 Anxiety 96018055 Active 2022 Not Available [facility] 4 13:55:34 Obstructiv e sleep apnea syndrome 63772934 Active 2022 Not Available [facility] 4 13:55:34 Acute sinusitis 92753660 Active 2022 Not Available [facility] 4 13:55:34 Rhinitis 62184237 Active 2023 Not Available [facility] 4 13:55:34 Headache 25972194 Active 2023 Not Available [facility] 4 13:55:34 Bilateral osteoarthr itis of knees 5776099199963 07 Active 2022 Not Available [facility] 4 13:55:33 Derangemen t of left knee 5624510022463 9108 Active 2022 Not Available [facility] 4 13:55:34 Pain in right sacroiliac joint 1543357880155 9107 Active 2021 Not Available [facility] 4 13:55:34 Spinal stenosis of lumbar region 13607931 Active 2021 Not Available [facility] 4 13:55:34 Low back pain 447927949 Active 2021 Not Available [facility] 4 13:55:34 Small bowel obstructio n 302117411 Active Not Available [facility] 4 13:55:34 Effusion of joint of left knee 2139353928418 05 Active 2022 Not Available [facility] 4 13:55:34 Acquired trigger finger of right middle finger 0626106850121 05 Active 2021 Not Available [facility] 4 13:55:34 Ingrowing toenail 738505526 Active 2019 Not Available [facility] 4 13:55:34 Unexplaine d weight loss 997500267 Active Not Available [facility] 4 13:55:34 Chronic atrial fibrillati on 131007032 Active 2018 Not Available [facility] 4 13:55:34 Paresthesi a of lower extremity 462099630 Active 2022 Not Available [facility] 4 13:55:34 Atrial fibrillati on 52993396 Active Not Available [facility] 4 13:55:34 Upper respirator y infection 85121853 Active Not Available [facility] 4 13:55:34 Essential hypertensi on 53803887 Active Not Available [facility] 4 13:55:34 Diarrhea 85004039 Active Not Available [facility] 4 13:55:34 Hemorrhoid s 44913015 Active 2022 Not Available [facility] 4 13:55:34 Spinal stenosis in cervical region 02717990 Active 2021 Not Available [facility] 4 13:55:34 Leukopenia 75421146 Active 2021 Not Available [facility] 4 13:55:34 Skin lesion 91363109 Active Not Available [facility] 4 13:55:34 Problem Notes None recorded. Procedures Surgical History Date Name Laterality Status Provider Name and Address Organization Details Recorded Time 023 Medicare Wellness CPT Code, subsequent completed Zina Foster RN [facility] 07/25/2022 12:09:58 023 Knee arthroscopy/surgery completed IVANNA Langston [facility] 07/25/2022 11:50:28 021 EGD completed Not Available [facility] 05/07/2022 03:20:17 019 Cardiac Cath completed Not Available [facility] 05/07/2022 03:20:17 017 Gastrointestinal Surgery completed Not Available [facility] 05/07/2022 03:20:17 014 Most Recent Bone Density completed Not Available [facility] 05/07/2022 03:20:14 010 Date of Last Colonoscopy completed Not Available [facility] 05/07/2022 03:20:14 completed Not Available [facility] 05/07/2022 03:20:17 Hysterectomy completed Not Available [facility] 05/07/2022 03:20:17 Excisions - Specify completed Not Available [facility] 05/07/2022 03:20:17 Imaging Results Imaging Date Name Status LastModified by Organiz ation Details LastModified Time 07/31/2022 sleep study, diagnostic (PROC) completed [facility] [address], [place], [address], 09/10/2022 14:31:26 07/31/2022 sleep study, diagnostic (PROC) completed [facility] [address], [place], [address], 09/10/2022 14:31:07 08/21/2022 DEXA, axial skeleton completed [email or web address] (Imaging) [address] [place], [address], 09/08/2022 11:33:27 08/21/2022 screening breast yumiko, bilat completed [email or web address] [place] [address] (Imaging) [address] [place], [address], 09/08/2022 11:33:28 03/19/2023 MRI, brain, w/o contrast completed [facility] (Imaging) [address] [place], [address], 03/19/2023 16:38:22 03/19/2023 MR, angiogram, head, w/o contrast completed [facility] (Imaging) [address] [place], [address], 03/23/2023 09:37:17 04/29/2023 CT, angiogram, heart, w/ contrast completed [address] [facility] [address], [place], [address], 05/06/2023 16:40:17 04/29/2023 CT, angiogram, heart, w/ contrast completed [email or web address] [facility] [address], [place], [address], 05/06/2023 16:41:23 Procedure Notes None recorded. Medical Equipment None Reported. Allergies Allergen ID Allergen Name Allergen Category Reaction Reaction Severity Criticality Documentation Date Start Date Code Code System Note Provider Name and Address Organization Details Recorded Time 6407 Substance with sulfonami de structure and antibacte rial mechanism of action (substanc e) medicatio n Not available Not available Not available 05/07/2022 22212 8003 SNOMED Not Available [facility] 3 03:39:16 6408 Product containin g penicilli n (product) medicatio n Not available Not available Not available 05/07/2022 99298 8001 SNOMED Not Available [facility] 3 03:39:17 6409 penicilli n G Not available Not available Not available Not available 05/07/2022 7980 RxNorm Not Available [facility] 3 03:39:17 Medications Name Sig Start Date [...] ered by the provider 03/16 completed [facility]: 0003-049 06-26 Not Available Not Available Not [...] ered by the provider 04/29 completed [facility]: 0409-427 08-23 Not Available Not Available Not [...] by injectio n route. 03/16 completed [facility] 98337-43 4- Not Available Not Available Not Available [...] Available Not Available Not Available Fluzone High-Dose 1052-7463 (PF) 180 mcg/0.5 mL intramusc ular syringe active Not Available Not Available Not Available Fluvirin 45 mcg (15 mcg x 3)/0.5 mL intramusc ular suspensio n active Not Available Not Available Not Available Fluzone High-Dose 0075-8083 (PF) 180 mcg/0.5 mL intramusc ular syringe [...] Updated DateTime 3 167.64 cm 23.2 kg/m2 30117.3 g 98.2 [degF] 63 /min 118 mm[Hg] 70 mm[Hg] IVANNA Langston ID [email or web address] [facility] [employer] [facility] 3 11:51:47 Date Recorded Pain severity - 0-10 verbal numeric rating [Score] - Reported Provider Name and Address Organization Details Last Updated DateTime 07/25/2022 0 Zina Foster RN [facility] 07/25/2022 12:10:09 Date Recorded Body height Body mass index (BMI) Body weight Provider Name and Address Organization Details Last Updated DateTime 08/18/2022 167.64 cm 22.8 kg/m2 08187.52 g IVANNA Burnham ID [email or web address] [facility] [employer] [facility] 08/18/2022 10:27:03 Date Recorded Body height Body mass index (BMI) Body weight Body temperature Heart rate Oxygen saturation Oxygen saturation in Arterial blood by Pulse oximetry Systolic blood pressure Diastolic blood pressure Provider Name and Address Organization Details Last Updated DateTime 3 167.64 cm 22.8 kg/m2 01893.5 2 g 97.8 [degF] 55 /min 95 % 95 % 132 mm[Hg] 82 mm[Hg] Kat Mcgrath RN [facility] 3 10:25:08 Date Recorded Body height Body mass index (BMI) Body weight Provider Name and Address Organization Details Last Updated DateTime 09/22/2022 167.64 cm 22.6 kg/m2 67391.93 g Mel Trejo [facility] [employer] [facility] 09/22/2022 09:51:30 Date Recorded Body height Body mass index (BMI) Body weight Body temperature Heart rate Systolic blood pressure Diastolic blood pressure Provider Name and Address Organization Details Last Updated DateTime 167.64 cm 23.4 kg/m2 84404.8 9 g 98.5 [degF] 64 /min 122 mm[Hg] 60 mm[Hg] Asia Whiting [facility] [employer] [facility] 10:30:52 Social History Question Answer Notes LastModified by Organization Details LastModified Time Tobacco Smoking Status Never Smoker Not Available [facility] 05/07/2022 02:59:12 Do You Have An Advance Directive? Yes Pt States She Will Try To Bring Copy Next Time She Comes In MIGRATION.0301 [id number] Information not available 05/07/2022 What Is Your Level Of Alcohol Consumption? None MIGRATION.0301 798150 Information not available 05/07/2022 Do You Wear A Helmet When Biking? No Does Not Bike MIGRATION.0301 317248 Information not available 05/07/2022 Are You Blind Or Do You Have Difficulty Seeing? No MIGRATION.0301 067418 Information not available 05/07/2022 What Is Your Level Of Caffeine Consumption? Moderate MIGRATION.0301 798781 Information not available 05/07/2022 How Much Tobacco Do You Chew? None MIGRATION.0301 827800 Information not available 05/07/2022 In The 14 Days Before Symptom Onset, Have You Had Close Contact With A Laboratory-confi rmed COVID-19 While That Case Was Ill? No MIGRATION.0301 771926 Information not available 05/07/2022 In The 14 Days Before Symptom Onset, Have You Had Close Contact With A Person Who Is Under Investigation For COVID-19 While That Person Was Ill? No MIGRATION.0301 144827 Information not available 05/07/2022 Are You Deaf Or Do You Have Serious Difficulty Hearing? No MIGRATION.0301 940729 Information not available 05/07/2022 What Type Of Diet Are You Following? REGULAR MIGRATION.0301 588610 Information not available 05/07/2022 Which Illicit Or Recreational Drugs Have You Used? None MIGRATION.0301 157481 Information not available 05/07/2022 Do You Or Have You Ever Used E-cigarettes Or Vape? Never Used Electronic Cigarettes MIGRATION.030 981351 Information not available 05/07/2022 What Is The Highest Grade Or Level Of School You Have Completed Or The Highest Degree You Have Received? 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 No MIGRATION.030 905614 Information not available 05/07/2022 What Is The Fluoride Status Of Your Home? Unknown MIGRATION.030 813834 Information not available 05/07/2022 Are There Any Guns Present In Your Home? No MIGRATION.0301 684425 Information not available 05/07/2022 Do You Use Insect Repellent Routinely? No MIGRATION.030 863926 Information not available 05/07/2022 Where Do You [...] Do You Have A Medical Power Of Wing Coverer? Yes MIGRATION.0301 704989 Information not available 05/07/2022 What Was The Date Of Your Most Recent Tobacco Screening? 03/16/2023 [email or web address] Information not available 03/16/2023 Do You Have Any Pets? No MIGRATION.0301 617478 Information not available 05/07/2022 Do You Use Your Seat Belt Or Car Seat Routinely? Yes MIGRATION.0301 143390 Information not available 05/07/2022 Do You Have Smoke And Carbon Monoxide Detectors In Your Home? Yes MIGRATION.0301 569620 Information not available 05/07/2022 Are You Passively Exposed To Smoke? No MIGRATION.0301 392468 Information not available 05/07/2022 Do You Or Have You Ever Used Smokeless Tobacco? Never Used Smokeless Tobacco MIGRATION.0301 746916 Information not available 05/07/2022 Are There Any Smokers In Your House? No MIGRATION.0301 222154 Information not available 05/07/2022 How Much Tobacco Do You Smoke? No MIGRATION.0301 378840 Information not available 05/07/2022 What Types Of Sporting Activities Do You Participate In? None MIGRATION.0301 416316 Information not available 05/07/2022 Do You Feel Stressed (tense, Restless, Nervous, Or Anxious, Or Unable To Sleep At Night)? [id number] Information not available 07/25/2022 Do You Use Any Illicit Or Recreational Drugs? No MIGRATION.0301 548860 Information not available 05/07/2022 Do You Use Sunscreen Routinely? No MIGRATION.0301 523595 Information not available 05/07/2022 Has Tobacco Cessation Counseling Been Provided? No Not Needed-ne kermit Smoked MIGRATION.0301 069652 Information not available 05/07/2022 How Many Years Have You Smoked Tobacco? 0 MIGRATION.0301 934003 Information not available 05/07/2022 Have You Recently Traveled Abroad? No MIGRATION.0301 180145 Information not available 05/07/2022 Do You Have Any Dietary Restrictions? No MIGRATION.0301 901315 Information not available 05/07/2022 Do You Or Have You Ever Used Any Other Forms Of Tobacco Or Nicotine? No MIGRATION.0301 570583 Information not available 05/07/2022 Sex: Female Functional Status Question Answer Note LastModified by Organizat ion Details LastModified Time Do you have difficulty walking or climbing stairs? No MIGRATION.2249306 026 Information not available 05/07/2022 Do you have transportation difficulties? No Information not available 07/25/2022 Are you able to walk? YESWOREST MIGRATION.3144627 026 Information not available 05/07/2022 Do you have difficulty doing errands alone? No MIGRATION.7521334 026 Information not available 05/07/2022 Are you able to care for yourself? Yes MIGRATION.6053627 026 Information not available 05/07/2022 Do you have difficulty dressing or bathing? No MIGRATION.3929040 026 Information not available 05/07/2022 What is your exercise level? Occasional Information not available 07/25/2022 Mental Status Question Answer Note LastModified by Organizat ion Details LastModified Time Do you have difficulty concentrating, remembering or making decisions? No MIGRATION.723309913 6 Information not available 05/07/2022 Family History Relationship Description Onset Age of this Age Resolved Age Notes LastModified by Organization Details LastModified Time Mother Chronic obstructive pulmonary disease MIGRATION.331 [id number] Not available 05/07/2022 03:20:18 Father Malignant neoplasm of liver MIGRATION.587 1962787 Not available 05/07/2022 03:20:18 Father Malignant tumor of colon MIGRATION.183 0046897 Not available 05/07/2022 03:20:18 Unspecified Relation Family history of Hypertension MIGRATION.365 0316936 Not available 05/07/2022 03:20:18 Unspecified Relation Family history of Cardiovascul ar disease MIGRATION.680 7031154 Not available 05/07/2022 03:20:18 Medical History Condition Response NERVE DISEASE N BLINDNESS N RHEUMATIC FEVER N KIDNEY STONES N BLADDER PROBLEMS N OTHER # 1 N POLIO N LUNG DISEASE/DISORDER N COPD N RADIATION / CHEMOTHERAPY N Other # 2 N BLOOD DISEASES N SURGERY N EAR OR HEARING PROBLEMS N MUMPS N BOWEL PROBLEMS N DEPRESSION (INCLUDING POST ) N STROKE/TIA N ULCERS N BENIGN PROSTATIC HYPERPLASIA N MEASLES N MYOCARDIAL INFARCTION N OBESITY N GERD/NAUSEA N ANEURYSM N URINARY/BLADDER/KIDNEY PROBLEMS Y CORONARY ARTERY DISEASE (CAD) Y INPATIENT PSYCH CARE N ADDICTION CONCERNS N ENDOMETRIOSIS N Impotence N [...] GLAUCOMA N FOOT PROBLEM N DIVERTICULITIS N CHICKENPOX N SLEEP APNEA N INFECTIOUS DISEASE N PROSTATE N HEART ARRHYTHMIA N INSOMNIA N HIGH CHOLESTEROL / HYPERLIPIDEMIA N EYE PROBLEMS N HYPERTHYROIDISM N NEUROLOGICAL PROBLEMS N EDEMA N CHRONIC PAIN SYNDROME N HYPOTHYROIDISM N CONSTIPATION N CAROTID BLOCKAGE N BACK / NECK PROBLEMS N HAVE YOU BEEN HOSPITALIZED OR SEEN IN [facility] IN THE PAST YEAR ? N [...] influenza, unspecified formulation 2 completed Not Available [facility] 04/20/2023 13:55:34 COVID-19, mRNA, LNP-S, PF, 30 mcg/0.3 mL dose 1 completed Not Available [facility] 04/20/2023 13:55:34 Influenza, high-dose, quadrivalent, PF 1 completed Not Available [facility] 04/20/2023 13:55:34 Influenza, high-dose, quadrivalent, PF 0 completed Not Available [facility] 04/20/2023 13:55:34 Influenza, high-dose, trivalent, PF 9 completed Not Available [facility] 04/20/2023 13:55:35 Influenza, high-dose, trivalent, PF 8 completed Not Available [facility] 04/20/2023 13:55:35 Influenza, high-dose, trivalent, PF 7 completed Not Available [facility] 04/20/2023 13:55:35 Influenza, high-dose, trivalent, PF 6 completed Not Available [facility] 04/20/2023 13:55:35 Pneumococcal conjugate PCV 13 6 completed Not Available [facility] 04/20/2023 13:55:35 Influenza, high-dose, trivalent, PF 3 completed Not Available [facility] 04/20/2023 13:55:35 COVID-19 vaccine, vector-nr, rS-Ad26, PF, 0.5 mL 1 completed Not Available [facility] 04/20/2023 13:55:34 zoster live 5 completed Not Available [facility] 04/20/2023 13:55:35 Influenza, split virus, trivalent, preservative 4 completed Not Available [facility] 04/20/2023 13:55:35 tetanus toxoid, unspecified formulation 3 completed Not Available [facility] 04/20/2023 13:55:34 pneumococcal polysaccharide PPV23 1 completed Not Available [facility] 04/20/2023 13:55:34 Influenza, split virus, quadrivalent, PF 5 completed Not Available [facility] [facility] 04/20/2023 13:55:35 Past Encounters Encounter ID Performer Location Encounter Start Date Encounter Closed Date Diagnosis/Indication Diagnosis SNOMED-CT Code Diagnosis ICD10 Code Diagnosis Note [id number] [facility] Internal Med [facility] [address] [address] 05/23/2020 00:00:00 06/02/2020 14:46:22 [id number] [facility] Internal Med [facility] [address] [place] [address] , [address] [address] 06/20/2020 00:00:00 06/20/2020 21:54:07 [id number] [facility] Internal Med Chris frances [address] [facility] y , [facility] [place] [address] 07/24/2020 00:00:00 07/24/2020 23:02:48 [id number] [facility] Podiatry Vanessa Sharif [address] [facility] [address] [place] [address] 10/11/2020 00:00:00 10/16/2020 09:52:53 [id number] [facility] Internal Med [facility] [address] [facility] 15 [place] [address] 10/29/2020 00:00:00 10/29/2020 22:08:43 [id number] [facility] Internal Med [facility] [address] [facility] 15 [place] [address] 12/05/2020 00:00:00 12/23/2020 22:40:10 [id number] [facility] Ortho [place] [address] [place] [address] 12/18/2020 00:00:00 12/18/2020 15:46:48 [id number] [facility] Internal Med [facility] [address] [facility] 15 [place] [address] 04/29/2021 00:00:00 05/05/2021 15:47:20 [id number] [facility] [address] [address] 10/15/2021 00:00:00 10/15/2021 10:26:04 [id number] [facility] Internal Med [facility] [address] [place], [place] [address]., [address] [address] 10/28/2021 00:00:00 10/28/2021 11:43:49 [id number] [facility] [address] [address] 11/12/2021 00:00:00 11/12/2021 09:58:33 [id number] [facility] Ortho [address] [address] 12/10/2021 00:00:00 12/10/2021 10:59:37 [id number] [facility] Internal Med Chris frances [address] [place] [address] 03/25/2022 00:00:00 03/25/2022 22:28:51 [id number] [facility] [place] [address] [place] [address] 04/24/2022 00:00:00 04/24/2022 12:17:08 [id number] [facility] [place] [address] [place] [place], [place] [address] 05/01/2022 00:00:00 05/01/2022 13:02:19 [id number] Eduard Mckeon MD [facility] [place] [address] [place] [address] 07/03/2022 11:46:50 07/03/2022 13:13:43 Tear of medial meniscus of knee [id number] S83.242D [id number] Eduard Mckeon MD [facility] [place] [address] [place], [place] [address] 07/07/2022 10:32:18 07/07/2022 11:05:17 Tear of medial meniscus of knee [id number] S83.242D [id number] Eduard Mckeon MD [facility] [place] [address] [place] [address] 07/14/2022 09:51:25 07/14/2022 10:48:07 Tear of medial meniscus of knee [id number] S83.242D Postoperative visit 1836 58701 Z09 [id number] Eduard Mckeon MD [facility] Ortho [place] [address] [place] [address] 07/21/2022 09:48:16 07/21/2022 10:42:20 Tear of medial meniscus of knee [id number] S83.242D Postoperative visit 1836 23757 Z09 [id number] Chen Gavin MD [facility] Internal Med [place] [address] [facility], [place] [place] [address] 07/25/2022 11:44:15 07/25/2022 12:53:57 Chronic atrial fibrillation 356048472 I48.20 Essential hypertension 68202229 I10 Anxiety 17707466 F41.9 Adult heal th examination 746461450 Z00.00 Screening for disorder 934465577 Z13.9 Screening mammography 24 122298 Z12.31 Postmenopausal state 764 91625 Z78.0 [id number] Eduard Mckeno MD [facility] Ortho [place] [address] [place] [address] 08/18/2022 10:19:42 08/18/2022 11:15:39 Tear of medial meniscus of knee 996460682 S83.242D Postoperative visit 1836 69592 Z09 [id number] Chen Gavin MD [facility] Internal Med [place] [address] [place] [address] [place] [address] 09/08/2022 10:15:49 09/08/2022 11:45:55 Chronic atrial fibrillation 078382498 I48.20 Anxiety 99879385 F41.9 Essential hypertension 89913744 I10 [id number] Eduard Mckeon MD [facility] Orth[facility] [place] [address] [place] [address] 09/22/2022 09:47:33 09/22/2022 10:49:28 Tear of medial meniscus of knee 589555377 S83.242D [id number] Chen Gavin MD [facility] Internal Med [place] [address] [place] [address] [place] [address] 03/16/2023 10:14:15 03/16/2023 11:07:04 Rhinitis 26557647 J00 Essential hypertension 43996900 I10 Headache 55841146 R51.9 Health Concerns Section Related Observation LastModified [...] Name 07/25/2022 1 [place] Mary Valera [id number] Mayr Valera 07/25/2022 2 [employer] (MEDICARE SUPPLEMENT) PLAN F Mary Valera [id number] Mary Valera 08/18/2022 1 [place] Mary Valera [id number] Mary Valera 08/18/2022 2 [employer] (MEDICARE SUPPLEMENT) PLAN F Mary Valera [id number] Mary Valera 09/08/2022 1 [place] Mary Valera [id number] Mary Valera 09/08/2022 2 [employer] (MEDICARE SUPPLEMENT) PLAN F Mary Valera [id number] Mary Valera 09/22/2022 1 [place] Mary Valera [id number] Mary Valera 09/22/2022 2 [employer] (MEDICARE SUPPLEMENT) PLAN F Mary Valera [id number] Mary Valera 03/16/2023 1 [place] Mary Valera [id number] Mary Valera 03/16/2023 2 [employer] (MEDICARE SUPPLEMENT) PLAN F Mary Valera [id number] Mary Valera Notes Date Note Type Note Provider Name and Address Organization Details Recorded Time 3 text/html Some anxiety at nightAFib no palpitations or dizzinessHypertension no headache no chest painMedicare wellness completed Chen Gavin MD [address], [employer], [place], [address], [employer] 10/25/2022 21:23:54 3 text/html Patient returns knee pain thank you left. The pain is better swelling is going down she has finally had in the right direction. Eduard Mckeon MD [address], [address], [place], [address], [employer] 08/18/2022 11:08:19 3 text/html she is feeling a little bit better awaiting her CPAP machine bone mineral density was normal mammogram was negative she is not taking the sertraline anymore and is doing fine Chen Gavin MD [address], [address], [place], [address], [employer] [facility] 09/20/2022 18:19:25 3 text/html Patient returns status post knee arthroscopy left. The knee continues to improve she still has some swelling he gets around fairly well and is reasonably comfortable. Eduard Mckeon MD [address], [facility] [address], [place], [address], [employer] [facility] 09/22/2022 10:33:00 4 text/html Rhinitis has been [...] weakness Chen Gavin MD [address], [facility] [address], [place], [address], [employer] [facility] [employer] [facility] 03/16/2023 23:26:24 OBGyn Episode No OBEpisode recorded.
--- OUTSIDE RECORDS SUMMARY | 2024-06-16 12:30 | XMS_ITS | Encounter Summary ---
Author Organization [facility] Address [address] [facility] [place] [address] Care Team Providers Care Paper Wood Cutter Name Role Phone Omi Prieto MD Primary Care Provider [phone] Encounter Details Date Type Department Care Team (Late st Contact Info) Description 08/24/2019 Lab Requisition [facility] DermPath Lab [address] [facility], [place] [address] Ellie Guzman DO [address] [facility] 3 [place] [address] Social History Tobacco Use Types Packs/Day Years [...] AM CDT) Case Report Dermatopathology Report Case: [id number] Authorizing Provider: Ellie Guzman DO Collected: 08/23/2019 12:00 AM Ordering Location: [facility] Derm[facility] Lab Received: 08/24/2019 07:35 AM [...] purposes. Billing Codes Specimen Charges Stain Charges 50528 1 0 11:51 AM CDT DERMATOPATHOLOGY LABORATORY Embedded Images 0 11:51 AM CDT DERMATOPATHOLOGY LABORATORY Pathology/Cytolog y TISSUE SPECIMEN FROM SKIN / Unknown 08/23/2019 08/24/2019 7:35 AM CDT Ellie Guzman DO LAB - PATHOLOGY/C YTOLOGY ORDERABLES DERMATOPATHOLOGY LABORATORY [facility] - Department of Dermatology [facility] [employer] [facility]/[address] [phone] documented in this encounter Visit Diagnoses Not on filedocumented in this encounter Care Teams Paper Wood Cutter Relationship Specialty Start Date End Date Omi Prieto MD PCP - General 12/16/18 documented as of this encounter
--- OUTSIDE RECORDS SUMMARY | 2024-06-16 12:30 | XMS_ITS | Encounter Summary ---
Author Organization [facility] Address [address] [facility] [place] [address] Care Team Providers Care Cabin Furnishings Installer Name Role Phone Omi Prieto MD Primary Care Provider [phone] Encounter Details Date Type Department Care Team (Late st Contact Info) Description 02/09/2019 Lab Requisition [facility] Derm[facility] Lab [address] [facility], [place] [address] Ellie Guzman DO [address] 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 SKIN, left back: DERMAL SCAR RESIDUAL MELANOCYTIC PROLIFERATION NOT IDENTIFIED (L90.5) 9 3:03 PM COIN MACHINE ASSEMBLER DERMATOPATHOLOGY LABORATORY Clinical History R/O junctional melanocytic proliferation, bx proven. Previous Bx: [id number]. 3:03 PM [facility] Gross Description Specimen A: Received is one formalin filled container labeled with the patient's name and designated left back. The specimen consists of an ellipse measuring [id number] and is oriented with the notch at [...] in cassettes 3-4. Jar 0. 3:03 PM [facility]ERMAT[facility] Microscopic Description Specimen A. SKIN, left back: There are fibroblasts and collagen bundles oriented parallel to the skin surface. There are elongated blood vessels, some of which are oriented perpendicular to the skin surface. No residual melanocytic proliferation is identified. 3:03 PM [facility] Disclaimer An external and internal [...] purposes. Billing Codes Specimen Charges Stain Charges 58554 1 9 3:03 PM [facility] DERMATOPATH[facility]ORATORY Embedded Images 3:03 PM [facility]MAT[facility] Pathology/Cytolog y TISSUE SPECIMEN FROM SKIN / Unknown 02/08/2019 02/09/2019 8:22 AM [facility] Ellie Guzman DO LAB - PATHOLOGY/C YTOLOGY ORDERABLES DERMATOPATHOLOGY LABORATORY [facility] - Department of Dermatology [facility] [facility], 5th Floor Lab [address] [phone] documented in this encounter Visit Diagnoses Not on filedocumented in this encounter Care Teams Cabin Furnishings Installer Relationship Specialty Start Date End Date Omi Prieto MD PCP - General 12/16/18 documented as of this encounter
--- OUTSIDE RECORDS SUMMARY | 2024-06-16 12:30 | XMS_ITS | CONTINUITY OF CARE DOCUMENT ---
Author Name srinivas espino Address Unknown Organization [facility] Address [address] [address] [place] [address] Phone [phone] Care Team Providers Care Control Operator Name Role Phone Bhupinder YAÑEZ, Nolberto Unavailable [phone] THANG YAÑEZ, CLAY Braga Unavailable MARU YAÑEZ, CHEN Randle Unavailable PROBLEMS Condition Status Date Provider Notes [...] In-person encounter Office Visit Nolberto Roe MD [facility] - In-person encounter Office Visit Nolberto Roe MD [facility] - In-person encounter Office Visit Nolberto Roe MD [facility] - In-person encounter Office Visit Nolberto Roe MD [facility] Office - In-person encounter Office Visit Brandon Jackson MD [facility] - In-person encounter Office Visit Brandon Jackson MD [facility] Office - In-person encounter Office Visit Nolberto Roe MD [facility] - In-person encounter Office Visit Nolberto Roe MD [facility] - In-person encounter Office Visit Nolberto Roe MD [facility] Office Diaphoresis - In-person encounter Office Visit Bryan Carmona MD [facility] - In-person encounter Office Visit Bryan Carmona MD [facility] - In-person encounter Office Visit Bryan Carmona MD [facility] - In-person encounter Office Visit Nolberto Roe MD [facility] - In-person encounter Office Visit Nolberto Roe MD [facility] - In-person encounter Office Visit Nolberto Roe MD [facility] - In-person encounter Office Visit Nolberto Roe MD [facility] Insomnia - In-person encounter Office Visit Nolberto Roe MD [facility] Daytime hypersomniaPreoperative cardiovascular examination - In-person encounter Office Visit Nolberto Roe MD [facility] Venous insufficiencyClaudicationNeuropathy - In-person encounter Office Visit Nolberto Roe MD [facility] Office Leg pain, bilateral - In-person encounter Office Visit Nolberto Roe MD [facility] - In-person encounter Office Visit Nolberto Roe MD [facility] Spinal stenosis - In-person encounter Office Visit Nolberto Roe MD [facility] - In-person encounter Office Visit Nolberto Roe MD [facility] - In-person encounter Office Visit Nolberto Roe MD [facility] - In-person encounter Office Visit Nolberto Roe MD [facility] Neck pain - In-person encounter Office Visit Nolberto Roe MD [facility] Bowel obstruction s/p multiple surgeries - In-person encounter Office Visit Nolberto Roe MD [facility] - In-person encounter Office Visit Nolberto Roe MD [facility] Headaches - In-person encounter Office Visit Nolberto Roe MD [facility] Swelling of bilateral legs - In-person encounter Office Visit Nolberto Roe MD [facility] Afib - s/p CV in SR - In-person encounter Office Visit Nolberto Roe MD [facility] Hyperkalemia - In-person encounter Office Visit Nolberto Roe MD [facility] Chest pain - nml cath 07/2018 - In-person encounter Office Visit Nolberto Roe MD [facility] - In-person encounter Office Visit Nolberto Roe MD [facility] - In-person encounter Office Visit Nolberto Roe MD [facility] Shortness of breathFatigueChest pain - nml cath 07/2018 - In-person encounter Office Visit Nolberto Roe MD [facility] HypertensionAfib - s/p CV in SR [...] Asamanafahad pulse rate 54 /min Judy Asanfe [facility] weight E&M 143 [lb_av] Judy Sanjaynenfe [facility] height E&M 66 [in_i] Judy Asanfe [facility] Body Mass Index (Ratio) 22.76 kg/m2 [...] height in centimeters E&M 167.64 cm [facility] Body Mass Index (Ratio) 23.24 kg/m2 Tami Roe MD blood pressure, diastolic 90 mm[Hg] Tom parks [facility], systolic 189 mm[Hg] Anh ret [...] 143 [lb_av] Rene height E&M 66 [in_i] [facility] Body Mass Index (Ratio) 23.24 kg/m2 Tami Roe MD blood pressure, diastolic 76 mm[Hg] Li blood pressure, systolic 155 mm[Hg] Demi blood pressure, cuff size small [facility] blood pressure, diastolic 76 mm[Hg] [facility] blood pressure, systolic 155 mm[Hg] [facility] pulse rate 58 /min [facility] oxygen saturation, oximetry 96 % [facility] respiratory rate E&M 12 /min Rene weight E&M 144 [lb_av] Rene height E&M 66 [in_i] [facility] Body Mass Index (Ratio) 22.76 kg/m2 Tami Roe MD blood pressure, diastolic 81 mm[Hg] Li nkLogic blood pressure, systolic 175 mm[Hg] Demi ic blood pressure, diastolic 81 mm[Hg] Leslie delgado [place] blood pressure, systolic 175 mm[Hg] Jose mcmahon [place] oxygen saturation, oximetry 97 % Maritza [place] pulse rate 50 /min Maritza zuniga weight E&M 141 [lb_av] Maritza Morin respiratory rate E&M 16 /min Heike braga [place] blood pressure, cuff size large Leslie delgado [place] height E&M 66 [in_i] Maritza zuniga Body Mass Index (Ratio) 238.53 kg/m2 Soto Tong blood pressure, diastolic 88 mm[Hg] rBia Wan blood pressure, systolic 179 mm[Hg] She [...] blood pressure, systolic 176 mm[Hg] Apolinar phanie Toney pulse rate 63 /min Bobbi Lohma n [...] Ladonna lazo pulse rate 74 /min Judy Sajnaynematilda balderrama weight E&M 143 [lb_av] Judy Sanjaynenfe [...] blood pressure, diastolic 91 mm[Hg] Ca therine [place] blood pressure, systolic 159 mm[Hg] Cat herine [place] oxygen saturation, oximetry 93 % Jaimie [place] respiratory rate E&M 16 /min Catheri ne [place] pulse rate 75 /min Jaimie Andrew weight E&M 149 [lb_av] Jaimie [place] blood pressure, cuff size regular Ca therine [place] height E&M 66 [in_i] Jaimie [place] Body Mass Index (Ratio) 23.89 kg/m2 Tami [...] Hayes blood pressure, cuff size regular Cy chaim [place] oxygen saturation, oximetry 94 % Magalis [...] [lb_av] Shira kwokon height E&M 66 [in_i] hSira Laura nson Body Mass Index (Ratio) 23.89 [...] boogie Rocha oxygen saturation, oximetry 98 % [facility] respiratory rate E&M 16 /min [facility] pulse rate 75 /min [facility] weight E&M 145 [lb_av] [facility] height E&M 66 [in_i] [facility] Body Mass Index (Ratio) 23.56 kg/m2 Tami Roe MD blood pressure, diastolic 70 mm[Hg] Dell [facility] blood pressure, systolic 100 mm[Hg] Linda boogie [place] oxygen saturation, oximetry 97 % [facility] respiratory rate E&M 16 /min [facility] pulse rate 72 /min [facility] weight E&M 146 [lb_av] [facility] blood pressure, resting Yes [facility] height E&M 66 [in_i] [facility] Body Mass Index (Ratio) 23.72 kg/m2 Tami Roe MD blood pressure, cuff size regular Ke [facility] blood pressure, diastolic 98 mm[Hg] Ke rri [facility] blood pressure, systolic 138 mm[Hg] Wendy Ko [...] LinkLogic 3.5-5.2 sodium, serum 143 mmol/L LinkLogic [phone]/01/ 16 urea nitrogen/creatinine ratio, serum 20 LinkLogic [...] LinkLogic 3.5-5.2 sodium, serum 143 mmol/L LinkLogic [phone]/09/ 05 urea nitrogen/creatinine ratio, serum 25 LinkLogic [...] LinkLogic 0-149 cholesterol, serum 152 mg/dL Link[employer]ic [phone]/05/ 24 calcium, serum 9.5 mg/dL LinkLogic 8.7-10.3 carbon dioxide, venous blood 26 mmol/L LinkLogic 20-29 chloride, serum 100 mmol/L LinkLogic 96-106 potassium, serum 5.4 mmol/L LinkLogic 3.5-5.2 High sodium, serum 143 mmol/L LinkLogic [phone]/05/ 24 urea nitrogen/creatinine ratio, serum 21 LinkLogic [...] Not Estab. platelet count 181 X10E3/UL LinkLogic [phone]/05/ 24 red blood cell distribution width 16.3 [...] BY MOUTH TWICE DAILY - 09/22 Rene [facility] losartan 50 mg tablet completed Take 1 [...] BY MOUTH EVERY DAY 04/14 - 09/15 [facility] clonidine HCl 0.1 mg tablet completed as needed for headaches SBP >170 - 06/25 Xin Doherty NP dofetilide 500 mcg capsule completed TAKE 1 CAPSULE BY MOUTH TWICE DAILY 03/12 - 05/21 Xin Doherty NP thiamine HCl (vitamin B1) 100 mg tablet active TAKE 1 TABLET BY MOUTH ONCE DAILY 10/01 Maritza Suarez sertraline 50 mg tablet completed - [facility] Ambien 5 mg tablet completed Take 1 tablet by mouth once a day at night before sleeping 06/25 - 05/21 Xin Doherty NP metoprolol tartrate 50 mg tablet completed TAKE 1 TABLET BY MOUTH TWICE DAILY 06/10 - 05/21 Xin Doherty NP valsartan 40 mg tablet completed Take 1 1/2 tablet by mouth once a day 06/04 - 04/14 [facility] Vitamin B-1 (mononitrate) 100 mg tablet completed [...] tablet by mouth once a day 05/06 Noblerto Roe MD HYDROCHLOROTHIAZIDE 12.5 MG ORAL CAPSULE [...] history of marijuana use no Suzanne Ventimiglia SPECTROGRAPHER drug use no Suzanne Ventimig geremias SPECTROGRAPHER alcohol use no Suzanne Ventimig geremias SPECTROGRAPHER smoking status Never smoker Suzanne Ventim iglia SPECTROGRAPHER alcohol use no Brandon Jackson MD smoking status Never smoker Brandon Jackson MD alcohol use no Nolberto Roe MD smoking status Never smoker Nolberto gonsalez MD number of grandchildren Nolberto Roe MD Xin Fendler GLACIOLOGIST alcohol use no Xin Fendle r GLACIOLOGIST smoking status Never smoker Xin Fend ler GLACIOLOGIST Exercise counseling Yes Xin Fendler GLACIOLOGIST number of grandchildren Bryan Carmona MD alcohol use no Xin Fendle r GLACIOLOGIST smoking status Never smoker Xin Fend ler GLACIOLOGIST Exercise counseling Yes Xin Fendler GLACIOLOGIST alcohol use no Xin Fendle r GLACIOLOGIST smoking status Never smoker Xin Fend ler GLACIOLOGIST Exercise counseling Yes Xin Fendler GLACIOLOGIST alcohol use no Soto Ahmedzai smoking status Never smoker Soto Ahmedzai alcohol use no Jeovanny Amparo smoking status Never smoker Jeovanny Baker ri social history reviewed E&M revi ewed - no changes required Nolberto Roe MD social history E&M Smoking Histo ry: P maritza has never smoked. Nolberto Roe [...] MD smoking status Never smoker Shira Jiang [facility] social history E&M S moking History: P atient has never smoked. Nolberto Roe MD social history reviewed E&M revi ewed - no changes required Nolberto Roe MD smoking status Never smoker Magalis luo smoking status Never smoker Shira [facility] social history E&M S moking History: P atrobert has never smoked. Nolberto Roe MD social history reviewed E&M revi ewed - no changes required Nolberto Roe MD smoking status Never smoker [facility] social history E&M S moking History: [...] MD smoking status Never smoker Shira Jiang [facility] social history E&M S moking History: P [...] no Luh Rocha smoking status Never smoker [place] [facility] social history E&M S moking History: P maritza has never smoked. Nolberto Roe MD social history reviewed E&M revi ewed - no changes required Nolberto Roe MD alcohol use no [place] Rocha smoking status Never smoker Luh [facility]gra [...] Payer name Policy type / Coverage type [employer] party ID [place] [employer] Medicare [id number] [facility] [employer] [id number] ADVANCE DIRECTIVES Name Date DISCUSSED - NO DECISION MADE TREATMENT PLAN Date Name Performer [id number],C,N o recurrence Nolberto Roe MD [id number],C,T his last Thursday she was getting ready [...] thursday, thursday. stop propafenone Nolberto Roe MD [id number],C,N o SoB today. Continues on diuretics Nolberto Roe MD [id number],C,H er RPM showed BP average over last 30 days 149/87 with high variability and pt showed concern for weight loss. We will increase Valsartan to 1 1/2 tablets once daily and obtain bloodwork BP today: 155/76 P rior BP: 175/81 (08/20/2022) Nolberto Roe MD [id number],C,C urrently in physical therapy which is helping her. Nolberto Roe MD [id number],C, H er updated medication list for this [...] day for 3 days Nolberto Roe MD [id number],C, Sleep titration study came back positive for sleep apnea. Requests have been sent to the local company to provide her with the CPAP. The information on this has been given to the patient. Nolberto Roe MD [id number],C,S tosha the left knee surgey, she has continued to have swelling, pain, and limited mobility and following orthopedics. Had a nerve conduction study done in April for leg and foot pains, which came back normal. Nolberto Roe MD [id number],C,No CP. Shane Roe MD [id number],C,T here has been an occassional episode of fluttering in the chest. QTc 338. In sinus rhythm. Nolberto Roe MD [id number],C,W ill send Ambien for the time being, she will need CPAP Nolberto Roe MD [id number],C, B P today: 179/88 P rior BP: 176/93 (05/15/2022) Labs Reviewed: C reat: 1.07 (03/24/2019) C hol: 152 (07/30/2018) HDL: 38 (07/30/2018) LDL: 98 (08/20/2018) Nolberto Roe MD [id number],C, R ecent admission at [facility] for afib. Continues on metoprolol tartrate and dofetilide. Xarelto for OAC. In sinus bradycardia on EKG today. Nolberto Roe MD [id number],C,S he had normal nerve conduction study at [facility] Nolberto Roe MD [id number],C, U pcoming left knee arthroscopy. She may hold xarelto 3-5 days before surgery. Nolberto Roe MD [id number],C,S he has moderate SIMON and requires in lab study in order to recieve CPAP, will send orders. Nolberto Roe MD [id number],C, U pcoming left knee arthroscopy. BP elevated today. Will give her an RPM and decide if she needs adjustments to her BP medication before her upcoming procedure. She may hold xarelto 4-5 days before surgery. Nolberto Roe MD [id number],C, S he would certainly benefit from a sleep study. Nolberto Roe MD [id number],C, V enous insufficiency of the right GSV. Advised support stockings as needed for leg swelling. Leg swelling resolved off cardizem. Nolberto Roe MD [id number],C, B P elevated today at 176/93. Continues on hydralazine and metoprolol tartrate. Will give her an RPM and decide if she needs adjustments to her BP medication before her upcoming procedure. Advised reduced sodium intake and routine monitoring of the blood pressure. We aim for less than 130/80. Nolberto Roe MD [id number],C, C hest pain free. Nolberto Roe MD [id number],C, V enous insufficiency of the right GSV. Advised support stockings as needed for leg swelling. Leg swelling improved off cardizem. Nolberto Roe MD [id number],W, R ecent admission at [facility] for afib with RVR and hypertensive emergency. Continues on metoprolol tartrate and dofetilide. Xarelto for OAC. In sinus bradycardia on EKG today, QTc 451ms. She would benefit from a sleep srudy to evaluate for SIMON which could be contributing to her afib and BP. Nolberto Roe MD [id number],B, N o swelling today. Advised support stockings as needed for swelling Ynes Titus [id number],C, C omplaining of burning and claudication in her legs. Will start her on gabapention 200 mg nightly Ynes Titus [id number],C, V enous insufficiency of the right GSV. Advised support stockings as needed for leg swelling. Ynes Titus [id number],C,B P elevated today at 156/85. Advised reduced sodium intake and routine monitoring of the blood pressure. We aim for less than 130/80. Nolberto Roe MD [id number],C, I n Afib today. Cotinues on caridzem and dofetilide. Xarelto for OAC. W il have her repeat EKG on Thursday to see if she remains in Afib. Nolberto Roe MD [id number],W, C omplains of intermittent burning sensation in her BLEs. Recommend taking B12 and thiamine supplements. Differential diagnosis include venous insufficiency vs. PVD vs. neuropathy. Nolberto Roe MD [id number],C, B lood pressure is elevated today. Continue present medications. Nolberto Roe MD [id number],W, C omplains of intermittent burning sensation in her BLEs. Recommend taking B12 and thiamine supplements. Nolberto Roe MD [id number],C, C omplains of bilateral LE swelling which has been worse of late. Support hose in place. Has known venous insufficiency of the R GSV on previous ultrasound from March 2019. We will repeat her venous dopplers. I also recommend she take lasix 20mg for 2-3 days. Nolberto Roe MD [id number],S, I n SR today. Cotinues on caridzem and dofetilide. Xarelto for OAC. Nolberto Roe MD [id number],S, M uch improved on Amitriptyline. Follows neurology. Nolberto Roe MD [id number],S, S he had second lumbar surgery and is receiving injections. Currently in physical therapy which is helping her. Nolberto Roe MD [id number],S, C hest pain free. Nolberto Roe MD [id number],S, B lood pressure control is satisfactory. Nolberto Roe MD [id number],S, I n SR today. Cotinues on caridzem and dofetilide, QTc 439ms. Xarelto for OAC. Nolberto Roe MD [id number],C,Improved. Santos Roe MD [id number],C,S he had second lumbar surgery and is receiving injections. Currently in physical therapy which is helping her. Nolberto Roe MD [id number],C,B P is elevated today, she also has elevated pressures at home around 150-160 systolic. Will increase her Hydralazine 25 mg to one and half tablets BID. BP today: 158/72 Prior BP: 159/91 (05/15/2021) Labs Reviewed: C reat: 1.07 (03/24/2019) C hol: 152 (07/30/2018) HDL: 38 (07/30/2018) LDL: 98 (08/20/2018) Nolberto Roe MD [id number],C, continues with her anticoagulation with Xarelto, sinus rhythm on EKG today. Nolberto Roe MD [id number],C,I mproved, no swelling. She has reflux in her right GSV from doppler in 2019. Nolberto Roe MD [id number],C, continues with her anticoagulation with Xarelto and Cardizem. QTc on EKG today was 442 msec. in sinus rhythm Ynes Titus [id number],S, N o SoB today. Continues on diuretics Nolberto Roe MD [id number],S, M uch improved on Amitriptyline. Follows neurology. Nolberto Roe MD [id number],C, N o recurrence Nolberto Roe MD [id number],C, B P high today, states slightly stressed while parking. Nolberto Roe MD [id number],C, continues with her anticoagulation with Xarelto and Cardizem. Nolberto Roe MD [id number],C, O ne episode of heart pounding, resolved after 5 minutes. No other episodes before or since. Continues on nitro patch Nolberto Roe MD [id number],C,S he occasionally has episodes of fatigue, low energy which resolve after one day and occur once or twice a month. Nolberto Roe MD [id number],C,BP control is satisfactory. Nolberto Roe MD [id number],C,R ecurrence of atrial fibrillation confirmed on EKG [...] into 4th (per her request) Suzanne Antoniomiglxin SPECTROGRAPHER Cardiology:BP 134/80 today and better controlled C [...] tablet by mouth twice daily Suzanne Hagan [facility] Cardiology: non-compliant with CPAP Nolberto [...] MD Cardiology:non-compliant with CP AP Suzanne Hagan [facility] Cardiology:currently sinus margi HR in [...] into 4th (per her request) Suzanne Hagan [facility] Cardiology:Uncontrol led. Will add chlorthalidone [...] with xarelto, has been seen in the [facility] ER for bruising. i nstructed to [...] telesentry--> Dr. Roe to read Xin Gordonwallace GLACIOLOGIST Electrophysiology:s/ p AFIB ablation 05/11 continue for amio for now. follow up in 4 weeks. will consider going back on dofetilide. Xin Gordonwallace GLACIOLOGIST Electrophysiology:no recurrence Xin Doherty GLACIOLOGIST Electrophysiology:no recurrence Xin Gordonwallace [facility] Telehealth - [...] aware. SK: O rders: P mary 5-10 ([id number]) Bryan Carmona MD Electrophysiology:Bria braga has hx [...] Roe MD Cardiology: R ecent admission at [facility] for afib. Continues on metoprolol tartrate and dofetilide. Xarelto for OAC. In sinus bradycardia on EKG today. Nolberto Roe MD Cardiology:She had n ormal nerve conduction study at [facility] Nolberto Roe MD Cardiology: U pcoming [...] Roe MD Cardiology: R ecent admission at [facility] for afib with RVR and hypertensive [...] and Sotalol, QTC 426. She continues on mcc anticoagulation with Xarelto. Cardiology:Off Aldactone. BMP to [...] on Sotalol, QTC 426. 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 Cardiology:Controlle d on nitro patch which she continues. Nolberto Roe MD Cardiology:Improved. Nolberto veronica MD Cardiology:Resolved off Aldacton e. Nolberto Roe MD Cardiology:Blood pressure contro l is satisfactory. Nolberto Roe MD Cardiology:Remains i n sinus rhythm on EKG today. Continues on Sotalol, QTC 418. 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 Nolberto Roe MD Cardiology :Well con trolled on nitro patch which she continues. Nolberto Roe MD Cardiology :Blood pr essure control is satisfactory. Noblerto Roe MD Cardiology :Possibly related to Aldactone. Will repeat CMP and Magnesium with thyroid panel and sed rate today. Will discontinue Aldactone. Nolberto Roe MD Cardiology :s/p Card ioversion with successful conversion to sinus rhythm. EKG today shows sinus rhythm, QTC 406. She continues on Sotalol. On Xarelto for terminal worker anticoagulation. Nolberto Roe MD Cardiology:Mildly el evated [...] Continues Atenolol and Cardizem. On Xarelto for terminal worker anticoagulation. ZOILA with cardioversion was discussed with [...] on Atenolol and Cardizem. On Xarelto for terminal worker anticoagulation. Nolberto Roe MD Cardiology:Persists. PFTs showed [...] controlled. Continues on Cardizem. On Xarelto for mcc anticoagulation Nolberto Roe MD Cardiology follow up [...] controlled. Continues on Cardizem. On Eliquis for terminal worker anticoagulation. She was advised to discontinue ASA. [...] Regadenoson 6 minute walk test DLCO - 91348 FRC - 53053 FVC - 71407 Complete Echo Mobile Cardiac Tele PROBNP, N [...] MD complete d FVC / MVV - 03957 Nolberto Roe MD completed BLOOD COUNT HEMOGLOBIN Nolberto Roe MD completed FRC - 27040 Nolberto Roe MD comple jovany SpO2 w/o 6min walk/titration Nolberto Roe MD completed DLCO - 57032 Nolberto Roe MD compl eted EKG Nolberto Roe MD complet ed EKG Nolberto Roe MD complet ed Mobile Cardiac Telemetry - Tech Nolberto Roe MD completed Mobile Cardiac Telemetry - Prof Nolberto Roe MD completed
--- OUTSIDE RECORDS SUMMARY | 2024-06-16 12:30 | XMS_ITS | Encounter Summary ---
Author Organization [facility] Address [address] [facility] [place] [address] Care Team Providers Care Tuckpointer Cleaner Caulker Name Role Phone Omi Prieto MD Primary Care Provider Encounter Details Date Type Department Care Team (Late st Contact Info) Description 12/17/[address] [facility] [address] [facility] [place] [address] Ellie Guzmna DO [address] [facility] [address] [place] [address] Social History Tobacco Use Types Packs/Day Years [...] AM CDT) Case Report Dermatopathology Report Case: [id number] Authorizing Provider: Ellie Guzman DO Collected: 12/16/2018 12:00 AM Ordering Location: [facility] Received: 12/17/2018 12:40 PM Pathologist: [...] (NGO'S DISEASE) (D04.71) 9 9:35 AM [facility] Clinical History A-B: Nevus R/O atypia. C: ISK R/O NMSC. 9 9:35 AM [facility] Gross Description Specimen A: Received is one formalin filled container labeled with the patient's name and designated right forearm. The specimen consists of a shave biopsy measuring [id number]. Jar 0. Specimen B: Received is one formalin filled container labeled with the patient's name and designated left back. The specimen consists of a shave biopsy measuring [id number]. Jar 0. Specimen C: Received is one formalin filled container labeled with the patient's name and designated right lateral thigh. The specimen consists of a shave biopsy measuring [id number]. Jar 0. 9:35 AM [facility]ER[facility] Microscopic Description Specimen A. SKIN, [...] determined by the Dermatopathology Laboratory at [facility], directed by Dr. Cole Rascon. These tests need not be, and therefore are not, approved by the [place] Food and Drug Administration. The tests are used for clinical purposes. Billing Codes Specimen Charges Stain Charges 53379 24018 83784 1 1 1 69911 02599 1 1 9:35 AM CDT DERMATOPATHOLOGY LABORATORY [...] LAB - PATHOLOGY/C YTOLOGY ORDERABLES DERMATOPATHOLOGY LABORATORY [facility] - Department of Dermatology [facility] [facility] 5th Floor Lab B [address] [phone] documented in this encounter Visit Diagnoses Not on filedocumented in this encounter Care Teams Tuckpointer Cleaner Caulker Relationship Specialty Start Date End Date Omi Prieto MD PCP - General 12/16/18 documented as of this encounter
--- OUTSIDE RECORDS SUMMARY | 2024-06-16 12:30 | XMS_ITS | Encounter Summary ---
Author Organization [facility] Address [address] [facility] [place] [address] Care Team Providers Care Signal And Communications Maintainer Name Role Phone Omi Prieto MD Primary Care Provider [phone] Encounter Details Date Type Department Care Team (Late st Contact Info) Description 04/23/2023 Lab Requisition [facility] [address] [facility], [place] [id number] Ellie Guzman DO [address] [facility] [address]L [place] [address] Social History Tobacco Use Types Packs/Day Years [...] Diagnosis Comments DERMATOPATHOLOGY Routine 04/23/2023 9:18 AM ESL INSTRUCTOR documented in this encounter Results * DERMATOPATHOLOGY (04/23/2023 9:18 AM ESL INSTRUCTOR) Case Report Dermatopathology Report Case: [id number] Authorizing Provider: Ellie Guzman DO Collected: 04/23/2023 09:18 AM Ordering Location: [facility] Received: 04/24/2023 06:41 AM Pathologist: Nicol Pereira MD Specimens: A) - Skin, left chest B) - Skin, left ant LE 4:28 PM ESL INSTRUCTOR DERMATOPATHOLOGY LABORATORY Final Diagnosis Specimen A. SKIN, left chest: LICHEN PLANUS-LIKE KERATOSIS (BENIGN LICHENOID KERATOSIS) (L82.1) (see microscopic description) Specimen B. SKIN, left ant LE: SPONGIOTIC DERMATITIS WITH EOSINOPHILS (L30.8) (see microscopic description and comment) 4 4:28 PM [facility] DERMATOPATHOLOGY [facility]ORATORY Clinical History A-B: r/o [facility] 4 4:28 PM [facility] DERMATOPATHOLOGY [facility]ORATORY Gross Description Specimen A: Received [...] mm. Jar 0. 4 4:28 PM [facility] DERMATOPATHOLOGY [facility]ORATORY Microscopic Description Specimen A. SKIN, [...] of bullous pemphigoid. 4 4:28 PM [facility] DERMATOPATHOLOGY LABORATORY Disclaimer An external and internal positive and negative controls are appropriate for the histochemical, immunohistochemical and immunofluorescence stain(s) in this case (if any), except where stated explicitly. The performance characteristics of the stain(s) cited in this report were developed and its performance characteristic determined by the Dermatopathology Laboratory at [facility], directed by Dr. Cole Rascon. These tests need not be, and therefore are not, approved by the [place] Food and Drug Administration. The tests are used for clinical purposes. Billing Codes Specimen Charges Stain Charges 34151 55334 1 1 72154 1 4 4:28 PM [facility] DERMATOPATHOLOGY [facility]ORATORY Embedded Images 4 4:28 PM [facility] DERMATOPATH[facility]OR[facility]ORY Pathology/Cytology TISSUE SPECIMEN FROM SKIN / Unknown 04/23/2023 9:18 AM ESL INSTRUCTOR 04/24/2023 6:41 AM ESL INSTRUCTOR Miscellaneous samples (specimen) TISSUE SPECIMEN FROM SKIN / Unknown 04/23/2023 9:18 AM ESL INSTRUCTOR 04/24/2023 6:41 AM ESL INSTRUCTOR Ellie Guzman DO LAB - PATHOLOGY/C YTOLOGY ORDERABLES DERMATOPATHOLOGY LABORATORY [facility] - Department of Dermatology [facility] Specialized Medicine [address] [place] [address], [address] [phone] documented in this encounter Visit Diagnoses Not on filedocumented in this encounter Care Teams Signal And Communications Maintainer Relationship Specialty Start Date End Date Omi Prieto MD PCP - General 12/16/18 documented as of this encounter
--- OUTSIDE RECORDS SUMMARY | 2024-06-16 12:30 | XMS_ITS | Clinical Summary ---
Author Organization [facility] Address [address] [facility] [place] [address] Care Team Providers Care Body Component Engineer Name Role Phone mOi Prieto MD Primary Care Provider [phone] Source Comments [facility],non-owned Affiliates and Associated Physician Practices is amultiple site organization consisting of ambulatory clinics and hospital sitesin [place], [place], [place] and [place]. This disclosure is being madepursuant to the Care Everywhere program and may not contain all information available regarding this patient. Last updated 17.[facility] [employer] Social History Tobacco Use Types Packs/Day Years [...] age to complete this topic Care Teams Body Component Engineer Relationship Specialty Start Date End Date Omi Prieto MD PCP - General 12/16/18
== END 2024-06-16 11:47 | disposition home or self-care (01) ==
PROVIDERS: PCP Internal Medicine; Visit Provider Internal Medicine Nephrology
DX: I10 Essential (primary) hypertension (principal)
CPT/HCPCS: 83835

== ENCOUNTER 2024-07-07 09:44 | Outpatient (CLI) | payer MEDICARE, OTHER, SELFPAY ==
--- NOTE | ~2024-07-07 | CT_ITS ---
CT Angiogram of the Abdomen and Pelvis: Indication: Renal artery stenosis Technique: 2.5 mm axial scans were obtained through the abdomen and pelvis following intravenous adm inistration of 100 cc of Omnipaque 350. Dose reduction technique was used on this scan by utilizing a utomated exposure control and iterative reconstruction technique. The dose-length product (DLP) was 3 61.55 mGy-cm. Findings: Scans through the lung bases demonstrate mild bibasilar atelectatic changes. The liver, pancreas, gallbladder, and adrenal glands are within normal limits. Probable bilateral par apelvic renal cysts, less likely hydronephrosis. Areas of decreased enhancement in spleen may be rela jovany to the early phase of contrast imaging versus possibility of splenic infarcts. No evidence of aor tic aneurysm. No lymphadenopathy. Aorta is widely patent with mild atherosclerotic ossifications. Celiac axis and SMA are widely patent . ROCK patent. There are mild atherosclerotic calcifications of the bilateral renal artery origins. Qu estionable mild stenosis at the proximal right renal artery. No definite left renal artery stenosis. No high-grade stenosis or occlusion involving the renal arteries. No bowel obstruction or bowel wall thickening. There is no evidence to suggest acute appendicitis. Images through the pelvis were performed. Urinary bladder unremarkable. No pelvic mass seen. No ascit es. Impression: Possible mild stenosis at the proximal right renal artery with calcific plaque present. No high-grade stenosis or occlusion of the renal arteries. Reviewed, dictated and finalized at [facility]. Impression: Possible mild stenosis at the proximal right renal artery with calcific plaque present. No high-grade stenosis or occlusion of the renal arteries.
[2024-07-07 10:09] LABS: Estimated Glomerular Filt Rate 34
--- OUTSIDE RECORDS SUMMARY | 2024-07-07 10:24 | XMS_ITS | Data Portability ---
Author Organization [facility] Joelle [facility] Address [address] [place] [address] Care Team Providers Care Access Specialist Name Role Phone CHEN GAVIN Primary Care Provider Assessment Encounter Date Assessment Date Assessment LastModified by Organization Details LastModified Time 08/20/2023 08/20/2023 CBC CMP lipid T3-T4 TSH QuantiFERON gold follow-up 1 month and I need records from her previous clinic [email or web address] Not available 08/22/2023 16:26:50 2023 2023 her complaints o f night sweats are completely gone and there is no other new interval developments or complaints we will just continue to monitor diagnosis in the assessment and plan have been discussed recent blood work reviewed she will follow up with me in 4 months any problems in the interim she will call. [email or web address] Not available 09/27/2023 20:27:55 01/21/2024 01/21/2024 continue current therapy recent blood work has been ordered healthy lifestyle care instructions flu shot follow up 3 months [email or web address] Not available 03/04/2024 14:31:52 04/22/2024 04/22/2024 her blood pressu re is controlled symptomatically or atrial fibrillation is doing fine appears to be in a sinus mechanism today we will continue current therapy gout doing fine dyslipidemia continue with medications and low-fat diet follow up in 4 months [email or web address] Not available 04/23/2024 13:53:00 Plan of Treatment Reminders Order Date Submit Date Provider Last Modified By Organization Details Last Modified Time Details Appointments ANY 15 2024 09:15A M Chen Gavin MD Not available Not available Not available Lab lipid panel, serum 2023 024 [facility], [address], [address], [place], [address], 08/21/2023 10:37:21 CBC w/ auto diff 2023 024 [facility], [address], [address], [place], [address], 08/21/2023 10:37:22 CMP, serum or plasma 2023 024 [facility], [address], [address], [place], [address], 08/21/2023 10:37:21 TSH + free T4, serum 2023 024 [facility], [address], [address], [place], [address], 08/21/2023 10:37:20 T3, free, serum or plasma 2023 024 [facility], [address], [address], [place], [address], 08/21/2023 10:37:23 Mycobacte rium tuberculo sis stimulate d gamma interfero n, qual, blood 2023 024 [facility], [facility] [address], [place], [address], 08/22/2023 20:35:53 Referral None recorded. Procedures None recorded. Surgeries None recorded. Imaging None recorded. Medication Orders None recorded. Patient TargetsNo targets recorded. Patient Instructions Encounter Date Encounter Id Patient Instructions Last Modified By Organization Details Last Modified Time 01/21/2024 [id number] A healthy lifestyle: care instructions [email or web address] Not available 03/04/2024 14:32:09 Reason for Referral None Reported. Results Created Date Observation Date Name Description Value Unit Range Abnormal Flag Note LastModifiedBy Organization Detail LastModifiedTime 08/20/19 24 08/21/2023 TSH+F REE T4 TSH 0.692 uIU/m L 0.450- 4.500 Not Available [facility] ([facility]) [address] [facility] [place], [address], 08/21/2023 10:37:20 08/20/19 24 08/21/2023 TSH+F REE T4 T4,free(dire ct) 1.70 NG/dL 0.82-1 .77 Not Available [facility] ([facility]) [address] [facility] [place], [address], 08/21/2023 10:37:20 08/20/19 24 08/21/2023 LIPID PANEL cholesterol, total 164 mg/dL 100-19 9 Not Available [facility] ([facility]) [address] [facility] [place], [address], 08/21/2023 10:37:21 08/20/19 24 08/21/2023 LIPID PANEL triglyceride s 113 mg/dL 0-149 Not Available [facility] ([facility]) [address] [facility] [place], [address], 08/21/2023 10:37:21 08/20/19 24 08/21/2023 LIPID PANEL HDL cholesterol 42 mg/dL >39 Not Available [facility] ([facility]) [address] [place], [address], 08/21/2023 10:37:21 08/20/19 24 08/21/2023 LIPID PANEL VLDL cholesterol phil 21 mg/dL 5-40 Not Available [facility] ([facility]) [address] [place], [address], 08/21/2023 10:37:21 08/20/19 24 08/21/2023 LIPID PANEL LDL chol calc ([facility]) 101 mg/dL 0-99 above high normal Not Available [facility] ([facility]) [address] [place], [address], 08/21/2023 10:37:21 08/20/19 24 08/21/2023 COMP. METAB OLIC PANEL (14) glucose 87 mg/dL 70-99 Not Available [facility] ([facility]) [address] [facility], [place], [address], 08/21/2023 10:37:21 08/20/19 24 08/21/2023 COMP. METAB OLIC PANEL (14) BUN 24 mg/dL 8-27 Not Available [facility] ([facility]) [address] [facility], [place], [address], 08/21/2023 10:37:21 08/20/19 24 08/21/2023 COMP. METAB OLIC PANEL (14) creatinine 1.52 mg/dL 0.57-1 .00 above high normal Not Available [facility] ([facility]) [address] [facility], [place], [address], 08/21/2023 10:37:21 08/20/19 24 08/21/2023 COMP. METAB OLIC PANEL (14) eGFR 35 mL/mi n/1.7 3 >59 below low normal Not Available [facility] ([facility]) [address] [facility], [place], [address], 08/21/2023 10:37:21 08/20/19 24 08/21/2023 COMP. METAB OLIC PANEL (14) BUN/creatini ne ratio 16 12-28 Not Available [facility] ([facility]) [address] [place], [address], 08/21/2023 10:37:21 08/20/19 24 08/21/2023 COMP. METAB OLIC PANEL (14) sodium 143 mmol/ L 134-14 4 Not Available [facility] ([facility]) [address] [place], [address], 08/21/2023 10:37:21 08/20/19 24 08/21/2023 COMP. METAB OLIC PANEL (14) potassium 4.9 mmol/ L 3.5-5. 2 Not Available [facility] ([facility]) [address] [place], [address], 08/21/2023 10:37:21 08/20/19 24 08/21/2023 COMP. METAB OLIC PANEL (14) chloride 104 mmol/ L 96-106 Not Available [facility] ([facility]) [address] [place], [address], 08/21/2023 10:37:21 08/20/19 24 08/21/2023 COMP. METAB OLIC PANEL (14) carbon dioxide, total 25 mmol/ L 20-29 Not Available [facility] ([facility]) [address] [facility], [place], [address], 08/21/2023 10:37:21 08/20/19 24 08/21/2023 COMP. METAB OLIC PANEL (14) calcium 9.1 mg/dL 8.7-10 .3 Not Available [facility] ([facility]) [address] [place], [address], 08/21/2023 10:37:21 08/20/19 24 08/21/2023 COMP. METAB OLIC PANEL (14) protein, total 6.8 g/dL 6.0-8. 5 Not Available [facility] ([facility]) [address] [place], [address], 08/21/2023 10:37:21 08/20/19 24 08/21/2023 COMP. METAB OLIC PANEL (14) albumin 4.0 g/dL 3.8-4. 8 Not Available [facility] ([facility]) [address] [place], [address], 08/21/2023 10:37:21 08/20/19 24 08/21/2023 COMP. METAB OLIC PANEL (14) globulin, total 2.8 g/dL 1.5-4. 5 Not Available [facility] ([facility]) [address] [facility] [place], [address], 08/21/2023 10:37:21 08/20/19 24 08/21/2023 COMP. METAB OLIC PANEL (14) A/G ratio 1.4 Not Available [facility] ([facility]) [address] [facility], [place], [address], 08/21/2023 10:37:21 08/20/19 24 08/21/2023 COMP. METAB OLIC PANEL (14) bilirubin, total 0.5 mg/dL 0.0-1. 2 Not Available [facility] ([facility]) [address] [facility], [place], [address], 08/21/2023 10:37:21 08/20/19 24 08/21/2023 COMP. METAB OLIC PANEL (14) alkaline phosphatase 97 IU/L 44-121 Not Available [facility] ([facility]) [address] [facility], [place], [address], 08/21/2023 10:37:21 08/20/19 24 08/21/2023 COMP. METAB OLIC PANEL (14) AST (SGOT) 22 IU/L 0-40 Not Available [facility] ([facility]) [address] [facility] [place], [address], 08/21/2023 10:37:21 08/20/19 24 08/21/2023 COMP. METAB OLIC PANEL (14) ALT (SGPT) 26 IU/L 0-32 Not Available [facility] ([facility]) [address] [place], [address], 08/21/2023 10:37:21 08/20/19 24 08/21/2023 CBC WITH DIFFE RENTI AL/PL ATELE T WBC 4.3 x10e3 /uL 3.4-10 .8 Not Available [facility] ([facility]) [address] [facility], [place], [address], 08/21/2023 10:37:22 08/20/19 24 08/21/2023 CBC WITH DIFFE RENTI AL/PL ATELE T RBC 5.19 x10e6 /uL 3.77-5 .28 Not Available [facility] ([facility]) [address] [facility], [place], [address], 08/21/2023 10:37:22 08/20/19 24 08/21/2023 CBC WITH DIFFE RENTI AL/PL ATELE T hemoglobin 14.7 g/dL 11.1-1 5.9 Not Available [facility] ([facility]) [address] [facility], [place], [address], 08/21/2023 10:37:22 08/20/19 24 08/21/2023 CBC WITH DIFFE RENTI AL/PL ATELE T hematocrit 45.4 % 34.0-4 6.6 Not Available [facility] ([facility]) [address] [facility], [place], [address], 08/21/2023 10:37:22 08/20/19 24 08/21/2023 CBC WITH DIFFE RENTI AL/PL ATELE T MCV 88 fL 79-97 Not Available [facility] ([facility]) [address] [place], [address], 08/21/2023 10:37:22 08/20/19 24 08/21/2023 CBC WITH DIFFE RENTI AL/PL ATELE T MCH 28.3 pg 26.6-3 3.0 Not Available [facility] ([facility]) [address] [place], [address], 08/21/2023 10:37:22 08/20/19 24 08/21/2023 CBC WITH DIFFE RENTI AL/PL ATELE T MCHC 32.4 g/dL 31.5-3 5.7 Not Available [facility] ([facility]) [address] [facility], [place], [address], 08/21/2023 10:37:22 08/20/19 24 08/21/2023 CBC WITH DIFFE RENTI AL/PL ATELE T RDW 14.6 % 11.7-1 5.4 Not Available [facility] ([facility]) [address] [facility], [place], [address], 08/21/2023 10:37:22 08/20/19 24 08/21/2023 CBC WITH DIFFE RENTI AL/PL ATELE T platelets 189 x10e3 /uL 150-45 0 Not Available [facility] ([facility]) [address] [facility], [place], [address], 08/21/2023 10:37:22 08/20/19 24 08/21/2023 CBC WITH DIFFE RENTI AL/PL ATELE T neutrophils 66 % notest ab. Not Available [facility] ([facility]) [address] [facility], [place], [address], 08/21/2023 10:37:22 08/20/19 24 08/21/2023 CBC WITH DIFFE RENTI AL/PL ATELE T lymphs 20 % notest ab. Not Available [facility] ([facility]) [address] [facility], [place], [address], 08/21/2023 10:37:22 08/20/19 24 08/21/2023 CBC WITH DIFFE RENTI AL/PL ATELE T monocytes 9 % notest ab. Not Available [facility] ([facility]) [address] [facility], [place], [address], 08/21/2023 10:37:22 08/20/19 24 08/21/2023 CBC WITH DIFFE RENTI AL/PL ATELE T eos 3 % notest ab. Not Available [facility] ([facility]) [address] [facility], [place], [address], 08/21/2023 10:37:22 08/20/19 24 08/21/2023 CBC WITH DIFFE RENTI AL/PL ATELE T basos 1 % notest ab. Not Available [facility] ([facility]) [address] [facility], [place], [address], 08/21/2023 10:37:22 08/20/19 24 08/21/2023 CBC WITH DIFFE RENTI AL/PL ATELE T neutrophils (absolute) 2.9 x10e3 /uL 1.4-7. 0 Not Available [facility] ([facility]) [address] [facility], [place], [address], 08/21/2023 10:37:22 08/20/19 24 08/21/2023 CBC WITH DIFFE RENTI AL/PL ATELE T lymphs (absolute) 0.8 x10e3 /uL 0.7-3. 1 Not Available [facility] ([facility]) [address] [facility], [place], [address], 08/21/2023 10:37:22 08/20/19 24 08/21/2023 CBC WITH DIFFE RENTI AL/PL ATELE T monocytes(ab solute) 0.4 x10e3 /uL 0.1-0. 9 Not Available [facility] ([facility]) [address] [facility], [place], [address], 08/21/2023 10:37:22 08/20/19 24 08/21/2023 CBC WITH DIFFE RENTI AL/PL ATELE T eos (absolute) 0.1 x10e3 /uL 0.0-0. 4 Not Available [facility] ([facility]) [address] [place], [address], 08/21/2023 10:37:22 08/20/19 24 08/21/2023 CBC WITH DIFFE RENTI AL/PL ATELE T baso (absolute) 0.0 x10e3 /uL 0.0-0. 2 Not Available [facility] ([facility]) [address] [facility], [place], [address], 08/21/2023 10:37:22 08/20/19 24 08/21/2023 CBC WITH DIFFE RENTI AL/PL ATELE T immature granulocytes 1 % notest ab. Not Available [facility] ([facility]) [address] [facility], [place], [address], 08/21/2023 10:37:22 08/20/19 24 08/21/2023 CBC WITH DIFFE RENTI AL/PL ATELE T immature grans (abs) 0.0 x10e3 /uL 0.0-0. 1 Not Available [facility] ([facility]) [address] [facility], [place], [address], 08/21/2023 10:37:22 08/20/19 24 08/21/2023 TRIIO DOTHY KEO E (T3), FREE triiodothyro nine (T3), free 2.2 pg/mL 2.0-4. 4 Not Available [facility] ([facility]) [address] [facility], [place], [address], 08/21/2023 10:37:23 08/20/19 24 08/21/2023 QUANT IFERO N-TB GOLD PLUS quantiferon incubation INCUBA TION PERFOR MED. Not Available [facility] ([facility]) [address] [place], [address], 08/22/2023 20:35:53 08/20/19 24 08/21/2023 QUANT IFERO [...] ol for the test. Not Available [facility] ([facility]) [address] [facility], [place], [address], 08/22/2023 20:35:53 08/20/19 24 08/22/2023 QUANT IFERO N-TB GOLD PLUS quantiferon- TB gold plus NEGATI VE negati ve No respo nse to M tuber culos is antig ens detec jovany. Infec tion with M tuber culos is is unlik martell, but high risk indiv idual s shoul d be consi dered for addit ional testi ng (ATS/ IDSA/ CDC Clini phil Pract ice Guide lines , 2017) . The refer ence range is an Antig en minus Nil resul t of <0.35 IU/mL . Chemi lumin escen ce immun oassa y metho dolog y Not Available [facility] ([facility]) [address] [facility], [place], [address], 08/22/2023 20:35:53 08/20/19 24 08/22/2023 QUANT IFERO N-TB GOLD PLUS quantiferon TB1 Ag value 0.05 IU/mL Not Available [facility] ([facility]) [address] [place], [address], 08/22/2023 20:35:53 08/20/19 24 08/22/2023 QUANT IFERO N-TB GOLD PLUS quantiferon TB2 Ag value 0.06 IU/mL Not Available [facility] ([facility]) [address] [place], [address], 08/22/2023 20:35:53 08/20/19 24 08/22/2023 QUANT IFERO N-TB GOLD PLUS quantiferon nil value 0.05 IU/mL Not Available [facility] ([facility]) [address] [place], [address], 08/22/2023 20:35:53 08/20/19 24 08/22/2023 QUANT IFERO N-TB GOLD PLUS quantiferon mitogen value 1.46 IU/mL Not Available [facility] ([facility]) [address] [facility], [place], [address], 08/22/2023 20:35:53 08/28/19 24 08/29/2023 UA WITH CULTU RE REFLE X specific gravity 1.026 1.005- 1.030 Not Available [facility] ([facility]) [address] [facility], [place], [address], 08/29/2023 12:36:45 08/28/19 24 08/29/2023 UA WITH CULTU RE REFLE X pH 5.5 5.0-7. 5 Not Available [facility] ([facility]) [address] [facility], [place], [address], 08/29/2023 12:36:45 08/28/19 24 08/29/2023 UA WITH CULTU RE REFLE X urine-color YELLOW yellow Not Available [facility] ([facility]) [address] [facility], [place], [address], 08/29/2023 12:36:45 08/28/19 24 08/29/2023 UA WITH CULTU RE REFLE X appearance CLEAR clear Not Available [facility] ([facility]) [address] [place], [address], 08/29/2023 12:36:45 08/28/19 24 08/29/2023 UA WITH CULTU RE REFLE X WBC esterase NEGATI VE negati ve Not Available [facility] ([facility]) [address] [place], [address], 08/29/2023 12:36:45 08/28/19 24 08/29/2023 UA WITH CULTU RE REFLE X protein TRACE negati ve/tra ce Not Available [facility] ([facility]) [address] [place], [address], 08/29/2023 12:36:45 08/28/19 24 08/29/2023 UA WITH CULTU RE REFLE X glucose NEGATI VE negati ve Not Available [facility] ([facility]) [address] [place], [address], 08/29/2023 12:36:45 08/28/19 24 08/29/2023 UA WITH CULTU RE REFLE X ketones TRACE negati ve abnormal Not Available [facility] ([facility]) [address] [place], [address], 08/29/2023 12:36:45 08/28/19 24 08/29/2023 UA WITH CULTU RE REFLE X occult blood NEGATI VE negati ve Not Available [facility] ([facility]) [address] [place], [address], 08/29/2023 12:36:45 08/28/19 24 08/29/2023 UA WITH CULTU RE REFLE X bilirubin NEGATI VE negati ve Not Available [facility] ([facility]) [address] [place], [address], 08/29/2023 12:36:45 08/28/19 24 08/29/2023 UA WITH CULTU RE REFLE X urobilinogen ,semi-qn 0.2 mg/dL 0.2-1. 0 Not Available [facility] ([facility]) [address] [place], [address], 08/29/2023 12:36:45 08/28/19 24 08/29/2023 UA WITH CULTU RE REFLE X nitrite, urine NEGATI VE negati ve Not Available [facility] ([facility]) [address] [place], [address], 08/29/2023 12:36:45 08/28/19 24 08/29/2023 UA WITH CULTU RE REFLE X microscopic examination COMMEN T Micro scopi c not indic ated and not perfo rmed. Not Available [facility] ([facility]) [address] [facility] [place], [address], 08/29/2023 12:36:45 08/28/19 24 08/29/2023 UA WITH CULTU RE REFLE X urinalysis reflex COMMEN T This speci men will not refle x to a Urine Cultu re. Not Available [facility] ([facility]) [address] [facility] [place], [address], 08/29/2023 12:36:45 04/13/19 25 04/14/2024 RENAL PANEL (10) glucose 55 mg/dL 70-99 below low normal Not Available [facility] ([facility]) [address] [facility] [place], [address], 04/14/2024 13:07:11 04/13/19 25 04/14/2024 RENAL PANEL (10) BUN 30 mg/dL 8-27 above high normal Not Available [facility] ([facility]) [address] [facility] [place], [address], 04/14/2024 13:07:11 04/13/19 25 04/14/2024 RENAL PANEL (10) creatinine 1.18 mg/dL 0.57-1 .00 above high normal Not Available [facility] ([facility]) [address] [place], [address], 04/14/2024 13:07:11 04/13/19 25 04/14/2024 RENAL PANEL (10) eGFR 47 mL/mi n/1.7 3 >59 below low normal Not Available [facility] ([facility]) [address] [place], [address], 04/14/2024 13:07:11 04/13/19 25 04/14/2024 RENAL PANEL (10) BUN/creatini ne ratio 25 12-28 Not Available [facility] ([facility]) [address] [place], [address], 04/14/2024 13:07:11 04/13/19 25 04/14/2024 RENAL PANEL (10) sodium 138 mmol/ L 134-14 4 Not Available [facility] ([facility]) [address] [facility] [place], [address], 04/14/2024 13:07:11 04/13/19 25 04/14/2024 RENAL PANEL (10) potassium 4.9 mmol/ L 3.5-5. 2 Not Available [facility] ([facility]) [address] [facility] [place], [address], 04/14/2024 13:07:11 04/13/19 25 04/14/2024 RENAL PANEL (10) chloride 99 mmol/ L 96-106 Not Available [facility] ([facility]) [address] [facility] [place], [address], 04/14/2024 13:07:11 04/13/19 25 04/14/2024 RENAL PANEL (10) carbon dioxide, total 30 mmol/ L 20-29 above high normal Not Available [facility] ([facility]) [address] [facility] [place], [address], 04/14/2024 13:07:11 04/13/19 25 04/14/2024 RENAL PANEL (10) calcium 9.6 mg/dL 8.7-10 .3 Not Available [facility] ([facility]) [address] [facility] [place], [address], 04/14/2024 13:07:11 04/13/19 25 04/14/2024 RENAL PANEL (10) phosphorus 3.7 mg/dL 3.0-4. 3 Not Available [facility] ([facility]) [address] [facility] [place], [address], 04/14/2024 13:07:11 04/13/19 25 04/14/2024 RENAL PANEL (10) albumin 4.1 g/dL 3.8-4. 8 Not Available [facility] ([facility]) [address] [facility], [place], [address], 04/14/2024 13:07:11 04/13/19 25 04/14/2024 PROT+ CREAT U (RAND OM) creatinine, urine 91.8 mg/dL notest ab. Not Available [facility] ([facility]) [address] [facility], [place], [address], 04/14/2024 13:07:12 04/13/19 25 04/14/2024 PROT+ CREAT U (RAND OM) protein,tota l,urine 12.8 mg/dL notest ab. Not Available [facility] ([facility]) [address] [facility], [place], [address], 04/14/2024 13:07:12 04/13/19 25 04/14/2024 PROT+ CREAT U (RAND OM) protein/crea t ratio 139 mg/g_ creat 0-200 Not Available [facility] ([facility]) [address] [facility], [place], [address], 04/14/2024 13:07:12 04/13/19 25 04/13/2024 CBC WITH DIFFE RENTI AL/PL ATELE T WBC 4.9 x10e3 /uL 3.4-10 .8 Not Available [facility] ([facility]) [address] [facility], [place], [address], 04/14/2024 13:07:12 04/13/19 25 04/13/2024 CBC WITH DIFFE RENTI AL/PL ATELE T RBC 5.14 x10e6 /uL 3.77-5 .28 Not Available [facility] ([facility]) [address] [facility], [place], [address], 04/14/2024 13:07:12 04/13/19 25 04/13/2024 CBC WITH DIFFE RENTI AL/PL ATELE T hemoglobin 14.3 g/dL 11.1-1 5.9 Not Available [facility] ([facility]) [address] [place], [address], 04/14/2024 13:07:12 04/13/19 25 04/13/2024 CBC WITH DIFFE RENTI AL/PL ATELE T hematocrit 46.2 % 34.0-4 6.6 Not Available [facility] ([facility]) [address] [facility], [place], [address], 04/14/2024 13:07:12 04/13/19 25 04/13/2024 CBC WITH DIFFE RENTI AL/PL ATELE T MCV 90 fL 79-97 Not Available [facility] ([facility]) [address] [place], [address], 04/14/2024 13:07:12 04/13/19 25 04/13/2024 CBC WITH DIFFE RENTI AL/PL ATELE T MCH 27.8 pg 26.6-3 3.0 Not Available [facility] ([facility]) [address] [place], [address], 04/14/2024 13:07:12 04/13/19 25 04/13/2024 CBC WITH DIFFE RENTI AL/PL ATELE T MCHC 31.0 g/dL 31.5-3 5.7 below low normal Not Available [facility] ([facility]) [address] [place], [address], 04/14/2024 13:07:12 04/13/19 25 04/13/2024 CBC WITH DIFFE RENTI AL/PL ATELE T RDW 14.1 % 11.7-1 5.4 Not Available [facility] ([facility]) [address] [place], [address], 04/14/2024 13:07:12 04/13/19 25 04/13/2024 CBC WITH DIFFE RENTI AL/PL ATELE T platelets 230 x10e3 /uL 150-45 0 Not Available [facility] ([facility]) [address] [facility], [place], [address], 04/14/2024 13:07:12 04/13/19 25 04/13/2024 CBC WITH DIFFE RENTI AL/PL ATELE T neutrophils 74 % notest ab. Not Available [facility] ([facility]) [address] [facility], [place], [address], 04/14/2024 13:07:12 04/13/19 25 04/13/2024 CBC WITH DIFFE RENTI AL/PL ATELE T lymphs 15 % notest ab. Not Available [facility] ([facility]) [address] [facility], [place], [address], 04/14/2024 13:07:12 04/13/19 25 04/13/2024 CBC WITH DIFFE RENTI AL/PL ATELE T monocytes 9 % notest ab. Not Available [facility] ([facility]) [address] [facility], [place], [address], 04/14/2024 13:07:12 04/13/19 25 04/13/2024 CBC WITH DIFFE RENTI AL/PL ATELE T eos 1 % notest ab. Not Available [facility] ([facility]) [address] [facility], [place], [address], 04/14/2024 13:07:12 04/13/19 25 04/13/2024 CBC WITH DIFFE RENTI AL/PL ATELE T basos 1 % notest ab. Not Available [facility] ([facility]) [address] [place], [address], 04/14/2024 13:07:12 04/13/19 25 04/13/2024 CBC WITH DIFFE RENTI AL/PL ATELE T neutrophils (absolute) 3.6 x10e3 /uL 1.4-7. 0 Not Available [facility] ([facility]) [address] [facility], [place], [address], 04/14/2024 13:07:12 04/13/19 25 04/13/2024 CBC WITH DIFFE RENTI AL/PL ATELE T lymphs (absolute) 0.7 x10e3 /uL 0.7-3. 1 Not Available [facility] ([facility]) [address] [facility], [place], [address], 04/14/2024 13:07:12 04/13/19 25 04/13/2024 CBC WITH DIFFE RENTI AL/PL ATELE T monocytes(ab solute) 0.4 x10e3 /uL 0.1-0. 9 Not Available [facility] ([facility]) [address] [facility], [place], [address], 04/14/2024 13:07:12 04/13/19 25 04/13/2024 CBC WITH DIFFE RENTI AL/PL ATELE T eos (absolute) 0.1 x10e3 /uL 0.0-0. 4 Not Available [facility] ([facility]) [address] [facility], [place], [address], 04/14/2024 13:07:12 04/13/19 25 04/13/2024 CBC WITH DIFFE RENTI AL/PL ATELE T baso (absolute) 0.0 x10e3 /uL 0.0-0. 2 Not Available [facility] ([facility]) [address] [place], [address], 04/14/2024 13:07:12 04/13/19 25 04/13/2024 CBC WITH DIFFE RENTI AL/PL ATELE T immature granulocytes 0 % notest ab. Not Available [facility] ([facility]) [address] [facility], [place], [address], 04/14/2024 13:07:12 04/13/19 25 04/13/2024 CBC WITH DIFFE RENTI AL/PL ATELE T immature grans (abs) 0.0 x10e3 /uL 0.0-0. 1 Not Available [facility] ([facility]) [address] [facility], [place], [address], 04/14/2024 13:07:12 04/13/19 25 04/14/2024 PTH, INTAC T PTH, intact 24 pg/mL 15-65 Not Available [facility] ([facility]) [address] [facility], [place], [address], 04/14/2024 13:07:13 06/05/19 25 06/04/2024 Drugs ident [...] by Scree fay jewello junior Nomin al benzodiazepi ariana [presence] in [...] by Scree fay metho junior Nomin al opiates [presence] in [...] en normal Not Available Not Available 00:18:13 06/05/1906/04/2024 Urina lysis compl ete W Refle x [...] Not Available 06/05/2024 00:18:13 06/05/19 25 06/04/2024 [facility] panel - Serum or Plasm a potassium [moles/volum e] in serum or plasma 4.3 mmol/ L low: 3.5mmo l/Lhig h: 5.1mmo l/L normal Not Available Not Available 06/05/2024 00:18:13 06/05/19 25 06/04/2024 [facility] ehens deana [facility] 1999 panel - Serum or Plasm a chloride [moles/volum e] in serum or plasma 107 mmol/ L low: 98mmol /Lhigh : 107mmo l/L normal Not Available Not Available 06/05/2024 00:18:13 06/05/19 25 06/04/2024 [facility] panel - Serum or Plasm a carbon dioxide, total [moles/volum e] in serum or plasma 24 mmol/ L low: 22mmol /Lhigh : 30mmol /L normal Not Available Not Available 06/05/2024 00:18:13 06/05/19 25 06/04/2024 [email or web address] panel - Serum or Plasm a anion gap in serum or plasma by calculation 13.3 mmol/ L low: 14mmol /Lhigh : 22mmol /L low Not Available Not Available 06/05/2024 00:18:13 06/05/1906/04/2024 [facility] panel - Serum or Plasm a glucose [mass/volume ] in serum or plasma 104 mg/dL low: 70mg/d Lhigh: 99mg/d L high Not Available Not Available 06/05/2024 00:18:13 06/05/19 25 06/04/2024 [facility] panel - Serum or Plasm a urea nitrogen [mass or moles/volume ] in serum or plasma 33 mg/dL low: 8mg/dL high: 19mg/d L high Not Available Not Available 06/05/2024 00:18:13 06/05/19 25 06/04/2024 [facility] [employer] deana [facility] 1999 panel - Serum or Plasm a creatinine [mass/volume ] in serum or plasma 1.28 mg/dL low: 0.66mg /dLhig h: 1.25mg /dL high Not Available Not Available 06/05/2024 00:18:13 06/05/19 25 06/04/2024 [facility] [employer] deana [employer] 1999 panel - Serum or Plasm a glomerular filtration rate [volume rate/area] in serum, plasma or blood by based on 1.73 sq M 40 1 normal Not Available Not Available 00:18:13 06/05/19 25 06/04/2024 [facility] [employer] 1999 panel - Serum or Plasm a alkaline phosphatase [enzymatic activity/vol ume] in serum or plasma 96 U/L low: 38U/Lh igh: 126U/L normal Not Available Not Available 06/05/2024 00:18:13 06/05/19 25 06/04/2024 [facility] [employer] 1999 panel - Serum or Plasm a alanine aminotransfe rase [enzymatic activity/vol ume] in serum or plasma 42 U/L low: 0U/Lhi gh: 35U/L high Not Available Not Available 06/05/2024 00:18:13 06/05/19 25 06/04/2024 [facility] [employer] 1999 panel - Serum or Plasm a aspartate aminotransfe rase [enzymatic activity/vol ume] in serum or plasma 48 U/L low: 15U/Lh igh: 37U/L high Not Available Not Available 06/05/2024 00:18:13 06/05/19 25 06/04/2024 [facility] [employer] 1999 panel - Serum or Plasm a bilirubin.to rosalva [mass/volume ] in serum or plasma 0.7 mg/dL low: 0.2mg/ dLhigh : 1.3mg/ dL normal Not Available Not Available 06/05/2024 00:18:13 06/05/19 25 06/04/2024 [facility] [employer] deana [employer] 1999 panel - Serum or Plasm a calcium [mass/volume ] in serum or plasma 9.9 mg/dL low: 8.4mg/ dLhigh : 10.2mg /dL normal Not Available Not Available 06/05/2024 00:18:13 06/05/19 25 06/04/2024 [employer] deana [employer] olic 1999 panel - Serum or Plasm a protein [mass/volume ] in serum or plasma 7.7 g/dL low: 6.3g/d Lhigh: 8.2g/d L normal Not Available Not Available 06/05/2024 00:18:13 06/05/19 25 06/04/2024 Compr [employer] deana [employer] 1999 panel - Serum or Plasm a albumin [mass/volume ] in serum or plasma 4.7 g/dL low: 3g/dLh igh: 4.4g/d L high Not Available Not Available 06/05/2024 00:18:13 06/05/19 25 06/04/2024 Compr [employer] deana [employer] 1999 panel - Serum or Plasm a globulin [mass/volume ] in serum 3 g/dL low: 2.6g/d Lhigh: 4.2g/d L normal Not Available Not Available 06/05/2024 00:18:13 06/05/19 25 06/04/2024 Compr [employer] deana [employer] 1999 panel - Serum or Plasm [...] ardio gram No observ ation record ed. [facility] [address], [place], [address], 09/23/2023 12:42:33 10/10/19 24 10/10/2023 US, kidne y No observ ation record ed. [facility] [address], [place], [address], 10/12/2023 12:48:46 12/22/19 24 12/22/2023 XR, forea rm No observ ation record ed. [address] [place], [address], 12/23/2023 11:35:48 12/22/19 24 12/22/2023 XR, humer us No observ ation record ed. [address] [place], [address], 12/23/2023 11:36:02 01/21/20 24 01/19/2024 US, kidne y No observ ation record ed. [facility] [address], [place], [address], 01/25/2024 11:01:38 06/05/19 25 06/04/2024 XR, chest No observ ation record ed. [facility] [address] [place], [address], 06/06/2024 10:55:44 06/05/19 25 06/04/2024 CT, head, w/o contr ast No observ ation record ed. [facility] [address] [place], [address], 06/06/2024 10:55:22 Result Notes None recorded. Problems Name Problem SNOMED Code Status Onset Date Resolution Date Notes Provider Name and Address Organization Details Recorded Time Night sweats 97125502 Active 2023 CHATO Betts [facility] 4 11:55:44 Weight loss 88372849 Active 2023 CHATO Betts [place] [facility] 4 11:55:45 Spinal stenosis of lumbar region 06629394 Active 2023 Chen Gavin MD Attn: Tatyana eller,[address], [place], [address], [place] [facility] 4 16:27:33 Atrial fibrillation 15629307 Active 2023 Chen Gavin MD Attn: Tatyana g,[address], [place], [address], [place] [facility] 4 16:27:36 Gout 28866303 Active 2023 Chen Gavin MD Attn: Accountroxi g,[address], [place], [address], [place] [facility] 4 16:27:37 Essential hypertension 71780098 Active 2023 Chen Gavin MD Attn: Tatyana eller,[address], [place], [address], [place] [facility] 4 16:27:39 Hyperlipidemia 21364100 Active 2023 Chen Gavin MD Attn: Tatyana g,[address], [place], [address], [place] [facility] 4 16:27:41 Problem Notes None recorded. Procedures Surgical History None recorded. Imaging Results Imaging Date Name Status LastModified by Organization Details LastModified Time 09/09/2023 US, echocardiogram completed [facility] [address], [place], [address], 09/23/2023 12:42:33 10/10/2023 US, kidney completed [facility] [address], [place], [address], 10/12/2023 12:48:46 12/22/2023 XR, forearm completed [facility] [address], [place], [address], 12/23/2023 11:35:48 12/22/2023 XR, humerus completed [email or web address] [place], [address], 12/23/2023 11:36:02 01/19/2024 US, kidney completed [facility] [address], [place], [address], 01/25/2024 11:01:38 06/04/2024 XR, chest completed [facility] [address] [place], [address], 06/06/2024 10:55:44 06/04/2024 CT, head, w/o contrast completed [facility] [address] [place], [address], 06/06/2024 10:55:22 Procedure Notes None recorded. Medical Equipment None Reported. Allergies Allergen ID Allergen Name Allergen Category Reaction Reaction Severity Criticality Documentation Date Start Date Code Code System Note Provider Name and Address Organization Details Recorded Time 979016 Product containin g penicilli n (product) medicatio n rash moderate high 07/22/2023 49847 8001 GAMALIEL Carlson LPN null, [place] - [facility] 4 12:41:45 282971 Substance with sulfonami de structure and antibacte rial mechanism of action (substanc e) medicatio n nausea moderate high 07/22/2023 72092 8003 GAMALIEL Carlson LPN [place], [place] [facility] 4 12:42:16 Medications Name Sig Start Date Stop Date [...] Updated DateTime 4 167.64 cm 23.1 kg/m2 87530.7 1 g 49 /min 97 % 97 % 146 mm[Hg] 82 mm[Hg] Selina Carson MA [facility] 4 10:59:20 Date Recorded Body height Body mass index (BMI) Body weight Heart rate Oxygen saturation Oxygen saturation in Arterial blood by Pulse oximetry Systolic blood pressure Diastolic blood pressure Provider Name and Address Organization Details Last Updated DateTime 4 167.64 cm 23.2 kg/m2 56277.3 g 51 /min 96 % 96 % 128 mm[Hg] 58 mm[Hg] Matheus Mckeon MA [facility] 4 12:15:09 Date Recorded Body height Body mass index (BMI) Body weight Heart rate Oxygen saturation Oxygen saturation in Arterial blood by Pulse oximetry Systolic blood pressure Diastolic blood pressure Provider Name and Address Organization Details Last Updated DateTime 4 167.64 cm 22.9 kg/m2 60344.4 8 g 72 /min 94 % 94 % 110 mm[Hg] 60 mm[Hg] Holly Lyn MA [place] - [facility] 4 11:58:43 Date Recorded Body height Body mass index (BMI) Body weight Heart rate Oxygen saturation Oxygen saturation in Arterial blood by Pulse oximetry Systolic blood pressure Diastolic blood pressure Provider Name and Address Organization Details Last Updated DateTime 5 167.64 cm 23.1 kg/m2 57483.4 3 g 74 /min 96 % 96 % 128 mm[Hg] 78 mm[Hg] Farrah Medrano MA [facility] 5 14:42:56 Social History Question Answer Notes LastModified by Organizat ion Details LastModified Time Tobacco Smoking Status Never Smoker Selina Carson MA [facility], [place] - [facility] 08/20/2023 10:57:21 Do You Have An Advance [...] Anxious, Or Unable To Sleep At Night)? [id number] Information not available 2023 Do You Use [...] Time Influenza, high-dose, quadrivalent, PF 2 completed Matheus Mckeon [place], [place] [facility] 09/16/2023 17:12:35 Influenza, high-dose, quadrivalent, PF 1 completed Matheus Mcke[place] [facility] 09/16/2023 17:12:35 Influenza, high-dose, quadrivalent, PF 0 completed CHATO [place] [facility] 09/16/2023 17:12:35 Influenza, high-dose, quadrivalent, PF 1 completed Matheus Mcke[place] [facility] 09/16/2023 17:12:35 Influenza, adjuvanted, [...] 17:12:35 tetanus toxoid, unspecified formulation 3 completed Matheus Mckeon MA null, [place] - [facility] 09/16/2023 17:12:35 influenza, unspecified formulation 2 completed Matheus Mcke[place] [facility] 09/16/2023 17:12:35 zoster live 5 completed Matheus Mcke[place] [facility] 09/16/2023 17:12:35 zoster live 5 completed Matheus Mcke[place] [facility] 09/16/2023 17:12:35 Influenza, high-dose, trivalent, PF 3 completed [place] [facility] 09/16/2023 17:12:35 Influenza, high-dose, trivalent, PF 7 completed [place] [facility] 09/16/2023 17:12:35 Influenza, split virus, trivalent, preservative 4 completed Matheus Mcke[place] [facility] 09/16/2023 17:12:35 Influenza, split virus, quadrivalent, PF 5 completed Matheus Mcke[place] [facility] 09/16/2023 17:12:35 Influenza, high-dose, trivalent, PF 4 completed Chen Gavin MD Attn: Accounting,[address] [place], [address], [facility] - [facility] 03/04/2024 14:29:33 Pneumococcal conjugate PCV20, polysaccharide ESD630 conjugate, adjuvant, PF 5 completed CHATO Juarez, [place] - [facility] 04/01/2024 11:03:49 Past Encounters Encounter ID Performer Location Encounter Start Date Encounter Closed Date Diagnosis/Indication Diagnosis SNOMED-CT Code Diagnosis ICD10 Code Diagnosis Note [id number] Chen Gavin MD [facility] e - Vanessa Sharif [address] [place] [address] 08/20/2023 10:48:43 08/20/2023 11:50:10 Night sweats 95934255 R61 Weight loss 27602669 R63 .4 Screening for cardiovascular system disease 431581553 Z13.6 Hyperlipidemia 50528727 E78.5 Essential hypertension 70376788 I10 Atrial fibrillation 4943 6004 I48.91 Gout 72095919 M10.9 Spinal linda nosis of lumbar region 65861065 M48.061 Anxiety 82336790 F41.9 [id number] Chen Gavin MD [facility] [address] [place] [address] 2023 11:49:54 2023 12:59:01 Essential hypertension 43984645 I10 Gout 20798264 M10.9 Hyperlipidemia 42750574 E78.5 Night sweats 35332095 R6 1 [id number] Chen Gavin MD [facility] [address] [place] [address] 01/21/2024 11:44:06 01/21/2024 12:46:14 Body mass index 20-24 - normal 138267860 Z68.22 Administra tion of influenza vaccine 32802202 Z23 Essential hypertension 51071273 I10 Hyperlipidemia 95171406 E78.5 Atrial fibrillation 4943 6004 I48.91 [id number] Chen Gavin MD [facility] [address] [place] [phone] 04/01/2024 10:40:06 04/01/2024 11:13:10 Administration of pneumococcal vaccine 55042416 Z23 [id number] Chen Gavin MD [facility] ([facility]) [address] [place] [id number] 04/22/2024 14:00:37 04/22/2024 15:04:28 Body mass index 20-24 - normal 344255566 Z68.22 Essential hypertension 62973763 I10 Atrial fibrillation 4943 6004 I48.91 Gout 54930627 M10.9 Hyperlipidemia 42054128 E78.5 Health Concerns Section Related Observation LastModified by Organization Detai ls LastModified Time None Recorded Concern Status LastModified by Organization Details LastModified Time None Recorded Advance Directives Directive N: Patient states her cailin Castano Payers Encounter Date Sequence Insurance Name Policy Number Policy Velazquez Covered Member ID Velazquez Member ID Guarantor Name 08/20/2023 1 [place] Mary Valera [id number] Mary Valera 08/20/2023 2 [employer] (MEDICARE SUPPLEMENT) Mary Valera [id number] Mary Valera 2023 2 [employer] (MEDICARE SUPPLEMENT) Mary aSmsonws [id number] Mary Valera 2023 [place] - [place] Mary Samsonws [id number] Mary Valera 01/21/2024 1 [place] Mary Valera [id number] Mary Valera 01/21/2024 2 [employer] (MEDICARE SUPPLEMENT) Mary Samsonws [id number] Mary Valera 04/01/2024 1 [place] Valera [id number] Mary Valera 04/01/2024 2 [employer] (MEDICARE SUPPLEMENT) Mary Samsonws [id number] Mary Valera 04/22/2024 1 [place] Mary Valera [id number] Mary Valera 04/22/2024 2 [employer] (MEDICARE SUPPLEMENT) Mary Samsonws [id number] Mary Valera Notes Date Note Type Note [...] 2. Chen Gavin MD Attn: Accounting[address] [place], [address], [place] [facility] 08/22/2023 16:27:55 2023 text/html follow up of med ical problems night sweats have completely gone away gout no flare-ups hyperlipidemia trying to follow a low-fat diet hypertension no headache no dizziness lumbar spinal stenosis no back pain at this time atrial fibrillation no palpitations or stroke-like symptoms no shortness of breath dizziness or fatigue Chen Gavin MD Attn: Accounting[address] [facility], [place], [address], [place] [facility] 09/27/2023 20:28:18 01/21/2024 text/html hypertension no headache or dizziness blood pressure controlled. Atrial fibrillation no palpitations syncope or stroke-like symptoms. Dyslipidemia does try to follow a low-fat diet. Her night sweats have gone away Chen Gavin MD Attn: Accounting[address] [facility], [place], [address], [facility] - [facility] 03/04/2024 14:32:12 04/22/2024 text/html gout no flare-up s AFib no palpitations dyslipidemia taking her medication and there has not been any problems there hypertension has been controlled she has had a little bit of scratchy throat for the last 24 hours but he is getting a little bit better Chen Gavin MD Attn: Accounting[address] [facility], [place], [address], [place] [facility] 04/23/2024 13:53:31 OBGyn Episode No OBEpisode recorded.
--- OUTSIDE RECORDS SUMMARY | 2024-07-07 10:24 | XMS_ITS | Clinical Summary ---
Author Organization [facility] Address [address] [place] [address] Care Team Providers Care Solar Sales Representative And Assessor Name Role Phone Omi Prieto MD Primary Care Provider [phone] Source Comments [facility],non-owned Affiliates and Associated Physician Practices is amultiple site organization consisting of ambulatory clinics and hospital sitesin [place], [place]. This disclosure is being madepursuant to the Care Everywhere program and may not contain all information available regarding this patient. Last updated 17.[facility] Runnit Social History Tobacco Use Types Packs/Day Years Used Date Smoking Tobacco: Never Assessed Comments Unknown Sex and Gender Information Value Date Recorded Sex Assigned at Not on file Legal Sex Female 2:52 PM CDT Gender Identity Not on file Sexual Orientation [...] on patient's age to complete this topic Insurance MEDICARE [facility] MEDICARE [facility] [place] [address] Care Teams Solar Sales Representative And Assessor Relationship Specialty Start Date End Date Omi Prieto MD PCP - General 12/16/18
--- OUTSIDE RECORDS SUMMARY | 2024-07-07 10:25 | XMS_ITS | Encounter Summary ---
Author Organization [facility] Address [address] [place] [address] Care Team Providers Care Ampoule Inspector Name Role Phone Omi Prieto MD Primary Care Provider [phone] Encounter Details Date Type Department Care Team (Late st Contact Info) Description 09/24/2022 Lab Requisition [facility] [address] [facility] [place] [address] Ellie Guzman DO [address] [facility] [address] [place] [address] Social History Tobacco Use Types Packs/Day Years [...] PM CDT) Case Report Dermatopathology Report Case: [id number] Authorizing Provider: Ellie Guzman DO Collected: 09/24/2022 01:19 PM Ordering Location: [facility] Received: 09/26/2022 07:30 AM Pathologist: Nicol Pereira MD Specimens: A) - Skin, left base of neck B) - Skin, mid back 4:21 PM CDT DERMATOPATHOLOGY LABORATORY Final Diagnosis Specimen A. SKIN, left base of neck: LICHEN PLANUS-LIKE KERATOSIS (BENIGN LICHENOID KERATOSIS) (L82.1) POST-INFLAMMATORY PIGMENT ALTERATION (L81.9) Specimen B. 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 Jar 0. 3 4:21 PM [facility] DERMATOPATHOLOGY LABORATORY Microscopic Description Specimen [...] reviewed. (Compound Murali's Nevus) 3 4:21 PM [facility] DERMATOPATHOLOGY LABORATORY Disclaimer An external and internal positive and negative controls are appropriate for the histochemical, immunohistochemical and immunofluorescence stain(s) in this case (if any), except where stated explicitly. The performance characteristics of the stain(s) cited in this report were developed and its performance characteristic determined by the Dermatopathology Laboratory at [facility], directed by Dr. Cole Rascon. These tests need not be, and therefore are not, approved by the [place] Food and Drug Administration. The tests are used for clinical purposes. Billing Codes Specimen Charges Stain Charges 03717 54510 1 1 09164 1 3 4:21 PM T DERMATOPATHOLOGY LABORATORY Embedded Images 4:21 PM CDT DERMATOPATHOLOGY LABORATORY Pathology/Cytology TISSUE SPECIMEN FROM SKIN / Unknown 09/24/2022 1:19 PM CDT 09/26/2022 7:30 AM CDT Miscellaneous samples (specimen) TISSUE SPECIMEN FROM SKIN / Unknown 09/24/2022 1:19 PM CDT 09/26/2022 7:30 AM CDT us Ellie Guzman DO LAB - PATHOLOGY/CYTOLOGY ORDERABLES Final Result DERMATOPATHOLOGY LABORATORY [facility] - Department of Dermatology [facility] Medicine [address] [place] [address], [address] [phone] documented in this encounter Visit Diagnoses Not on filedocumented in this encounter Care Teams Ampoule Inspector Relationship Specialty Start Date End Date Omi Prieto MD PCP - General 12/16/18 documented as of this encounter
--- OUTSIDE RECORDS SUMMARY | 2024-07-07 10:25 | XMS_ITS | Clinical Summary ---
Author Organization [facility] Address [address] [place] [address] Care Team Providers Care Copy Camera Operator Name Role Phone Fred Gavin MD Primary Care Provider + [phone] Allergies Active Allergy Reactions Criticality Noted Date [...] a day for 60 doses 60 tablet 4 Active Active Problems Problem Noted Date Diagnosed [...] on file Legal Sex Female 7:15 PM SHOULDER PAD MOLDER Gender Identity Not on file Sexual Orientation Not on file Obstetrics History Last Filed Vital Signs Vital Sign Reading Time Taken Comments Blood Pressure 138/71 05/13/2023 7:56 AM SHOULDER PAD MOLDER Pulse 72 05/13/2023 7:56 AM SHOULDER PAD MOLDER Temperature 36.9 C (98.4 F) 05/13/2023 7:56 AM SHOULDER PAD MOLDER Respiratory Rate 16 05/13/2023 7:56 AM SHOULDER PAD MOLDER Oxygen Saturation 97% 05/13/2023 7:56 AM SHOULDER PAD MOLDER Inhaled Oxygen Concentration - - Weight 64.6 kg (142 lb 8 oz) 05/12/2023 10:32 AM SHOULDER PAD MOLDER Height 165.1 cm (5' 5 ) 05/12/2023 10:32 AM SHOULDER PAD MOLDER Body Mass Index 23.71 05/12/2023 10:32 AM SHOULDER PAD MOLDER Plan of Treatment Health Maintenance Due Date [...] Breast Cancer Screening-Mammogram Discontinued 021 Insurance MEDICARE [facility] MEDICARE Advance Directives For more information, please contact: [phone] * Full Code (Latest Code Status on File) Date Activated Date Inactivated Comments 05/05/2019 1:17 PM 05/05/2019 6:23 PM Care Teams Copy Camera Operator Relationship Specialty Start Date End Date Fred Gavin MD PCP - General Internal Medicine 03/25/22
--- OUTSIDE RECORDS SUMMARY | 2024-07-07 10:25 | XMS_ITS | Encounter Summary ---
Author Organization [facility] Address [address] [place] [address] Care Team Providers Care Supervisor Home Restoration Service Name Role Phone Omi Prieto MD Primary Care Provider [phone] Encounter Details Date Type Department Care Team (Late st Contact Info) Description 04/23/2023 Lab Requisition [facility] - DermPath Lab [address] [place] [id number] Ellie uGzman DO [address] [place] [address] Social History Tobacco Use Types Packs/Day Years [...] Diagnosis Comments DERMATOPATHOLOGY Routine 04/23/2023 9:18 AM [facility] documented in this encounter Results * DERMATOPATHOLOGY (04/23/2023 9:18 AM [facility]ARDEN) Case Report Dermatopathology Report Case: [id number] Authorizing Provider: Ellie Guzman DO Collected: 04/23/2023 09:18 AM Ordering Location: [facility] DermPath Lab Received: 04/24/2023 06:41 AM Pathologist: Nicol Pereira MD Specimens: A) - Skin, left chest B) - Skin, left ant LE 4 4:28 PM [facility] DERMATOPATHOLOGY LABORATORY Final Diagnosis Specimen A. SKIN, left chest: LICHEN PLANUS-LIKE KERATOSIS (BENIGN LICHENOID KERATOSIS) (L82.1) (see microscopic description) Specimen B. SKIN, left ant LE: SPONGIOTIC DERMATITIS WITH EOSINOPHILS (L30.8) (see microscopic description and comment) 4 4:28 PM [facility] DERMATOPATHOLOGY LABORATORY Clinical History A-B: r/o [facility] 4 4:28 PM [facility] DERMATOPATHOLOGY LABORATORY Gross Description Specimen [...] 6x4x1 mm. Jar 0. 4 4:28 PM [facility] DERMATOPATHOLOGY LABORATORY Microscopic Description Specimen [...] phase of bullous pemphigoid. 4 4:28 PM [facility] DERMATOPATHOLOGY LABORATORY Disclaimer An external and internal positive and negative controls are appropriate for the histochemical, immunohistochemical and immunofluorescence stain(s) in this case (if any), except where stated explicitly. The performance characteristics of the stain(s) cited in this report were developed and its performance characteristic determined by the Dermatopathology Laboratory at [facility], directed by Dr. Cole Rascon. These tests need not be, and therefore are not, approved by the [place] Food and Drug Administration. The tests are used for clinical purposes. Billing Codes Specimen Charges Stain Charges 56471 [id number] 1 1 45178 1 4 4:28 PM [facility] DERMATOPATHOLOGY LABORATORY Embedded Images 4:28 PM [facility] DERMATOPATHOLOGY LABORATORY Pathology/Cytology TISSUE SPECIMEN FROM SKIN / Unknown 04/23/2023 9:18 AM [facility] 04/24/2023 6:41 AM [facility] Miscellaneous samples (specimen) TISSUE SPECIMEN FROM SKIN / Unknown 04/23/2023 9:18 AM [facility]EN 04/24/2023 6:41 AM [facility] us Ellie Guzman DO LAB - PATHOLOGY/CYTOLOGY ORDERABLES Final Result DERMATOPATHOLOGY LABORATORY [facility] - Department of Dermatology [facility] Medicine [address] [place] [address], [address] [phone] documented in this encounter Visit Diagnoses Not on filedocumented in this encounter Care Teams Supervisor Home Restoration Service Relationship Specialty Start Date End Date Omi Prieto MD PCP - General 12/16/18 documented as of this encounter
--- OUTSIDE RECORDS SUMMARY | 2024-07-07 10:25 | XMS_ITS | Data Portability ---
Author Organization [place] [facility] [employer], Main Office Address [address] [place] [address] Care Team Providers Care Straightener Hand Name Role Phone CHEN GAVIN Primary Care Provider CHEN GAVIN Referring Provider Assessment Encounter Date Assessment Date Assessment LastModified by Organization Details LastModified Time 07/25/2022 07/25/2022 Potassium being 15 mg q.h.s. bone density mammogram follow-up in 6 weeks [email or web address] Not available 10/25/2022 21:23:24 08/18/2022 08/18/2022 Patient returns status post knee arthroscopy left. She has had a longer recovery. With final East seemingly turning the corner his swelling is going away pain is resolving incision looks clean I think she can be dismissed to normal activity. She has any changes or problems she will call see her back on an as-needed basis. [email or web address] Not available 08/18/2022 11:07:37 09/08/2022 09/08/2022 Continue current therapy and follow up in 3-4 months Not available 09/20/2022 18:19:04 09/22/2022 09/22/2022 Patient [...] see her back on an as-needed basis. [email or web address] Not available 09/22/2022 10:32:43 03/16/2023 03/16/2023 Singulair for rhinitis clonidine 0.1 mg daily for systolic blood pressure greater than 170 MRI MRA blood pressure check 1 week [email or web address] Not available 03/16/2023 23:26:01 Plan of Treatment Reminders Order Date Submit Date Provider Last Modified By Organization Details Last Modified Time Details Appointments None recorded. Lab None recorded. Referral None recorded. Procedures None recorded. Surgeries None recorded. Imaging MRI, brain, w/o contrast - no auth required 2023 024 [facility] [address] [place], [address], 4 16:19:57 MR, angiogram, brain, w/o contrast - no auth required [address] ([facility] Scheduling), [address] [place], [address], 4 08:04:42 MAMMO, screening, digital, bilateral 2022 023 [facility] ([facility] Sched[facility]), [address] [place], [address], 3 10:25:31 bone density 2022 023 [facility] ([facility] Sched[facility]), [address] [place], [address], 3 10:25:32 Medication Orders Singulair 10 mg tablet 2023 024 [email or web address] [id number], [address], [place], [id number], 4 11:15:49 clonidine HCl 0.1 mg tablet 2023 024 [email or web address] [facility] #[id number], [address] [place], [place], [id number], 4 11:15:49 Patient TargetsNo targets recorded. Patient Instructions Encounter Date Encounter Id Patient Instructions Last Modified By Organization Details Last Modified Time 07/25/2022 [id number] dementia rating scale-2* [email or web address] Not available 07/26/2022 14:30:55 alcohol misuse* [email or web address] Not available 07/26/2022 14:30:55 depression screening* [email or web address] Not available 07/26/2022 14:30:55 multi-dimensiona l health assessment questionnaire* [email or web address] Not available 07/26/2022 14:30:55 Personalized a lt [...] (PROC ) No observ ation record ed. [facility] [address], [place], [address], 09/10/2022 14:31:26 08/12/19 23 07/31/2022 sleep study , diagn ostic (PROC ) No observ ation record ed. [facility] [address], [place], [address], 09/10/2022 14:31:07 08/22/19 23 08/21/2022 DEXA, axial skele ton [facility] [address], [place] [address] Tennille t Name: MARY PALMA Access ion #: [id number] Sex: F : 1945 3 Locati [...] e of -0.7. Page 1 of 2 [facility] Patididi t Name: MARY PALMA Access ion #: [id number] Sex: F : 1945 3 Exam [...] 4:52 PM (CT) Page 2 of 2 [email or web address] [facility] (Imaging) [address] [place], [address], 09/08/2022 11:33:27 08/23/19 23 08/21/2022 scree george breas t yumiko, bilat [facility] [address] [place] [address] [phone] Patididi t Name: MARY PALMA Access ion #: [id number] Sex: F : 1945 3 Locati [...] rosi ectura l Page 1 of 2 [facility] Tennille carr Name: MARY PALMA Access ion #: [id number] Sex: F : 1945 3 Exam [...] 10:54 AM (CT) Page 2 of 2 [email or web address] [facility] (Imaging) [address], [place], [address], 09/08/2022 11:33:28 03/19/19 24 03/19/2023 MRI, brain , w/o contr ast [facility] [address] [facility] [address], [place] [address] Patien t Name: MARY PALMA Access ion #: [id number] Sex: F : 1945 5 Dictat ed By: Qunetin Titus Attend ing Physic herson: PAVAN GAVIN [...] c ischem ic change s Page 1 [facility] [address] [id number] Patien t Name: LILA PALMANE Access ion #: [id number] Sex: F : 1945 5 Dictat ed By: Quentin Titus Attend ing Physic herson: MARU REEDER Physic herson: PAVAN GAVIN Exam Date: 2023 14:03 PM Exam Name: MRI BRAIN WO Admitt ing Diagno sis(es ): Electr onical ly Signed by: Quentin Titus at 2023 15:18: 41 PM Page 2 [facility] (Imaging) [address] [place], [address], 03/19/2023 16:38:22 03/19/19 24 03/19/2023 MR, angio gram, head, w/o contr ast [facility] [address] [place] [address] [phone] Patien t Name: LILA PALMANE Access ion #: [id number] Sex: F : 1945 5 Dictat ed By: Shai Mckeon Attend ing Physic herson: PAVAN GAVIN Physic herson: PAVAN GAVIN Exam Date: 2023 14:03 PM Exam Name: MRA HEAD WO Admitt ing Diagno sis(es ): PROCED URE: MRA HEAD WO INDICA TION: Headac he Exam Date: 024 2:03 PM CV RN COMPAR BRADEN: MRI brain dated 024 TECHNI QUE: MRA head withou t intrav enous contra st. 3D image postpr ocessi ng was perfor med on [facility] [employer] [facility] and images were used for interp retati on and report ingLuan DREW GS: MRA head: There is preser krystal enhanc ement within the bilate ral distal internet designer al caroti d arteri es. There is preser krystal enhanc ement within the anteri or and middle cerebr al arteri es. There is preser krystal enhanc ement within the verteb ral arteri es, basila r artery , cerebe llar arteri es and bridal gown fitter ior cerebr al arteri es. There is [...] at 2023 15:44: 15 PM Page 1 [facility] (Imaging) [address] [place], [address], 03/23/2023 09:37:17 04/30/19 24 04/29/2023 CT, angio gram, heart , w/ contr ast No observ ation record ed. [email or web address] [facility] [address], [place], [address], 05/06/2023 16:40:17 05/04/19 24 04/29/2023 CT, angio gram, heart , w/ contr ast No observ ation record ed. [email or web address] [facility] [address], [place], [address], 05/06/2023 16:41:23 Result Notes None recorded. Problems Name Problem SNOMED Code Status Onset Date Resolution Date Notes Provider Name and Address Organization Details Recorded Time Pain of left knee joint 2482891810479 07 Active 2022 Not Available [facility] 4 13:55:34 Tear of medial meniscus of knee 535127742 Active 2022 Not Available [facility] 4 13:55:34 Tear of medial meniscus of knee 192930842 Active 2022 Not Available [facility] 4 13:55:34 Anxiety 17089517 Active 2022 Not Available [facility] 4 13:55:34 Obstructiv e sleep apnea syndrome 30042418 Active 2022 Not Available [facility] 4 13:55:34 Acute sinusitis 49943493 Active 2022 Not Available [facility] 4 13:55:34 Rhinitis 31286830 Active 2023 Not Available [facility] 4 13:55:34 Headache 25406081 Active 2023 Not Available [facility] 4 13:55:34 Bilateral osteoarthr itis of knees 3310818422831 07 Active 2022 Not Available [facility] 4 13:55:33 Derangemen t of left knee 7654654450211 9108 Active 2022 Not Available [facility] 4 13:55:34 Pain in right sacroiliac joint 6724425957784 9107 Active 2021 Not Available [facility] 4 13:55:34 Spinal stenosis of lumbar region 69276813 Active 2021 Not Available [facility] 4 13:55:34 Low back pain 487862380 Active 2021 Not Available [facility] 4 13:55:34 Small bowel obstructio n 525052719 Active Not Available [facility] 4 13:55:34 Effusion of joint of left knee 7079192486928 05 Active 2022 Not Available [facility] 4 13:55:34 Acquired trigger finger of right middle finger 8779787423366 05 Active 2021 Not Available [facility] 4 13:55:34 Ingrowing toenail 598315157 Active 2019 Not Available [facility] 4 13:55:34 Unexplaine d weight loss 192239246 Active Not Available [facility] 4 13:55:34 Chronic atrial fibrillati on 400432873 Active 2018 Not Available [facility] 4 13:55:34 Paresthesi a of lower extremity 426842729 Active 2022 Not Available [facility] 4 13:55:34 Atrial fibrillati on 02676222 Active Not Available [facility] 4 13:55:34 Upper respirator y infection 89060617 Active Not Available [facility] 4 13:55:34 Essential hypertensi on 48106887 Active Not Available [facility] 4 13:55:34 Diarrhea 73201841 Active Not Available [facility] 4 13:55:34 Hemorrhoid s 47796116 Active 2022 Not Available [facility] 4 13:55:34 Spinal stenosis in cervical region 26082546 Active 2021 Not Available [facility] 4 13:55:34 Leukopenia 80945408 Active 2021 Not Available [facility] 4 13:55:34 Skin lesion 44267870 Active Not Available [facility] 4 13:55:34 Problem Notes None recorded. Procedures Surgical History Date Name Laterality Status Provider Name and Address Organization Details Recorded Time 023 Medicare Wellness CPT Code, subsequent completed Zina Foster RN [facility] [employer] 07/25/2022 12:09:58 023 Knee arthroscopy/surgery completed IVANNA Langston [facility] [employer] 07/25/2022 11:50:28 021 EGD completed Not Available [facility] 05/07/2022 03:20:17 019 Cardiac Cath completed Not Available [facility] 05/07/2022 03:20:17 017 Gastrointestinal Surgery completed Not Available [facility] 05/07/2022 03:20:17 014 Most Recent Bone Density completed Not Available [facility] 05/07/2022 03:20:14 010 Date of Last Colonoscopy completed Not Available [facility] 05/07/2022 03:20:14 completed Not Available [facility] 05/07/2022 03:20:17 Hysterectomy completed Not Available [facility] 05/07/2022 03:20:17 Excisions - Specify completed Not Available [facility] 05/07/2022 03:20:17 Imaging Results Imaging Date Name Status LastModified by Organiz ation Details LastModified Time 07/31/2022 sleep study, diagnostic (PROC) completed [facility] [address], [place], [address], 09/10/2022 14:31:26 07/31/2022 sleep study, diagnostic (PROC) completed [facility] [address], [place], [address], 09/10/2022 14:31:07 08/21/2022 DEXA, axial skeleton completed [email or web address] (Imaging) [address] [place], [address], 09/08/2022 11:33:27 08/21/2022 screening breast yumiko, bilat completed [email or web address] [place] [address] (Imaging) [address] [place], [address], 09/08/2022 11:33:28 03/19/2023 MRI, brain, w/o contrast completed [facility] (Imaging) [address] [place], [address], 03/19/2023 16:38:22 03/19/2023 MR, angiogram, head, w/o contrast completed [facility] (Imaging) [address] [place], [address], 03/23/2023 09:37:17 04/29/2023 CT, angiogram, heart, w/ contrast completed [address] [facility] [address], [place], [address], 05/06/2023 16:40:17 04/29/2023 CT, angiogram, heart, w/ contrast completed [email or web address] [facility] [address], [place], [address], 05/06/2023 16:41:23 Procedure Notes None recorded. Medical Equipment None Reported. Allergies Allergen ID Allergen Name Allergen Category Reaction Reaction Severity Criticality Documentation Date Start Date Code Code System Note Provider Name and Address Organization Details Recorded Time 6407 Substance with sulfonami de structure and antibacte rial mechanism of action (substanc e) medicatio n Not available Not available Not available 05/07/2022 69103 8003 SNOMED Not Available [facility] 3 03:39:16 6408 Product containin g penicilli n (product) medicatio n Not available Not available Not available 05/07/2022 56945 8001 SNOMED Not Available [facility] 3 03:39:17 6409 penicilli n G Not available Not available Not available Not available 05/07/2022 7980 RxNorm Not Available [facility] 3 03:39:17 Medications Name Sig Start Date [...] administ ered by the provider 03/16 completed [facility]: 0003-049 06-26 Not Available Not Available [...] administ ered by the provider 04/29 completed [facility]: 0409-427 08-23 Not Available Not Available [...] mg by injectio n route. 03/16 completed [facility] 68114-65 4- Not Available Not Available Not Available [...] Available Not Available Not Available Fluzone High-Dose 3548-2192 (PF) 180 mcg/0.5 mL intramusc ular syringe active Not Available Not Available Not Available Fluvirin 45 mcg (15 mcg x 3)/0.5 mL intramusc ular suspensio n active Not Available Not Available Not Available Fluzone High-Dose 5720-9703 (PF) 180 mcg/0.5 mL intramusc ular syringe [...] Updated DateTime 3 167.64 cm 23.2 kg/m2 17961.3 g 98.2 [degF] 63 /min 118 mm[Hg] 70 mm[Hg] IVANNA Langston [place] [employer] [facility] [employer] [facility] 3 11:51:47 Date Recorded Pain severity - 0-10 verbal numeric rating [Score] - Reported Provider Name and Address Organization Details Last Updated DateTime 07/25/2022 0 Zina Foster RN [facility] [employer] 07/25/2022 12:10:09 Date Recorded Body height Body mass index (BMI) Body weight Provider Name and Address Organization Details Last Updated DateTime 08/18/2022 167.64 cm 22.8 kg/m2 57307.52 g IVANNA Burnham [place] [employer] [facility] [employer] [facility] 08/18/2022 10:27:03 Date Recorded Body height Body mass index (BMI) Body weight Body temperature Heart rate Oxygen saturation Oxygen saturation in Arterial blood by Pulse oximetry Systolic blood pressure Diastolic blood pressure Provider Name and Address Organization Details Last Updated DateTime 3 167.64 cm 22.8 kg/m2 41503.5 2 g 97.8 [degF] 55 /min 95 % 95 % 132 mm[Hg] 82 mm[Hg] Kat Mcgrath RN [facility] [employer] 3 10:25:08 Date Recorded Body height Body mass index (BMI) Body weight Provider Name and Address Organization Details Last Updated DateTime 09/22/2022 167.64 cm 22.6 kg/m2 20066.93 g Mel Trejo [facility] [employer] [facility] [employer] 09/22/2022 09:51:30 Date Recorded Body height Body mass index (BMI) Body weight Body temperature Heart rate Systolic blood pressure Diastolic blood pressure Provider Name and Address Organization Details Last Updated DateTime 167.64 cm 23.4 kg/m2 24021.8 9 g 98.5 [degF] 64 /min 122 mm[Hg] 60 mm[Hg] Asia Whiting [facility] [employer] [facility] [employer] 10:30:52 Social History Question Answer Notes LastModified by Organization Details LastModified Time Tobacco Smoking Status Never Smoker Not Available [facility] 05/07/2022 02:59:12 Do You Have An Advance Directive? Yes Pt States She Will Try To Bring Copy Next Time She Comes In MIGRATION.0301 [id number] Information not available 05/07/2022 What Is Your Level Of Alcohol Consumption? None MIGRATION.0301 148307 Information not available 05/07/2022 Do You Wear A Helmet When Biking? No Does Not Bike MIGRATION.0301 957464 Information not available 05/07/2022 Are You Blind Or Do You Have Difficulty Seeing? No MIGRATION.0301 829617 Information not available 05/07/2022 What Is Your Level Of Caffeine Consumption? Moderate MIGRATION.0301 708545 Information not available 05/07/2022 How Much Tobacco Do You Chew? None MIGRATION.0301 227648 Information not available 05/07/2022 In The 14 Days Before Symptom Onset, Have You Had Close Contact With A Laboratory-confi rmed COVID-19 While That Case Was Ill? No MIGRATION.0301 407507 Information not available 05/07/2022 In The 14 Days Before Symptom Onset, Have You Had Close Contact With A Person Who Is Under Investigation For COVID-19 While That Person Was Ill? No MIGRATION.0301 235198 Information not available 05/07/2022 Are You Deaf Or Do You Have Serious Difficulty Hearing? No MIGRATION.0301 415601 Information not available 05/07/2022 What Type Of Diet Are You Following? REGULAR MIGRATION.0301 687424 Information not available 05/07/2022 Which Illicit Or Recreational Drugs Have You Used? None MIGRATION.0301 842866 Information not available 05/07/2022 Do You Or Have You Ever Used E-cigarettes Or Vape? Never Used Electronic Cigarettes MIGRATION.030 704353 Information not available 05/07/2022 What Is The Highest Grade Or Level Of School You Have Completed Or The Highest Degree You Have Received? 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 No MIGRATION.030 713406 Information not available 05/07/2022 What Is The Fluoride Status Of Your Home? Unknown MIGRATION.030 043838 Information not available 05/07/2022 Are There Any Guns Present In Your Home? No MIGRATION.0301 957327 Information not available 05/07/2022 Do You Use Insect Repellent Routinely? No MIGRATION.030 166813 Information not available 05/07/2022 Where Do You [...] Do You Have A Medical Power Of Woolen Suiting Shrinker? Yes MIGRATION.0301 357373 Information not available 05/07/2022 What Was The Date Of Your Most Recent Tobacco Screening? 03/16/2023 [email or web address] Information not available 03/16/2023 Do You Have Any Pets? No MIGRATION.0301 510246 Information not available 05/07/2022 Do You Use Your Seat Belt Or Car Seat Routinely? Yes MIGRATION.0301 112164 Information not available 05/07/2022 Do You Have Smoke And Carbon Monoxide Detectors In Your Home? Yes MIGRATION.0301 940999 Information not available 05/07/2022 Are You Passively Exposed To Smoke? No MIGRATION.0301 853415 Information not available 05/07/2022 Do You Or Have You Ever Used Smokeless Tobacco? Never Used Smokeless Tobacco MIGRATION.0301 841707 Information not available 05/07/2022 Are There Any Smokers In Your House? No MIGRATION.0301 718376 Information not available 05/07/2022 How Much Tobacco Do You Smoke? No MIGRATION.0301 654115 Information not available 05/07/2022 What Types Of Sporting Activities Do You Participate In? None MIGRATION.0301 466708 Information not available 05/07/2022 Do You Feel Stressed (tense, Restless, Nervous, Or Anxious, Or Unable To Sleep At Night)? [id number] Information not available 07/25/2022 Do You Use Any Illicit Or Recreational Drugs? No MIGRATION.0301 913101 Information not available 05/07/2022 Do You Use Sunscreen Routinely? No MIGRATION.0301 696549 Information not available 05/07/2022 Has Tobacco Cessation Counseling Been Provided? No Not Needed-ne kermit Smoked MIGRATION.0301 481568 Information not available 05/07/2022 How Many Years Have You Smoked Tobacco? 0 MIGRATION.0301 495843 Information not available 05/07/2022 Have You Recently Traveled Abroad? No MIGRATION.0301 370261 Information not available 05/07/2022 Do You Have Any Dietary Restrictions? No MIGRATION.0301 564240 Information not available 05/07/2022 Do You Or Have You Ever Used Any Other Forms Of Tobacco Or Nicotine? No MIGRATION.0301 248738 Information not available 05/07/2022 Sex: Female Functional Status Question Answer Note LastModified by Organizat ion Details LastModified Time Do you have difficulty walking or climbing stairs? No MIGRATION.0275442 026 Information not available 05/07/2022 Do you have transportation difficulties? No Information not available 07/25/2022 Are you able to walk? YESWOREST MIGRATION.6436504 026 Information not available 05/07/2022 Do you have difficulty doing errands alone? No MIGRATION.0066366 026 Information not available 05/07/2022 Are you able to care for yourself? Yes MIGRATION.0403286 026 Information not available 05/07/2022 Do you have difficulty dressing or bathing? No MIGRATION.5080399 026 Information not available 05/07/2022 What is your exercise level? Occasional Information not available 07/25/2022 Mental Status Question Answer Note LastModified by Organizat ion Details LastModified Time Do you have difficulty concentrating, remembering or making decisions? No MIGRATION.089223065 6 Information not available 05/07/2022 Family History Relationship Description Onset Age of this Age Resolved Age Notes LastModified by Organization Details LastModified Time Mother Chronic obstructive pulmonary disease MIGRATION.536 [id number] Not available 05/07/2022 03:20:18 Father Malignant neoplasm of liver MIGRATION.308 4559643 Not available 05/07/2022 03:20:18 Father Malignant tumor of colon MIGRATION.065 2257085 Not available 05/07/2022 03:20:18 Unspecified Relation Family history of Hypertension MIGRATION.438 2353438 Not available 05/07/2022 03:20:18 Unspecified Relation Family history of Cardiovascul ar disease MIGRATION.933 [id number] Not available 05/07/2022 03:20:18 Medical History Condition [...] HAVE YOU BEEN HOSPITALIZED OR SEEN IN [facility] IN THE PAST YEAR ? N [...] influenza, unspecified formulation 2 completed Not Available [facility] 04/20/2023 13:55:34 COVID-19, mRNA, LNP-S, PF, 30 mcg/0.3 mL dose 1 completed Not Available [facility] 04/20/2023 13:55:34 Influenza, high-dose, quadrivalent, PF 1 completed Not Available [facility] 04/20/2023 13:55:34 Influenza, high-dose, quadrivalent, PF 0 completed Not Available [facility] 04/20/2023 13:55:34 Influenza, high-dose, trivalent, PF 9 completed Not Available [facility] 04/20/2023 13:55:35 Influenza, high-dose, trivalent, PF 8 completed Not Available [facility] 04/20/2023 13:55:35 Influenza, high-dose, trivalent, PF 7 completed Not Available [facility] 04/20/2023 13:55:35 Influenza, high-dose, trivalent, PF 6 completed Not Available [facility] 04/20/2023 13:55:35 Pneumococcal conjugate PCV 13 6 completed Not Available [facility] 04/20/2023 13:55:35 Influenza, high-dose, trivalent, PF 3 completed Not Available [facility] 04/20/2023 13:55:35 COVID-19 vaccine, vector-nr, rS-Ad26, PF, 0.5 mL 1 completed Not Available [facility] 04/20/2023 13:55:34 zoster live 5 completed Not Available [facility] 04/20/2023 13:55:35 Influenza, split virus, trivalent, preservative 4 completed Not Available [facility] 04/20/2023 13:55:35 tetanus toxoid, unspecified formulation 3 completed Not Available [facility] 04/20/2023 13:55:34 pneumococcal polysaccharide PPV23 1 completed Not Available [facility] 04/20/2023 13:55:34 Influenza, split virus, quadrivalent, PF 5 completed Not Available [facility] 04/20/2023 13:55:35 Past Encounters Encounter ID Performer Location Encounter Start Date Encounter Closed Date Diagnosis/Indication Diagnosis SNOMED-CT Code Diagnosis ICD10 Code Diagnosis Note [id number] Chen Gavin MD [facility] Internal Med [facility] [address] [phone] 05/23/2020 00:00:00 06/02/2020 14:46:22 [id number] Chen Gavin MD [facility] Internal Med [facility] [address] [address] 06/20/2020 00:00:00 06/20/2020 21:54:07 [id number] Chen Gavin MD [facility] Internal Med Chris frances [id number] [facility] , [facility] [place] [address] 07/24/2020 00:00:00 07/24/2020 23:02:48 [id number] S_Histor ic_Gateway S_G Podiatry Vanessa Sahrif [address] [facility] [address] [place] [address] 10/11/2020 00:00:00 10/16/2020 09:52:53 [id number] Chen Gavin MD AHS_GMG Internal Med [facility] [address] [address] 10/29/2020 00:00:00 10/29/2020 22:08:43 [id number] Chen Gavin MD AHS_GMG Internal Med [place] [address] [address] 12/05/2020 00:00:00 12/23/2020 22:40:10 [id number] Arnulfo Sr MD AHS_GMG Ortho [place] [address] [facility] [address] [place] [address] 12/18/2020 00:00:00 12/18/2020 15:46:48 [id number] Chen Gavin MD S_GMG Internal Med [facility] [address] [address] 04/29/2021 00:00:00 05/05/2021 15:47:20 [id number] Eduard Mckeon MD S_GMG [address] [address] 10/15/2021 00:00:00 10/15/2021 10:26:04 [id number] Chen Gavin MD AHS_GMG Internal Med [facility] [address] [address] 10/28/2021 00:00:00 10/28/2021 11:43:49 [id number] Eduard Mckeon MD S_GMG [address] [address] 11/12/2021 00:00:00 11/12/2021 09:58:33 [id number] Eduard Mckeon MD AHHoa_GMG [address] [address] 12/10/2021 00:00:00 12/10/2021 10:59:37 [id number] Chen Gavin MD AHS_GMG Internal Med Chris frances [address] [facility] , [place] [address] 03/25/2022 00:00:00 03/25/2022 22:28:51 [id number] Eduard Mckeon MD [facility]_GMG Ortho [place] [address] [place] [address] 04/24/2022 00:00:00 04/24/2022 12:17:08 [id number] Eduard Mckeon MD [facility]_GM[facility] Orth[facility] [place] [address] [place] [address] 05/01/2022 00:00:00 05/01/2022 13:02:19 [id number] Eduard Mckeon MD [facility] Orth[facility] [place] [address] [place] [address] 07/03/2022 11:46:50 07/03/2022 13:13:43 Tear of medial meniscus of knee [id number] S83.242D [id number] Eduard Mckeon MD [facility] Orth[facility] [place] [address] [place] [address] 07/07/2022 10:32:18 07/07/2022 11:05:17 Tear of medial meniscus of knee [id number] S83.242D [id number] Eduard Mckeon MD [facility]_GM[facility] Orth[facility] [place] [address] [place] [address] 07/14/2022 09:51:25 07/14/2022 10:48:07 Tear of medial meniscus of knee 466779481 S83.242D Postoperative visit 1836 52836 Z09 [id number] Eduard Mckeon MD [facility]_G Ortho [place] [address] [place] [address] 07/21/2022 09:48:16 07/21/2022 10:42:20 Tear of medial meniscus of knee 607570035 S83.242D Postoperative visit 1836 88908 Z09 [id number] Chen Gavin MD S_GMG Internal Med [place] 15 2043 [facility], [place] [address] [place] [address] 07/25/2022 11:44:15 07/25/2022 12:53:57 Chronic atrial fibrillation 154459584 I48.20 Essential hypertension 17282348 I10 Anxiety 51993502 F41.9 Adult heal th examination 516544461 Z00.00 Screening for disorder 880382583 Z13.9 Screening mammography 24 491316 Z12.31 Postmenopausal state 764 29160 Z78.0 [id number] Eduard Mckeon MD [facility] [place] [address] [place] [address] 08/18/2022 10:19:42 08/18/2022 11:15:39 Tear of medial meniscus of knee 322622588 S83.242D Postoperative visit 1836 37023 Z09 [id number] Chen Gavin MD [facility] Internal Med [place] 15 2043 [facility], [address] [address] 09/08/2022 10:15:49 09/08/2022 11:45:55 Chronic atrial fibrillation 370844383 I48.20 Anxiety 02219752 F41.9 Essential hypertension 59088412 I10 [id number] Eduard Mckeon MD [facility] [place] [address] [place] [address] 09/22/2022 09:47:33 09/22/2022 10:49:28 Tear of medial meniscus of knee 985159032 S83.242D [id number] Chen Gavin MD [facility] Internal Med [place] 15 2043 [facility], [facility] 15 [place] [address] 03/16/2023 10:14:15 03/16/2023 11:07:04 Rhinitis 51095262 J00 Essential hypertension 42792877 I10 Headache 49986617 R51.9 Health Concerns Section Related Observation LastModified by Organization Detai ls LastModified Time None Recorded Concern Status LastModified by Organization Details LastModified Time None Recorded Advance Directives Directive Y: pt states she will try to bring copy next time she comes in Payers Encounter Date Sequence Insurance Name Policy Number Policy Velazquez Covered Member ID Velazquez Member ID Guarantor Name 07/25/2022 1 [place] Mary Valera [id number] Mary Valera 07/25/2022 2 [employer] [place] (MEDICARE SUPPLEMENT) PLAN F Mary Valera [id number] Mary Valera 08/18/2022 1 [place] Valera [id number] Mary Valera 08/18/2022 2 [employer] [place] (MEDICARE SUPPLEMENT) PLAN F Mary Valera [id number] Mary Valera 09/08/2022 1 [place] Valera [id number] Mary Valera 09/08/2022 2 [employer] [place] (MEDICARE SUPPLEMENT) PLAN F Mary Valera [id number] Mary Valera 09/22/2022 1 [place] Mary Valera [id number] Mary Reyes Valera 09/22/2022 2 [employer] [place] (MEDICARE SUPPLEMENT) PLAN F Mary Valera [id number] Mary Valera 03/16/2023 1 [place] Mary Valera [id number] Mary Valera 03/16/2023 2 [employer] [place] (MEDICARE SUPPLEMENT) PLAN F Mary Valera [id number] Mary Valera Notes Date Note Type Note Provider Name and Address Organization Details Recorded Time 3 text/html Some anxiety at nightAFib no palpitations or dizzinessHypertension no headache no chest painMedicare wellness completed Chen Gavin MD [address], [place], [address], [employer] 10/25/2022 21:23:54 3 text/html Patient returns knee pain thank you left. The pain is better swelling is going down she has finally had in the right direction. Eduard Mckeon MD [address], [place], [address], [employer] 08/18/2022 11:08:19 3 text/html she is feeling a little bit better awaiting her CPAP machine bone mineral density was normal mammogram was negative she is not taking the sertraline anymore and is doing fine Chen Gavin MD [address], [place], [address], [employer] 09/20/2022 18:19:25 3 text/html Patient returns status post knee arthroscopy left. The knee continues to improve she still has some swelling he gets around fairly well and is reasonably comfortable. Eduard Mckeon MD [address], [place], [address], [employer] 09/22/2022 10:33:00 4 text/html Rhinitis has been [...] Gavin MD [address], [place], [address], [employer] 03/16/2023 23:26:24 OBGyn Episode No OBEpisode recorded.
--- OUTSIDE RECORDS SUMMARY | 2024-07-07 10:25 | XMS_ITS | Encounter Summary ---
Author Organization [facility] Address [address] [facility] [place] [address] Care Team Providers Care Ship'S Master Name Role Phone Omi Prieto MD Primary Care Provider [phone] Encounter Details Date Type Department Care Team (Late st Contact Info) Description 08/24/2019 Lab Requisition [facility] DermPath Lab [address] [facility], [facility] [place] [address] lElie Guzman DO [address] [facility] 3 [place] [address] Social History Tobacco Use Types Packs/Day Years [...] AM CDT) Case Report Dermatopathology Report Case: [id number] Authorizing Provider: Ellie Guzman DO Collected: 08/23/2019 12:00 AM Ordering Location: [facility] Care DermPath Lab Received: 08/24/2019 07:35 AM Pathologist: [...] purposes. Billing Codes Specimen Charges Stain Charges 84553 1 0 11:51 AM CDT DERMATOPATHOLOGY LABORATORY Embedded Images 0 11:51 AM CDT DERMATOPATHOLOGY LABORATORY Pathology/Cytolog y TISSUE SPECIMEN FROM SKIN / Unknown 08/23/2019 08/24/2019 7:35 AM CDT Ellie Guzman DO LAB - PATHOLOGY/CYTOLOGY ORDERABLES Final Result DERMATOPATHOLOGY LABORATORY [facility] - Department of Dermatology Candle Wrapping Machine Operator [place]/[address] [phone] documented in this encounter Visit Diagnoses Not on filedocumented in this encounter Care Teams Ship'S Master Relationship Specialty Start Date End Date Omi Prieto MD PCP - General 12/16/18 documented as of this encounter
--- OUTSIDE RECORDS SUMMARY | 2024-07-07 10:25 | XMS_ITS | Referral Summary ---
Author Organization [facility] Address [address] [place] [address] Care Team Providers Care Child Development Director Name Role Phone Fred Gavin MD Primary Care Provider [phone] Allergies Active Allergy Reactions Criticality Noted Date [...] on file Legal Sex Female 7:15 PM NEWSAGENT Gender Identity Not on file Sexual Orientation Not on file Last Filed Vital Signs Vital Sign Reading Time Taken Comments Blood Pressure 138/71 05/13/2023 7:56 AM NEWSAGENT Pulse 72 05/13/2023 7:56 AM NEWSAGENT Temperature 36.9 C (98.4 F) 05/13/2023 7:56 AM NEWSAGENT Respiratory Rate 16 05/13/2023 7:56 AM NEWSAGENT Oxygen Saturation 97% 05/13/2023 7:56 AM NEWSAGENT Inhaled Oxygen Concentration - - Weight 64.6 kg (142 lb 8 oz) 05/12/2023 10:32 AM NEWSAGENT Height 165.1 cm (5' 5 ) 05/12/2023 10:32 AM NEWSAGENT Body Mass Index 23.71 05/12/2023 10:32 AM NEWSAGENT Plan of Treatment Not on file Insurance [facility] [employer] [place] MEDICARE [facility] [employer] [place] [employer] [id number] MEDICARE Advance Directives For more information, please contact: [phone] * Full Code (Latest Code Status on File) Date Activated Date Inactivated Comments 05/05/2019 1:17 PM 05/05/2019 6:23 PM Care Teams Child Development Director Relationship Specialty Start Date End Date Fred Gavin MD PCP - General Internal Medicine 03/25/22
--- OUTSIDE RECORDS SUMMARY | 2024-07-07 10:25 | XMS_ITS | Continuity of Care Document ---
Author Organization [facility] Address [address] [place] [address] [address] [place] [address] Phone Care Team Providers Care Glass Science Engineer Name Role Phone Mantilla OD, Duane Unavailable Unavailable Advance Directives Directive Yes / No Effective Date File Name No Information Encounters Encounter Description Practice Location Reason(s) For Visit Diagnoses Date Provider Providers Copied on Encounter [facility], [address], [place], [place], [id number], [place] tel:[phone] [facility] [place] No Information 0-200 1 Mantilla OD [place]. [address] [facility] [place] , [address], [place], [address], [place]. tel:[phone] Family History Family Member Type Diagnosis Age [...]
--- OUTSIDE RECORDS SUMMARY | 2024-07-07 10:25 | XMS_ITS | Encounter Summary ---
Author Organization [facility] Address [address] [facility] [place] [address] Care Team Providers Care Retail Supervisor Name Role Phone Omi Prieto MD Primary Care Provider [phone] Encounter Details Date Type Department Care Team (Late st Contact Info) Description 02/09/2019 Lab Requisition [facility] DermPath Lab [address], [facility] [place] [address] Ellie Guzman DO [address] [facility] 3 [place] [address] Social History Tobacco Use Types Packs/Day Years [...] Comments DERMATOPATHOLOGY Routine 02/08/2019 12:0 0 AM PUBLICITY PERSON documented in this encounter Results * DERMATOPATHOLOGY (02/08/2019 12:00 AM PUBLICITY PERSON) Case Report Dermatopathology Report Case: [id number] Authorizing Provider: Ellie Guzman DO Collected: 02/08/2019 12:00 AM Ordering Location: [facility] Care DermPath Lab Received: 02/09/2019 08:22 AM Pathologist: Vane Rascon MD Specimen: Skin, left back 9 3:03 PM PUBLICITY PERSON DERMATOPATHOLOGY LABORATORY Final Diagnosis Specimen A. SKIN, left back: DERMAL SCAR RESIDUAL MELANOCYTIC PROLIFERATION NOT IDENTIFIED (L90.5) 9 3:03 PM PUBLICITY PERSON DERMATOPATHOLOGY LABORATORY Clinical History R/O junctional melanocytic proliferation, bx proven. Previous Bx: [id number]. 3:03 PM [facility] DERMATOPATHOLOGY LABORATORY Gross Description Specimen A: Received is one formalin filled container labeled with the patient's name and designated left back. The specimen consists of an ellipse measuring 32f17u8ng and is oriented with the notch at [...] in cassettes 3-4. Jar 0. 3:03 PM [facility] DERMATOPATHOLOGY LABORATORY Microscopic Description Specimen A. SKIN, left back: There are fibroblasts and collagen bundles oriented parallel to the skin surface. There are elongated blood vessels, some of which are oriented perpendicular to the skin surface. No residual melanocytic proliferation is identified. 3:03 PM [facility] DERMATOPATHOLOGY LABORATORY Disclaimer An external and internal positive and negative controls are appropriate for the histochemical, immunohistochemical and immunofluorescence stain(s) in this case (if any), except where stated explicitly. The performance characteristics of the stain(s) cited in this report were developed and its performance characteristic determined by the Dermatopathology Laboratory at [facility], directed by Dr. Cole Rascon. These tests need not be, and therefore are not, approved by the [place] Food and Drug Administration. The tests are used for clinical purposes. Billing Codes Specimen Charges Stain Charges 88410 1 9 3:03 PM [facility] DERMATOPATHOLOGY LABORATORY Embedded Images 3:03 PM [facility] DERMATOPATHOLOGY LABORATORY Pathology/Cytolog y TISSUE SPECIMEN FROM SKIN / Unknown 02/08/2019 02/09/2019 8:22 AM [facility] us Ellie Guzman DO LAB - PATHOLOGY/CYTOLOGY ORDERABLES Final Result DERMATOPATHOLOGY LABORATORY [facility] - Department of Dermatology [address], [address] Floor Lab [address] [phone] documented in this encounter Visit Diagnoses Not on filedocumented in this encounter Care Teams Retail Supervisor Relationship Specialty Start Date End Date Omi Prieto MD PCP - General 12/16/18 documented as of this encounter
--- OUTSIDE RECORDS SUMMARY | 2024-07-07 10:25 | XMS_ITS | Encounter Summary ---
Author Organization [facility] Address [address] [facility] [place] [address] Care Team Providers Care Well Service Floor Worker Name Role Phone Omi Prieto MD Primary Care Provider [phone] Encounter Details Date Type Department Care Team (Late st Contact Info) Description 12/17/2018 Lab Requisition [facility] DermPath Lab [address] [facility], [place] [address] Ellie Guzman DO [address] [facility] 3 [place] [address] Social History Tobacco Use Types Packs/Day Years [...] AM CDT) Case Report Dermatopathology Report Case: [id number] Authorizing Provider: Ellie Guzman DO Collected: 12/16/2018 12:00 AM Ordering Location: [facility] DermPath Lab Received: 12/17/2018 12:40 PM [...] SITU (NGO'S DISEASE) (D04.71) 9 9:35 AM [facility] DERMATOPATHOLOGY LABORATORY Clinical History A-B: Nevus R/O atypia. C: ISK R/O NMSC. 9 9:35 AM [facility] DERMATOPATHOLOGY LABORATORY Gross Description Specimen A: Received is one formalin filled container labeled with the patient's name and designated right forearm. The specimen consists of a shave biopsy measuring 1v3z1gw. Jar 0. Specimen B: Received is one formalin filled container labeled with the patient's name and designated left back. The specimen consists of a shave biopsy measuring 6y7w3un. Jar 0. Specimen C: Received is one formalin filled container labeled with the patient's name and designated right lateral thigh. The specimen consists of a shave biopsy measuring 97h29z4bs. Jar 0. 9 9:35 AM [facility] DERMATOPATHOLOGY LABORATORY Microscopic Description Specimen A. SKIN, [...] purposes. Billing Codes Specimen Charges Stain Charges 38559 94200 19645 1 1 1 44334 81415 1 1 9:35 AM CDT DERMATOPATHOLOGY LABORATORY Embedded Images 9:35 AM CDT DERMATOPATHOLOGY LABORATORY Pathology/Cytology TISSUE SPECIMEN FROM SKIN / Unknown 12/16/2018 12/17/2018 12:40 PM CDT Miscellaneous samples (specimen) TISSUE SPECIMEN FROM SKIN / Unknown 12/16/2018 12/17/2018 12:40 PM CDT Miscellaneous samples (specimen) TISSUE SPECIMEN FROM SKIN / Unknown 12/16/2018 12/17/2018 12:40 PM CDT Ellie Guzman DO LAB - PATHOLOGY/CYTOLOGY ORDERABLES Final Result DERMATOPATHOLOGY LABORATORY [facility] - Department of Dermatology [address] [place] [address] [address] [phone] documented in this encounter Visit Diagnoses Not on filedocumented in this encounter Care Teams Well Service Floor Worker Relationship Specialty Start Date End Date Omi Prieto MD PCP - General 12/16/18 documented as of this encounter
== END 2024-07-07 09:45 | disposition home or self-care (01) ==
LOC: ANHIMG 09:46
PROVIDERS: PCP Internal Medicine; Visit Provider Internal Medicine Nephrology
DX: R93.49 Abnormal radiologic findings on diagnostic imaging of other urinary organs (principal); I10 Essential (primary) hypertension
CPT/HCPCS: 74174; Q9967

== ENCOUNTER 2024-07-25 08:05 | Outpatient (CLI) | payer MEDICARE, OTHER, SELFPAY ==
--- OUTSIDE RECORDS SUMMARY | 2024-07-25 08:12 | XMS_ITS | Encounter Summary ---
Author Organization [facility] Address [address] [facility] [place] [address] Care Team Providers Care Nurse Researcher Name Role Phone Omi Prieto MD Primary Care Provider [phone] Encounter Details Date Type Department Care Team (Late st Contact Info) Description 04/23/2023 Lab Requisition [facility] - DermPath Lab [address] [facility], [place] [address] Ellie Guzman DO [address] [facility] 3L [place] [address] Social History Tobacco Use Types Packs/Day Years [...] Diagnosis Comments DERMATOPATHOLOGY Routine 04/23/2023 9:18 AM CARE CONNECTOR documented in this encounter Results * DERMATOPATHOLOGY (04/23/2023 9:18 AM CARE CONNECTOR) Case Report Dermatopathology Report Case: [id number] Authorizing Provider: Ellie Guzman DO Collected: 04/23/2023 09:18 AM Ordering Location: [facility] DermPath Lab Received: 04/24/2023 06:41 AM Pathologist: Nicol Pereira MD Specimens: A) - Skin, left chest B) - Skin, left ant LE 4 4:28 PM CARE CONNECTOR DERMATOPATHOLOGY LABORATORY Final Diagnosis Specimen A. SKIN, left chest: LICHEN PLANUS-LIKE KERATOSIS (BENIGN LICHENOID KERATOSIS) (L82.1) (see microscopic description) Specimen B. SKIN, left ant LE: SPONGIOTIC DERMATITIS WITH EOSINOPHILS (L30.8) (see microscopic description and comment) 4 4:28 PM [facility] DERMATOPATHOLOGY LABORATORY at [address] CARE CONNECTOR Clinical History A-B: r/o [facility] 4 4:28 PM [facility] DERMATOPATHOLOGY LABORATORY Gross Description [...] shave biopsy measuring 6x4x1 mm. Jar 0. 4:28 PM [facility] DERMATOPATHOLOGY LABORATORY Microscopic Description [...] phase of bullous pemphigoid. 4 4:28 PM [facility] DERMATOPATHOLOGY LABORATORY Disclaimer An external and internal positive and negative controls are appropriate for the histochemical, immunohistochemical and immunofluorescence stain(s) in this case (if any), except where stated explicitly. The performance characteristics of the stain(s) cited in this report were developed and its performance characteristic determined by the Dermatopathology Laboratory at [facility], directed by Dr. Cole Rascon. These tests need not be, and therefore are not, approved by the [place] Food and Drug Administration. The tests are used for clinical purposes. Billing Codes Specimen Charges Stain Charges 62903 21538 1 1 04854 1 4 4:28 PM [facility] DERMATOPATHOLOGY LABORATORY Embedded Images 4:28 PM [facility] DERMATOPATHOLOGY LABORATORY Pathology/Cytology TISSUE SPECIMEN FROM SKIN / Unknown 04/23/2023 9:18 AM CARE CONNECTOR 04/24/2023 6:41 AM CARE CONNECTOR Miscellaneous samples (specimen) TISSUE SPECIMEN FROM SKIN / Unknown 04/23/2023 9:18 AM CARE CONNECTOR 04/24/2023 6:41 AM CARE CONNECTOR us Ellie Guzman DO LAB - PATHOLOGY/CYTOLOGY ORDERABLES Final Result DERMATOPATHOLOGY LABORATORY [facility] - Department of Dermatology [facility] Medicine [address] [place] [address], [address] Floor [address] [phone] documented in this encounter Visit Diagnoses Not on filedocumented in this encounter Care Teams Nurse Researcher Relationship Specialty Start Date End Date Omi Prieto MD PCP - General 12/16/18 documented as of this encounter
--- OUTSIDE RECORDS SUMMARY | 2024-07-25 08:12 | XMS_ITS | Encounter Summary ---
Author Organization [facility] Address [address] [place] [address] Care Team Providers Care Gauger Delivery Name Role Phone Omi Prieto MD Primary Care Provider [phone] Encounter Details Date Type Department Care Team (Late st Contact Info) Description 09/24/2022 Lab Requisition [facility] - DermPath Lab [address] [place] [id number] Ellie Guzman DO [address] [facility] ([place], [place]) [address] [place] [address] Social History Tobacco Use Types Packs/Day Years [...] PM CDT) Case Report Dermatopathology Report Case: [id number] Authorizing Provider: lElie Guzman DO Collected: 09/24/2022 01:19 PM Ordering Location: [facility] DermPath Lab Received: 09/26/2022 07:30 AM Pathologist: Nicol Pereira MD Specimens: A) - Skin, left base of neck B) - Skin, mid back 4:21 PM CDT DERMATOPATHOLOGY LABORATORY Final Diagnosis Specimen A. SKIN, left base of neck: LICHEN PLANUS-LIKE KERATOSIS (BENIGN LICHENOID KERATOSIS) (L82.1) POST-INFLAMMATORY PIGMENT ALTERATION (L81.9) Specimen B. 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 Jar 0. 3 4:21 PM CDT DERMATOPATHOLOGY LABORATORY Microscopic Description Specimen A. [...] reviewed. (Compound Murali's Nevus) 3 4:21 PM CDT DERMATOPATHOLOGY LABORATORY Disclaimer An external and internal positive and negative controls are appropriate for the histochemical, immunohistochemical and immunofluorescence stain(s) in this case (if any), except where stated explicitly. The performance characteristics of the stain(s) cited in this report were developed and its performance characteristic determined by the Dermatopathology Laboratory at [facility], directed by Dr. Cole Rascon. These tests need not be, and therefore are not, approved by the [place] Food and Drug Administration. The tests are used for clinical purposes. Billing Codes Specimen Charges Stain Charges 90056 00429 1 1 06869 1 3 4:21 PM CDT DERMATOPATHOLOGY LABORATORY Embedded Images 4:21 PM CDT DERMATOPATHOLOGY LABORATORY Pathology/Cytology TISSUE SPECIMEN FROM SKIN / Unknown 09/24/2022 1:19 PM CDT 09/26/2022 7:30 AM CDT Miscellaneous samples (specimen) TISSUE SPECIMEN FROM SKIN / Unknown 09/24/2022 1:19 PM CDT 09/26/2022 7:30 AM CDT us Ellie Guzman DO LAB - PATHOLOGY/CYTOLOGY ORDERABLES Final Result DERMATOPATHOLOGY LABORATORY [facility] - Department of Dermatology [facility] Medicine [address] [place] [address], [address] [phone] documented in this encounter Visit Diagnoses Not on filedocumented in this encounter Care Teams Gauger Delivery Relationship Specialty Start Date End Date Omi Prieto MD PCP - General 12/16/18 documented as of this encounter
--- OUTSIDE RECORDS SUMMARY | 2024-07-25 08:12 | XMS_ITS | Data Portability ---
Author [facility] [place] [facility] [address] [place] [address] Care Team Providers Care Rnp Name Role Phone CHEN GAVIN Primary Care Provider Assessment Encounter Date Assessment Date Assessment LastModified by Organization Details LastModified Time 2023 2023 her complaints o f night sweats are completely gone and there is no other new interval developments or complaints we will just continue to monitor diagnosis in the assessment and plan have been discussed recent blood work reviewed she will follow up with me in 4 months any problems in the interim she will call. [email or web address] Not available 09/27/2023 20:27:55 01/21/2024 01/21/2024 continue current therapy recent blood work has been ordered healthy lifestyle care instructions flu shot follow up 3 months [email or web address] Not available 03/04/2024 14:31:52 04/22/2024 04/22/2024 her blood pressu re is controlled symptomatically or atrial fibrillation is doing fine appears to be in a sinus mechanism today we will continue current therapy gout doing fine dyslipidemia continue with medications and low-fat diet follow up in 4 months [email or web address] Not available 04/23/2024 13:53:00 07/11/2024 07/11/2024 1 episode of tremor hard to say what it was it did resolve with Valium 5 mg IV push she is worried it is going to come back I have given her volume to have a home follow up in Neurology she will keep her regular follow up [email or web address] Not available 07/11/2024 22:07:13 Plan of Treatment Reminders Order Date Submit Date Provider Last Modified By Organization Details Last Modified Time Details Appointments ANY 15 025 11:00AM Cehn Gavin MD Not available Not available Not available Lab None record ed. Referral None record ed. Procedures None record ed. Surgeries None record ed. Imaging None record ed. Medication Orders None record ed. Patient TargetsNo targets recorded. Patient Instructions Encounter Date Encounter Id Patient Instructions Last Modified By Organization Details Last Modified Time 01/21/2024 [id number] A healthy lifestyle: care instructions [email or web address] Not available 03/04/2024 14:32:09 07/11/2024 [id number] A healthy lifestyle: care instructions [email or web address] Not available 07/11/2024 18:32:56 Reason for Referral None Reported. Results Created Date Observation Date Name Description Value Unit Range Abnormal Flag Note LastModifiedBy Organization Detail LastModifiedTime 08/20/1908/21/2023 TSH+F REE T4 TSH 0.692 uIU/m L 0.450- 4.500 Not Available [facility] ([facility]) [address] [place], [address], 08/21/2023 10:37:20 08/20/19 24 08/21/2023 TSH+F REE T4 T4,free(dire ct) 1.70 NG/dL 0.82-1 .77 Not Available [facility] ([facility]) [address] [place], [address], 08/21/2023 10:37:20 08/20/19 24 08/21/2023 LIPID PANEL cholesterol, total 164 mg/dL 100-19 9 Not Available [facility] ([facility]) [address] [place], [address], 08/21/2023 10:37:21 08/20/19 24 08/21/2023 LIPID PANEL triglyceride s 113 mg/dL 0-149 Not Available [facility]) [address] [place], [address], 08/21/2023 10:37:21 08/20/19 24 08/21/2023 LIPID PANEL HDL cholesterol 42 mg/dL >39 Not Available [facility] [address] [place], [address], 08/21/2023 10:37:21 08/20/19 24 08/21/2023 LIPID PANEL VLDL cholesterol phil 21 mg/dL 5-40 Not Available [facility] ([facility]) [address], [place], [address], 08/21/2023 10:37:21 08/20/19 24 08/21/2023 LIPID PANEL LDL chol calc ([facility]) 101 mg/dL 0-99 above high normal Not Available [facility] ([facility]) [address], [place], [address], 08/21/2023 10:37:21 08/20/19 24 08/21/2023 COMP. METAB OLIC PANEL (14) glucose 87 mg/dL 70-99 Not Available [facility] ([facility]) [address] [place], [address], 08/21/2023 10:37:21 08/20/19 24 08/21/2023 COMP. METAB OLIC PANEL (14) BUN 24 mg/dL 8-27 Not Available [facility] ([facility]) [address], [place], [address], 08/21/2023 10:37:21 08/20/19 24 08/21/2023 COMP. METAB OLIC PANEL (14) creatinine 1.52 mg/dL 0.57-1 .00 above high normal Not Available [facility] ([facility]) [address], [place], [address], 08/21/2023 10:37:21 08/20/19 24 08/21/2023 COMP. METAB OLIC PANEL (14) eGFR 35 mL/mi n/1.7 3 >59 below low normal Not Available [facility] ([facility]) [address] [place], [address], 08/21/2023 10:37:21 08/20/19 24 08/21/2023 COMP. METAB OLIC PANEL (14) BUN/creatini ne ratio 16 12-28 Not Available [facility] ([facility]) [address] [place], [address], 08/21/2023 10:37:21 08/20/19 24 08/21/2023 COMP. METAB OLIC PANEL (14) sodium 143 mmol/ L 134-14 4 Not Available [facility] ([facility]) [address] [place], [address], 08/21/2023 10:37:21 08/20/19 24 08/21/2023 COMP. METAB OLIC PANEL (14) potassium 4.9 mmol/ L 3.5-5. 2 Not Available [facility] ([facility]) [address], [place], [address], 08/21/2023 10:37:21 08/20/19 24 08/21/2023 COMP. METAB OLIC PANEL (14) chloride 104 mmol/ L 96-106 Not Available [facility] ([facility]) [address] [place], [address], 08/21/2023 10:37:21 08/20/19 24 08/21/2023 COMP. METAB OLIC PANEL (14) carbon dioxide, total 25 mmol/ L 20-29 Not Available [facility] ([facility]) [address] [place], [address], 08/21/2023 10:37:21 08/20/19 24 08/21/2023 COMP. METAB OLIC PANEL (14) calcium 9.1 mg/dL 8.7-10 .3 Not Available [facility] ([facility]) [address] [place], [address], 08/21/2023 10:37:21 08/20/19 24 08/21/2023 COMP. METAB OLIC PANEL (14) protein, total 6.8 g/dL 6.0-8. 5 Not Available [facility] ([facility]) [address] [place], [address], 08/21/2023 10:37:21 08/20/19 24 08/21/2023 COMP. METAB OLIC PANEL (14) albumin 4.0 g/dL 3.8-4. 8 Not Available [facility] ([facility]) [address] [place], [address], 08/21/2023 10:37:21 08/20/19 24 08/21/2023 COMP. METAB OLIC PANEL (14) globulin, total 2.8 g/dL 1.5-4. 5 Not Available [facility] ([facility]) [address] [place], [address], 08/21/2023 10:37:21 08/20/19 24 08/21/2023 COMP. METAB OLIC PANEL (14) A/G ratio 1.4 Not Available [facility] ([facility]) [address] [place], [address], 08/21/2023 10:37:21 08/20/19 24 08/21/2023 COMP. METAB OLIC PANEL (14) bilirubin, total 0.5 mg/dL 0.0-1. 2 Not Available [facility] ([facility]) [address] [place], [address], 08/21/2023 10:37:21 08/20/19 24 08/21/2023 COMP. METAB OLIC PANEL (14) alkaline phosphatase 97 IU/L 44-121 Not Available [facility] ([facility]) [address] [place], [address], 08/21/2023 10:37:21 08/20/19 24 08/21/2023 COMP. METAB OLIC PANEL (14) AST (SGOT) 22 IU/L 0-40 Not Available [facility] ([facility]) [address] [place], [address], 08/21/2023 10:37:21 08/20/19 24 08/21/2023 COMP. METAB OLIC PANEL (14) ALT (SGPT) 26 IU/L 0-32 Not Available [facility] ([facility]) [address], [place], [address], 08/21/2023 10:37:21 08/20/19 24 08/21/2023 CBC WITH DIFFE RENTI AL/PL ATELE T WBC 4.3 x10e3 /uL 3.4-10 .8 Not Available [facility] ([facility]) [address] [place], [address], 08/21/2023 10:37:22 08/20/19 24 08/21/2023 CBC WITH DIFFE RENTI AL/PL ATELE T RBC 5.19 x10e6 /uL 3.77-5 .28 Not Available [facility] ([facility]) [address], [place], [address], 08/21/2023 10:37:22 08/20/19 24 08/21/2023 CBC WITH DIFFE RENTI AL/PL ATELE T hemoglobin 14.7 g/dL 11.1-1 5.9 Not Available [facility] ([facility]) [address] [place], [address], 08/21/2023 10:37:22 08/20/19 24 08/21/2023 CBC WITH DIFFE RENTI AL/PL ATELE T hematocrit 45.4 % 34.0-4 6.6 Not Available [facility] ([facility]) [address] [place], [address], 08/21/2023 10:37:22 08/20/19 24 08/21/2023 CBC WITH DIFFE RENTI AL/PL ATELE T MCV 88 fL 79-97 Not Available [facility] ([facility]) [address] [place], [address], 08/21/2023 10:37:22 08/20/19 24 08/21/2023 CBC WITH DIFFE RENTI AL/PL ATELE T MCH 28.3 pg 26.6-3 3.0 Not Available [facility] ([facility]) [address], [place], [address], 08/21/2023 10:37:22 08/20/19 24 08/21/2023 CBC WITH DIFFE RENTI AL/PL ATELE T MCHC 32.4 g/dL 31.5-3 5.7 Not Available [facility] ([facility]) [address], [place], [address], 08/21/2023 10:37:22 08/20/19 24 08/21/2023 CBC WITH DIFFE RENTI AL/PL ATELE T RDW 14.6 % 11.7-1 5.4 Not Available [facility] ([facility]) [address], [place], [address], 08/21/2023 10:37:22 08/20/19 24 08/21/2023 CBC WITH DIFFE RENTI AL/PL ATELE T platelets 189 x10e3 /uL 150-45 0 Not Available [facility] ([facility]) [address], [place], [address], 08/21/2023 10:37:22 08/20/19 24 08/21/2023 CBC WITH DIFFE RENTI AL/PL ATELE T neutrophils 66 % notest ab. Not Available [facility] ([facility]) [address], [place], [address], 08/21/2023 10:37:22 08/20/19 24 08/21/2023 CBC WITH DIFFE RENTI AL/PL ATELE T lymphs 20 % notest ab. Not Available [facility] ([facility]) [address], [place], [address], 08/21/2023 10:37:22 08/20/19 24 08/21/2023 CBC WITH DIFFE RENTI AL/PL ATELE T monocytes 9 % notest ab. Not Available [facility] ([facility]) [address], [place], [address], 08/21/2023 10:37:22 08/20/19 24 08/21/2023 CBC WITH DIFFE RENTI AL/PL ATELE T eos 3 % notest ab. Not Available [facility] ([facility]) [address], [place], [address], 08/21/2023 10:37:22 08/20/19 24 08/21/2023 CBC WITH DIFFE RENTI AL/PL ATELE T basos 1 % notest ab. Not Available [facility] ([facility]) [address], [place], [address], 08/21/2023 10:37:22 08/20/19 24 08/21/2023 CBC WITH DIFFE RENTI AL/PL ATELE T neutrophils (absolute) 2.9 x10e3 /uL 1.4-7. 0 Not Available [facility] ([facility]) [address], [place], [address], 08/21/2023 10:37:22 08/20/19 24 08/21/2023 CBC WITH DIFFE RENTI AL/PL ATELE T lymphs (absolute) 0.8 x10e3 /uL 0.7-3. 1 Not Available [facility] ([facility]) [address], [place], [address], 08/21/2023 10:37:22 08/20/19 24 08/21/2023 CBC WITH DIFFE RENTI AL/PL ATELE T monocytes(ab solute) 0.4 x10e3 /uL 0.1-0. 9 Not Available [facility] ([facility]) [address], [place], [address], 08/21/2023 10:37:22 08/20/19 24 08/21/2023 CBC WITH DIFFE RENTI AL/PL ATELE T eos (absolute) 0.1 x10e3 /uL 0.0-0. 4 Not Available [facility] ([facility]) [address] [place], [address], 08/21/2023 10:37:22 08/20/19 24 08/21/2023 CBC WITH DIFFE RENTI AL/PL ATELE T baso (absolute) 0.0 x10e3 /uL 0.0-0. 2 Not Available [facility] ([facility]) [address] [place], [address], 08/21/2023 10:37:22 08/20/19 24 08/21/2023 CBC WITH DIFFE RENTI AL/PL ATELE T immature granulocytes 1 % notest ab. Not Available [facility] ([facility]) [address] [place], [address], 08/21/2023 10:37:22 08/20/19 24 08/21/2023 CBC WITH DIFFE RENTI AL/PL ATELE T immature grans (abs) 0.0 x10e3 /uL 0.0-0. 1 Not Available [facility] ([facility]) [address] [place], [address], 08/21/2023 10:37:22 08/20/19 24 08/21/2023 TRIIO DOTHY KEO E (T3), FREE triiodothyro nine (T3), free 2.2 pg/mL 2.0-4. 4 Not Available [facility] ([facility]) [address] [place], [address], 08/21/2023 10:37:23 08/20/19 24 08/21/2023 QUANT IFERO N-TB GOLD PLUS quantiferon incubation INCUBA TION PERFOR MED. Not Available [facility] ([facility]) [address] [place], [address], 08/22/2023 20:35:53 08/20/19 24 08/21/2023 QUANT IFERO [...] ol for the test. Not Available [facility] ([facility]) [address], [place], [address], 08/22/2023 20:35:53 08/20/19 24 08/22/2023 QUANT IFERO [...] y metho dolog y Not Available [facility] ([facility]) [address], [place], [address], 08/22/2023 20:35:53 08/20/19 24 08/22/2023 QUANT IFERO N-TB GOLD PLUS quantiferon TB1 Ag value 0.05 IU/mL Not Available [facility] ([facility]) [address] [place], [address], 08/22/2023 20:35:53 08/20/19 24 08/22/2023 QUANT IFERO N-TB GOLD PLUS quantiferon TB2 Ag value 0.06 IU/mL Not Available [facility] ([facility]) [address] [place], [address], 08/22/2023 20:35:53 08/20/19 24 08/22/2023 QUANT IFERO N-TB GOLD PLUS quantiferon nil value 0.05 IU/mL Not Available [facility] ([facility]) [address] [place], [address], 08/22/2023 20:35:53 08/20/19 24 08/22/2023 QUANT IFERO N-TB GOLD PLUS quantiferon mitogen value 1.46 IU/mL Not Available [facility] ([facility]) [address] [place], [address], 08/22/2023 20:35:53 08/28/19 24 08/29/2023 UA WITH CULTU RE REFLE X specific gravity 1.026 1.005- 1.030 Not Available [facility] ([facility]) [address] [place], [address], 08/29/2023 12:36:45 08/28/19 24 08/29/2023 UA WITH CULTU RE REFLE X pH 5.5 5.0-7. 5 Not Available [facility] ([facility]) [address] [place], [address], 08/29/2023 12:36:45 08/28/19 24 08/29/2023 UA WITH CULTU RE REFLE X urine-color YELLOW yellow Not Available [facility] ([facility]) [address] [place], [address], 08/29/2023 12:36:45 08/28/19 24 08/29/2023 UA WITH CULTU RE REFLE X appearance CLEAR clear Not Available [facility] ([facility]) [address] [place], [address], 08/29/2023 12:36:45 08/28/19 24 08/29/2023 UA WITH CULTU RE REFLE X WBC esterase NEGATI VE negati ve Not Available [facility] ([facility]) [address], [place], [address], 08/29/2023 12:36:45 08/28/19 24 08/29/2023 UA WITH CULTU RE REFLE X protein TRACE negati ve/tra ce Not Available [facility] ([facility]) [address], [place], [address], 08/29/2023 12:36:45 08/28/19 24 08/29/2023 UA WITH CULTU RE REFLE X glucose NEGATI VE negati ve Not Available [facility] ([facility]) [address] [place], [address], 08/29/2023 12:36:45 08/28/19 24 08/29/2023 UA WITH CULTU RE REFLE X ketones TRACE negati ve abnormal Not Available [facility] ([facility]) [address], [place], [address], 08/29/2023 12:36:45 08/28/19 24 08/29/2023 UA WITH CULTU RE REFLE X occult blood NEGATI VE negati ve Not Available [facility] ([facility]) [address] [place], [address], 08/29/2023 12:36:45 08/28/19 24 08/29/2023 UA WITH CULTU RE REFLE X bilirubin NEGATI VE negati ve Not Available [facility] ([facility]) [address] [place], [address], 08/29/2023 12:36:45 08/28/19 24 08/29/2023 UA WITH CULTU RE REFLE X urobilinogen ,semi-qn 0.2 mg/dL 0.2-1. 0 Not Available [facility] ([facility]) [address] [place], [address], 08/29/2023 12:36:45 08/28/19 24 08/29/2023 UA WITH CULTU RE REFLE X nitrite, urine NEGATI VE negati ve Not Available [facility] ([facility]) [address] [place], [address], 08/29/2023 12:36:45 08/28/19 24 08/29/2023 UA WITH CULTU RE REFLE X microscopic examination COMMEN T Micro scopi c not indic ated and not perfo rmed. Not Available [facility] ([facility]) [address] [place], [address], 08/29/2023 12:36:45 08/28/19 24 08/29/2023 UA WITH CULTU RE REFLE X urinalysis reflex COMMEN T This speci men will not refle x to a Urine Cultu re. Not Available [facility] ([facility]) [address] [place], [address], 08/29/2023 12:36:45 04/13/19 25 04/14/2024 RENAL PANEL (10) glucose 55 mg/dL 70-99 below low normal Not Available [facility] ([facility]) [address] [place], [address], 04/14/2024 13:07:11 04/13/19 25 04/14/2024 RENAL PANEL (10) BUN 30 mg/dL 8-27 above high normal Not Available [facility] ([facility]) [address] [place], [address], 04/14/2024 13:07:11 04/13/19 25 04/14/2024 RENAL PANEL (10) creatinine 1.18 mg/dL 0.57-1 .00 above high normal Not Available [facility] ([facility]) [address] [place], [address], 04/14/2024 13:07:11 04/13/19 25 04/14/2024 RENAL PANEL (10) eGFR 47 mL/mi n/1.7 3 >59 below low normal Not Available [facility] ([facility]) [address] [place], [address], 04/14/2024 13:07:11 04/13/19 25 04/14/2024 RENAL PANEL (10) BUN/creatini ne ratio 12-28 Not Available [facility] ([facility]) [address] [place], [address], 04/14/2024 13:07:11 04/13/19 25 04/14/2024 RENAL PANEL (10) sodium 138 mmol/ L 134-14 4 Not Available [facility] ([facility]) [address] [place], [address], 04/14/2024 13:07:11 04/13/19 25 04/14/2024 RENAL PANEL (10) potassium 4.9 mmol/ L 3.5-5. 2 Not Available [facility] ([facility]) [address] [place], [address], 04/14/2024 13:07:11 04/13/19 25 04/14/2024 RENAL PANEL (10) chloride 99 mmol/ L 96-106 Not Available [facility] ([facility]) [address] [place], [address], 04/14/2024 13:07:11 04/13/19 25 04/14/2024 RENAL PANEL (10) carbon dioxide, total 30 mmol/ L 20-29 above high normal Not Available [facility] ([facility]) [address] [place], [address], 04/14/2024 13:07:11 04/13/19 25 04/14/2024 RENAL PANEL (10) calcium 9.6 mg/dL 8.7-10 .3 Not Available [facility] ([facility]) [address], [place], [address], 04/14/2024 13:07:11 04/13/19 25 04/14/2024 RENAL PANEL (10) phosphorus 3.7 mg/dL 3.0-4. 3 Not Available [facility] ([facility]) [address], [place], [address], 04/14/2024 13:07:11 04/13/19 25 04/14/2024 RENAL PANEL (10) albumin 4.1 g/dL 3.8-4. 8 Not Available [facility] ([facility]) [address], [place], [address], 04/14/2024 13:07:11 04/13/19 25 04/14/2024 PROT+ CREAT U (RAND OM) creatinine, urine 91.8 mg/dL notest ab. Not Available [facility] ([facility]) [address], [place], [address], 04/14/2024 13:07:12 04/13/19 25 04/14/2024 PROT+ CREAT U ([facility]AND OM) protein,tota l,urine 12.8 mg/dL notest ab. Not Available [facility] ([facility]) [address], [place], [address], 04/14/2024 13:07:12 04/13/19 25 04/14/2024 PROT+ CREAT U (RAND OM) protein/crea t ratio 139 mg/g_ creat 0-200 Not Available [facility] ([facility]) [address], [place], [address], 04/14/2024 13:07:12 04/13/19 25 04/13/2024 CBC WITH DIFFE RENTI AL/PL ATELE T WBC 4.9 x10e3 /uL 3.4-10 .8 Not Available [facility] ([facility]) [address], [place], [address], 04/14/2024 13:07:12 04/13/19 25 04/13/2024 CBC WITH DIFFE RENTI AL/PL ATELE T RBC 5.14 x10e6 /uL 3.77-5 .28 Not Available [facility] ([facility]) [address], [place], [address], 04/14/2024 13:07:12 04/13/19 25 04/13/2024 CBC WITH DIFFE RENTI AL/PL ATELE T hemoglobin 14.3 g/dL 11.1-1 5.9 Not Available [facility] ([facility]) [address], [place], [address], 04/14/2024 13:07:12 04/13/19 25 04/13/2024 CBC WITH DIFFE RENTI AL/PL ATELE T hematocrit 46.2 % 34.0-4 6.6 Not Available [facility] ([facility]) [address] [place], [address], 04/14/2024 13:07:12 04/13/19 25 04/13/2024 CBC WITH DIFFE RENTI AL/PL ATELE T MCV 90 fL 79-97 Not Available [facility] ([facility]) [address] [place], [address], 04/14/2024 13:07:12 04/13/19 25 04/13/2024 CBC WITH DIFFE RENTI AL/PL ATELE T MCH 27.8 pg 26.6-3 3.0 Not Available [facility] ([facility]) [address] [place], [address], 04/14/2024 13:07:12 04/13/19 25 04/13/2024 CBC WITH DIFFE RENTI AL/PL ATELE T MCHC 31.0 g/dL 31.5-3 5.7 below low normal Not Available [facility] ([facility]) [address], [place], [address], 04/14/2024 13:07:12 04/13/19 25 04/13/2024 CBC WITH DIFFE RENTI AL/PL ATELE T RDW 14.1 % 11.7-1 5.4 Not Available [facility] ([facility]) [address], [place], [address], 04/14/2024 13:07:12 04/13/19 25 04/13/2024 CBC WITH DIFFE RENTI AL/PL ATELE T platelets 230 x10e3 /uL 150-45 0 Not Available [facility] ([facility]) [address], [place], [address], 04/14/2024 13:07:12 04/13/19 25 04/13/2024 CBC WITH DIFFE RENTI AL/PL ATELE T neutrophils 74 % notest ab. Not Available [facility] ([facility]) [address], [place], [address], 04/14/2024 13:07:12 04/13/19 25 04/13/2024 CBC WITH DIFFE RENTI AL/PL ATELE T lymphs 15 % notest ab. Not Available [facility] ([facility]) [address], [place], [address], 04/14/2024 13:07:12 04/13/19 25 04/13/2024 CBC WITH DIFFE RENTI AL/PL ATELE T monocytes 9 % notest ab. Not Available [facility] ([facility]) [address], [place], [address], 04/14/2024 13:07:12 04/13/19 25 04/13/2024 CBC WITH DIFFE RENTI AL/PL ATELE T eos 1 % notest ab. Not Available [facility] ([facility]) [address], [place], [address], 04/14/2024 13:07:12 04/13/19 25 04/13/2024 CBC WITH DIFFE RENTI AL/PL ATELE T basos 1 % notest ab. Not Available [facility] ([facility]) [address], [place], [address], 04/14/2024 13:07:12 04/13/19 25 04/13/2024 CBC WITH DIFFE RENTI AL/PL ATELE T neutrophils (absolute) 3.6 x10e3 /uL 1.4-7. 0 Not Available [facility] ([facility]) [address], [place], [address], 04/14/2024 13:07:12 04/13/19 25 04/13/2024 CBC WITH DIFFE RENTI AL/PL ATELE T lymphs (absolute) 0.7 x10e3 /uL 0.7-3. 1 Not Available [facility] ([facility]) [address], [place], [address], 04/14/2024 13:07:12 04/13/19 25 04/13/2024 CBC WITH DIFFE RENTI AL/PL ATELE T monocytes(ab solute) 0.4 x10e3 /uL 0.1-0. 9 Not Available [facility] ([facility]) [address], [place], [address], 04/14/2024 13:07:12 04/13/19 25 04/13/2024 CBC WITH DIFFE RENTI AL/PL ATELE T eos (absolute) 0.1 x10e3 /uL 0.0-0. 4 Not Available [facility] ([facility]) [address], [place], [address], 04/14/2024 13:07:12 04/13/19 25 04/13/2024 CBC WITH DIFFE RENTI AL/PL ATELE T baso (absolute) 0.0 x10e3 /uL 0.0-0. 2 Not Available [facility] ([facility]) [address], [place], [address], 04/14/2024 13:07:12 04/13/19 25 04/13/2024 CBC WITH DIFFE RENTI AL/PL ATELE T immature granulocytes 0 % notest ab. Not Available [facility] ([facility]) [address], [place], [address], 04/14/2024 13:07:12 04/13/19 25 04/13/2024 CBC WITH DIFFE RENTI AL/PL ATELE T immature grans (abs) 0.0 x10e3 /uL 0.0-0. 1 Not Available [facility] ([facility]) [address], [place], [address], 04/14/2024 13:07:12 04/13/19 25 04/14/2024 PTH, INTAC T PTH, intact 24 pg/mL 15-65 Not Available [facility] ([facility]) [address], [place], [address], 04/14/2024 13:07:13 06/05/19 25 06/04/2024 Drugs ident ified in Urine by Adarsh armas amphetamines [presence] in urine Negati ve normal Not Available Not Available 00:18:13 06/05/19 25 06/04/2024 Drugs ident ified in Urine by Adarsh armas barbiturates [presence] in urine Negati ve normal Not Available Not Available 00:18:13 06/05/19 25 06/04/2024 Drugs ident ified in Urine by Adarsh armas benzodiazepi ariana [presence] in urine Negati ve normal Not Available Not Available 00:18:13 06/05/19 25 06/04/2024 Drugs ident ified in Urine by Adarsh armas cocaine [presence] in urine Negati ve normal Not Available Not Available 00:18:13 06/05/19 25 06/04/2024 Drugs ident ified in Urine by Scree n metho d Nomin al fentanyl Negati ve normal Not Available Not Available 00:18:13 06/05/19 25 06/04/2024 Drugs ident ified in Urine by Scree n metho d Nomin al methadone [presence] in urine Negati ve normal Not Available Not Available 00:18:13 06/05/19 25 06/04/2024 Drugs ident ified in Urine by Scree n metho d Nomin al opiates [presence] in urine Negati ve normal Not Available Not Available 00:18:13 06/05/19 25 06/04/2024 Drugs ident ified in Urine by Scree n metho d Nomin al oxycodone [presence] in urine Negati ve normal Not Available Not Available 00:18:13 06/05/19 25 06/04/2024 Drugs ident ified in Urine by Scree n metho d Nomin al phencyclidin e [presence] in urine Negati ve normal Not Available Not Available 00:18:13 06/05/19 25 06/04/2024 Drugs ident ified in Urine by Scree n metho d Nomin al cannabinoids [presence] in urine Negati ve normal Not Available Not Available 00:18:13 06/05/19 25 06/04/2024 Urina lysis compl ete W Refle x Cultu re panel - Urine color of urine by auto Straw- colore d urine normal Not Available Not Available 00:18:13 06/05/19 25 06/04/2024 Urina lysis [id number]|2024-07-25 08:12:00|2024-07-25 08:11:00|XMS_ITS|BKG DAEMON|External Medical Summaries|[id number]|" Data Portability Created on: July 25, 2024 Mary Valera .[id number] : 1945 Sex: Female Author Organization [facility] [place], Main Office Address [address] [place] [address] Care Team Providers Care Rnp Name Role Phone CHEN GAVIN Primary Care Provider CHEN GAVIN Referring Provider Assessment Encounter Date Assessment Date Assessment LastModified by Organization Details LastModified Time 07/25/2022 07/25/2022 Potassium being 15 mg q.h.s. bone density mammogram follow-up in 6 weeks [email or web address] Not available 10/25/2022 21:23:24 08/18/2022 08/18/2022 Patient returns status post knee arthroscopy left. She has had a longer recovery. With final East seemingly turning the corner his swelling is going away pain is resolving incision looks clean I think she can be dismissed to normal activity. She has any changes or problems she will call see her back on an as-needed basis. [email or web address] Not available 08/18/2022 11:07:37 09/08/2022 09/08/2022 Continue [...] see her back on an as-needed basis. Not available 09/22/2022 10:32:43 03/16/2023 03/16/2023 Singulair for rhinitis clonidine 0.1 mg daily for systolic blood pressure greater than 170 MRI MRA blood pressure check 1 week [email or web address] Not available 03/16/2023 23:26:01 Plan of Treatment Reminders Order Date Submit Date Provider Last Modified By Organization Details Last Modified Time Details Appointments None recorded. Lab None recorded. Referral None recorded. Procedures None recorded. Surgeries None recorded. Imaging MRI, brain, w/o contrast - no auth required 2023 024 [facility] ([facility] Scheduling), [address] [place], [address], 4 16:19:57 MR, angiogram, brain, w/o contrast - no auth required 2023 [email or web address] [place] [address] ([facility] Call Scheduling), [address] [place], [address], 4 08:04:42 MAMMO, screening, digital, bilateral 2022 023 [facility] ([facility] Call Scheduling), [address] [place], [address], 3 10:25:31 bone density 2022 023 [facility] ([facility] Call Scheduling), [address] [place], [address], 3 10:25:32 Medication Orders Singulair 10 mg tablet 2023 024 [email or web address] [facility] #[id number], [address] [place] [address], [place], [id number], 4 11:15:49 clonidine HCl 0.1 mg tablet 2023 024 [email or web address] [facility] #[id number], [address] [place] [address], [place], [id number], 4 11:15:49 Patient TargetsNo targets recorded. Patient Instructions Encounter Date Encounter Id Patient Instructions Last Modified By Organization Details Last Modified Time 07/25/2022 [id number] dementia rating scale-2* [email or web address] Not available 07/26/2022 14:30:55 alcohol misuse* [email or web address] Not available 07/26/2022 14:30:55 depression screening* [email or web address] Not available 07/26/2022 14:30:55 multi-dimensiona l health assessment questionnaire* [email or web address] Not available 07/26/2022 14:30:55 Personalized Hea lt Plan and Screening Recommendations Advance Directives [...] Abnormal Flag Note LastModifiedBy Organization Detail LastModifiedTime 08/08/1907/31/2022 sleep study , diagn ostic (PROC ) No observ ation record ed. [address], [place], [address], 09/10/2022 14:31:26 06/05/20 23 07/31/2022 sleep study , diagn ostic (PROC ) No observ ation record ed. [facility] [address], [place], [address], 09/10/2022 14:31:07 08/22/19 23 08/21/2022 DEXA, axial skele ton [facility] [address] [place] [address] [phone] [facility] Name: MARY PALMA Access ion #: [id number] Sex: F : 1945 3 Locati on: RAD Attend ing Physic herson: PAVAN GAVIN Orderi ng Physic herson: PAVAN GAVIN Exam Date: 023 [...] e of -0.7. Page 1 of 2 [facility] Name: MARY PALMA Access ion #: [id number] Sex: F : 1945 3 Exam Date: 023 10:39 AM Exam Name: [...] 4:52 PM (CT) Page 2 of [email or web address] [facility] (Imaging) [address] [place], [address], 09/08/2022 11:33:27 08/23/19 23 08/21/2022 scre george breas t yumiko, bilat [facility] [address] [place] [address] [phone] Patid[facility] t Name: MARY PALMA Access ion #: [id number] Sex: F : 1945 3 Locati on: RAD Attend ing Physic herson: PAVAN GAVIN Orderi ng Physic herson: PAVAN GAVIN Exam Date: 10:48 AM Exam Name: MG ARASELI BREAST YUMIKO BILAT Admitt ing Diagno sis(es ): MAMMOG BRE REPORT - FINAL EXAM: MG ARASELI BREAST YUMIKO BILAT HISTOR Y: SCREEN ING [...] rosi ectura l Page 1 of 2 [facility] Tennille carr Name: MARY PALMA Access ion #: [id number] Sex: F : 1945 3 Exam Date: 10:48 AM Exam Name: MG [...] ly [facility] er. A negati ve mammog bre report [...] Dictat ed by: Tahir sweet MD DD: 10:54 AM (CT) DT: 10:54 AM (CT) Page 2 of [id number] (Imaging) [address] [facility], [place], [address], 09/08/2022 11:33:28 03/19/19 24 03/19/2023 MRI, brain , w/o contr ast [facility] [address] [facility] [address], [place] [address] Patien t Name: MARY PALMA Access ion #: [id number] Sex: F : 1945 5 Dictat [...] c ischem ic change s Page 1 [facility] [address] [address] Patien t Name: MARY PALMA Access ion #: [id number] Sex: F : 1945 5 Dictat ed By: Quentin Titus Attend ing Physic herson: MARU REEDER Physic herson: PAVAN GAVIN Exam Date: 2023 14:03 PM Exam Name: MRI BRAIN WO Admitt ing Diagno sis(es ): Electr onical ly Signed by: Quentin Titus at 2023 15:18: 41 PM Page 2 [facility] (Imaging) [address] [place] [address], [facility], 03/19/2023 16:38:22 03/19/19 24 03/19/2023 MR, angio gram, head, w/o contr ast [facility] [place] [phone] Patien t Name: MARY PALMA Access ion #: [id number] Sex: F : 1945 5 Dictat ed By: Shai Mckeon Attend ing Physic herson: PAVAN GAVIN Physic herson: PAVAN GAVIN Exam Date: 2023 14:03 PM Exam Name: MRA HEAD WO Admitt ing Diagno sis(es ): PROCED URE: MRA HEAD WO INDICA TION: Headac he Exam Date: 2:03 PM 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 3D image postpr ocessi ng was perfor [facility] and images were used for interp retati on and report ingLuan DREW GS: MRA head: There is preser krystal enhanc ement within the bilate ral distal internet security specialist al caroti d arteri es. There is preser krystal enhanc ement within the anteri or and middle cerebr al arteri es. There is preser krystal enhanc ement within the verteb ral arteri es, basila r artery , cerebe llar arteri es and nutrition internship ior cerebr al arteri es. There is [...] at 2023 15:44: 15 PM Page 1 [facility] (Imaging) [address] [place], [address], 03/23/2023 09:37:17 04/30/19 24 04/29/2023 CT, angio gram, heart , w/ contr ast No observ ation record ed. [email or web address] [facility] [address] , [place], [address], 05/06/2023 16:40:17 05/04/19 24 04/29/2023 CT, angio gram, heart , w/ contr ast No observ ation record ed. [email or web address] [facility] [address] , [place], [address], 05/06/2023 16:41:23 Result Notes None recorded. Problems Name Problem SNOMED Code Status Onset Date Resolution Date Notes Provider Name and Address Organization Details Recorded Time Pain of left knee joint 0134861364196 07 Active 2022 Not Available [facility] 4 13:55:34 Tear of medial meniscus of knee 387725071 Active 2022 Not Available [facility] 4 13:55:34 Tear of medial meniscus of knee 872819042 Active 2022 Not Available [facility] 4 13:55:34 Anxiety 97410987 Active 2022 Not Available [facility] 4 13:55:34 Obstructiv e sleep apnea syndrome 89939934 Active 2022 Not Available [facility] 4 13:55:34 Acute sinusitis 83828523 Active 2022 Not Available [facility] 4 13:55:34 Rhinitis 46876514 Active 2023 Not Available [facility] 4 13:55:34 Headache 94105498 Active 2023 Not Available [facility] 4 13:55:34 Bilateral osteoarthr itis of knees 3430340904738 07 Active 2022 Not Available [facility] 4 13:55:33 Derangemen t of left knee 6637545288480 9108 Active 2022 Not Available [facility] 4 13:55:34 Pain in right sacroiliac joint 7212156403967 9107 Active 2021 Not Available [facility] 4 13:55:34 Spinal stenosis of lumbar region 11232276 Active 2021 Not Available [facility] 4 13:55:34 Low back pain 826352001 Active 2021 Not Available [facility] 4 13:55:34 Small bowel obstructio n 548133071 Active Not Available [facility] 4 13:55:34 Effusion of joint of left knee 3329283876475 05 Active 2022 Not Available [facility] 4 13:55:34 Acquired trigger finger of right middle finger 4182614976845 05 Active 2021 Not Available [facility] 4 13:55:34 Ingrowing toenail 520447493 Active 2019 Not Available [facility] 4 13:55:34 Unexplaine d weight loss 274248092 Active Not Available [facility] 4 13:55:34 Chronic atrial fibrillati on 589506165 Active 2018 Not Available [facility] 4 13:55:34 Paresthesi a of lower extremity 916885502 Active 2022 Not Available [facility] 4 13:55:34 Atrial fibrillati on 81216254 Active Not Available [facility] 4 13:55:34 Upper respirator y infection 05429522 Active Not Available [facility] 4 13:55:34 Essential hypertensi on 20294332 Active Not Available [facility] 4 13:55:34 Diarrhea 09172711 Active Not Available [facility] 4 13:55:34 Hemorrhoid s 35641159 Active 2022 Not Available [facility] 4 13:55:34 Spinal stenosis in cervical region 06824513 Active 2021 Not Available [facility] 4 13:55:34 Leukopenia 60654002 Active 2021 Not Available [facility] 4 13:55:34 Skin lesion 81930907 Active Not Available [facility] 4 13:55:34 Problem Notes None recorded. Procedures Surgical History Date Name Laterality Status Provider Name and Address Organization Details Recorded Time 023 Medicare Wellness CPT Code, subsequent completed Zina Foster RN [facility] Nulogy [facility] 07/25/2022 12:09:58 023 Knee arthroscopy/surgery completed IVANNA Langston [facility] 07/25/2022 11:50:28 021 EGD completed Not Available [facility] 05/07/2022 03:20:17 019 Cardiac Cath completed Not Available [facility] 05/07/2022 03:20:17 017 Gastrointestinal Surgery completed Not Available [facility] 05/07/2022 03:20:17 014 Most Recent Bone Density completed Not Available [facility] 05/07/2022 03:20:14 010 Date of Last Colonoscopy completed Not Available [facility] 05/07/2022 03:20:14 completed [facility] 05/07/2022 03:20:17 Hysterectomy completed Not Available [facility] 05/07/2022 03:20:17 Excisions - Specify completed Not Available [facility] 05/07/2022 03:20:17 Imaging Results Imaging Date Name Status LastModified by Organiz ation Details LastModified Time 07/31/2022 sleep study, diagnostic (PROC) completed [place] [id number] [facility] [address], [place], [address], 09/10/2022 14:31:26 07/31/2022 sleep study, diagnostic (PROC) completed [facility] [address], [place], [address], 09/10/2022 14:31:07 08/21/2022 DEXA, axial skeleton completed [email or web address] [facility] (Imaging) [address] [place], [address], 09/08/2022 11:33:27 08/21/2022 screening breast yumiko, bilat completed [email or web address] [facility] (Imaging) [address] [place], [address], 09/08/2022 11:33:28 03/19/2023 MRI, brain, w/o contrast completed [facility] (Imaging) [address] [place], [address], 03/19/2023 16:38:22 03/19/2023 MR, angiogram, head, w/o contrast completed [facility] (Imaging) [address] [place], [address], 03/23/2023 09:37:17 04/29/2023 CT, angiogram, heart, w/ contrast completed [email or web address] [facility] [address], [place], [address], 05/06/2023 16:40:17 04/29/2023 CT, angiogram, heart, w/ contrast completed [email or web address] [facility] [address], [place], [address], 05/06/2023 16:41:23 Procedure Notes None recorded. Medical Equipment None Reported. Allergies Allergen ID Allergen Name Allergen Category Reaction Reaction Severity Criticality Documentation Date Start Date Code Code System Note Provider Name and Address Organization Details Recorded Time 6407 Substance with sulfonami de structure and antibacte rial mechanism of action (substanc e) medicatio n Not available Not available Not available 05/07/2022 38643 8003 SNOMED Not Available [facility] 3 03:39:16 6408 Product containin g penicilli n (product) medicatio n Not available Not available Not available 05/07/2022 59113 8001 SNOMED Not Available [facility] 3 03:39:17 6409 penicilli n G Not available Not available Not available Not available 05/07/2022 7980 RxNorm Not Available [facility] 3 03:39:17 Medications Name Sig Start Date [...] mouth once a day for 1 day 05/19 /2023 completed Not Available Not Available Not Available [...] administ ered by the provider 03/[address] [facility]: [phone] 06-26 Not Available Not Available [...] administ ered by the provider 04/[address] [facility]: [phone] 08-23 Not Available Not Available [...]
--- OUTSIDE RECORDS SUMMARY | 2024-07-25 08:12 | XMS_ITS | Clinical Summary ---
Author Organization [facility] Address [address] [place] [address] Care Team Providers Care Risk Lead Name Role Phone Fred Gavin MD Primary Care Provider [phone] Allergies Active Allergy Reactions Criticality Noted Date [...] on file Legal Sex Female 7:15 PM SR. LOGISTICS ANALYST Gender Identity Not on file Sexual Orientation Not on file Obstetrics History Last Filed Vital Signs Vital Sign Reading Time Taken Comments Blood Pressure 138/71 05/13/2023 7:56 AM SR. LOGISTICS ANALYST Pulse 72 05/13/2023 7:56 AM SR. LOGISTICS ANALYST Temperature 36.9 C (98.4 F) 05/13/2023 7:56 AM SR. LOGISTICS ANALYST Respiratory Rate 16 05/13/2023 7:56 AM SR. LOGISTICS ANALYST Oxygen Saturation 97% 05/13/2023 7:56 AM SR. LOGISTICS ANALYST Inhaled Oxygen Concentration - - Weight 64.6 kg (142 lb 8 oz) 05/12/2023 10:32 AM SR. LOGISTICS ANALYST Height 165.1 cm (5' 5 ) 05/12/2023 10:32 AM SR. LOGISTICS ANALYST Body Mass Index 23.71 05/12/2023 10:32 AM SR. LOGISTICS ANALYST Plan of Treatment Health Maintenance Due Date [...] Breast Cancer Screening-Mammogram Discontinued 021 Insurance MEDICARE [facility] [place] [facility] [facility] Advance Directives For more information, please contact: [phone] * Full Code (Latest Code Status on File) Date Activated Date Inactivated Comments 05/05/2019 1:17 PM 05/05/2019 6:23 PM Care Teams Risk Lead Relationship Specialty Start Date End Date Fred Gavin MD PCP - General Internal Medicine 03/25/22
--- OUTSIDE RECORDS SUMMARY | 2024-07-25 08:12 | XMS_ITS | Clinical Summary ---
Author Organization [facility] Address [address] [facility] [place] [address] Care Team Providers Care Naval Gunfire Spotter Name Role Phone Omi Prieto MD Primary Care Provider [phone] Source Comments [facility],non-owned Affiliates and Associated Physician Practices is amultiple site organization consisting of ambulatory clinics and hospital sitesin [place], [place] and [place]. This disclosure is being madepursuant to the Care Everywhere program and may not contain all information available regarding this patient. Last updated 17.[facility] Interface21 Social History Tobacco Use Types Packs/Day Years [...] age to complete this topic Insurance MEDICARE [facility] MEDICARE [facility] [place] [address] Care Teams Naval Gunfire Spotter Relationship Specialty Start Date End Date Omi Prieto MD PCP - General 12/16/18
--- OUTSIDE RECORDS SUMMARY | 2024-07-25 08:12 | XMS_ITS | Continuity of Care Document ---
Author Organization [facility] Address [address] [place] [address] [address] [place] [address] Phone Care Team Providers Care Tugboat Dispatcher Name Role Phone Mantilla OD, Duane Unavailable Unavailable Advance Directives Directive Yes / No Effective Date File Name No Information Encounters Encounter Description Practice Location Reason(s) For Visit Diagnoses Date Provider Providers Copied on Encounter [facility], [id number] [place] [address] [address], [place], [place], [id number], [place] tel:[phone] SEC [facility] No Information 0-200 1 Mantilla OD Duane. [address] [facility] [address] , [address], [place], [address], [place]. tel:[phone] Family History Family Member Type Diagnosis Age [...]
--- OUTSIDE RECORDS SUMMARY | 2024-07-25 08:12 | XMS_ITS | Encounter Summary ---
Author Organization [facility] Address [address] [facility] [place] [address] Care Team Providers Care Corrections Officer Name Role Phone Omi Prieto MD Primary Care Provider [phone] Encounter Details Date Type Department Care Team (Late st Contact Info) Description 12/17/2018 Lab Requisition [facility] [address] [facility] [place] [address] Ellie Guzman DO [address] [facility] [address] [place] [address] Social History Tobacco Use Types Packs/Day Years [...] AM CDT) Case Report Dermatopathology Report Case: [id number] Authorizing Provider: Ellie Guzman DO Collected: 12/16/2018 12:00 AM Ordering Location: [facility] Received: 12/17/2018 12:40 PM [...] SITU (NGO'S DISEASE) (D04.71) 9 9:35 AM [facility] Clinical History A-B: Nevus R/O atypia. C: ISK R/O NMSC. 9 9:35 AM [facility] Gross Description Specimen A: Received is one formalin filled container labeled with the patient's name and designated right forearm. The specimen consists of a shave biopsy measuring 1m6e3lm. Jar 0. Specimen B: Received is one formalin filled container labeled with the patient's name and designated left back. The specimen consists of a shave biopsy measuring 9b7e4on. Jar 0. Specimen C: Received is one formalin filled container labeled with the patient's name and designated right lateral thigh. The specimen consists of a shave biopsy measuring 94x19s9gr. Jar 0. 9 9:35 AM [facility] Microscopic Description Specimen A. SKIN, [...] by the Dermatopathology Laboratory at [facility], directed by Dr. Cole Rascon. These tests need not be, and therefore are not, approved by the [place] Food and Drug Administration. The tests are used for clinical purposes. Billing Codes Specimen Charges Stain Charges 34911 66787 65380 1 1 1 25587 79890 1 1 9:35 AM CDT DERMATOPATHOLOGY LABORATORY [...] - PATHOLOGY/CYTOLOGY ORDERABLES Final Result DERMATOPATHOLOGY LABORATORY [facility] - Department of Dermatology [address] [place] [address] [address] [phone] documented in this encounter Visit Diagnoses Not on filedocumented in this encounter Care Teams Corrections Officer Relationship Specialty Start Date End Date Omi Prieto MD PCP - General 12/16/18 documented as of this encounter
--- OUTSIDE RECORDS SUMMARY | 2024-07-25 08:12 | XMS_ITS | CONTINUITY OF CARE DOCUMENT ---
Author Name srinivas espino Address Unknown Organization [facility] Address [address] [address] [place] [address] Phone [phone] Care Team Providers Care Photocomposition Keyboard Operator Name Role Phone Bhupinder YAÑEZ, Nolberto Unavailable [phone] THANG YAÑEZ, CLAY Hayes Unavailable MARU YAÑEZ, CHEN Randle Unavailable PROBLEMS Condition Status Date Provider Notes SIMON active Nolberto Roe MD Hypertension active ? Nolberto Roe MD Afib - s/p CV in SR active Nolberto Pacheco Shortness of breath active Nolberto Pacheco Fatigue active Nolberto Roe MD Chest pain - nml cath 07/2018 active Lara Roe MD Hyperkalemia active Nolberto Roe MD Swelling of bilateral legs active Jacob Kyt e Headaches active Jacob Kyte Bowel obstruction s/p multiple surgeries active 11/15 Nolberto Roe MD Neck pain active Jacob Santos Spinal stenosis active Nolberto Roe MD Leg pain, bilateral active Nolberto Pacheco Venous insufficiency active Nolberto Roe MD Claudication active Nolberto Roe MD Neuropathy active Nolberto Roe MD Daytime hypersomnia active Nolberto Pacheco Preoperative cardiovascular examination active Nolberto Roe MD Insomnia active Nolberto Roe MD Diaphoresis active Joaquin Lo ENCOUNTERS Date Type Provider Location Encounter Diag nosis - In-person encounter Office Visit Nolberto Roe MD [place] [facility] - In-person encounter Office Visit Nolberto Roe MD [place] [facility] - In-person encounter Office Visit Nolberto Roe MD [place] [facility] - In-person encounter Office Visit Nolberto Roe MD [facility] - In-person encounter Office Visit Brandon Jackson MD [place] [facility] - In-person encounter Office Visit Brandon Jackson MD [facility] - In-person encounter Office Visit Nolberto Roe MD [place] [facility] - In-person encounter Office Visit Nolberto Roe MD [place] [facility] - In-person encounter Office Visit Nolberto Roe MD [facility] Diaphoresis - In-person encounter Office Visit Bryan Carmona MD [facility] - In-person encounter Office Visit Bryan Camrona MD [facility] - In-person encounter Office Visit Bryan Carmona MD [facility] - In-person encounter Office Visit Nolberto Roe MD [facility] - In-person encounter Office Visit Nolberto Roe MD [facility] - In-person encounter Office Visit Nolberto Roe MD [facility] - In-person encounter Office Visit Nolberto Roe MD [facility] Insomnia - In-person encounter Office Visit Nolberto Roe MD [facility] Daytime hypersomniaPreoperative cardiovascular examination - In-person encounter Office Visit Nolberto Roe MD [place] [facility] Venous insufficiencyClaudicationNeuropathy - In-person encounter Office Visit Nolberto Roe MD [facility] Leg pain, bilateral - In-person encounter Office Visit Nolberto Roe MD [facility] - In-person encounter Office Visit Nolberto Roe MD [facility] Spinal stenosis - In-person encounter Office Visit Nolberto Roe MD [facility] - In-person encounter Office Visit Nolberto Roe MD [facility] - In-person encounter Office Visit Nolberto Roe MD [facility] - In-person encounter Office Visit Nolberto Roe MD [facility] Neck pain - In-person encounter Office Visit Nolberto Roe MD [facility] Bowel obstruction s/p multiple surgeries - In-person encounter Office Visit Nolberto Roe MD [facility] - In-person encounter Office Visit Nolberto Roe MD [facility] Headaches - In-person encounter Office Visit Nolberto Roe MD [facility] Swelling of bilateral legs - In-person encounter Office Visit Nolberto Roe MD [facility] Afib - s/p CV in SR - In-person encounter Office Visit Nolberto Roe MD [facility] Hyperkalemia - In-person encounter Office Visit Nolberto Roe MD [facility] Chest pain - nml cath 07/2018 - In-person encounter Office Visit Nolberto Roe MD [facility] - In-person encounter Office Visit Nolberto Roe MD [facility] - In-person encounter Office Visit Nolberto Roe MD [facility] Shortness of breathFatigueChest pain - nml cath 07/2018 - In-person encounter Office Visit Nolberto Roe MD [place] HypertensionAfib - s/p CV in SR VITAL SIGNS Date Observation Value Provider height E&M 66 [in_i] Michi Carrion blood pressure, diastolic 100 mm[Hg] Emile Roe MD blood pressure, systolic 202 mm[Hg] Santos Roe MD Body Mass Index (Ratio) 23.08 kg/m2 Tami Roe MD blood pressure, diastolic 80 mm[Hg] Abby ernestocam Jewell blood pressure, systolic 134 mm[Hg] Snow shannanese Jewell oxygen saturation, oximetry 97 % Opalese Jewell pulse rate 66 /min Opalese Jewell respiratory rate E&M 12 /min Opalese Jewell weight E&M 143 [lb_av] Opal Jewell height E&M 66 [in_i] Opal Jewell blood pressure, cuff size regular Abby garcia Best oxygen saturation, oximetry 96 % Jermaine Kathleen RN pulse rate 67 /min Jermaine Kathleen RN blood pressure, diastolic 82 mm[Hg] Tom Hirschs RN blood pressure, systolic 140 mm[Hg] Jermaine Kathleen RN height E&M 66 [in_i] Jermaien Kathleen RN height in centimeters E&M 167.64 cm Tom fay Kathleen RN oxygen saturation, oximetry 97 % Jermaine Kathleen RN respiratory rate E&M 18 /min Jermaine Isbell rks RN pulse rate 62 /min Jermaine Kathleen RN blood pressure, diastolic 86 mm[Hg] Tom fay Kathleen RN blood pressure, systolic 148 mm[Hg] Jermaine Kathleen RN height E&M 66 [in_i] Jermaine Kathleen RN height in centimeters E&M 167.64 cm Tom fay Hirschs RN Body Mass Index (Ratio) 22.59 kg/m2 Tami Roe MD blood pressure, cuff size regular Ke marshai Maikel blood pressure, diastolic 100 mm[Hg] Ke marshai Sanjaynemariana blood pressure, systolic 182 mm[Hg] Wendy ri Maikel oxygen saturation, oximetry 97 % Judy Ko pulse rate 69 /min Judy Shanika lder weight E&M 140 [lb_av] Judy Shanika lder height E&M 66 [in_i] Judy Demie lder blood pressure, diastolic 88 mm[Hg] Tom aponte Kathleen RN blood pressure, systolic 172 mm[Hg] Jermaine Kathlene RN pulse rate 68 /min Jermaine Kathleen RN respiratory rate E&M 20 /min Jermaine campas RN height E&M 66 [in_i] Jermaine Kathleen RN height in centimeters E&M 167.64 cm Tom Kathleen RN Body Mass Index (Ratio) 23.08 kg/m2 Crystal Jackson MD blood pressure, cuff size regular Ke rri Donovanuenenfeld blood pressure, diastolic 102 mm[Hg] Ke rri Gruenenfelder blood pressure, systolic 204 mm[Hg] Wendy ri Maikel oxygen saturation, oximetry 97 % Judy Donovandorothymarlenamanafahad pulse rate 54 /min Judy Asanfe er weight E&M 143 [lb_av] Judy Sanjaynenfe [facility] height E&M 66 [in_i] Judy Asanfe [facility] Body Mass Index (Ratio) 22.76 kg/m2 Crystal Jackson MD blood pressure, cuff size regular Roberto bitha Orozco blood pressure, diastolic 92 mm[Hg] Ta [...] height in centimeters E&M 167.64 cm Ta bitha Orozco Body Mass Index (Ratio) 23.24 kg/m2 Tami Roe MD blood pressure, diastolic 90 mm[Hg] Tom parks Easter blood pressure, systolic 189 mm[Hg] Anh ret pulse rate 58 /min Rene blood pressure, cuff size regular Ja rret respiratory rate E&M 14 /min Rene oxygen saturation, oximetry 98 % weight E&M 144 [lb_av] height E&M 66 [in_i] Rene y Body [...] Suzan Dougherty ham height E&M 66 [in_i] Lloydlia Jeovanny Body Mass Index (Ratio) 23.56 kg/m2 Dez Carmona MD blood pressure, cuff size regular Ke rri Gruenenflornaer blood pressure, diastolic 80 mm[Hg] Ke rri Gruenenfelder blood pressure, systolic 180 mm[Hg] Ker ri Sanjaynemariana oxygen saturation, oximetry 97 % Judy Maikel respiratory rate E&M 12 /min Judy G clifton pulse rate 84 /min Judy Gruenenfe weight E&M 146 [lb_av] Judy Voss height E&M 66 [in_i] Judy Braynfabigail blood pressure, diastolic 90 mm[Hg] Liz nkLogic [...] Body Mass Index (Ratio) 23.24 kg/m2 [facility]oto [facility] blood [facility], diastolic 58 mm[Hg] Liz nkLogic [...] 143 [lb_av] Rene height E&M 66 [in_i] [facility] Body Mass Index (Ratio) 23.24 kg/m2 Tami Roe MD blood pressure, diastolic 76 mm[Hg] Li blood pressure, systolic 155 mm[Hg] Demi blood pressure, cuff size small [facility] blood pressure, diastolic 76 mm[Hg] rret blood pressure, systolic 155 mm[Hg] [facility] pulse rate 58 /min [facility] oxygen saturation, oximetry 96 % [facility] respiratory rate E&M 12 /min Rene weight E&M 144 [lb_av] Rene y height E&M 66 [in_i] [facility] y Body Mass Index (Ratio) 22.76 kg/m2 Tami Roe MD blood pressure, diastolic 81 mm[Hg] Li nkLogic blood pressure, systolic 175 mm[Hg] Demi ic blood pressure, diastolic 81 mm[Hg] Leslie delgado [place] blood pressure, systolic 175 mm[Hg] Jose salome [place] oxygen saturation, oximetry 97 % Maritza [place] pulse rate 50 /min Maritza pacheco weight E&M 141 [lb_av] Maritza Morin respiratory rate E&M 16 /min Heike hayes [place] blood pressure, cuff size large Leslie delgado [place] height E&M 66 [in_i] Maritza Morin junior Body Mass Index (Ratio) 238.53 kg/m2 Soto Tong blood pressure, diastolic 88 mm[Hg] nan Wan [...] respiratory rate E&M 16 /min Piter ie Charlton blood pressure, cuff size small [facility] ephanie [...] Nuha Ramirez height E&M 66 [in_i] Nuha Raimrez respiratory rate E&M 16 /min Nuha duncan blood pressure, diastolic 88 mm[Hg] Leslie edwardslamonte Suarez blood pressure, systolic 167 mm[Hg] Jose mariolamonte Suarez oxygen saturation, oximetry 96 % Maritza Suarez pulse rate 77 /min Maritza pacheco weight E&M 148 [lb_av] Maritza pacheco respiratory rate E&M 16 /min Heike Suarez height E&M 66 [in_i] Maritza pacheco Body Mass Index (Ratio) 23.08 kg/m2 Tami Roe MD blood pressure, cuff size regular Ke rri Donovanuenemariana blood pressure, diastolic 68 mm[Hg] Ke rri Donovanuenemariana blood pressure, systolic 126 mm[Hg] Ker ri Sanjaynemariana oxygen saturation, oximetry 96 % Judy Maikel respiratory rate E&M 14 /min Judy lazo pulse rate 74 /min Judy Sanjaynematilda balderrama weight E&M 143 [lb_av] Judy Sanjaynenfe lder height E&M 66 [in_i] Judy Grdorothynenfe lder Body Mass Index (Ratio) 22.43 kg/m2 Tami Roe MD blood pressure, cuff size regular Ke rri Gruenenfelder blood pressure, diastolic 72 mm[Hg] Ke rri Gruenenfelder blood pressure, systolic 158 mm[Hg] Wendy ri Demielder oxygen saturation, oximetry 98 % Judy Asanfelder respiratory rate E&M 14 /min Judy Dougherty ruenenfelder pulse rate 87 /min Judy Asanfe lder weight E&M 139 [lb_av] Judy Sanjaynenfe lder height E&M 66 [in_i] Judy Grdorothynenfe lder Body Mass Index (Ratio) 24.05 kg/m2 Maggie Titus blood pressure, diastolic 91 mm[Hg] Li nkLogic blood pressure, systolic 159 mm[Hg] Demi kLogic blood pressure, diastolic 91 mm[Hg] Ca therine [place] blood pressure, systolic 159 mm[Hg] Cat herine [place] oxygen saturation, oximetry 93 % Jaimie [place] respiratory rate E&M 16 /min Catheri ne [place] pulse rate 75 /min Jaimie Andrew weight E&M 149 [lb_av] Jaimie [place] blood pressure, cuff size regular Ca therine [place] height E&M 66 [in_i] Jaimie [place] Body Mass Index (Ratio) 23.89 kg/m2 Tami [...] blood pressure, diastolic 70 mm[Hg] Ke rri Gruenenffahad blood pressure, systolic 142 mm[Hg] Wendy ri Maikel oxygen saturation, oximetry 96 % Judy Maikel respiratory rate E&M 16 /min Judy G clifton pulse rate 78 /min Judy Grdorothynemanae er weight E&M 148 [lb_av] Judy Gruenenfe lder height E&M 66 [in_i] Judy Gruenenfe er Body Mass Index (Ratio) 24.24 kg/m2 Alok Santos blood pressure, diastolic 70 mm[Hg] Kashmir Baez blood pressure, systolic 154 mm[Hg] Callie Baez oxygen saturation, oximetry 97 % Shira Baez respiratory rate E&M 16 /min Vicki Baez pulse rate 98 /min Shira farrar weight E&M 150.2 [lb_av] Shira shaw height E&M 66 [in_i] Shira farrar Body Mass Index (Ratio) 23.24 kg/m2 Alok fay Lloydsemaj blood pressure, diastolic 80 mm[Hg] Cy chaim Hayes blood pressure, systolic 129 mm[Hg] Hina carlitos Hayes blood pressure, cuff size regular Cy chaim Hayes oxygen saturation, oximetry 94 % Magaliscarlitos Hayes pulse rate 79 /min Magaliscarlitos Castellanos l respiratory rate E&M 16 /min Magaliscarlitos Hayes weight E&M 144 [lb_av] Magalis Carlosbel l height E&M 66 [in_i] Magaliscarlitos Gonzalezbel l Body Mass Index (Ratio) 26.89 kg/m2 Eleno Bush blood pressure, diastolic 78 mm[Hg] Kashmir Baez blood pressure, systolic 136 mm[Hg] Callie Baez oxygen saturation, oximetry 95 % Shira Baez respiratory rate E&M 18 /min Vicki Baez pulse rate 77 /min Shira Laura nsanna weight E&M 166.6 [lb_av] Shira kwokon height E&M 66 [in_i] Shira Laura on Body Mass Index (Ratio) 23.89 kg/m2 Alok [...] Body Mass Index (Ratio) 23.56 kg/m2 Alok aponte Kyte oxygen saturation, oximetry 96 % Chastity [...] blood pressure, diastolic 77 mm[Hg] Kashmir Lifay FoleyBaez blood pressure, systolic 133 mm[Hg] Callie Carrillo Baez oxygen saturation, oximetry 96 % Shira Foleyenson respiratory rate E&M 18 /min Vicki didi FoleyBaez pulse rate 70 /min Shira Laura josé [...] boogie Rocha oxygen saturation, oximetry 98 % [facility] E&M 16 /min [facility] pulse [facility] 75 /min [facility] weight E&M 145 [lb_av] [facility] height E&M 66 [in_i] Luh Rocha Body Mass Index (Ratio) 23.56 kg/m2 Tami Roe MD blood pressure, diastolic 70 mm[Hg] [facility], systolic 100 mm[Hg] Linda boogie [facility] oxygen saturation, oximetry 97 % [facility] rate E&M 16 /min [facility] pulse rate 72 /min [facility] weight E&M 146 [lb_av] [facility] blood pressure, resting Yes [facility] Rocha height E&M 66 [in_i] [facility] Body Mass Index (Ratio) 23.72 kg/m2 Tami Roe MD blood pressure, cuff size regular Ke [facility]ri [facility] blood pressure, diastolic 98 mm[Hg] Ke rri [facility] blood pressure, systolic 138 mm[Hg] Wendy ri Maikel oxygen saturation, oximetry 97 % Judy Maikel respiratory rate E&M 18 /min Judy shipmanelder pulse rate 86 /min Judy Gruenemanae er weight E&M 147 [lb_av] Judy Gruenenfe [...] blood pressure, diastolic 80 mm[Hg] Da diana Chuckey blood pressure, systolic 138 mm[Hg] Dac ia Bill oxygen saturation, oximetry 96 % Tonie Chuckey respiratory rate E&M 16 /min Tonie V [...] LinkLogic 3.5-5.2 sodium, serum 143 mmol/L LinkLogic [phone]/01/ 16 urea nitrogen/creatinine ratio, serum 20 LinkLogic [...] LinkLogic 3.5-5.2 sodium, serum 143 mmol/L LinkLogic [phone]/09/ 05 urea nitrogen/creatinine ratio, serum 25 LinkLogic [...] LinkLogic 0-149 cholesterol, serum 152 mg/dL LinkLogic [phone]/05/ 24 calcium, serum 9.5 mg/dL LinkLogic 8.7-10.3 carbon dioxide, venous blood 26 mmol/L LinkLogic 20-29 chloride, serum 100 mmol/L LinkLogic 96-106 potassium, serum 5.4 mmol/L LinkLogic 3.5-5.2 High sodium, serum 143 mmol/L LinkLogic [phone]/05/ 24 urea nitrogen/creatinine ratio, serum 21 LinkLogic [...] Not Estab. platelet count 181 X10E3/UL LinkLogic [phone]/05/ 24 red blood cell distribution width 16.3 [...] X10E3/UL LinkLogic 3.4-10.8 HISTORY OF MEDICATION USE [id number]|2024-07-26 11:10:00|2024-07-26 11:10:00|P.NEURO_ITS|NASEERR|Health Information Management|[id number]|"Neurology EEG Report General Information Date of Study: 07/25/24 TEST EEG DIAGNOSIS tremors. CONDITION OF RECORDING Awake, drowsy and asleep. EEG NUMBER [id number] CLINICAL HISTORY Patient reports about 2 months ago he had an episode of whole body tremors that lasted for about 2-1/2 hours in the emergency room she was given Ativan and it stops tremors. Has had no seizures since then. EEG DESCRIPTION Low-voltage 15 to 18 hertz per 2nd beta activity seen during drowsiness evolving into bilateral symmetrical sleep spindles. Photic stimulation produced a normal drive rule . Hyperventilation not done. . Non paroxysmal. Nonfocal. Nonlateralizing. IMPRESSION Normal record. Clinical correlation recommended as the patient can have a normal EEG even with the history of seizure . "
--- OUTSIDE RECORDS SUMMARY | 2024-07-25 08:12 | XMS_ITS | Referral Summary ---
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 Gender Identity Not on file Sexual Orientation Not on file Last Filed Vital Signs Vital Sign Reading Time Taken Comments Blood Pressure 138/71 05/13/2023 7:56 AM FLAG FOOTBALL COACH Pulse 72 05/13/2023 7:56 AM FLAG FOOTBALL COACH Temperature 36.9 C (98.4 F) 05/13/2023 7:56 AM FLAG FOOTBALL COACH Respiratory Rate 16 05/13/2023 7:56 AM FLAG FOOTBALL COACH Oxygen Saturation 97% 05/13/2023 7:56 AM FLAG FOOTBALL COACH Inhaled Oxygen Concentration - - Weight 64.6 kg (142 lb 8 oz) 05/12/2023 10:32 AM FLAG FOOTBALL COACH Height 165.1 cm (5' 5 ) 05/12/2023 10:32 AM FLAG FOOTBALL COACH Body Mass Index 23.71 05/12/2023 10:32 AM FLAG FOOTBALL COACH Plan of Treatment Not on file Insurance [employer] [place] MEDICARE [employer] [place] [employer] [place] [id number] MEDICARE Advance Directives For more information, please contact: [phone] * Full Code (Latest Code Status on File) Date Activated Date Inactivated Comments 05/05/2019 1:17 PM 05/05/2019 6:23 PM Care Teams Tie Binder Relationship Specialty Start Date End Date Fred Gavin MD PCP - General Internal Medicine 03/25/22
--- OUTSIDE RECORDS SUMMARY | 2024-07-25 08:12 | XMS_ITS | Encounter Summary ---
Author Organization [facility] Address [address] [place] [address] Care Team Providers Care Flight Test Engineer Name Role Phone Omi Prieto MD Primary Care Provider [phone] Encounter Details Date Type Department Care Team (Late st Contact Info) Description 08/24/2019 Lab Requisition [facility] DermPath Lab [address] [facility] [facility] [place] [address] Ellie Guzman DO [address] [facility] [address] [place] [address] Social History Tobacco Use Types Packs/Day Years [...] AM CDT) Case Report Dermatopathology Report Case: [id number] Authorizing Provider: Ellie Guzman DO Collected: 08/23/2019 12:00 AM Ordering Location: [facility] Care DermPath Lab Received: 08/24/2019 07:35 AM [...] characteristic determined by the Dermatopathology Laboratory at [facility], directed by Dr. Cole Rascon. These tests need not be, and therefore are not, approved by the [place] Food and Drug Administration. The tests are used for clinical purposes. Billing Codes Specimen Charges Stain Charges 11716 1 0 11:51 AM CDT DERMATOPATHOLOGY LABORATORY Embedded Images 0 11:51 AM CDT DERMATOPATHOLOGY LABORATORY Pathology/Cytolog y TISSUE SPECIMEN FROM SKIN / Unknown 08/23/2019 08/24/2019 7:35 AM CDT Ellie Guzman DO LAB - PATHOLOGY/CYTOLOGY ORDERABLES Final Result DERMATOPATHOLOGY LABORATORY [facility] - Department of Dermatology Institutional Commodity Analyst [place]/[address] [phone] documented in this encounter Visit Diagnoses Not on filedocumented in this encounter Care Teams Flight Test Engineer Relationship Specialty Start Date End Date Omi Prieto MD PCP - General 12/16/18 documented as of this encounter
--- OUTSIDE RECORDS SUMMARY | 2024-07-25 08:12 | XMS_ITS | Encounter Summary ---
Author Organization [facility] Address [address] [place] [address] Care Team Providers Care Mobile Plant Operators Name Role Phone Omi Prieto MD Primary Care Provider [phone] Encounter Details Date Type Department Care Team (Late st Contact Info) Description 02/09/2019 Lab Requisition [facility] DermPath Lab [address] [facility] [facility] [address] Ellie Guzman DO [address] [facility] [address] [place] [address] Social History Tobacco Use Types Packs/Day Years [...] Comments DERMATOPATHOLOGY Routine 02/08/2019 12:0 0 AM LITERACY COACH documented in this encounter Results * DERMATOPATHOLOGY (02/08/2019 12:00 AM LITERACY COACH) Case Report Dermatopathology Report Case: [id number] Authorizing Provider: Ellie Guzman DO Collected: 02/08/2019 12:00 AM Ordering Location: [facility] Care DermPath Lab Received: 02/09/2019 08:22 AM Pathologist: Vane Rascon MD Specimen: Skin, left back 9 3:03 PM LITERACY COACH DERMATOPATHOLOGY LABORATORY Final Diagnosis Specimen A. SKIN, left back: DERMAL SCAR RESIDUAL MELANOCYTIC PROLIFERATION NOT IDENTIFIED (L90.5) 9 3:03 PM LITERACY COACH DERMATOPATHOLOGY LABORATORY Clinical History R/O junctional melanocytic proliferation, bx proven. Previous Bx: [id number]. 3:03 PM [facility] DERMATOPATHOLOGY LABORATORY Gross Description Specimen A: Received is one formalin filled container labeled with the patient's name and designated left back. The specimen consists of an ellipse measuring [id number] and is oriented with the notch at [...] in cassettes 3-4. Jar 0. 3:03 PM [facility] DERMATOPATHOLOGY LABORATORY Microscopic Description Specimen A. SKIN, left back: There are fibroblasts and collagen bundles oriented parallel to the skin surface. There are elongated blood vessels, some of which are oriented perpendicular to the skin surface. No residual melanocytic proliferation is identified. 3:03 PM [facility] DERMATOPATHOLOGY LABORATORY Disclaimer An external and internal positive and negative controls are appropriate for the histochemical, immunohistochemical and immunofluorescence stain(s) in this case (if any), except where stated explicitly. The performance characteristics of the stain(s) cited in this report were developed and its performance characteristic determined by the Dermatopathology Laboratory at [facility], directed by Dr. Cole Rascon. These tests need not be, and therefore are not, approved by the [place] Food and Drug Administration. The tests are used for clinical purposes. Billing Codes Specimen Charges Stain Charges 45743 1 9 3:03 PM [facility] DERMATOPATHOLOGY LABORATORY Embedded Images 3:03 PM [facility] DERMATOPATHOLOGY LABORATORY Pathology/Cytolog y TISSUE SPECIMEN FROM SKIN / Unknown 02/08/2019 02/09/2019 8:22 AM [facility] us Ellie Guzman DO LAB - PATHOLOGY/CYTOLOGY ORDERABLES Final Result DERMATOPATHOLOGY LABORATORY [facility] - Department of Dermatology [address] [facility] Lab [address] [phone] documented in this encounter Visit Diagnoses Not on filedocumented in this encounter Care Teams Mobile Plant Operators Relationship Specialty Start Date End Date Omi Prieto MD PCP - General 12/16/18 documented as of this encounter
--- NOTE | 2024-07-26 11:10 | WPDNEUROLOGY ---
Neurology EEG Report General Information Date of Study: 07/25/24 TEST EEG DIAGNOSIS tremors. CONDITION OF RECORDING Awake, drowsy and asleep. EEG NUMBER [id number] CLINICAL HISTORY Patient reports about 2 months ago he had an episode of whole body tremors that lasted for about 2-1/2 hours in the emergency room she was given Ativan and it stops tremors. Has had no seizures since then. EEG DESCRIPTION Low-voltage 15 to 18 hertz per 2nd beta activity seen during drowsiness evolving into bilateral symmetrical sleep spindles. Photic stimulation produced a normal drive rule . Hyperventilation not done. . Non paroxysmal. Nonfocal. Nonlateralizing. IMPRESSION Normal record. Clinical correlation recommended as the patient can have a normal EEG even with the history of seizure .
== END 2024-07-25 08:06 | disposition home or self-care (01) ==
LOC: ANHNEURO 08:06
PROVIDERS: PCP Internal Medicine; Visit Provider Internal Medicine
DX: R25.1 Tremor, unspecified (principal)
CPT/HCPCS: 95816